=== PATIENT | female | born 1940 | race Caucasian/White ===

== ENCOUNTER 2017-05-21 09:13 | Inpatient (IN) | payer MEDICARE, BC ==
--- NOTE | 2017-05-09 21:57 | HP ---
PREOPERATIVE HISTORY AND PHYSICAL: DATE OF SURGERY: 05/21/17 ATTENDING SURGEON: Marshall Kaur MD * (DICTATED BY FERNANDO CURRAN) PROCEDURE: Left total shoulder reverse. CHIEF COMPLAINT: Left shoulder pain. HISTORY OF PRESENT ILLNESS: Lorena is a 77-year-old female who presents to the clinic for left shoulder pain. She has a history of left shoulder rotator cuff repair that she has failed. She also has severe osteoarthritis. She has failed conservative measures to include steroid injections and and has therefore agreed to undergo a left total shoulder reverse with Dr. Kaur on . PAST MEDICAL HISTORY: Sleep apnea, osteoarthritis, GERD, diabetes type 2, hypertension, neck and back problems, chronic kidney disease stage 4, and presence of a spine stimulator. PAST SURGICAL HISTORY: 1. Cholecystectomy. 2. Hysterectomy. 3. Right knee arthroscopy with medial meniscectomy. 4. Left foot ganglion. 5. Cervical diskectomy and fusion. 6. Low back lumbar instrumentation. 7. Right knee replacement. 8. Left knee replacement. 9. Arthroscopic right knee loose cartilage lesion. 10. Left hand carpal tunnel. 11. Right eye cataract. 12. Left eye cataract. 13. Right hand carpal tunnel. 14. Peroneal tendon repair right ankle. 15. Right knee replacement revision. 16. Herniated disk between C7 and T1. 17. Low back surgery. 18. Posterior fusion C4-T1. 19. Trial neurostimulator in the back. 20. Left shoulder impingement, osteoarthritis, decompression, debridement and rotator cuff repair. 21. Spine neurostimulator. 22. Left and right thumbs and left middle finger. 23. Urethral stretch. 24. Repair C4-C5. 25. Esophagoscope. 26. Barium swallow. 27. Esophagus stretch. 28. Surgery on low back. MEDICATIONS: 1. Lidoderm 5% 1 apply to the affected area, 12 hours on and 12 hours off. 2. Bacitracin 500 units/g apply one 0.25-inch strip to right eyelid 3 times a day for 1 week. 3. Labetalol 100 mg 1 and 0.5 tablets in the a.m. and p.m. 4. Lantus 18 mg a.m. and 18 units in the p.m. 5. Humalog as directed at lunch and suppertime. 6. Multivitamins 1 by mouth every day. 7. Aspirin 81 mg 1 by mouth twice a day. 8. Systane 0.4/0.3% 1 drop in each eye morning and night. 8. Triamcinolone 0.1% apply as directed for rash on legs. 9. Cortisone 10 1% apply to the area of her rash from clonidine patch. 10. Magnesium oxide 400 mg 1 by mouth twice a day. 11. Clonidine HCl 0.1 mg for 24 hours 1 to skin every week. 12. Bumetanide 1 mg 1 tab daily. 13. Fluticasone propionate 2 sprays each nostril daily. 14. Nexium 40 mg 1 by mouth twice a day. 15. Amlodipine besylate 5 mg 0.5 tab by mouth twice a day. 16. Pravastatin sodium 10 mg 1 by mouth daily. 17. Calcitriol 0.25 mcg take 1 capsule every day. ALLERGIES: MORPHINE, DILAUDID, PENICILLIN, PERCOCET, XIFAXAN, LISINOPRIL, LOSARTAN, and GABAPENTIN. FAMILY HISTORY: Positive for heart disease and cancer. SOCIAL HISTORY: The patient lives alone. She denies tobacco, alcohol use or illegal drug use. REVIEW OF SYSTEMS: A 14-point review of systems was reviewed with the patient. Positive for hypertension and GERD and current complaint. She also bruises easily, otherwise negative. She denies history of chest pain, shortness of breath, history of bleeding disorder, history of DVT or PE. PHYSICAL EXAMINATION GENERAL: Well-developed, well-nourished 77-year-old female, in no acute distress. Alert and oriented x3. Appropriate mood and affect. VITAL SIGNS: Height 60, weight 163. Pulse 73, blood pressure 145/69, temperature 97.4. BMI 31.8. HEENT: Normocephalic and atraumatic. PERRLA. Throat clear. NECK: Supple. PULMONARY: Lungs are clear to auscultation bilaterally. No wheezing, rhonchi, or rales. CARDIAC: Regular rate and rhythm. S1 and S2. No murmurs, gallops, or rubs. No edema. ABDOMEN: Positive bowel sounds, soft, nontender. NEUROLOGIC: Alert and oriented x3. Cranial nerves grossly intact. Sensation intact to light touch. MUSCULOSKELETAL: Left upper extremity - skin is intact. No warmth or erythema. Limited range of motion. Passive forward flexion to 110 degrees, abduction 45 degrees with significant pain, external rotation to 20 degrees. Pain and weakness to rotator cuff testing. +2 radial pulse. Sensation is intact to light touch distally. Well-healed surgical incision. STUDIES: Multiple-view x-rays of the left shoulder reveal severe osteoarthritis. IMPRESSION: Left shoulder rotator cuff tear and osteoarthritis. PLAN: The patient is scheduled to undergo a left total shoulder reverse with Dr. Kaur on 05/21/17. She will return to the clinic 10 to 14 days postop for followup and suture removal. Percocet will be used for postop pain management. The surgery is pending PCP clearance. She has been cleared by Cardiology. FERNANDO CURRAN [id number]/[facility] #: [id number] MTDYong
[~2017-05-21 09:13] MED LIST: Atracurium* 10 MG/ML 10 ML VIAL ONE; Buffered Lidocaine 0.9% SYRIN* 5 ML/SYR SYRINGE INTRADERM ONE; Famotidine IV* 10 MG/ML 2 ML (20 mg) IV ONE; KETAMINE HCL* 50 MG/ML 10 ML VIAL ONE; Midazolam* 1 MG/ML 5 ML VIAL (5 MG) ONE; PROCHLORPERAZINE INJ 5 MG/ML 2 ML VIAL IV PRN; Scopolamine 1.5 mg* PATCH TRANSDERM PRN; fentaNYL* 50 MCG/ML 2 ML VIAL (100 MCG VIAL) IV PRN; fentaNYL* 50 MCG/ML 2 ML VIAL (100 MCG VIAL) ONE; oxyCODONE/Acetamin 5/325 MG* TAB PO PRN
[2017-05-21] MEDS ORDERED: Clindamycin 900 MG IVPREMIX(* 900 MG/50 ML SDV IV ONE (09:53)
[2017-05-21] MEDS ORDERED: Buffered Lidocaine 0.9% SYRIN* 5 ML/SYR SYRINGE ONE (09:53)
[2017-05-21] MEDS ORDERED: Famotidine IV* 10 MG/ML 2 ML (20 mg) ONE (09:53)
[2017-05-21] MEDS ORDERED: Bupivacaine 0.25% SDV* 30 ML ONE (12:38)
[2017-05-21] MEDS ORDERED: PROCHLORPERAZINE INJ 5 MG/ML 2 ML VIAL ONE (12:38)
[2017-05-21] MEDS ORDERED: Lidocaine 2% PF * 5 ML VIAL ONE (12:38)
[2017-05-21] MEDS ORDERED: EPHEDrine (Pressors)* 50 MG/ML VIAL ONE (12:38)
[2017-05-21] MEDS ORDERED: Phenylephrine INJ* 10 MG/ML 1 ML VIAL (10 MG) ONE (12:38)
[2017-05-21] MEDS ORDERED: Propofol* 10 MG/ML 20 ML BTL IV PUSH ONE (12:38)
[2017-05-21] MEDS ORDERED: Ondansetron INJ* 2 MG/ML VIAL ONE (12:38)
[2017-05-21] MEDS ORDERED: fentaNYL* 50 MCG/ML 2 ML VIAL (100 MCG VIAL) ONE (13:13)
[2017-05-21] MEDS ORDERED: Polyethylene Glycol 3350* 17 GM PACKET PO PRN (13:37)
[2017-05-21] MEDS ORDERED: diPHENhydraMINE IV* 50 MG/ML 1 ml VIAL (BENADRYL) IV PRN (13:37)
[2017-05-21] MEDS ORDERED: Ondansetron INJ* 2 MG/ML VIAL IV PRN (13:37)
[2017-05-21] MEDS ORDERED: Bisacodyl SUPP* 10 MG SUPP PR PRN (13:37)
[2017-05-21] MEDS ORDERED: Magnesium Hydroxide LIQ* 30 ML UDC PO PRN (13:37)
[2017-05-21] MEDS ORDERED: Temazepam CAP* 15 MG PO PRN (13:37)
[2017-05-21] MEDS ORDERED: Hydrocortisone 1% CREAM* 30 GM TUBE TOPICAL PRN (13:48)
[2017-05-21] MEDS ORDERED: Triamcinolone 0.025% OINT * 15 GM TUBE TOPICAL PRN (13:48)
[2017-05-21] MEDS ORDERED: HYDROcodone/ACETAMIN 5-325 MG* 1 TAB PO PRN (13:51)
--- NOTE | 2017-05-21 14:20 | RAD ---
HISTORY: Postop COMPARISONS: CT dated May 06, 2015 VIEWS: 4, Frontal internal rotation, external rotation, outlet, and axillary views of the left shoulder FINDINGS: BONE DENSITY: Normal. BONES: The patient is status post left shoulder arthroplasty. There is no hardware failure or osteolysis. JOINTS: The patient is status post left shoulder arthroplasty ALIGNMENT: There is no dislocation. SOFT TISSUES: There is postsurgical change to the soft tissue OTHER FINDINGS: None. IMPRESSION: STATUS POST LEFT SHOULDER ARTHROPLASTY
[2017-05-21] MEDS ORDERED: Dextrose 50% Syringe 50 ML* 25 GM/50 ML SYRINGE IV PUSH PRN (16:08)
[2017-05-21] MEDS: Insulin LISPRO* 1 UNITS UNIT SUBCUT SCH (17:19)
[2017-05-21] MEDS ORDERED: Labetalol TAB* 100 MG PO SCH (21:00)
[2017-05-21] MEDS: Calcitriol CAP* 0.25 MCG PO SCH (21:12)
[2017-05-21] MEDS: Clindamycin 600 MG IVPREMIX(* 600 MG/50 ML SDV IV SCH (21:12)
[2017-05-21] MEDS: Omeprazole CAP* 20 MG PO SCH (21:12)
[2017-05-21] MEDS: CMCS Pravastatin (NF) 20 MG TAB PO SCH (21:12)
[2017-05-21] MEDS: Magnesium Oxide TAB* 400 MG PO SCH (21:12)
[2017-05-21] MEDS: Docusate CAP* 100 MG PO SCH (21:12)
[2017-05-21] MEDS: Labetalol TAB* 100 MG PO SCH (21:13)
[2017-05-21] MEDS: amLODIPine TAB* 5 MG PO SCH (21:14)
[2017-05-21] MEDS: Insulin GLARGINE(*) 1 UNITS UNIT SUBCUT SCH (22:05)
--- NOTE | 2017-05-22 00:02 | CONS ---
CC: Dr. Snell; Dr. Kaur * CONSULTATION REPORT: DATE OF ADMISSION: 05/21/17 DATE OF CONSULTATION: 05/21/17 PRIMARY CARE PROVIDER: Dr. Kristofer Snell. ATTENDING PHYSICIAN: Dr. Edu Colon (dictated by Edwina Sandoval NP). PHYSICIAN REQUESTING CONSULTATION: Dr. Marshall Kaur. REASON FOR CONSULTATION: Co-medical management in a patient with a history of sleep apnea, hypertension, diabetes mellitus type 2, and chronic kidney disease. HISTORY OF PRESENT ILLNESS: Ms. Wilkes is a 77-year-old female with past medical history significant for obstructive sleep apnea, osteoarthritis, GERD, diabetes mellitus type 2, hypertension, chronic neck and back problems, chronic kidney disease stage 4, who presents to the hospital today for an elective left reverse total shoulder replacement with Dr. Kaur. Prior to surgery today, the patient states that she has been in her usual state of health. She denies any recent fever, chills, shortness of breath, chest pain, nausea, vomiting, diarrhea, or other cold symptoms. She denies any urinary symptoms. Presently while in the PACU, the patient denies any pain or nausea. The Hospitalists were asked to assist with the co-medical management of this patient during her hospitalization. PAST MEDICAL HISTORY: 1. Obstructive sleep apnea. 2. Osteoarthritis. 3. GERD. 4. Diabetes mellitus, type 2. 5. Hypertension. 6. Chronic neck and back problems. 7. Chronic kidney disease, stage 4. PAST SURGICAL HISTORY: 1. Status post cholecystectomy in 1981. 2. Status post hysterectomy in 1983. 3. Status post right knee arthroscopy with medial meniscectomy. 4. Status post left foot ganglion cyst excision. 5. Status post cervical diskectomy and fusion in 2000. 6. Status post lower back lumbar instrumentation in 2001. 7. Status post right total knee replacement in 2003. 8. Status post left total knee replacement in 2003. 9. Status post right knee arthroscopy in 2005. 10. Status post left carpal tunnel release in 2006. 11. Status post bilateral cataract extractions in 2007. 12. Status post right hand carpal tunnel release in 2007. 13. Status post peroneal tendon repair of the right ankle in 2008. 14. Status post revision of right total knee arthroplasty in 2009. 15. Status post excision of herniated disks between C7 and T1 in 2011. 16. Status post low back surgery in 2011. 17. Status post posterior fusion of C4 to T1 in 2012. 18. Status post neurostimulator insertion in the back in 2014. 19. Status post left shoulder impingement decompression, debridement and rotator cuff repair in 2014. 20. Status post ureteral stretching in 2016. 21. Status post repair between C4 and C5 in 2015. HOME MEDICATIONS: Include: 1. Lidoderm patch 5% apply topical for 12 hours and remove for 12 hours. 2. Labetalol 150 mg oral twice daily. 3. Lantus 18 units twice daily. 4. Humalog insulin sliding scale subcutaneous with meals. For glucose 150-200 , 1 unit; 201-250, 3 units; 251-300, 5 units; 301-350, 7 units; greater than 350 , call MD. 5. Multivitamin 1 tablet oral daily. 6. Aspirin 81 mg oral twice daily. 7. Systane eye drop 0.4/0.3% one drop to each eye 3 times daily. 8. Triamcinolone 0.1% apply topical as needed to rash on legs. 9. Hydrocortisone 1% apply topical daily as needed for rash from clonidine patch. 10. Magnesium oxide 400 mg oral twice daily. 11. Clonidine 0.1 mg patch transdermal weekly. 12. Bumetanide 1 mg oral daily. 13. Fluticasone propionate 2 sprays to both nares daily. 14. Nexium 40 mg oral twice daily. 15. Amlodipine 2.5 mg oral twice daily. 16. Pravastatin 10 mg daily at bedtime. 17. Calcitriol 0.25 mcg oral daily. 18. Benadryl 25 mg oral daily at bedtime. ALLERGIES: MORPHINE, DILAUDID, PENICILLIN, PERCOCET, XIFAXAN, LISINOPRIL, LOSARTAN, GABAPENTIN. FAMILY HISTORY: The patient's sister had history of amyloidosis of the heart and maternal grandmother with history of a myocardial infarction. The patient denies any family history of diabetes mellitus. The patient's father had a history of lung cancer and leukemia. The patient's mother had a history of brain tumor. SOCIAL HISTORY: The patient denies tobacco, alcohol, or recreational drug use. She lives alone. Her daughter, Lorena Ryan, will be her surrogate decision maker in the event she is unable to make decisions for herself. REVIEW OF SYSTEMS: I performed a 14-point review of systems. All the pertinent positives and negatives are mentioned in the history of present illness. Remaining review of systems are negative. PHYSICAL EXAMINATION: Vital Signs: Temperature 97.2, heart rate 65, respiratory rate 16, O2 sat 97% on room air, blood pressure 136/59. General Appearance: The patient is alert and pleasant, appears to be in no acute distress. HEENT: Normocephalic, atraumatic. Respiratory: There is no accessory muscle use and lungs are clear to auscultation bilaterally. Cardiovascular: Regular rate and rhythm. S1 and S2 present. There are no murmurs, rubs, gallops heard. Abdomen: Soft, nontender, nondistended. Bowel sounds present x4. Extremities: There is no lower extremity edema. DP and PT pulses are 2+ and symmetric. Musculoskeletal: There is no clubbing or cyanosis noted. The patient exhibits good strength in all extremities. Neurological: The patient is alert and oriented x4. Cranial nerves II through XII are grossly intact. Psychological: The patient is calm and cooperative. Skin: There are no rashes or abnormality seen. The patient has a dressing to her left shoulder, it is clean, dry, and intact with a Hemovac draining serosanguineous drainage. DIAGNOSTIC STUDIES/LABORATORY DATA: Preoperative labs from 05/09/17, sodium 139 , potassium 4.3, chloride 104, CO2 30, BUN 60, creatinine 3.64, glucose 51. TSH 1.65. White blood cell count 6.4, hemoglobin 9.6, hematocrit 29, platelet count 175. Urine culture with no growth. Preoperative EKG shows a normal sinus rhythm with a rate of 64, no acute signs of ischemia. IMPRESSION: Ms. Wilkes is a 77-year-old female with past medical history significant for obstructive sleep apnea, osteoarthritis, gastroesophageal reflux disease, diabetes type 2, hypertension, chronic neck and back problems, chronic kidney disease stage 4, who presented to the hospital today for an elective left reverse total shoulder replacement with Dr. Kaur. Hospitalists were asked to assist with the medical co-management of this patient during her hospitalization. ASSESSMENT: 1. Osteoarthritis of the left shoulder. Status post left total shoulder reverse arthroplasty. Management will be per Orthopedic Surgery. The patient will have her hemoglobin and hematocrit trended. She will have physical therapy and occupational therapy. She will have pain management also per Orthopedic Surgery and be placed on a bowel regimen. 2. Diabetes mellitus. The patient will have glucose checks a.c. and h.s. She will be continued on her home Lantus. We will place her on a lispro sliding scale coverage. 3. Obstructive sleep apnea. The patient will be continued on her home BiPAP. 4. Gastroesophageal reflux disease. The patient will be continued on her home Nexium or autosub available here. 5. Hypertension. The patient will be continued on her home clonidine, amlodipine, bumetanide and labetalol. We will place hold parameters on the patient's labetalol. Continue her amlodipine. 6. Chronic kidney disease. The patient has stage 4 chronic kidney disease at baseline. We will check BMP in the morning and follow her creatinine. She should avoid nephrotoxic agents. 7. Fluids, electrolytes, and nutrition. The patient will be on a consistent carbohydrate diet. 8. DVT prophylaxis. Per Orthopedic Surgery, the patient will be on Lovenox. 9. Code status. Full code. 10. Disposition. Inpatient with disposition per Orthopedic Surgery. TIME SPENT: Time for this consultation was approximately 45 minutes, greater than half of that was spent with the patient discussing medications, past medical history, events leading up to her arrival today, and performing a physical examination. The case has been reviewed with the attending, Dr. Colon , who agrees with the plan of care. Reviewed by GENTRY YOUNG 05/22/17 1629 [id number]/[facility] #: [id number] NAHID
[2017-05-22] MEDS: Acetaminophen TAB* 325 MG PO PRN ×3 (02:15→12:43)
[2017-05-22] MEDS: Clindamycin 600 MG IVPREMIX(* 600 MG/50 ML SDV IV SCH ×2 (03:28→14:53)
[2017-05-22 04:43] LABS: Hematocrit 22 % (35-47); Hemoglobin 7.4 g/dl (12.0-16.0)
[2017-05-22 04:58] LABS: BUN/Creatinine Ratio 13.3 (8-20); Calcium 8.2 mg/dL (8.6-10.3); EGFR African American 13.2 (>60); EGFR Non-African American 10.3 (>60); Potassium 4.5 mmol/L (3.5-5.0)
--- NOTE | 2017-05-22 05:47 | OP ---
CC: PCP, Dr. Snell * DATE OF OPERATION: 05/21/17 - ROOM #333 DATE OF : 42 SURGEON: Marshall Kaur MD PRODUCTION DRILLING MACHINE OPERATOR: FERNANDO Moran and FERNANDO Lynch ANESTHESIOLOGIST: Dr. Rizo. ANESTHESIA: General interscalene block. PRE-OP DIAGNOSES: Left shoulder osteoarthritis, rotator cuff arthropathy. POST-OP DIAGNOSES: Left shoulder osteoarthritis, rotator cuff arthropathy. OPERATIVE PROCEDURE: Left shoulder reverse shoulder arthroplasty. COMPLICATIONS: None. ESTIMATED BLOOD LOSS: About 200 cc. IMPLANTS USED: Aequalis-Reversed II centered glenosphere 36 mm threaded baseplate 25 x 35 Ascend Aequalis flex humeral stem size 2B with a centered reverse tray and a 6 mm poly. INDICATIONS: Lorena Wilkes is a 77-year-old female who has had a history of a previous rotator cuff repair that failed. She has progressive osteoarthritis of the shoulder. She has failed conservative management including injections and physical therapy and has a significant impact in her activities of daily living. She has elected to proceed with left shoulder reverse arthroplasty. Risks and benefits of surgery were discussed at length that include but are not limited to bleeding, infection, damage to nerves, vessels, surrounding structures, wound nonhealing, persistent pain, need for further surgery, scarring, stiffness, incomplete relief of symptoms, fracture, dislocation, nonunion, loss of motion, failure of the hardware, dislocation, risk of anesthesia, and risk of DVT. She underwent preoperative medical risk assessment and optimization and is present today for surgery. DESCRIPTION OF PROCEDURE: The patient was greeted in the preoperative area by the attending surgeon. Correct extremity was marked and consent was confirmed. The patient then underwent interscalene nerve block by the anesthesiologist after which she was brought back to the operating suite where she was placed in supine position on the operating table. All bony prominences were padded. She underwent general anesthesia with endotracheal intubation after which the patient was placed in the lazy beach chair position with all bony prominences padded, secured to the bed, after which the left shoulder was prepped and draped in the usual sterile fashion, given chlorhexidine soap scrub and alcohol wipe and a final prep with ChloraPrep. After appropriate surgical pause indicating side, site, and procedure, administration of antibiotics, the deltopectoral incision was made sharply with 15 blade. The soft tissues were carefully dissected. Hemostasis was obtained at all times using electrocautery. The cephalic vein was identified as well as the deltopectoral interval. The cephalic vein was dissected and taken laterally with the deltoid. The retractors were placed. The subdeltoid adhesions were carefully removed. The clavipectoral fascia was identified and the bursa was removed. The CA ligament was then released. The lateral aspect of the biceps was carefully dissected and the subscap bursa was carefully removed. She previously had biceps tenotomy and therefore the biceps was not present. The proximal centimeter of the pec tendon was then released with electrocautery device. The groove was followed proximally to expose the subscap. There is evidence of a full thickness rotator cuff tear, which was then used as a landmark. The superior and inferior border subscaps were identified. This was then released in the subscap peel fashion. The three sisters were cauterized. Gentle external rotation was used to help facilitate release of the subscap. The subscap was then marked with a #5 Ethibond and used as a traction stitch. This revealed a moderate size osteophyte as well as severe grade 4 osteoarthritis of the humeral head. The most posterior aspect of the cuff was still intact. The supraspinatus was torn. Once the adhesions were released, the inferior neck was exposed. The shoulder was brought through the wound. Then, a provisional neck cut that was free handed and the starting awl was used to find the canal. The canal sizing guides were then placed. It was found to be about between size 2 and 3. The broaching was then begun with 20 degrees of retroversion. A size 2 broach was found to have a good metaphyseal fit. At this point, humeral head protection plate was then placed and the humerus was brought back into the wound. Attention was directed to the glenoid. Once the appropriate retractors were placed, posterior retractors, superiorly Hohmann and attention on the subscap; the superior, middle glenohumeral ligaments were visualized and released. Inferior one was also released very carefully to protect the neurovascular structures. The glenoid neck retractor was used along the anterior aspect of the glenoid and the labrum was then carefully removed. There were grade 4 changes to the glenoid with no cartilage presence. The labrum was then removed all the way from the 12 o'clock to the 5 o'clock position and the anterior labrum was then carefully removed between 5 o'clock and 7 o'clock position. Essentially this was then removed using the needle-tip Bovie with attention on the sutures to protect and make sure that there was a full release without any damage to the neurovascular structures. Once this was done, the glenoid was fully exposed. There was concentric wear. The guidepin was then placed approximately 10 mm inferior border of the glenoid. The guidepin was placed and then the 25-mm reamer was then placed over that. Gentle reaming was done to make sure that we could preserve as much bone stalk as we could. The footprint reamer was then used for the 36 mm head and this was reamed all around. All soft tissue and debris was then removed. At this point, 8 mm drill bit was then placed. The cannulated drill bit was drilled and then the 6.5 mm drill bit was passed through a very hard sclerotic bone. At this point, it was measured to be about between 30 and 35 mm in length. The 35 mm baseplate was chosen. The screw hole was then tapped and the wound was irrigated to make sure all the loose debris and tissue were removed. The final implant was then placed with excellent purchase. A superior and inferior as well as 1 anterior screw was then placed to allow for excess locking screws to support purchase of the glenoid base plate. The glenosphere was then brought into the field and gently impacted into position and secured using the set screw. Once this glenosphere portion was done, attention was directed to the humeral head. The head was brought through the wound again. The protection plate was removed and the guide arm was positioned. It still had excellent purchase. The centered trial tray was then placed as well as a size 6 mm poly. This was able to be reduced and was allowed to have forward flexion about 150, abduction at 90 , external rotation to about 45. On abduction, she was found to have lateral acromial spur that was prominent. At this point, the rasp was used to try to debride that down somewhat so that there was no impingement laterally. This was found to have good fit with good range of motion and appropriate amount of shuck and restorations of the subscap tension. The final implants were chosen. The humeral component was then removed and prepared on the back table by the attending surgeon. Three drill holes drilled with a 2-0 drill bit and were used to pass #5 Ethibond sutures for the subscap closure. Again, the humeral portion was assembled en marisel by the attending surgeon. This was then impacted in place with an excellent purchase. The shoulder was then reduced, taken through range of motion, and found to be symmetric, appropriate amount of shuck. The wound was copiously irrigated with sterile saline. The #5 Ethibond sutures were passed through the subscap in a horizontal mattress fashion. The wound was irrigated again. A drain was then placed and the wound was irrigated again. The deltopectoral interval was closed with #2 Ti-Cron sutures. The wound was irrigated one last time. The wound was closed in layers with 2-0 Vicryl and then 3-0 Monocryl. Sterile dressings were applied, a Cryo/Cuff as well as an UltraSling. She was awoken from anesthesia and transferred to PACU in stable condition. POSTOPERATIVE PLAN: She will be nonweightbearing with no active range of motion of the shoulder for 6 weeks. She will be allowed passive forward flexion , passive abduction to 90 degrees, external rotation to about 20 degrees as tolerated passively. She will be on 24 hours of postop antibiotics. DVT prophylaxis while she is in house. We will obtain a medicine consult due to her complicated medical history. I will see her back in the office in 10 to 14 days after discharge. [id number]/[facility] #: [id number] NAHID
[2017-05-22] MEDS: Lidocaine PATCH 5%* 1 PATCH TRANSDERM SCH (07:38)
[2017-05-22] MEDS: Labetalol TAB* 100 MG PO SCH ×2 (07:50→21:04)
[2017-05-22] MEDS: amLODIPine TAB* 5 MG PO SCH ×2 (07:51→21:03)
[2017-05-22] MEDS: Omeprazole CAP* 20 MG PO SCH ×3 (07:51→21:17)
[2017-05-22] MEDS: Magnesium Oxide TAB* 400 MG PO SCH ×2 (07:51→21:04)
[2017-05-22] MEDS: Fluticasone NASAL SPRAY 50MCG* 16 gm SPRAY BTL BOTH NARES SCH (07:53)
[2017-05-22] MEDS: Insulin GLARGINE(*) 1 UNITS UNIT SUBCUT SCH ×2 (08:07→21:06)
[2017-05-22] MEDS: Insulin LISPRO* 1 UNITS UNIT SUBCUT SCH ×3 (08:07→17:39)
[2017-05-22] MEDS ORDERED: Bumetanide TAB* 1 MG PO SCH (09:00)
--- NOTE | 2017-05-22 10:26 | PN ---
Progress Note - Progress Note Date of Service: 05/22/17 SOAP: Subjective: []Patient seen at bedside. She was up earlier in her chair and now felt like a nap in bed. Her shoulder pain is minimal, feels like and "ache". She denies SOB, CP or dizziness upon standing. She states her H+H runs low baseline. Objective: [] Vital Signs Temp 98.8 F 05/22/17 07:33 Pulse 71 05/22/17 07:33 Resp 20 05/22/17 07:41 BP 136/54 05/22/17 07:33 Pulse Ox 100 05/22/17 08:54 Intake & Output 05/21/17 05/22/17 05/22/17 18:59 06:59 18:59 Intake Total 1465 1100 360 Output Total 400 1052 Balance 1065 48 360 Weight 161 lb 12.8 oz Intake: IV Fluids 1050 900MG CLINDAMYCIN 50 LR 1000 Oral 415 1100 360 Output: Hemovac Amount #1 152 Urine 400 900 Other: # Bowel Movements 0 Laboratory Results - last 24 hr 05/21/17 05/21/17 05/21/17 10:06 12:35 13:47 Hgb Hct Sodium Potassium Chloride Carbon Dioxide Anion Gap BUN Creatinine Est GFR ( Amer) Est GFR (Non-Af Amer) BUN/Creatinine Ratio Glucose POC Glucose (mg/dL) 120 H 108 H 102 H Calcium 05/21/17 05/21/17 05/22/17 17:15 20:50 04:08 Hgb 7.4 L Hct 22 L Sodium Potassium Chloride Carbon Dioxide Anion Gap BUN Creatinine Est GFR ( Amer) Est GFR (Non-Af Amer) BUN/Creatinine Ratio Glucose POC Glucose (mg/dL) 109 H 199 H Calcium 05/22/17 05/22/17 04:08 07:37 Hgb Hct Sodium 133 Potassium 4.5 Chloride 100 L Carbon Dioxide 26 Anion Gap 7 BUN 56 H Creatinine 4.20 H Est GFR ( Amer) 13.2 Est GFR (Non-Af Amer) 10.3 BUN/Creatinine Ratio 13.3 Glucose 135 H POC Glucose (mg/dL) 142 H Calcium 8.2 L Left shoulder dressings, 4x4s needed to be taken down to remove her hemovac drain, removed without difficulty, tip intact. No active bleeding. Mild edema and diffuse ecchymosis left shoulder moving all digits well, no distal edema, full sensation, 2+ radial pulse Assessment: []s/p left reverse total shoulder arthroplasty POD #1 Plan: []Patient will ambulate with help as tolerated, sling LUE Home tomorrow to a friend's house Lovenox in house Follow up as scheduled 7- [address] Kaur.
[2017-05-22] MEDS ORDERED: cloNIDine 0.1 MG PATCH* 0.1 MG/24 HR 7 DAY PATCH TRANSDERM SCH (11:00)
[2017-05-22] MEDS: Enoxaparin(*) 30 MG/0.3 ML SYR SUBCUT SCH (13:43)
[2017-05-22] MEDS ORDERED: Enoxaparin(*) 30 MG/0.3 ML SYR SUBCUT SCH (14:00)
--- NOTE | 2017-05-22 15:23 | PN ---
Subjective Date of Service: 05/22/17 Interval History: Patient seen and examined at bed. Pt states that she is feeling well, but is having a lot of pain. Denies fever, chills, shortness of breath, chest discomfort, N/V/D. She reports being cold. She is also having sciatic pain and back pain, she would like to turn her spinal stimulator back on. Family History: Unchanged from Admission Social History: Unchanged from Admission Past Medical History: Unchanged from Admission Objective Active Medications: Acetaminophen (Tylenol Tab*) 650 mg PO Q4H PRN Reason: PAIN OR TEMPERATURE Hydrocodone Bitart/Acetaminophen ([place] 5-325 Tab*) 1 tab PO Q3H PRN Reason: PAIN - MODERATE Hydrocodone Bitart/Acetaminophen ([place] 5-325 Tab*) 2 tab PO Q3H PRN Reason: PAIN - MODERATE Amlodipine Besylate (Norvasc Tab*) 2.5 mg PO BID KARL Bisacodyl (Dulcolax Supp*) 10 mg [place] DAILY PRN Reason: constipation Bumetanide (Bumex Tab*) 1 mg PO QAM KARL Calcitriol (Rocaltrol Cap*) 0.25 mcg PO BEDTIME KARL Clonidine HCl (Yawbpmqp-Zfe-5 0.1 Mg Patch*) 0.1 mg TRANSDERM Tu@0900 KARL Dextrose (D50w Syringe 50 Ml*) 12.5 gm IV PUSH .FOR FS < 60 - SS PRN Reason: FS < 60 Diphenhydramine HCl (Benadryl Iv*) 25 mg IV Q6H PRN Reason: itching Docusate Sodium (Colace Cap*) 100 mg PO BEDTIME KARL Enoxaparin Sodium (Lovenox(*)) 30 mg SUBCUT Q24H KARL Fluticasone Propionate (Flonase Nasal [place] 50mcg*) 2 spray BOTH NARES DAILY KARL Hydrocortisone (Hytone Cream 1%*) 1 applic TOPICAL DAILY PRN Reason: RASH Lactated Ringer's (Lactated Ringers 1000 Ml Bag*) 1,000 mls @ 100 mls/hr IV PER RATE KARL Insulin Glargine (Lantus(*)) 18 units SUBCUT BID KARL Insulin Human Lispro (Humalog*) 0 - 10 units SUBCUT AC KARL Labetalol HCl (Trandate Tab*) 150 mg PO BID KARL Lidocaine (Lidoderm 5% Patch*) 1 patch TRANSDERM DAILY KARL Magnesium Hydroxide (Milk Of Magnesia Liq*) 30 ml PO Q6H PRN Reason: constipation Magnesium Oxide (Magox 400 Tab*) 400 mg PO BID KARL Omeprazole (Prilosec Cap*) 20 mg PO BID KARL Reason: Protocol Ondansetron HCl (Zofran Inj*) 4 mg IV Q6H PRN Reason: nausea Pharmacy Profile Note (Scopolomine Patch Remove*) 1 note PATCH OFF Q72H ONE Stop: 05/24/17 05:57 Pharmacy Profile Note (Lidocaine Patch Remove*) 1 note PATCH OFF 2100 KARL Polyethylene Glycol/Electrolytes (Miralax*) 17 gm PO DAILY PRN Reason: Constipation Pravastatin Sodium (Pravachol (Nf)) 10 mg PO BEDTIME KARL Temazepam (Restoril Cap*) 15 mg PO BEDTIME PRN Reason: INSOMNIA Triamcinolone Acetonide (Triamcinolone 0.025% Oint *) 1 applic TOPICAL DAILY PRN Reason: RASH Vital Signs 05/21/17 05/21/17 05/21/17 15:30 16:00 16:02 Temperature 97.2 F 98.0 F Pulse Rate 65 69 Respiratory 16 20 18 Rate Blood Pressure 136/59 133/58 (mmHg) O2 Sat by Pulse 97 100 Oximetry 05/21/17 05/21/17 05/21/17 16:09 16:19 17:12 Temperature 98.0 F 97.8 F Pulse Rate 69 68 Respiratory 20 17 Rate Blood Pressure 133/58 159/64 (mmHg) O2 Sat by Pulse 100 100 100 Oximetry 05/21/17 05/21/17 05/21/17 18:09 20:10 20:14 Temperature 97.9 F 98.5 F Pulse Rate 66 72 Respiratory 16 16 17 Rate Blood Pressure 139/57 187/69 (mmHg) O2 Sat by Pulse 100 100 Oximetry 05/21/17 05/21/17 05/22/17 21:57 23:27 03:52 Temperature 98.9 F 97.9 F 98.5 F Pulse Rate 74 79 70 Respiratory 19 18 18 Rate Blood Pressure 159/57 167/67 154/59 (mmHg) O2 Sat by Pulse 99 100 99 Oximetry 05/22/17 05/22/17 05/22/17 07:33 07:41 08:54 Temperature 98.8 F Pulse Rate 71 Respiratory 20 20 Rate Blood Pressure 136/54 (mmHg) O2 Sat by Pulse 100 100 100 Oximetry 05/22/17 05/22/17 11:21 14:44 Temperature 98.7 F Pulse Rate 68 Respiratory 18 16 Rate Blood Pressure 142/58 (mmHg) O2 Sat by Pulse 100 Oximetry Oxygen Devices in Use Now: None Appearance: NAD, laying in bed Ears/Nose/Mouth/Throat: Mucous Membranes Moist Respiratory: Symmetrical Chest Expansion and Respiratory Effort, Clear to Auscultation Cardiovascular: NL Sounds; No Murmurs; No JVD, RRR Abdominal: NL Sounds; No Tenderness; No Distention Extremities: No Edema Skin: No Rash or Ulcers, - - Dressing to left shoulder clean, dry and intact Neurological: Alert and Oriented x 3, NL Muscle Strength and Tone Lines/Tubes/Other Access: Clean, Dry and Intact Peripheral IV - site benign Nutrition: Taking PO's Result Diagrams: 05/22/17 04:08 05/22/17 04:08 Microbiology and Other Data: Microbiology 05/21/17 12:57 Wound Gram Stain - Final Tissue - Shoulder Left Tissue Culture - Preliminary No Growth Day 1 Assess/Plan/Problems-Billing Assessment: Ms. Wilkes is a 77 yo female with PMH significant for MARI, GERD, DM type 2, HTN, chronic neck and back problems, stage 3 CKD and osteoarthitis who presented to the hospital for an elective left reverse total shoulder replacement with Dr. Kaur on 05/21. - Patient Problems (1) Status post reverse total arthroplasty of left shoulder Code(s): Z96.612 - PRESENCE OF LEFT ARTIFICIAL SHOULDER JOINT SNOMED Code(s): 521348131 Comment: - POD #1, management per orthopedics - Continue to trend HH - Continue bowel regimen and pain control (2) DM type 2 (diabetes mellitus, type 2) Current Visit: No Status: Acute Comment: - Glucose 100-190's - Will check HgA1C - FSBG QACHS with Lispro SS AC - Continue home dose Lantus 18 units BID (3) Sleep apnea Code(s): G47.30 - SLEEP APNEA, UNSPECIFIED SNOMED Code(s): 97399518 Comment: - MARI - Continue BiPAP (4) GERD (gastroesophageal reflux disease) Code(s): K21.9 - GASTRO-ESOPHAGEAL REFLUX DISEASE WITHOUT ESOPHAGITIS SNOMED Code(s): 518768203 Comment: - Continue omeprazole (5) HTN (hypertension) Code(s): I10 - ESSENTIAL (PRIMARY) HYPERTENSION SNOMED Code(s): 33713546 Comment: - SBP 130-160's. - Continue labetalol, clonidine and amlodipine. Hold Bumex in the setting of JOSH (6) CKD (chronic kidney disease) stage 4, GFR 15-29 ml/min Code(s): N18.4 - CHRONIC KIDNEY DISEASE, STAGE 4 (SEVERE) SNOMED Code(s): 437800728 Comment: - A/C kidney injury - Creatinine elevated above baseline today - Will hold bumex - Recheck BMP in AM (7) Chronic pain Code(s): G89.29 - OTHER CHRONIC PAIN SNOMED Code(s): 22403293 Comment: - Pt may use spinal stimulator - Continue home medications (8) DVT prophylaxis Code(s): TBO5699 - SNOMED Code(s): 067949663 Comment: - Lovenox (30mg dose due to renal function) per ortho (9) Full code status Code(s): Z78.9 - OTHER SPECIFIED HEALTH STATUS SNOMED Code(s): 023333227 Status and Disposition: Inpatient. Disposition per ortho.
[2017-05-22] MEDS ORDERED: HYDROcodone/ACETAMIN 5-325 MG* 1 TAB PO ONE (16:19)
[2017-05-22] MEDS ORDERED: Lidocaine Patch REMOVE* 1 NOTE MISC PATCH OFF SCH (21:00)
[2017-05-22] MEDS: HYDROcodone/ACETAMIN 5-325 MG* 1 TAB PO PRN (21:01)
[2017-05-22] MEDS: CMCS Pravastatin (NF) 20 MG TAB PO SCH (21:02)
[2017-05-22] MEDS: Calcitriol CAP* 0.25 MCG PO SCH (21:04)
[2017-05-22] MEDS: Docusate CAP* 100 MG PO SCH (21:05)
[2017-05-23] MEDS: HYDROcodone/ACETAMIN 5-325 MG* 1 TAB PO PRN ×4 (00:01→13:47)
[2017-05-23 07:45] LABS: Hematocrit 21 % (35-47); Hemoglobin 6.9 g/dl (12.0-16.0)
[2017-05-23 07:47] LABS: Comments Flag Yes
[2017-05-23 07:57] LABS: BUN/Creatinine Ratio 13.5 (8-20); Calcium 8.5 mg/dL (8.6-10.3); EGFR African American 12.1 (>60); EGFR Non-African American 9.4 (>60); Potassium 4.6 mmol/L (3.5-5.0)
--- NOTE | 2017-05-23 08:32 | PN ---
Subjective Date of Service: 05/23/17 Interval History: Patient seen and examined at bedside. Pt states that she was "cold" overnight. Denies fever, chest discomfort, shortness of breath, N/V/D. Pt states that her pain is much better today then it was yesterday. Family History: Unchanged from Admission Social History: Unchanged from Admission Past Medical History: Unchanged from Admission Objective Active Medications: Acetaminophen (Tylenol Tab*) 650 mg PO Q4H PRN Reason: PAIN OR TEMPERATURE Hydrocodone Bitart/Acetaminophen ([place] 5-325 Tab*) 1 tab PO Q3H PRN Reason: PAIN - MODERATE Hydrocodone Bitart/Acetaminophen ([place] 5-325 Tab*) 2 tab PO Q3H PRN Reason: PAIN - MODERATE Amlodipine Besylate (Norvasc Tab*) 2.5 mg PO BID KARL Bisacodyl (Dulcolax Supp*) 10 mg [place] DAILY PRN Reason: constipation Calcitriol (Rocaltrol Cap*) 0.25 mcg PO BEDTIME KARL Clonidine HCl ([place]-Tfn-9 0.1 Mg Patch*) 0.1 mg TRANSDERM Tu@0900 KARL Dextrose (D50w Syringe 50 Ml*) 12.5 gm IV PUSH .FOR FS < 60 - SS PRN Reason: FS < 60 Diphenhydramine HCl (Benadryl Iv*) 25 mg IV Q6H PRN Reason: itching Docusate Sodium (Colace Cap*) 100 mg PO BEDTIME KARL Enoxaparin Sodium (Lovenox(*)) 30 mg SUBCUT Q24H KARL Fluticasone Propionate (Flonase Nasal [place] 50mcg*) 2 spray BOTH NARES DAILY KARL Hydrocortisone (Hytone Cream 1%*) 1 applic TOPICAL DAILY PRN Reason: RASH Lactated Ringer's (Lactated Ringers 1000 Ml Bag*) 1,000 mls @ 100 mls/hr IV PER RATE KARL Insulin Glargine (Lantus(*)) 18 units SUBCUT BID KARL Insulin Human Lispro (Humalog*) 0 - 10 units SUBCUT AC KARL Labetalol HCl (Trandate Tab*) 150 mg PO BID KARL Lidocaine (Lidoderm 5% Patch*) 1 patch TRANSDERM DAILY KARL Magnesium Hydroxide (Milk Of Magnesia Liq*) 30 ml PO Q6H PRN Reason: constipation Magnesium Oxide (Magox 400 Tab*) 400 mg PO BID KARL Omeprazole (Prilosec Cap*) 20 mg PO BID KARL Ondansetron HCl (Zofran Inj*) 4 mg IV Q6H PRN Reason: nausea Pharmacy Profile Note (Scopolomine Patch Remove*) 1 note PATCH OFF Q72H ONE Stop: 05/24/17 05:57 Pharmacy Profile Note (Lidocaine Patch Remove*) 1 note PATCH OFF 2100 KARL Polyethylene Glycol/Electrolytes (Miralax*) 17 gm PO DAILY PRN Reason: Constipation Pravastatin Sodium (Pravachol (Nf)) 10 mg PO BEDTIME KARL Temazepam (Restoril Cap*) 15 mg PO BEDTIME PRN Reason: INSOMNIA Triamcinolone Acetonide (Triamcinolone 0.025% Oint *) 1 applic TOPICAL DAILY PRN Reason: RASH Vital Signs 05/22/17 05/22/17 05/22/17 08:54 11:21 14:44 Temperature 98.7 F Pulse Rate 68 Respiratory 18 16 Rate Blood Pressure 142/58 (mmHg) O2 Sat by Pulse 100 100 Oximetry 05/22/17 05/22/17 05/22/17 15:42 16:23 16:44 Temperature 99.3 F Pulse Rate 87 Respiratory 16 16 16 Rate Blood Pressure 156/62 (mmHg) O2 Sat by Pulse 100 Oximetry 05/22/17 05/22/17 05/22/17 18:19 19:48 19:50 Temperature 99.1 F Pulse Rate 77 Respiratory 16 17 17 Rate Blood Pressure 156/59 (mmHg) O2 Sat by Pulse 99 Oximetry 05/23/17 05/23/17 05/23/17 00:03 02:01 03:27 Temperature 98.3 F Pulse Rate 78 Respiratory 18 16 17 Rate Blood Pressure 176/55 (mmHg) O2 Sat by Pulse 100 Oximetry 05/23/17 05/23/17 05/23/17 03:28 04:03 05:27 Temperature 98.2 F Pulse Rate 93 75 Respiratory 17 16 Rate Blood Pressure 172/63 152/56 (mmHg) O2 Sat by Pulse 93 Oximetry 05/23/17 05/23/17 07:29 07:39 Temperature 98.4 F Pulse Rate 87 Respiratory 17 17 Rate Blood Pressure 154/56 (mmHg) O2 Sat by Pulse 97 97 Oximetry Oxygen Devices in Use Now: None Appearance: NAD, sitting up in a chair Ears/Nose/Mouth/Throat: Mucous Membranes Moist Respiratory: Symmetrical Chest Expansion and Respiratory Effort, Clear to Auscultation Cardiovascular: NL Sounds; No Murmurs; No JVD, RRR Abdominal: NL Sounds; No Tenderness; No Distention Extremities: No Edema Skin: No Rash or Ulcers, - - Dressing to left should clean, dry and intact Neurological: Alert and Oriented x 3, NL Muscle Strength and Tone Lines/Tubes/Other Access: Clean, Dry and Intact Peripheral IV - site benign Nutrition: Taking PO's Result Diagrams: 05/23/17 07:03 05/23/17 07:02 Microbiology and Other Data: Microbiology 05/21/17 12:57 Wound Gram Stain - Final Tissue - Shoulder Left Tissue Culture - Preliminary No Growth Day 1 Assess/Plan/Problems-Billing Assessment: Ms. Wilkes is a 77 yo female with PMH significant for MARI, GERD, DM type 2, HTN, chronic neck and back problems, stage 3 CKD and osteoarthitis who presented to the hospital for an elective left reverse total shoulder replacement with Dr. Kaur on 05/21. - Patient Problems (1) Status post reverse total arthroplasty of left shoulder Code(s): Z96.612 - PRESENCE OF LEFT ARTIFICIAL SHOULDER JOINT SNOMED Code(s): 416649252 Comment: - POD #2, management per orthopedics - HH down today, 7.4 yesterday and 6.9 this AM - Continue bowel regimen and pain control (2) DM type 2 (diabetes mellitus, type 2) Current Visit: No Status: Acute Comment: - Glucose 160-220's - HgA1C 6.9 - FSBG QACHS with Lispro SS AC - Continue home dose Lantus 18 units BID (3) Sleep apnea Code(s): G47.30 - SLEEP APNEA, UNSPECIFIED SNOMED Code(s): 38672077 Comment: - MARI - Continue BiPAP (4) GERD (gastroesophageal reflux disease) Code(s): K21.9 - GASTRO-ESOPHAGEAL REFLUX DISEASE WITHOUT ESOPHAGITIS SNOMED Code(s): 584038868 Comment: - Continue omeprazole (5) HTN (hypertension) Code(s): I10 - ESSENTIAL (PRIMARY) HYPERTENSION SNOMED Code(s): 83200932 Comment: - SBP 140-170's. - Continue labetalol, clonidine and amlodipine. Hold Bumex in the setting of JOSH (6) CKD (chronic kidney disease) stage 4, GFR 15-29 ml/min Code(s): N18.4 - CHRONIC KIDNEY DISEASE, STAGE 4 (SEVERE) SNOMED Code(s): 441613632 Comment: - A/C kidney injury - Creatinine continues to be elevated above baseline today - Will hold bumex, unless Pt become symptomatic for fluid overload - Pt will see Dr. Barksdale on FridayMay 28, with repeat labs prior to the appointment (7) Chronic pain Code(s): G89.29 - OTHER CHRONIC PAIN SNOMED Code(s): 94463342 Comment: - Pt may use spinal stimulator - Continue home medications (8) DVT prophylaxis Code(s): JVR8472 - SNOMED Code(s): 307782685 Comment: - Lovenox (30mg dose due to renal function) per ortho (9) Full code status Code(s): Z78.9 - OTHER SPECIFIED HEALTH STATUS SNOMED Code(s): 721332400 Status and Disposition: Inpatient. Disposition per ortho.
[2017-05-23] MEDS: Labetalol TAB* 100 MG PO SCH (08:49)
[2017-05-23] MEDS: Omeprazole CAP* 20 MG PO SCH (08:50)
[2017-05-23] MEDS: amLODIPine TAB* 5 MG PO SCH (08:50)
[2017-05-23] MEDS: Insulin LISPRO* 1 UNITS UNIT SUBCUT SCH ×2 (08:51→12:41)
[2017-05-23] MEDS: Magnesium Oxide TAB* 400 MG PO SCH (08:51)
[2017-05-23] MEDS: Insulin GLARGINE(*) 1 UNITS UNIT SUBCUT SCH (08:52)
[2017-05-23] MEDS: Fluticasone NASAL SPRAY 50MCG* 16 gm SPRAY BTL BOTH NARES SCH (08:53)
[2017-05-23] MEDS: Lidocaine PATCH 5%* 1 PATCH TRANSDERM SCH (08:53)
--- NOTE | 2017-05-23 09:29 | PN ---
Progress Note - Progress Note Date of Service: 05/23/17 SOAP: Subjective: 77 y/o female s/p left reverse total shoulder arthroplasty POD #2. Patient states pain increased yesterday, however was controlled with PO pain meds. Feeling well now, eager for D/C home. H&H mild decrease overnight, pt denies symptoms. VSS, afebrile Objective: General- Well appearing, NAD, AO, sitting comfortably in bed MSK- Surgical dressing intact over L shoulder, no drainage noted on gauze. Drain removed 05/22. L fingers warm, pink, 5/5 imaging engineer L side, full ROM, strength 1st digit. rad/ ulnar pulses L 2+, sensation to light touch grossly intact Laboratory Results - last 24 hr 05/22/17 05/22/17 05/22/17 04:08 11:28 16:25 Hgb Hct Sodium Potassium Chloride Carbon Dioxide Anion Gap BUN Creatinine Est GFR ( Amer) Est GFR (Non-Af Amer) BUN/Creatinine Ratio Glucose POC Glucose (mg/dL) 181 H 228 H Hemoglobin A1c 6.9 H Calcium 05/22/17 05/23/17 05/23/17 21:10 07:02 07:03 Hgb 6.9 L Hct 21 L Sodium 130 L Potassium 4.6 Chloride 99 L Carbon Dioxide 24 Anion Gap 7 BUN 61 H Creatinine 4.53 H Est GFR ( Amer) 12.1 Est GFR (Non-Af Amer) 9.4 BUN/Creatinine Ratio 13.5 Glucose 165 H POC Glucose (mg/dL) 189 H Hemoglobin A1c Calcium 8.5 L Vital Signs Temp 98.4 F 05/23/17 07:29 Pulse 87 05/23/17 07:29 Resp 16 05/23/17 08:58 BP 154/56 05/23/17 07:29 Pulse Ox 97 05/23/17 07:39 Intake & Output 05/22/17 05/23/17 05/23/17 18:59 06:59 18:59 Intake Total 1880 1020 Output Total 300 950 Balance 1580 70 Intake: Oral 1880 1020 Output: Urine 300 950 Assessment: 77 y/o female s/p left reverse total shoulder arthroplasty POD #2. Plan: - D/C to home today likely - Increase in creatinine from baseline, Pt follows w / [facility]- D/C pending recommendations. - PT as shown in house. - F/U with Dr. Kaur within 7-10 days, appt made. - Continue current pain regimen Active Medications Generic Name Dose Route Start Last Admin Trade Name Freq PRN Reason Stop Dose Admin Acetaminophen 650 mg 05/21/17 13:37 05/22/17 12:43 Tylenol Tab* PO 650 mg Q4H PRN Administration PAIN OR TEMPERATURE Hydrocodone Bitart/Acetaminophen 1 tab 05/21/17 13:51 05/22/17 14:44 [place] 5-325 Tab* PO 1 tab Q3H PRN Administration PAIN - MODERATE Hydrocodone Bitart/Acetaminophen 2 tab 05/21/17 13:51 05/23/17 08:58 [place] 5-325 Tab* PO 2 tab Q3H PRN Administration PAIN - MODERATE Amlodipine Besylate 2.5 mg 05/21/17 21:00 05/23/17 08:50 Norvasc Tab* PO 2.5 mg BID KARL Administration Bisacodyl 10 mg 05/21/17 13:37 Dulcolax Supp* [place] DAILY PRN constipation Calcitriol 0.25 mcg 05/21/17 21:00 05/22/17 21:04 Rocaltrol Cap* PO 0.25 mcg BEDTIME KARL Administration Clonidine HCl 0.1 mg 05/22/17 11:00 05/22/17 11:39 Ltkttetp-Mcn-1 0.1 Mg Patch* TRANSDERM 1 patch Tu@0900 KARL Administration Dextrose 12.5 gm 05/21/17 16:08 D50w Syringe 50 Ml* IV PUSH .FOR FS < 60 - SS PRN FS < 60 Diphenhydramine HCl 25 mg 05/21/17 13:37 Benadryl Iv* IV Q6H PRN itching Docusate Sodium 100 mg 05/21/17 21:00 05/22/17 21:05 Colace Cap* PO 100 mg BEDTIME KARL Administration Enoxaparin Sodium 30 mg 05/22/17 14:00 05/22/17 13:43 Lovenox(*) SUBCUT 30 mg Q24H KARL Administration Fluticasone Propionate 2 spray 05/22/17 09:00 05/23/17 08:53 Flonase Nasal [place] 50mcg* BOTH NARES 2 spray DAILY KARL Administration Hydrocortisone 1 applic 05/21/17 13:48 Hytone Cream 1%* TOPICAL DAILY PRN RASH Lactated Ringer's 1,000 mls @ 100 mls/hr 05/21/17 14:00 05/21/17 16:15 Lactated Ringers 1000 Ml Bag* IV 100 mls/hr PER RATE KARL Administration Insulin Glargine 18 units 05/21/17 21:00 05/23/17 08:52 Lantus(*) SUBCUT 18 units BID KARL Administration Insulin Human Lispro 0 - 10 units 05/21/17 16:30 05/23/17 08:51 Humalog* SUBCUT 2 units AC KARL Administration Protocol Labetalol HCl 150 mg 05/21/17 21:00 05/23/17 08:49 Trandate Tab* PO 150 mg BID KARL Administration Lidocaine 1 patch 05/22/17 09:00 05/23/17 08:53 Lidoderm 5% Patch* TRANSDERM 1 patch DAILY KARL Administration Magnesium Hydroxide 30 ml 05/21/17 13:37 Milk Of Magnesia Liq* PO Q6H PRN constipation Magnesium Oxide 400 mg 05/21/17 21:00 05/23/17 08:51 Magox 400 Tab* PO 400 mg BID KARL Administration Omeprazole 20 mg 05/21/17 21:00 05/23/17 08:50 Prilosec Cap* PO 20 mg BID KARL Administration Protocol Ondansetron HCl 4 mg 05/21/17 13:37 Zofran Inj* IV Q6H PRN nausea Pharmacy Profile Note 1 note 05/24/17 05:56 Scopolomine Patch Remove* PATCH OFF 05/24/17 05:57 Q72H ONE Pharmacy Profile Note 1 note 05/22/17 21:00 05/22/17 21:05 Lidocaine Patch Remove* PATCH OFF 1 note 2100 KARL Administration Polyethylene Glycol/Electrolytes 17 gm 05/21/17 13:37 Miralax* PO DAILY PRN Constipation Pravastatin Sodium 10 mg 05/21/17 21:00 05/22/17 21:02 Pravachol (Nf) PO 10 mg BEDTIME KARL Administration Temazepam 15 mg 05/21/17 13:37 Restoril Cap* PO BEDTIME PRN INSOMNIA Triamcinolone Acetonide 1 applic 05/21/17 13:48 Triamcinolone 0.025% Oint * TOPICAL DAILY PRN RASH
--- NOTE | 2017-05-23 11:43 | PN ---
Progress Note - Progress Note Date of Service: 05/23/17 Note: POD#2 from L shoulder reverse doing well. sling in place. drain d/c'd yesterday. denies numbness/tingling. pain yesterday and overnight Temp Pulse Resp BP Pulse Ox 98.4 F 87 16 154/56 97 05/23/17 07:29 05/23/17 07:29 05/23/17 10:57 05/23/17 07:29 05/23/17 07:39 NAD. AAOx3. left shoulder dressing in place. able to flex/ext, wrist, hand, fingers. SILT 1st dws, index and long finger, ulnar aspect small finger. 2+ radial pulse. A/P POD#2 doing well pain controlled passive ROM only no active ROM. sling for 6 weeks dispo when stable.
[2017-05-23 11:48] VITALS: BP 168/71
[2017-05-23] MEDS: Enoxaparin(*) 30 MG/0.3 ML SYR SUBCUT SCH (13:47)
--- NOTE | 2017-05-24 02:59 | DS ---
DISCHARGE SUMMARY: DATE OF ADMISSION: 05/21/17 DATE OF DISCHARGE: 05/23/17 ATTENDING PHYSICIAN: Dr. Kaur * (DICTATED BY FERNANDO MARINELLI) CHIEF COMPLAINT: 1. Left shoulder pain. 2. Sleep apnea. 3. Osteoarthritis. 4. GERD. 5. Diabetes, type 2. 6. Hypertension. 7. Neck/back problems. 8. Chronic kidney disease, stage 4. 9. Spine stimulator. DISCHARGE DIAGNOSES: 1. Status post uncomplicated left total shoulder reverse. 2. Sleep apnea. 3. Osteoarthritis. 4. Gastroesophageal reflux disease. 5. Diabetes, type 2. 6. Hypertension. 7. Neck and back problems. 8. Chronic kidney disease, stage 4. 9. Spine stimulator. PROCEDURE: Left total shoulder reverse. BRIEF HISTORY: Ms. Wilkes is a very pleasant 77-year-old female with a longstanding history of left shoulder pain, who failed conservative treatment and elected to undergo a left total shoulder reverse with Dr. Kaur on . HOSPITAL COURSE: The patient was admitted to [facility] on 05/21/17 , where she underwent a left reverse shoulder arthroplasty by Dr. Kaur, which was uncomplicated with general interscalene block. Postoperatively, she recovered on the surgical short-stay unit and her pain was managed with p.o. [place] adequately. She advanced to a diabetic diet without difficulty and was restarted on her home medications. She was noted to have an elevated creatinine , for which her Bumex was held. This was discussed with Dr. Barksdale and he will follow up with the patient as an outpatient within 5 days. The patient's H and H remained stable. Her DVT prophylaxis was managed with Lovenox in-house. By postoperative day 2, she is orthopedically and medically stable for discharge to go home with home services. PHYSICAL EXAMINATION: The patient is alert and oriented, in no acute distress, resting in bed comfortably. Vital Signs: On date of discharge include temp of 98.4, pulse of 87, respirations 16, blood pressure 154/56, and pulse ox of 97%. Evaluation of left upper extremity demonstrates surgical dressing intact with no drainage noted. Full air traffic controller strength on left upper extremity. Cap refill, left upper extremity, less than 2 seconds. Full range of motion of all fingers. Sensation grossly intact to light touch. Radial and ulnar pulses 2+. DIAGNOSTIC STUDIES/LAB DATA: On date of discharge: H and H of 6.9 and 21 with an elevated creatinine of 4.53 and BUN of . Radiographs: Postoperative film taken 05/21/17 demonstrates a left shoulder arthroplasty. DISCHARGE MEDICATIONS: 1. Tylenol 650 mg q.4 hours p.r.n. not to exceed 4000 mg daily. 2. Rocaltrol 0.25 mcg p.o. bedtime. 3. Colace 100 mg p.o. bedtime. 4. Flonase nasal spray, 2 sprays both nares daily. 5. [place] 5/325 mg 1 to 2 tablets as needed for pain every 4 to 6 hours. 6. Hydrocortisone cream 1 application topically daily. 7. Insulin 18 units subcu b.i.d. 8. Labetalol 150 mg p.o. b.i.d. 9. Lidocaine patch, 1 patch transdermal daily, 12 hours on and 12 hours off. 10. Magnesium oxide 400 mg p.o. b.i.d. 11. Nexium 40 mg p.o. b.i.d. 12. Pravastatin 10 mg p.o. q.h.s. 13. Kenalog 1 application as needed p.r.n. 14. Amlodipine 2.5 mg p.o. b.i.d. 15. Clonidine patch, 1 patch transdermally for 24 hours to skin weekly. 16. Aspirin 81 mg 1 tablet b.i.d. 17. Bumex 1 to 2 tablets p.o. q.a.m. as directed. 18. Daily multivitamin 1 tablet p.o. 19. Systane 1 drop both eyes b.i.d. 20. Humalog one as directed at lunch time and supper time. CONDITION ON DISCHARGE: Stable. DISCHARGE INSTRUCTIONS: Ms. Wilkes is a very pleasant 77-year-old female, postoperative day 2, status post left reverse shoulder arthroplasty, which is uncomplicated. She is orthopedically and medically stable for discharge to go home with home services. Her labs and vital signs are stable. She will restart her home medications as directed. She was educated on being nonweightbearing on the left upper extremity and understood her physical therapy and limited range of motion. She will take Colace up to 3 times a day as needed for constipation and will take [place] as needed for pain. She will follow up with Dr. Kaur in approximately 10 to 12 days for incision check and suture removal and she is instructed to go immediately to the ER should she develop chest pain or shortness of breath and to call the office with any questions or should she develop fever, increasing pain, or redness. She will follow up with Dr. Barksdale on Friday or Friday for renal function check as well as a repeat H and H. FERNANDO MARINELLI [id number]/[facility] #: [id number] NAHID
[2017-05-24] MEDS ORDERED: Scopolomine PATCH Remove* 1 NOTE MISC PATCH OFF ONE (05:56)
[2017-05-27] MEDS ORDERED: cloNIDine 0.1 MG PATCH* 0.1 MG/24 HR 7 DAY PATCH TRANSDERM SCH (09:00)
== END 2017-05-23 16:30 | disposition home health service (06) | DRG 483 ==
LOC: AA 09:13 → SSU 13:37
PROVIDERS: ADMIT Orthopaedic Surgery; ATTEND Internal Medicine
PROC: 0RRK00Z Replacement of Left Shoulder Joint with Reverse Ball and Socket Synthetic Substitute, Open Approach (ICD-10-PCS; principal; 2017-05-21 10:45)
DX: M19.012 Primary osteoarthritis, left shoulder (principal); N18.4 Chronic kidney disease, stage 4 (severe); N17.9 Acute kidney failure, unspecified; E11.22 Type 2 diabetes mellitus with diabetic chronic kidney disease; K21.9 Gastro-esophageal reflux disease without esophagitis; I12.9 Hypertensive chronic kidney disease with stage 1 through stage 4 chronic kidney disease, or unspecified chronic kidney disease; Z96.89 Presence of other specified functional implants; Z96.653 Presence of artificial knee joint, bilateral; M75.102 Unspecified rotator cuff tear or rupture of left shoulder, not specified as traumatic; E66.9 Obesity, unspecified; M54.30 Sciatica, unspecified side; M54.9 Dorsalgia, unspecified; G47.33 Obstructive sleep apnea (adult) (pediatric); G89.29 Other chronic pain; Z98.1 Arthrodesis status; Z98.42 Cataract extraction status, left eye; Z90.710 Acquired absence of both cervix and uterus; Z90.49 Acquired absence of other specified parts of digestive tract; Z98.41 Cataract extraction status, right eye; Z68.31 Body mass index [BMI] 31.0-31.9, adult; Z88.6 Allergy status to analgesic agent; Z88.0 Allergy status to penicillin; Z88.5 Allergy status to narcotic agent; Z88.8 Allergy status to other drugs, medicaments and biological substances; Z82.49 Family history of ischemic heart disease and other diseases of the circulatory system; Z80.9 Family history of malignant neoplasm, unspecified; Z79.4 Long term (current) use of insulin; Z79.82 Long term (current) use of aspirin
CPT/HCPCS: 36415; 80048; 83036; 85014; 85018; 87070; 87205; 94760; A9270-GY; C1713; C1776; J0780; J1650; J2250; J2405; J2704; J3010

== ENCOUNTER 2017-06-05 12:26 | Emergency (ER) | payer MEDICARE, OTHER ==
[2017-06-05] MEDS ORDERED: NS 0.9% 1000 ML* 1,000 ML IV ONE (15:39)
--- NOTE | 2017-06-05 16:06 | RAD ---
INDICATION: Altered mental status. Pneumonia. COMPARISON: April 28, 2016 TECHNIQUE: PA and lateral dual-energy views were obtained. FINDINGS: Bones/Soft Tissues: There are no acute bony findings. There is prior cervical fusion. There are clips in gallbladder fossa. There is lumbar fusion. There is a dorsal column stimulator. These postsurgical findings are unchanged Cardiomediastinal: The cardiomediastinal silhouette is normal. Lungs: There are no infiltrates. Pleura: There are no pleural effusions. Other: None IMPRESSION: NO ACTIVE DISEASE.
--- NOTE | 2017-06-05 16:16 | RAD ---
INDICATION: Slurred speech COMPARISON: April 28, 2016 TECHNIQUE: Noncontrast axial source images were acquired from the skull base to the vertex. FINDINGS: Ventricles/sulci: There is age-related cortical atrophy with compensatory dilatation of the CSF spaces. Brain parenchyma: There is no focal parenchymal finding, evidence of intracranial mass, or intracranial mass effect. Intracranial hemorrhage:None. Extra-axial spaces: There are no abnormal extra axial fluid collections or evidence of extra-axial mass. Calvarium: There is no calvarial fracture or other calvarial abnormality. Scalp: There is no evidence of scalp or extracalvarial soft tissue abnormality. Paranasal sinuses/mastoid: The paranasal sinuses and mastoid air cells are clear. Other: None. IMPRESSION: Age-related cortical atrophy. No acute findings
[2017-06-05 16:50] LABS: Hematocrit 23 % (35-47); Hemoglobin 7.6 g/dl (12.0-16.0); Mean Corpuscular HGB Conc 34 g/dl (31-36); Mean Corpuscular Hemoglobin 31 pg (27-31); Mean Corpuscular Volume 91 fL (80-97); Mean Platelet Volume 8 um3 (7.4-10.4); Red Blood Count 2.49 10^6/ul (4.0-5.4); Red Cell Distribution Width 14 % (10.5-15)
[2017-06-05 17:10] LABS: Troponin I 0.01 ng/mL (<0.04)
[2017-06-05 17:12] LABS: ALT 21 U/L (7-52); Albumin 3.2 g/dL (3.2-5.2); Alkaline Phosphatase 71 U/L (34-104); BUN/Creatinine Ratio 13.4 (8-20); Blood Urea Nitrogen 56 mg/dL (6-24); CO2 Carbon Dioxide 22 mmol/L (22-32); Calcium 8.9 mg/dL (8.6-10.3); Chloride 111 mmol/L (101-111); Creatine Kinase 194 U/L (10-223); EGFR African American 13.3 (>60); EGFR Non-African American 10.4 (>60); Glucose 170 mg/dL (70-100); Phosphorus 4.1 mg/dL (2.5-5.0); Sodium 141 mmol/L (133-145); Total Protein 6.2 g/dL (6.4-8.9); Uric Acid 7.6 mg/dL (2.3-6.6)
[2017-06-05 17:16] LABS: Anion Gap 8 mmol/L (2-11)
[2017-06-05 17:38] LABS: TSH (Thyroid Stimulating Horm) 0.87 mcIU/mL (0.34-5.60)
--- NOTE | 2017-06-05 18:58 | ED ---
Darleen Melgoza SooYoung, scribed for Dell Mancilla MD on 06/05/17 at 1529 . HPI Diabetic - HPI Summary HPI Summary: A 77 y/o F presents to ED with c/o elevated glucose onset this AM. She states her glucose was 226. Associated sx: nausea, generalized weakness, confusion, mildly slurred speech. Denies SOB, CP, fever, chills, pedal edema, urinary sx, head trauma, cough. She takes 18 units of insulin in AM and in PM. She thinks she forgot to take it last night. Pt went to [place] yesterday for spinal surgery follow-up, was tired when she got home. Daily aspirin. Dr. Snell is her PCP since Dr. Lara retired. Saw Dr. Barksdale, barrel plater two days ago. - History Of Current Complaint Chief Complaint: EDWeakness Time Seen by Provider: 06/05/17 15:01 Hx Obtained From: Patient, Family/School Childcare Attendant - neighbor present Onset/Duration: Lasting Hours Timing: Constant Severity Initially: Moderate Severity Currently: Moderate Character: Confused Aggravating: Non-compliant - believes she forgot to take her insulin last night Associated Signs & Symptoms: Nausea - Allergies/Home Medications Allergies/Adverse Reactions: Allergies Allergy/AdvReac Type Severity Reaction Status Date / Time Penicillins Allergy Severe Anaphylatic Verified 06/05/17 12:56 Shock Codeine Allergy Intermediate Hives Verified 06/05/17 12:56 Atorvastatin [From Lipitor] Allergy Muscle Verified 06/05/17 12:56 Ache & Cramping Edetic Acid [From Xifaxan] Allergy Hives Verified 06/05/17 12:56 Hydromorphone [From Dilaudid] Allergy Hives Verified 06/05/17 12:56 Losartan Allergy Swelling Verified 06/05/17 12:56 Of Face,Lips,& Throat Metoclopramide [From Reglan] Allergy Insomnia Verified 06/05/17 12:56 Rifaximin [From Xifaxan] Allergy Hives Verified 06/05/17 12:56 Sulindac [From Clinoril] Allergy Rash Verified 06/05/17 12:56 Morphine AdvReac Intermediate Hives Verified 06/05/17 12:56 Gabapentin AdvReac Sedation Verified 06/05/17 12:56 Lisinopril AdvReac Coughing Verified 06/05/17 12:56 Home Medications: Home Medications Bumetanide TAB* [Bumex 1 MG TAB*] 1 mg PO DAILY 06/05/17 [History Confirmed ] Insulin LISPRO* [HumaLOG*] 1 - 7 units SUBCUT TID AC 06/05/17 [History Confirmed 06/05/17] diPHENhydraMINE PO* [Benadryl PO 25 MG TAB*] 25 mg PO BEDTIME 06/05/17 [History Confirmed 06/05/17] PMH/Surg Hx/FS Hx/Imm Hx Previously Healthy: No Endocrine/Hematology History: Reports: Hx Diabetes, Hx Anemia - HX OF Cardiovascular History: Reports: Hx Hypercholesterolemia, Hx Hypertension Denies: Hx Pacemaker/ICD Respiratory History: Reports: Hx Sleep Apnea - current CPAP user. Denies: Other Respiratory Problems/Disorders GI History: Reports: Hx Gastroesophageal Reflux Disease, Hx Hiatal Hernia - ON MEDICATION FOR History: Reports: Hx Chronic Renal Failure, Other Problems/Disorders - "KIDNEY FUNCTIONS ARE DOWN" Musculoskeletal History: Reports: Hx Arthritis, Hx Back Problems, Hx Bursitis - LEFT SHOULDER, Hx Tendonitis - ARMS AND HANDS, Other Musculoskeletal History - DDD Sensory History: Reports: Hx Cataracts, Hx Contacts or Glasses Denies: Hx Hearing Aid Opthamlomology History: Reports: Hx Cataracts, Hx Contacts or Glasses Psychiatric History: Denies: Hx Panic Disorder - Cancer History Hx Chemotherapy: No Hx Radiation Therapy: No - Surgical History Surgery Procedure, Year, and Place: C-SPINE X2, LUMBAR X2, BILAT TKAs, CHOLECYSTECTOMY, HYSTERECTOMY, BILAT CTR, 2007- right hand carpal tunnel. aug 25 2013- posterior fusion C4-T1 Hx Anesthesia Reactions: No - Immunization History Date of Tetanus Vaccine: Unk Date of Influenza Vaccine: Fall 2014 Infectious Disease History: No Infectious Disease History: Denies: Traveled Outside the [place] in Last 30 Days - Family History Known Family History: Positive: Other - pos: Breast CA Family History: Breast Cancer - Social History Occupation: Retired Lives: Alone Alcohol Use: None Hx Substance Use: No Substance Use Type: Reports: None Hx Tobacco Use: No Smoking Status (MU): Never Smoked Tobacco Review of Systems Negative: Fever, Chills Negative: Chest Pain Negative: Shortness Of Breath, Cough Positive: Nausea Negative: dysuria, frequency, hematuria, incontinence Negative: Edema, Other Neurological: Other - pos: confusion Positive: Weakness, Slurred Speech All Other Systems Reviewed And Are Negative: Yes Physical Exam - Summary Physical Exam Summary: The patient is well-nourished in no acute distress and in no acute pain. The skin is warm and dry and skin color reflects adequate perfusion. HEENT: The head is normocephalic and atraumatic. The pupils are equal and reactive. The conjunctivae are clear and without drainage. Nares are patent and without drainage. Mouth reveals dry oral mucous membranes and the throat is without erythema and exudate. The external ears are intact. The ear canals are patent and without drainage. The tympanic membranes are intact. Neck is supple with full range of motion and non-tender. There are no carotid bruits. There is no neck vein distension. Respiratory: Chest is non-tender. Lungs are clear to auscultation and breath sounds are symmetrical and equal. Cardiovascular: Hear is regular rate and rhythm. There is no murmur or rub auscultated. There is no peripheral edema and pulses are symmetrical and equal. Abdomen: The abdomen is soft and non-tender. There are normal bowel sounds heard in all four quadrants and there is no organomegaly palpated. Musculoskeletal: There is no back pain noted. Hips are non-tender. L hand is in a sling, exam of LUE limited. Extremities are non-tender with full range of motion. There is good capillary refill. There is no peripheral edema or calf tenderness elicited. Negative straight leg raise. Neurological: Patient is alert and oriented to person, place and time. The patient has symmetrical motor strength in all four extremities. No weakness in LE. No facial droop. Cranial nerves are grossly intact. Deep tendon reflexes are symmetrical and equal in all four extremities. Psychiatric: The patient has an appropriate affect and does not exhibit any anxiety or depression. Triage Information Reviewed: Yes Vital Signs On Initial Exam: Initial Vitals Temp Pulse Resp BP Pulse Ox 98.2 F 88 18 146/82 100 06/05/17 12:35 06/05/17 12:35 06/05/17 12:35 06/05/17 12:35 06/05/17 12:35 Vital Signs Reviewed: Yes - Haley Coma Scale Coma Scale Total: 15 Diagnostics - Vital Signs Vital Signs Temp Pulse Resp BP Pulse Ox 06/05/17 14:48 98.5 F 76 18 165/90 100 06/05/17 12:35 98.2 F 88 18 146/82 100 - Laboratory Lab Results: Lab Results 06/05/17 Range/Units 14:57 POC Glucose (mg/dL) 205 H (70-100) mg/dL Result Diagrams: 06/05/17 16:40 06/05/17 16:40 Lab Statement: Any lab studies that have been ordered have been reviewed, and results considered in the medical decision making process. - Radiology CXR Xray Interpretation: No Acute Changes - IMPRESSION: No active dz. ED physician has reviewed this radiology report and agrees Radiology Interpretation Completed By: Radiologist - CT Brain CT CT Interpretation: No Acute Changes - IMPRESSION: Age-related cortical atrophy. No acute findings. ED physician has reviewed this radiology report and agrees CT Interpretation Completed By: Radiologist - EKG 1612 Cardiac Rate: NL - 70 bpm EKG Rhythm: Sinus Rhythm ST Segment: Non-Specific - no STEMI EKG Interpretation: poor R wave progression, nml axis Re-Evaluation - Re-Evaluation 1 Re-Evaluation Time: 18:30 Change: Improved Comment: Discussing results with pt. Pt prefers to be D/C than admitted. Will D/ C home, to f/u with Lucia as scheduled. Diabetic Course/Dx - Course Course Of Treatment: A 77 y/o F presents to ED with c/o elevated glucose onset this AM. She states her glucose was 226. Associated sx: nausea, generalized weakness, confusion, mildly slurred speech. Denies SOB, CP, fever, chills, pedal edema, urinary sx, head trauma, cough. She takes 18 units of insulin in AM and in PM. She thinks she forgot to take it last night. Pt went to [place] yesterday for spinal surgery follow-up, was tired when she got home. Daily aspirin. Dr. Snell is her PCP since Dr. Lara retired. Saw Dr. Barksdale, barrel plater two days ago. Bloodwork is without significant abnormality. EKG shows NSR, no STEMI, poor R wave progression. Brain CT and CXR show no acute findings. Pt given fluids in ED. - Diagnoses Differential Dx: Hyperglycemia, Hypoglycemia, Other - chronic renal failure, altered mental status Provider Diagnoses: Chronic renal failure, Weakness, Anemia, Confusion Discharge - Discharge Plan Condition: Stable Disposition: HOME Patient Education Materials: Weakness (ED), Anemia (ED), End Stage Kidney Disease (ED) Referrals: Kristofer Snell MD [Primary Care Provider] - Alcon Barksdale MD [Medical Doctor] - Additional Instructions: Follow up with Dr. Snell and Dr. Barksdale as previously scheduled. Please return to ED if you experience new or worsening symptoms. The documentation as recorded by the Darleen henderson SooYoung accurately reflects the service I personally performed and the decisions made by , Dell Mancilla MD.
[2017-06-05 19:09] VITALS: BP 117/84
[2017-06-05 19:28] LABS: Magnesium 1.7 mg/dL (1.9-2.7)
== END 2017-06-05 19:32 | disposition home or self-care (01) ==
LOC: ED 12:26
DX: N18.9 Chronic kidney disease, unspecified (principal); R11.0 Nausea; D64.9 Anemia, unspecified; R41.0 Disorientation, unspecified; R53.1 Weakness; R47.81 Slurred speech
CPT/HCPCS: 36415; 70450; 71020; 80053; 82550; 83605; 83735; 84100; 84443; 84484; 84550; 85025; 85610; 93005; 96360; 99283

== ENCOUNTER 2017-06-13 12:51 | Inpatient (IN) | payer MEDICARE, OTHER ==
[2017-06-13 13:43] LABS: Hematocrit 20 % (35-47); Hemoglobin 6.6 g/dl (12.0-16.0); Mean Corpuscular HGB Conc 33 g/dl (31-36); Mean Corpuscular Hemoglobin 30 pg (27-31); Mean Corpuscular Volume 90 fL (80-97); Mean Platelet Volume 9 um3 (7.4-10.4); Red Blood Count 2.19 10^6/ul (4.0-5.4); Red Cell Distribution Width 14 % (10.5-15); White Blood Count 6.3 10^3/ul (3.5-10.8)
[2017-06-13 13:46] LABS: Comments Flag Yes
[2017-06-13 13:47] LABS: Add Diff/Slide Review? Slide Review Added
[2017-06-13 14:04] LABS: Albumin 2.8 g/dL (3.2-5.2); BUN/Creatinine Ratio 11.9 (8-20); Calcium 8.6 mg/dL (8.6-10.3); EGFR African American 7.3 (>60); EGFR Non-African American 5.6 (>60); Globulin 3.3 g/dL (2-4); Magnesium 2.4 mg/dL (1.9-2.7); Total Bilirubin 0.3 mg/dL (0.2-1.0); Total Protein 6.1 g/dL (6.4-8.9)
[2017-06-13 14:06] LABS: Troponin I 0.02 ng/mL (<0.04)
[2017-06-13 14:07] LABS: Potassium 6.5 mmol/L (3.5-5.0)
[2017-06-13] MEDS ORDERED: Dextrose 50% Syringe 50 ML* 25 GM/50 ML SYRINGE IV PUSH PRN (14:11)
[2017-06-13] MEDS ORDERED: Sodium Polystyrene ORAL.SOL* 15 GM/60 ML BTL PO ONE ×2 (14:11→15:27)
[2017-06-13] MEDS ORDERED: Insulin REGULAR(*) 1 UNITS UNIT IV PUSH ONE (14:11)
[2017-06-13] MEDS ORDERED: Albuterol HFA INHALER* 8 gm MDI INH ONE (14:11)
[2017-06-13] MEDS ORDERED: Calcium Gluconate INJ* 1 GM in NS 0.9% 50 ML* 50 ML IVPB ONE (14:14)
[2017-06-13 14:30] LABS: TSH (Thyroid Stimulating Horm) 1.09 mcIU/mL (0.34-5.60)
--- NOTE | 2017-06-13 14:36 | RAD ---
HISTORY: Chest pain COMPARISONS: June 05, 2017 VIEWS: 2: Frontal and lateral views of the chest. FINDINGS: CARDIOMEDIASTINAL SILHOUETTE: The cardiomediastinal silhouette is normal. ELENO: The eleno are normal. PLEURA: The costophrenic angles are sharp. No pleural abnormalities are noted. LUNG PARENCHYMA: The lung volumes are low. The lungs are clear. ABDOMEN: The upper abdomen is clear. There is no subphrenic gas. BONES AND SOFT TISSUES: A left shoulder prosthesis is noted. The patient is status post anterior cervical fusion. A spinal stimulator is noted. OTHER: None. IMPRESSION: LOW LUNG VOLUMES. NO ACTIVE CARDIOPULMONARY DISEASE.
[2017-06-13] MEDS ORDERED: Sodium Polystyrene ORAL.SOL* 15 GM/60 ML BTL PO STA (14:51)
[2017-06-13] MEDS ORDERED: Triamcinolone 0.025% OINT * 15 GM TUBE TOPICAL PRN (14:53)
[2017-06-13] MEDS ORDERED: Hydrocortisone 1% CREAM* 30 GM TUBE TOPICAL PRN (14:53)
[2017-06-13] MEDS: Insulin LISPRO* 1 UNITS UNIT SUBCUT SCH (16:45)
--- NOTE | 2017-06-13 17:06 | HP ---
DATE OF ADMISSION: 06/13/2017. PRIMARY CARE PROVIDER: Marshall Kaur MD. ADMITTING PHYSICIAN: Dr. Joaquin Tavares. CHIEF COMPLAINT: Dry cough, shortness of breath, nausea, stomach upset, swelling in the legs. HISTORY OF PRESENT ILLNESS: Ms. Wilkes is a 77-year-old female with a past medical history as described above presenting with a chief complaint of shortness of breath, dry cough, sick to stomach with nausea, chills for several days, denies fevers, and increase in lower extremity edema for the last few days. She was told to stop her Bumex 1 mg daily ever since her last shoulder surgery on May 21. Additionally, she was recently prescribed a course of Bactrim 800/160 mg tab twice daily which she finished the day prior to admission. Of note, the patient was in the ED one week prior for diabetes management and creatinine at the time was 4.17 with normal potassium. On presentation to the emergency room today, potassium is 6.5 and creatinine is 7.07. The patient attests that she has not had any problems urinating, but has had the increased swelling in her legs. The patient denies chest pressure, palpitations, sick contacts, rashes, diarrhea, dysuria or increased frequency and though has a history of urinary retention, has had several procedures with Dr. Vegas to alleviate that and has not been a recent issue. The patient took her Bumex 1 mg this morning prior to admission given the leg swelling. The patient follows with Dr. Barksdale with Nephrology, recently seen last for preop visit prior to her shoulder surgery. In the emergency room, EKG did not demonstrate any acute changes or to include peak T-waves. BNP repeat is pending. Chest x-ray did not show acute volume overload. The patient is saturating well on room air at 98 percent. Blood pressure is stable. The patient is afebrile. Other laboratory significant for acute on chronic anemia with a hemoglobin of 6.6; creatinine 20, decreased from 7.6 and 23 the week prior; normocytic with MCV of 90; sodium is 130; BUN 84; AST 53; ALT 65; alk phos 178; BNP 290. Dr. Barksdale, her paper and pulp mill worker, was contacted in the emergency room who recommended giving diuretics as needed for respiratory distress, but otherwise not and agreed with hyperkalemic cocktails to include Kayexalate, calcium gluconate, Dextrose insulin. Concern for acute interstitial nephritis secondary to use of Bactrim versus acute on chronic kidney injury in the setting of cessation of her chronic diuretic. PAST MEDICAL HISTORY: Obstructive sleep apnea, chronic kidney disease stage 4, diabetes mellitus type 2, insulin dependent with good control, hypertension, GERD, osteoarthritis, sleep apnea with use of BiPAP at night, several neck and shoulder surgeries. PAST SURGICAL HISTORY: Multiple spine and shoulder surgeries, laparoscopic cholecystectomy, hysterectomy, cardiac catheterization. HOME MEDICATIONS: Include: 1. Insulin Lantus 18 units b.i.d. 2. Insulin Lispro t.i.d. sliding scale as needed. 3. Bactrim 1 mg daily, although recently stopped and only restarted today. 4. Aspirin 81 mg. 5. Calcitriol 0.25 mcg p.o. at bedtime. 6. Nexium 40 mg p.o. b.i.d. 7. Flonase two sprays both nares daily. 8. Hydrocortisone topical cream daily prn. 9. Labetalol 150 mg p.o. b.i.d. 10. Magnesium Oxide 400 mg p.o. b.i.d. 11. Pravastatin 10 mg p.o. at bedtime. 12. Triamcinolone 0.1% topical ointment daily prn. 13. Amlodipine 2.5 mg p.o. b.i.d. 14. Clonidine 0.1 mg transdermal patch daily. 15. Tylenol 3 q.p.m. prn for insomnia. ALLERGIES TO MEDICATIONS: PENICILLIN (SEVERE ANAPHYLACTIC SHOCK), CODEINE ( HIVES), ATORVASTATIN (MUSCLE ACHES AND CRAMPING), EDETIC ACID (HIVES), HYDROMORPHONE (HIVES), LOSARTAN (SWELLING OF FACE, LIPS, AND THROAT), REGLAN ( INSOMNIA), RIFAXIMIN (HIVES), SULINDAC (RASH), MORPHINE (HIVES), GABAPENTIN ( SEDATION), LISINOPRIL (COUGHING). FAMILY HISTORY: Mother with brain tumor, father with lung cancer and leukemia. SOCIAL HISTORY: Nonsmoker, nondrinker. Lives alone. Daughters in [place] and [place]. Surrogate decision maker is her daughter Lorena Ryan who is a nurse. REVIEW OF SYSTEMS: Negative 14 point review of systems other than as stated in the HPI. PHYSICAL EXAMINATION GENERAL: No acute distress. Resting on a hospital gurney. VITAL SIGNS: Blood pressure 127/47, oxygen saturation 100 percent on room air, respiratory rate 22, pulse rate 66, temperature 98.5. HEENT: Normocephalic, atraumatic. No scleral icterus. Mucus membranes are moist. No oropharynx lesions. NECK: Supple, no cervical lymphadenopathy. RESPIRATORY: Lungs clear to auscultation bilaterally. No wheezing, rales, or rhonchi. CARDIOVASCULAR: Regular rate and rhythm. No murmurs, rubs or gallops. ABDOMEN: Soft, nontender, but modestly distended/obese. No rebound or guarding. EXTREMITIES: 2+ edema up to shins bilaterally. NEUROLOGIC: Moving all extremities. Cranial nerves II through XII grossly intact. Strength intact. Sensation intact. SKIN: No rashes. Healed scar on left shoulder without erythema. LABORATORY DATA/IMAGING STUDIES: Labs and imaging as per HPI. ASSESSMENT AND PLAN: The patient is a 77-year-old female with a history of chronic kidney disease stage 4 and multiple comorbidities presenting with acute renal failure and hyperkalemia to 6.5 in the setting of stopping her home Bumex and finishing a double strength course of Bactrim for the last seven to ten days. Included in the differential is acute interstitial nephritis from the Bactrim versus ATN vs prerenal given the volume overload in the setting of stopping her daily Bumex for the last three weeks. Dr. Barksdale, her paper and pulp mill worker , has been contacted and appreciate recommendations. Will get urine lytes to include urine sodium, creatinine and urea to calculate FENa and FE urea. The patient will be admitted to the Medicine Telemetry Unit for close monitoring. Her hyperkalemia will be addressed with Kayexalate 30 gm now with repeat until bowel movement, Dextrose 50 percent 25 gm plus insulin 10 units, Calcium Gluconate 1 gm[address] In discussion with Dr. Barksdale, we will hold off on diuretics per his request unless patient develops acute respiratory distress, that would be an option also to bring down her hyperkalemia. The patient's ins and outs will be strictly monitored and she reports making good urine. If the patient is not making good urine, then threshold for a bladder scan to rule out obstructive process. In terms of her other medical comorbidities, diabetes management will include her home Lantus 18 units b.i.d. with sliding scale Lispro insulin and point of care testing q.a.c., at bedtime. Her hypertension will be managed with her Clonidine 0.1 mg patch and continuation of Labetalol 150 mg p.o. b.i.d. amlodipine will be held today to rule out it contributing to her lower extremity edema as long as her blood pressure is well- controlled. She is currently normotensive. She will be given a BiPAP mask at night for her obstructive sleep apnea. Nausea likely related to uremia, will continue Zofran prn and hopefully improving renal function. The patient may, however, require intermediate hemodialysis if symptoms are poorly controlled. The patient is a full code with medical surrogate, her daughter Lorena Ryan. She will receive Heparin 5000 units t.i.d. for DVT prophylaxis. Transaminitis likely secondary to volume overload and hepatic congestion. Monitor CMP daily along with BNP q.12 hours for renal failure. For her acute on chronic anemia, she has been ordered a blood transfusion in the ED and repeat CBC 30 minutes after finished. [id number]/[facility] #: [id number] NAHID
--- NOTE | 2017-06-13 18:48 | ED ---
Kannan Melgoza Angela, scribed for Hunter Leon MD on 06/13/17 at 1321 . HPI Chest Pain - HPI Summary HPI Summary: This pt is a 77 y/o female presenting to [facility] c/o cough x2-3 days, now with chest pain and SOB. Pt describes her chest pain as pressure and it feels "like somebody is sitting on it." Pt additionally c/o abd discomfort, and dizziness when standing up. Pt denies fever, nausea, vomiting. She has a BiPap. Pt notes she had surgery 3 weeks ago. She was in the ED yesterday, was confused due to diabetes and had a head CT and chest XR done. - History of Current Complaint Chief Complaint: EDChestPainROMI Time Seen by Provider: 06/13/17 13:06 Hx Obtained From: Patient Onset/Duration: Started Days Ago Timing: Lasting Days Pain Intensity: 7 Chest Pain Location: Diffuse Chest Pain Radiates: No Character: Pressure/Squeezing - "like somebody is sitting on it" Associated Signs and Symptoms: Positive: Chest Pain, Dizziness - when standing up, Shortness of Breath, Other: - abdominal discomfort. Negative: Fever, Chills , Nausea, Abdominal Pain, Vomiting - Additional Pertinent History Primary Care Physician: [id number] - Allergy/Home Medications Allergies/Adverse Reactions: Allergies Allergy/AdvReac Type Severity Reaction Status Date / Time Penicillins Allergy Severe Anaphylatic Verified 06/05/17 12:56 Shock Codeine Allergy Intermediate Hives Verified 06/05/17 12:56 Atorvastatin [From Lipitor] Allergy Muscle Verified 06/05/17 12:56 Ache & Cramping Edetic Acid [From Xifaxan] Allergy Hives Verified 06/05/17 12:56 Hydromorphone [From Dilaudid] Allergy Hives Verified 06/05/17 12:56 Losartan Allergy Swelling Verified 06/05/17 12:56 Of Face,Lips,& Throat Metoclopramide [From Reglan] Allergy Insomnia Verified 06/05/17 12:56 Rifaximin [From Xifaxan] Allergy Hives Verified 06/05/17 12:56 Sulindac [From Clinoril] Allergy Rash Verified 06/05/17 12:56 Morphine AdvReac Intermediate Hives Verified 06/05/17 12:56 Gabapentin AdvReac Sedation Verified 06/05/17 12:56 Lisinopril AdvReac Coughing Verified 06/05/17 12:56 PMH/Surg Hx/FS Hx/Imm Hx Endocrine/Hematology History: Reports: Hx Diabetes, Hx Anemia - HX OF Cardiovascular History: Reports: Hx Hypercholesterolemia, Hx Hypertension Denies: Hx Pacemaker/ICD Respiratory History: Reports: Hx Sleep Apnea - current CPAP user. Denies: Other Respiratory Problems/Disorders GI History: Reports: Hx Gastroesophageal Reflux Disease, Hx Hiatal Hernia - ON MEDICATION FOR History: Reports: Hx Chronic Renal Failure, Other Problems/Disorders - "KIDNEY FUNCTIONS ARE DOWN" Musculoskeletal History: Reports: Hx Arthritis, Hx Back Problems, Hx Bursitis - LEFT SHOULDER, Hx Tendonitis - ARMS AND HANDS, Other Musculoskeletal History - DDD Sensory History: Reports: Hx Cataracts, Hx Contacts or Glasses Denies: Hx Hearing Aid Opthamlomology History: Reports: Hx Cataracts, Hx Contacts or Glasses Psychiatric History: Denies: Hx Panic Disorder - Cancer History Hx Chemotherapy: No Hx Radiation Therapy: No - Surgical History Surgery Procedure, Year, and Place: C-SPINE X2, LUMBAR X2, BILAT TKAs, CHOLECYSTECTOMY, HYSTERECTOMY, BILAT CTR, 2008- right hand carpal tunnel. aug 25 2013- posterior fusion C4-T1 Hx Anesthesia Reactions: No - Immunization History Date of Tetanus Vaccine: Unk Date of Influenza Vaccine: Fall 2014 Infectious Disease History: No Infectious Disease History: Denies: Traveled Outside the [place] in Last 30 Days - Family History Known Family History: Positive: Other - pos: Breast CA Family History: Breast Cancer - Social History Alcohol Use: None Hx Substance Use: No Substance Use Type: Reports: None Hx Tobacco Use: No Smoking Status (MU): Never Smoked Tobacco Review of Systems Negative: Fever, Chills Positive: Chest Pain Positive: Shortness Of Breath, Cough Positive: Other - abd discomfort. Negative: Vomiting, Nausea Genitourinary: Negative Musculoskeletal: Negative Neurological: Other - dizziness when standing up All Other Systems Reviewed And Are Negative: Yes Physical Exam - Summary Physical Exam Summary: VITAL SIGNS: Reviewed. GENERAL: Patient is a well-developed and nourished female who is lying comfortable in the stretcher. Patient is not in any acute respiratory distress. HEAD AND FACE: No signs of trauma. No ecchymosis, hematomas or skull depressions. No sinus tenderness. EYES: PERRLA, EOMI x 2, No injected conjunctiva, no nystagmus. EARS: Hearing grossly intact. Ear canals and tympanic membranes are within normal limits. MOUTH: Oropharynx within normal limits. NECK: Supple, trachea is midline, no adenopathy, no JVD, no carotid bruit, no c- spine tenderness, neck with full ROM. CHEST: Symmetric, no tenderness at palpation LUNGS: Clear to auscultation bilaterally. No wheezing or crackles. CVS: Regular rate and rhythm, S1 and S2 present, no murmurs or gallops appreciated. ABDOMEN: Soft, non-tender. No signs of distention. No rebound no guarding, and no masses palpated. Bowel sounds are normal. EXTREMITIES: FROM in all major joints, no edema, no cyanosis or clubbing. NEURO: Alert and oriented x 3. No acute neurological deficits. Speech is normal and follows commands. SKIN: Dry and warm Triage Information Reviewed: Yes Vital Signs On Initial Exam: Initial Vitals Temp Pulse Resp BP Pulse Ox 98.5 F 66 22 127/47 100 06/13/17 13:02 06/13/17 13:02 06/13/17 13:02 06/13/17 13:02 06/13/17 13:02 Vital Signs Reviewed: Yes Diagnostics - Vital Signs Vital Signs Temp Pulse Resp BP Pulse Ox 06/13/17 13:02 98.5 F 66 22 127/47 100 - Laboratory Lab Results: Lab Results 06/13/17 06/13/17 06/13/17 Range/Units 13:35 13:35 13:35 WBC 6.3 (3.5-10.8) 10^3/ul RBC 2.19 L (4.0-5.4) 10^6/ul Hgb 6.6 L (12.0-16.0) g/dl Hct 20 L (35-47) % MCV 90 (80-97) fL MCH 30 (27-31) pg MCHC 33 (31-36) g/dl RDW 14 (10.5-15) % Plt Count 183 (150-450) 10^3/ul MPV 9 (7.4-10.4) um3 Neut % (Auto) 79.6 (38-83) % Lymph % (Auto) 9.0 L (25-47) % [place] % (Auto) 9.7 H (1-9) % Eos % (Auto) 1.1 (0-6) % Baso % (Auto) 0.6 (0-2) % Absolute Neuts (auto) 5.0 (1.5-7.7) 10^3/ul Absolute Lymphs (auto) 0.6 L (1.0-4.8) 10^3/ul Absolute Monos (auto) 0.6 (0-0.8) 10^3/ul Absolute Eos (auto) 0.1 (0-0.6) 10^3/ul Absolute Basos (auto) 0 (0-0.2) 10^3/ul Absolute Nucleated RBC 0 10^3/ul Nucleated RBC % 0 D-Dimer, Quantitative (Less Than 230) ng/mL Sodium 130 L (133-145) mmol/L Potassium 6.5 H* (3.5-5.0) mmol/L Chloride 101 (101-111) mmol/L Carbon Dioxide 21 L (22-32) mmol/L Anion Gap 8 (2-11) mmol/L BUN 84 H (6-24) mg/dL Creatinine 7.07 H (0.51-0.95) mg/dL Est GFR ( Amer) 7.3 (>60) Est GFR (Non-Af Amer) 5.6 (>60) BUN/Creatinine Ratio 11.9 (8-20) Glucose 67 L (70-100) mg/dL Calcium 8.6 (8.6-10.3) mg/dL Magnesium 2.4 (1.9-2.7) mg/dL Total Bilirubin 0.30 (0.2-1.0) mg/dL AST 53 H (13-39) U/L ALT 65 H (7-52) U/L Alkaline Phosphatase 178 H (34-104) U/L CK-MB (CK-2) 10.2 H (0.6-6.3) ng/mL Troponin I 0.02 (<0.04) ng/mL B-Natriuretic Peptide 290 H ( - 100) pg/mL Total Protein 6.1 L (6.4-8.9) g/dL Albumin 2.8 L (3.2-5.2) g/dL Globulin 3.3 (2-4) g/dL Albumin/Globulin Ratio 0.8 L (1-3) TSH 1.09 (0.34-5.60) mcIU/mL Blood Type Antibody Screen Antibody Identification Direct Antiglob Test Crossmatch 06/13/17 06/13/17 Range/Units 13:35 13:35 WBC (3.5-10.8) 10^3/ul RBC (4.0-5.4) 10^6/ul Hgb (12.0-16.0) g/dl Hct (35-47) % MCV (80-97) fL MCH (27-31) pg MCHC (31-36) g/dl RDW (10.5-15) % Plt Count (150-450) 10^3/ul MPV (7.4-10.4) um3 Neut % (Auto) (38-83) % Lymph % (Auto) (25-47) % [place] % (Auto) (1-9) % Eos % (Auto) (0-6) % Baso % (Auto) (0-2) % Absolute Neuts (auto) (1.5-7.7) 10^3/ul Absolute Lymphs (auto) (1.0-4.8) 10^3/ul Absolute Monos (auto) (0-0.8) 10^3/ul Absolute Eos (auto) (0-0.6) 10^3/ul Absolute Basos (auto) (0-0.2) 10^3/ul Absolute Nucleated RBC 10^3/ul Nucleated RBC % D-Dimer, Quantitative > 1050 H (Less Than 230) ng/mL Sodium (133-145) mmol/L Potassium (3.5-5.0) mmol/L Chloride (101-111) mmol/L Carbon Dioxide (22-32) mmol/L Anion Gap (2-11) mmol/L BUN (6-24) mg/dL Creatinine (0.51-0.95) mg/dL Est GFR ( Amer) (>60) Est GFR (Non-Af Amer) (>60) BUN/Creatinine Ratio (8-20) Glucose (70-100) mg/dL Calcium (8.6-10.3) mg/dL Magnesium (1.9-2.7) mg/dL Total Bilirubin (0.2-1.0) mg/dL AST (13-39) U/L ALT (7-52) U/L Alkaline Phosphatase (34-104) U/L CK-MB (CK-2) (0.6-6.3) ng/mL Troponin I (<0.04) ng/mL B-Natriuretic Peptide ( - 100) pg/mL Total Protein (6.4-8.9) g/dL Albumin (3.2-5.2) g/dL Globulin (2-4) g/dL Albumin/Globulin Ratio (1-3) TSH (0.34-5.60) mcIU/mL Blood Type O Negative Antibody Screen Positive Antibody Identification Anti-D Direct Antiglob Test Negative Crossmatch See Detail Result Diagrams: 06/13/17 13:35 06/13/17 13:35 Lab Statement: Any lab studies that have been ordered have been reviewed, and results considered in the medical decision making process. - Radiology Chest XR Xray Interpretation: Positive (See Comments) - IMPRESSION: low lung volumes. No active cardiopulmonary disease. ED physician has reviewed this radiology report and agrees. Radiology Interpretation Completed By: Radiologist - EKG 1320 Cardiac Rate: NL - 66 bpm EKG Rhythm: Sinus Rhythm EKG Interpretation: No ST elevation. Normal axis. Chest Pain Course/Dx - Course Assessment/Plan: This pt is a 77 y/o female presenting to [facility] c/o cough x2-3 days, now with chest pain and SOB. Pt describes her chest pain as pressure and it feels "like somebody is sitting on it." Pt additionally c/o abd discomfort, and dizziness when standing up. Pt denies fever, nausea, vomiting. She has a BiPap. Pt notes she had surgery 3 weeks ago. She was in the ED yesterday, was confused due to diabetes and had a head CT and chest XR done. Test results show H&H of 6.6/20, sodium of 130, potassium of 6.5, 84 creatinine of 7.07, increased LFTs, and increased BNP. Chest XR shows low lung volume, no active cardiopulmonary disease. Since the pt H&H is new, I did a rectal exam to check for GI bleed. Even though the pt reports she doesnt have any rectal bleed or melena, pt will be transfused 2 units of red blood cells. The pt was also given calcium gluconate, insulin, kayexalate, and albuterol to treat hyperkalemia. At this point, I discussed the case with Dr. Salazar, who accepted the pt for admission. I also did a D-dimer, however I do not believe the pt has a PE. The O2 sat is 99-100% on room air and the pt is not hypoxic or tachycardic. However , if needed, the hospitalist will re-asses the pt for appropriate imaging diagnosis for PE. Pt is hemodynamically stable, alert and oriented x3. - Chest Pain Differential Diagnosis/HQI/PQRI: ACS, Angina, CHF, Chest Wall, GI Disease, Lower Respiratory Infection - Diagnoses Provider Diagnoses: Acute hyperkalemia, Symptomatic anemia, Acute on chronic renal failure, Chest pain - Provider Notifications Discussed Care Of Patient With: Angelo Salazar Instructed by Provider To: Other - I discussed patient care. Dr. Salazar has agreed to admit the pt. - Critical Care Time Critical Care Time: 75-104 min Discharge - Discharge Plan Condition: Stable Disposition: ADMITTED TO [facility] documentation as recorded by the Kannan henderson Angela accurately reflects the service I personally performed and the decisions made by , Hunter Leon MD.
[2017-06-13] MEDS: Heparin VIAL(*) 5000 UNITS/ML VIAL (FIVE THOUSAND) SUBCUT SCH (20:51)
[2017-06-13] MEDS: Aspirin EC Low Dose* 81 MG TAB.EC PO SCH (20:51)
[2017-06-13] MEDS: Calcitriol CAP* 0.25 MCG PO SCH (20:51)
[2017-06-13] MEDS: CMCS Pravastatin (NF) 20 MG TAB PO SCH (20:51)
[2017-06-13] MEDS: Labetalol TAB* 100 MG PO SCH (20:51)
[2017-06-13] MEDS: Insulin GLARGINE(*) 1 UNITS UNIT SUBCUT SCH (20:51)
[2017-06-13] MEDS: POLYETHYLENE GLYCOL PROPYLENE BOTH EYES SCH (20:53)
[2017-06-13 22:03] LABS: BUN/Creatinine Ratio 12.1 (8-20); Calcium 8.4 mg/dL (8.6-10.3); EGFR African American 7.5 (>60); EGFR Non-African American 5.8 (>60)
[2017-06-13 22:04] LABS: Troponin I 0.02 ng/mL (<0.04)
[2017-06-13 22:05] LABS: Potassium 5.9 mmol/L (3.5-5.0)
[2017-06-14 02:13] LABS: Hematocrit 20 % (35-47); Hemoglobin 6.9 g/dl (12.0-16.0); Mean Corpuscular HGB Conc 34 g/dl (31-36); Mean Corpuscular Hemoglobin 30 pg (27-31); Mean Corpuscular Volume 89 fL (80-97); Mean Platelet Volume 9 um3 (7.4-10.4); Red Blood Count 2.29 10^6/ul (4.0-5.4); Red Cell Distribution Width 14 % (10.5-15); White Blood Count 6.8 10^3/ul (3.5-10.8)
[2017-06-14 02:19] LABS: Add Diff/Slide Review? Manual Diff Added; Comments Flag Yes
[2017-06-14 02:26] LABS: BUN/Creatinine Ratio 11.7 (8-20); Blood Urea Nitrogen 77 mg/dL (6-24); CO2 Carbon Dioxide 22 mmol/L (22-32); Calcium 7.8 mg/dL (8.6-10.3); Chloride 101 mmol/L (101-111); EGFR African American 7.9 (>60); EGFR Non-African American 6.1 (>60); Glucose 141 mg/dL (70-100); Sodium 130 mmol/L (133-145)
[2017-06-14 02:46] LABS: Anion Gap 7 mmol/L (2-11)
[2017-06-14 03:02] LABS: Eosinophils % 1 % (0-6); Neutrophil % 84 % (38-83)
[2017-06-14 03:03] LABS: Toxic Granulation 1+
[2017-06-14 03:04] LABS: Add Path Review? YES
[2017-06-14] MEDS: Acetaminophen TAB* 325 MG PO PRN ×3 (04:10→22:08)
[2017-06-14] MEDS: Heparin VIAL(*) 5000 UNITS/ML VIAL (FIVE THOUSAND) SUBCUT SCH ×3 (04:58→22:05)
[2017-06-14 06:49] LABS: Hematocrit 21 % (35-47); Hemoglobin 7.1 g/dl (12.0-16.0); Mean Corpuscular HGB Conc 34 g/dl (31-36); Mean Corpuscular Hemoglobin 30 pg (27-31); Mean Corpuscular Volume 89 fL (80-97); Mean Platelet Volume 9 um3 (7.4-10.4); Red Blood Count 2.37 10^6/ul (4.0-5.4); Red Cell Distribution Width 14 % (10.5-15); White Blood Count 6.8 10^3/ul (3.5-10.8)
[2017-06-14 06:56] LABS: Urine Bacteria Absent (Absent); Urine Bilirubin Negative (Negative); Urine Glucose 1+(50 mg/dL) (Negative); Urine Nitrite Negative (Negative)
--- NOTE | 2017-06-14 08:34 | PN ---
Progress Note - Progress Note Date of Service: 06/13/17 Note: Pt seen at 9pm. Pt seen and examined. Feeling better. Wearing bone stimulator. Labs reviewed. Left shoulder incision examined. Clean, dry, and intact. No erythema or warmth. nontender. SILT grossly distally. 2+ radial pulse. A/P s/p L reverse arthroplasty with anemia, hyperkalemia NWB. No active ROM of shoulder. Only passive FF 90, abd 90, ER 30 as tolerated. She is doing well from an orthopedic standpoint. She has a follow up with me in 2 weeks. Please call if any questions.
[2017-06-14] MEDS ORDERED: Influenza VAC *QUAD* 2017-18* 0.5 ML SYRINGE IM ONE (09:00)
[2017-06-14] MEDS: Insulin LISPRO* 1 UNITS UNIT SUBCUT SCH ×3 (09:21→17:17)
[2017-06-14] MEDS: Insulin GLARGINE(*) 1 UNITS UNIT SUBCUT SCH (09:24)
[2017-06-14] MEDS: POLYETHYLENE GLYCOL PROPYLENE BOTH EYES SCH ×2 (09:33→21:57)
[2017-06-14] MEDS: Labetalol TAB* 100 MG PO SCH ×2 (09:46→22:06)
[2017-06-14] MEDS: Aspirin EC Low Dose* 81 MG TAB.EC PO SCH ×2 (09:46→22:07)
[2017-06-14] MEDS: Fluticasone NASAL SPRAY 50MCG* 16 gm SPRAY BTL BOTH NARES SCH (09:48)
[2017-06-14] MEDS ORDERED: Furosemide IV* 10 MG/ML 10 ML VIAL (100 MG) IV ONE (10:24)
[2017-06-14] MEDS ORDERED: Sodium Polystyrene ORAL.SOL* 15 GM/60 ML BTL PO ONE (11:00)
[2017-06-14 14:41] LABS: BUN/Creatinine Ratio 11.3 (8-20); Calcium 8.3 mg/dL (8.6-10.3); EGFR African American 7.3 (>60); EGFR Non-African American 5.7 (>60); Potassium 4.9 mmol/L (3.5-5.0)
--- NOTE | 2017-06-14 16:01 | PN ---
PROGRESS NOTE: DATE OF SERVICE: HISTORY: Ms. Wilkes is a 77-year-old female, well-known to me from outpatient consultation and vikas aguilera. She recently had some left shoulder surgery and there was some possibility of infection a nd she was placed on Bactrim. On followup visit, she seemed to be quite dyspneic and sent to the em ergency room complaining of a dry cough and shortness of breath. She has some nausea, some anorexia , and she developed some worsening pedal edema over the few days prior to admission. Her breathing is about the same at the present time as it was when she presented. Her blood pressure is adequatel y controlled at 140/52, with a pulse of 79, respirations were 24, and she was breathing a little heather d while I was with her. Her chest reveals some scattered rales. The heart revealed a regular rhyth m, without murmurs. She is probably isovolemic since yesterday considering her insensible fluid los ses. Her hemoglobin is 7.1 this morning and she did receive a transfusion yesterday. Sodium 130, p otassium 5.6, total CO2 of 22, chloride 101, BUN 77, creatinine of 6.59, down from 7.04; however, he r creatinine was 4.17 on 06/05/17. IMPRESSION: Fufrp-il-evtcxck renal insufficiency, probably on the basis of acute interstitial nephr itis secondary to Bactrim. This likely produced a fluid accumulation and worsened her shortness of breath; that, together with her worsening anemia, probably contributed as well. Since she is workin g hard to breathe right now, I probably would go ahead and diurese her somewhat. She may require co nsiderable doses of furosemide and they might need to be augmented with metolazone. I probably woul d re-treat her with Kayexalate at this time. [id number]/[facility] #: [id number]
[2017-06-14] MEDS: Ondansetron TAB* 4 MG PO PRN (17:18)
--- NOTE | 2017-06-14 17:38 | PN ---
Subjective Date of Service: 06/14/17 Interval History: K improved after cocktail and kayexalate. not much UOP overnight. Dr. Richards Objective Active Medications: Acetaminophen (Tylenol Tab*) 650 mg PO Q4H PRN PRN Reason: FEVER/PAIN Last Admin: 06/14/17 12:25 Dose: 650 mg Aspirin (Aspirin Ec Low Dose*) 81 mg PO BID [facility] Last Admin: 06/14/17 09:46 Dose: 81 mg Calcitriol (Rocaltrol Cap*) 0.25 mcg PO BEDTIME [facility] Last Admin: 06/13/17 20:51 Dose: 0.25 mcg Clonidine HCl (Aawekimu-Pwy-7 0.1 Mg Patch*) 0.1 mg TRANSDERM Tu@0900 [facility] Dextrose (D50w Syringe 50 Ml*) 25 gm IV PUSH ONCE PRN PRN Reason: FS < 60 Last Admin: 06/13/17 14:56 Dose: 25 gm Fluticasone Propionate (Flonase Nasal [place] 50mcg*) 2 spray BOTH NARES DAILY [facility] Last Admin: 06/14/17 09:48 Dose: 2 spray Heparin Sodium (Porcine) (Heparin Vial(*)) 5,000 units SUBCUT Q8HR [facility] Last Admin: 06/14/17 14:29 Dose: 5,000 units Hydrocortisone (Hytone Cream 1%*) 1 applic TOPICAL DAILY PRN PRN Reason: RASH Insulin Human Lispro (Humalog*) 0 units SUBCUT TID AC [facility] PRN Reason: Protocol Last Admin: 06/14/17 17:17 Dose: 3 unit Labetalol HCl (Trandate Tab*) 150 mg PO BID [facility] Last Admin: 06/14/17 09:46 Dose: 150 mg Non-Formulary Medication (Polyethylene Glycol-Propylene [Systane Ultra 0.4-0.3 % ]) 1 drop BOTH EYES BID [facility] Last Admin: 06/14/17 09:33 Dose: Not Given Ondansetron HCl (Zofran Tab*) 4 mg PO Q6H PRN PRN Reason: NAUSEA Last Admin: 06/14/17 17:18 Dose: 4 mg Pravastatin Sodium (Pravachol (Nf)) 10 mg PO BEDTIME [facility] Last Admin: 06/13/17 20:51 Dose: 10 mg Triamcinolone Acetonide (Triamcinolone 0.025% Oint *) 1 applic TOPICAL DAILY PRN PRN Reason: RASH Vital Signs 06/13/17 06/13/17 06/13/17 20:00 20:51 22:14 Temperature 97.4 F 98.3 F Pulse Rate 81 77 Respiratory 20 20 20 Rate Blood Pressure 142/64 143/60 (mmHg) O2 Sat by Pulse 96 100 Oximetry 06/13/17 06/13/17 06/14/17 22:29 23:57 00:10 Temperature 98.3 F 97.9 F Pulse Rate 79 76 Respiratory 20 20 Rate Blood Pressure 154/57 176/64 164/68 (mmHg) O2 Sat by Pulse 100 99 Oximetry 06/14/17 06/14/17 06/14/17 00:51 03:41 04:59 Temperature 99.1 F 101.0 F 100.3 F Pulse Rate 80 83 Respiratory 22 16 Rate Blood Pressure 148/64 175/66 (mmHg) O2 Sat by Pulse 100 97 Oximetry 06/14/17 06/14/17 06/14/17 07:43 07:57 11:21 Temperature 98.7 F 99.0 F Pulse Rate 71 78 Respiratory 18 20 20 Rate Blood Pressure 140/51 156/60 (mmHg) O2 Sat by Pulse 96 96 Oximetry Result Diagrams: 06/14/17 06:28 06/14/17 13:59 Additional Lab and Data: Lab Results 06/13/17 06/13/17 06/13/17 Range/Units 13:35 13:35 13:35 WBC 6.3 (3.5-10.8) 10^3/ul RBC 2.19 L (4.0-5.4) 10^6/ul Hgb 6.6 L (12.0-16.0) g/dl Hct 20 L (35-47) % MCV 90 (80-97) fL MCH 30 (27-31) pg MCHC 33 (31-36) g/dl RDW 14 (10.5-15) % Plt Count 183 (150-450) 10^3/ul MPV 9 (7.4-10.4) um3 Neut % (Auto) 79.6 (38-83) % Lymph % (Auto) 9.0 L (25-47) % [place] % (Auto) 9.7 H (1-9) % Eos % (Auto) 1.1 (0-6) % Baso % (Auto) 0.6 (0-2) % Absolute Neuts (auto) 5.0 (1.5-7.7) 10^3/ul Absolute Lymphs (auto) 0.6 L (1.0-4.8) 10^3/ul Absolute Monos (auto) 0.6 (0-0.8) 10^3/ul Absolute Eos (auto) 0.1 (0-0.6) 10^3/ul Absolute Basos (auto) 0 (0-0.2) 10^3/ul Absolute Nucleated RBC 0 10^3/ul Nucleated RBC % 0 D-Dimer, Quantitative (Less Than 230) ng/mL Sodium 130 L (133-145) mmol/L Potassium 6.5 H* (3.5-5.0) mmol/L Chloride 101 (101-111) mmol/L Carbon Dioxide 21 L (22-32) mmol/L Anion Gap 8 (2-11) mmol/L BUN 84 H (6-24) mg/dL Creatinine 7.07 H (0.51-0.95) mg/dL Est GFR ( Amer) 7.3 (>60) Est GFR (Non-Af Amer) 5.6 (>60) BUN/Creatinine Ratio 11.9 (8-20) Glucose 67 L (70-100) mg/dL Calcium 8.6 (8.6-10.3) mg/dL Magnesium 2.4 (1.9-2.7) mg/dL Total Bilirubin 0.30 (0.2-1.0) mg/dL AST 53 H (13-39) U/L ALT 65 H (7-52) U/L Alkaline Phosphatase 178 H (34-104) U/L CK-MB (CK-2) 10.2 H (0.6-6.3) ng/mL Troponin I 0.02 (<0.04) ng/mL B-Natriuretic Peptide 290 H ( - 100) pg/mL Total Protein 6.1 L (6.4-8.9) g/dL Albumin 2.8 L (3.2-5.2) g/dL Globulin 3.3 (2-4) g/dL Albumin/Globulin Ratio 0.8 L (1-3) TSH 1.09 (0.34-5.60) mcIU/mL Blood Type Antibody Screen Antibody Identification Direct Antiglob Test Crossmatch 06/13/17 06/13/17 Range/Units 13:35 13:35 WBC (3.5-10.8) 10^3/ul RBC (4.0-5.4) 10^6/ul Hgb (12.0-16.0) g/dl Hct (35-47) % MCV (80-97) fL MCH (27-31) pg MCHC (31-36) g/dl RDW (10.5-15) % Plt Count (150-450) 10^3/ul MPV (7.4-10.4) um3 Neut % (Auto) (38-83) % Lymph % (Auto) (25-47) % [place] % (Auto) (1-9) % Eos % (Auto) (0-6) % Baso % (Auto) (0-2) % Absolute Neuts (auto) (1.5-7.7) 10^3/ul Absolute Lymphs (auto) (1.0-4.8) 10^3/ul Absolute Monos (auto) (0-0.8) 10^3/ul Absolute Eos (auto) (0-0.6) 10^3/ul Absolute Basos (auto) (0-0.2) 10^3/ul Absolute Nucleated RBC 10^3/ul Nucleated RBC % D-Dimer, Quantitative > 1050 H (Less Than 230) ng/mL Sodium (133-145) mmol/L Potassium (3.5-5.0) mmol/L Chloride (101-111) mmol/L Carbon Dioxide (22-32) mmol/L Anion Gap (2-11) mmol/L BUN (6-24) mg/dL Creatinine (0.51-0.95) mg/dL Est GFR ( Amer) (>60) Est GFR (Non-Af Amer) (>60) BUN/Creatinine Ratio (8-20) Glucose (70-100) mg/dL Calcium (8.6-10.3) mg/dL Magnesium (1.9-2.7) mg/dL Total Bilirubin (0.2-1.0) mg/dL AST (13-39) U/L ALT (7-52) U/L Alkaline Phosphatase (34-104) U/L CK-MB (CK-2) (0.6-6.3) ng/mL Troponin I (<0.04) ng/mL B-Natriuretic Peptide ( - 100) pg/mL Total Protein (6.4-8.9) g/dL Albumin (3.2-5.2) g/dL Globulin (2-4) g/dL Albumin/Globulin Ratio (1-3) TSH (0.34-5.60) mcIU/mL Blood Type O Negative Antibody Screen Positive Antibody Identification Anti-D Direct Antiglob Test Negative Crossmatch See Detail Microbiology and Other Data: Microbiology 06/13/17 14:59 Stool Occult Blood (BRIDGER) - Final Stool Assess/Plan/Problems-Billing Assessment:
--- NOTE | 2017-06-14 18:41 | PN ---
Subjective Date of Service: 06/14/17 Interval History: K improved after cocktail and kayexalate. not much UOP overnight. Dr. Richards evaluated and recommended trial of 80mg IV lasix with consideration for metolazone 5mg if needed. Pt with complaint of SOB without hypoxia, continued nausea. Given more kayexalate and complaint of stomach discomfort. UOP improved with lasix. Objective Active Medications: Acetaminophen (Tylenol Tab*) 650 mg PO Q4H PRN PRN Reason: FEVER/PAIN Last Admin: 06/14/17 12:25 Dose: 650 mg Aspirin (Aspirin Ec Low Dose*) 81 mg PO BID [facility] Last Admin: 06/14/17 09:46 Dose: 81 mg Calcitriol (Rocaltrol Cap*) 0.25 mcg PO BEDTIME [facility] Last Admin: 06/13/17 20:51 Dose: 0.25 mcg Clonidine HCl (Cgqbarsf-Eva-2 0.1 Mg Patch*) 0.1 mg TRANSDERM Tu@0900 [facility] Dextrose (D50w Syringe 50 Ml*) 25 gm IV PUSH ONCE PRN PRN Reason: FS < 60 Last Admin: 06/13/17 14:56 Dose: 25 gm Fluticasone Propionate (Flonase Nasal [place] 50mcg*) 2 spray BOTH NARES DAILY [facility] Last Admin: 06/14/17 09:48 Dose: 2 spray Heparin Sodium (Porcine) (Heparin Vial(*)) 5,000 units SUBCUT Q8HR [facility] Last Admin: 06/14/17 14:29 Dose: 5,000 units Hydrocortisone (Hytone Cream 1%*) 1 applic TOPICAL DAILY PRN PRN Reason: RASH Insulin Human Lispro (Humalog*) 0 units SUBCUT TID AC [facility] PRN Reason: Protocol Last Admin: 06/14/17 17:17 Dose: 3 unit Labetalol HCl (Trandate Tab*) 150 mg PO BID [facility] Last Admin: 06/14/17 09:46 Dose: 150 mg Non-Formulary Medication (Polyethylene Glycol-Propylene [Systane Ultra 0.4-0.3 % ]) 1 drop BOTH EYES BID [facility] Last Admin: 06/14/17 09:33 Dose: Not Given Ondansetron HCl (Zofran Tab*) 4 mg PO Q6H PRN PRN Reason: NAUSEA Last Admin: 06/14/17 17:18 Dose: 4 mg Pravastatin Sodium (Pravachol (Nf)) 10 mg PO BEDTIME KARL Last Admin: 06/13/17 20:51 Dose: 10 mg Triamcinolone Acetonide (Triamcinolone 0.025% Oint *) 1 applic TOPICAL DAILY PRN PRN Reason: RASH Vital Signs 06/13/17 06/13/17 06/13/17 20:00 20:51 22:14 Temperature 97.4 F 98.3 F Pulse Rate 81 77 Respiratory 20 20 20 Rate Blood Pressure 142/64 143/60 (mmHg) O2 Sat by Pulse 96 100 Oximetry 06/13/17 06/13/17 06/14/17 22:29 23:57 00:10 Temperature 98.3 F 97.9 F Pulse Rate 79 76 Respiratory 20 20 Rate Blood Pressure 154/57 176/64 164/68 (mmHg) O2 Sat by Pulse 100 99 Oximetry 06/14/17 06/14/17 06/14/17 00:51 03:41 04:59 Temperature 99.1 F 101.0 F 100.3 F Pulse Rate 80 83 Respiratory 22 16 Rate Blood Pressure 148/64 175/66 (mmHg) O2 Sat by Pulse 100 97 Oximetry 06/14/17 06/14/17 06/14/17 07:43 07:57 11:21 Temperature 98.7 F 99.0 F Pulse Rate 71 78 Respiratory 18 20 20 Rate Blood Pressure 140/51 156/60 (mmHg) O2 Sat by Pulse 96 96 Oximetry Oxygen Devices in Use Now: None Appearance: No acute distress but reports feeling uncomfortable. Eyes: No Scleral Icterus, PERRLA Ears/Nose/Mouth/Throat: NL Teeth, Lips, Gums, Clear Oropharnyx Neck: Trachea Midline Respiratory: Symmetrical Chest Expansion and Respiratory Effort, Clear to Auscultation Cardiovascular: NL Sounds; No Murmurs; No JVD, RRR Abdominal: No Hepatosplenomegaly, - - abdomen soft but distended. No rebound or guarding no rebound. Extremities: - - 2+ edema up b/l legs Skin: No Rash or Ulcers Neurological: Alert and Oriented x 3, NL Muscle Strength and Tone Result Diagrams: 06/14/17 06:28 06/14/17 13:59 Additional Lab and Data: Laboratory Results - last 24 hr 06/13/17 06/13/17 06/13/17 13:35 19:54 21:43 WBC RBC Hgb Hct MCV MCH MCHC RDW Plt Count MPV Neut % (Auto) Lymph % (Auto) Gulf % (Auto) Eos % (Auto) Baso % (Auto) Absolute Neuts (auto) Absolute Lymphs (auto) Absolute Monos (auto) Absolute Eos (auto) Absolute Basos (auto) Absolute Nucleated RBC Neutrophils % Lymphocytes % Monocytes % Eosinophils % Nucleated RBC % Toxic Granulation Normal RBC Morphology Sodium 129 L Potassium 5.9 H Chloride 99 L Carbon Dioxide 22 Anion Gap 8 BUN 83 H Creatinine 6.87 H Est GFR ( Amer) 7.5 Est GFR (Non-Af Amer) 5.8 BUN/Creatinine Ratio 12.1 Glucose 163 H POC Glucose (mg/dL) 113 H Calcium 8.4 L Troponin I 0.02 Urine Color Urine Appearance Urine pH Ur Specific Randle Urine Protein Urine Ketones Urine Blood Urine Nitrate Urine Bilirubin Urine Urobilinogen Ur Leukocyte Esterase Urine WBC (Auto) Urine RBC (Auto) Ur Squamous Epith Cells Urine Bacteria Ur Random Creatinine Ur Random Sodium Ur Random Urea Nitrogn Urine Glucose Blood Type O Negative Antibody Screen Positive Antibody Identification Anti-D Direct Antiglob Test Negative Crossmatch See Detail 06/14/17 06/14/17 06/14/17 02:00 02:00 06:28 WBC 6.8 6.8 RBC 2.29 L 2.37 L Hgb 6.9 L 7.1 L Hct 20 L 21 L MCV 89 89 MCH 30 30 MCHC 34 34 RDW 14 14 Plt Count 190 195 MPV 9 9 Neut % (Auto) 78.2 Lymph % (Auto) 9.6 L Gulf % (Auto) 10.7 H Eos % (Auto) 0.8 Baso % (Auto) 0.7 Absolute Neuts (auto) 5.6 5.3 Absolute Lymphs (auto) 0.4 L 0.6 L Absolute Monos (auto) 0.7 0.7 Absolute Eos (auto) 0 0.1 Absolute Basos (auto) 0 0 Absolute Nucleated RBC 0 0 Neutrophils % 84 H Lymphocytes % 9 L Monocytes % 6 Eosinophils % 1 Nucleated RBC % 0 Toxic Granulation 1+ Normal RBC Morphology Not Reportable Sodium 130 L Potassium TNP Chloride 101 Carbon Dioxide 22 Anion Gap 7 BUN 77 H Creatinine 6.59 H Est GFR ( Amer) 7.9 Est GFR (Non-Af Amer) 6.1 BUN/Creatinine Ratio 11.7 Glucose 141 H POC Glucose (mg/dL) Calcium 7.8 L Troponin I Urine Color Urine Appearance Urine pH Ur Specific Randle Urine Protein Urine Ketones Urine Blood Urine Nitrate Urine Bilirubin Urine Urobilinogen Ur Leukocyte Esterase Urine WBC (Auto) Urine RBC (Auto) Ur Squamous Epith Cells Urine Bacteria Ur Random Creatinine Ur Random Sodium Ur Random Urea Nitrogn Urine Glucose Blood Type Antibody Screen Antibody Identification Direct Antiglob Test Crossmatch 06/14/17 06/14/17 06/14/17 06:28 06:28 06:28 WBC RBC Hgb Hct MCV MCH MCHC RDW Plt Count MPV Neut % (Auto) Lymph % (Auto) Gulf % (Auto) Eos % (Auto) Baso % (Auto) Absolute Neuts (auto) Absolute Lymphs (auto) Absolute Monos (auto) Absolute Eos (auto) Absolute Basos (auto) Absolute Nucleated RBC Neutrophils % Lymphocytes % Monocytes % Eosinophils % Nucleated RBC % Toxic Granulation Normal RBC Morphology Sodium Potassium 5.6 H Chloride Carbon Dioxide Anion Gap BUN Creatinine Est GFR ( Amer) Est GFR (Non-Af Amer) BUN/Creatinine Ratio Glucose POC Glucose (mg/dL) Calcium Troponin I Urine Color Yellow Urine Appearance Cloudy Urine pH 5.0 Ur Specific Randle 1.012 Urine Protein 3+(>=500 mg/dl) H Urine Ketones Negative Urine Blood Negative Urine Nitrate Negative Urine Bilirubin Negative Urine Urobilinogen Negative Ur Leukocyte Esterase Negative Urine WBC (Auto) 1+(6-10/hpf) H Urine RBC (Auto) Trace(0-2/hpf) Ur Squamous Epith Cells Present H Urine Bacteria Absent Ur Random Creatinine 87.50 Ur Random Sodium 34 Ur Random Urea Nitrogn 468 Urine Glucose 1+(50 mg/dl) H Blood Type Antibody Screen Antibody Identification Direct Antiglob Test Crossmatch 06/14/17 06/14/17 06/14/17 07:51 11:41 13:59 WBC RBC Hgb Hct MCV MCH MCHC RDW Plt Count MPV Neut % (Auto) Lymph % (Auto) Gulf % (Auto) Eos % (Auto) Baso % (Auto) Absolute Neuts (auto) Absolute Lymphs (auto) Absolute Monos (auto) Absolute Eos (auto) Absolute Basos (auto) Absolute Nucleated RBC Neutrophils % Lymphocytes % Monocytes % Eosinophils % Nucleated RBC % Toxic Granulation Normal RBC Morphology Sodium 131 L Potassium 4.9 Chloride 99 L Carbon Dioxide 19 L Anion Gap 13 H BUN 79 H Creatinine 7.01 H Est GFR ( Amer) 7.3 Est GFR (Non-Af Amer) 5.7 BUN/Creatinine Ratio 11.3 Glucose 115 H POC Glucose (mg/dL) 95 169 H Calcium 8.3 L Troponin I Urine Color Urine Appearance Urine pH Ur Specific Randle Urine Protein Urine Ketones Urine Blood Urine Nitrate Urine Bilirubin Urine Urobilinogen Ur Leukocyte Esterase Urine WBC (Auto) Urine RBC (Auto) Ur Squamous Epith Cells Urine Bacteria Ur Random Creatinine Ur Random Sodium Ur Random Urea Nitrogn Urine Glucose Blood Type Antibody Screen Antibody Identification Direct Antiglob Test Crossmatch 06/14/17 16:46 WBC RBC Hgb Hct MCV MCH MCHC RDW Plt Count MPV Neut % (Auto) Lymph % (Auto) Gulf % (Auto) Eos % (Auto) Baso % (Auto) Absolute Neuts (auto) Absolute Lymphs (auto) Absolute Monos (auto) Absolute Eos (auto) Absolute Basos (auto) Absolute Nucleated RBC Neutrophils % Lymphocytes % Monocytes % Eosinophils % Nucleated RBC % Toxic Granulation Normal RBC Morphology Sodium Potassium Chloride Carbon Dioxide Anion Gap BUN Creatinine Est GFR ( Amer) Est GFR (Non-Af Amer) BUN/Creatinine Ratio Glucose POC Glucose (mg/dL) 158 H Calcium Troponin I Urine Color Urine Appearance Urine pH Ur Specific Randle Urine Protein Urine Ketones Urine Blood Urine Nitrate Urine Bilirubin Urine Urobilinogen Ur Leukocyte Esterase Urine WBC (Auto) Urine RBC (Auto) Ur Squamous Epith Cells Urine Bacteria Ur Random Creatinine Ur Random Sodium Ur Random Urea Nitrogn Urine Glucose Blood Type Antibody Screen Antibody Identification Direct Antiglob Test Crossmatch Microbiology and Other Data: Microbiology 06/13/17 14:59 Stool Occult Blood (BRIDGER) - Final Stool Assess/Plan/Problems-Billing Assessment: 77 year old female [facility] CKD Stage 4-5, chronic normocytic anemia, HTN, DMT2, GERD , MARI on Bipap, p/w with lower extremity edema, stomach discomfort and shortness of breath. 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 Had just finished 7-10 day course of DS bactrim for left shoulder rash and been off home bumex for 3 weeks. Ulytes consistent with intrinsic process. May need dialysis in coming days. nausea likely 2/2 uremic symptoms vs volume overload - Patient Problems (1) Acute on chronic kidney failure Current Visit: No Status: Acute Code(s): N17.9 - ACUTE KIDNEY FAILURE, UNSPECIFIED; N18.9 - CHRONIC KIDNEY DISEASE, UNSPECIFIED SNOMED Code(s): 497607248 Comment: Ulytes consistent with intrinsic process. Likely AIN 2/2 bactrim vs ATN Apprec[address] Dr. Richards recommendations Trial lasix 80mg IV. may need metolazone prior(to subsequent doses) Possible uremic symptoms and lower extremity edema but not urgently needing dialysis. May need in coming days. Hyperkalemia (Initially 6.5) resolved with kayekalate. Also got kayexalate, insulin, dextrose, calcium gluconate. No peaked T waves on presentation. (2) Anemia Current Visit: No Status: Acute Code(s): D64.9 - ANEMIA, UNSPECIFIED SNOMED Code(s): 280990167 Comment: chronic normocytic anemia. Likely 2/2 CKD Stage 4-5 now in Acute Renal Failure. Repeat Iron studies, last in 2013(Iron 54, Ferritin 216, Sat 19). Conside transferrin Receptor if available. s/p 1u pRBC ordered in ED for Hgb 6.6 Denies melena, hematochezia Likely needs epogen. (3) DM type 2 (diabetes mellitus, type 2) Current Visit: No Status: Acute Comment: - Lantus 18 units BID was held after patient went hypoglycemic to 50s after dextrose/10 regular cocktail in ED for hyperkalemia. ARF will cause lantus to hang around longer. - HgA1C 6.9 - POC qachs - Lispro SSI ACHS (4) GERD (gastroesophageal reflux disease) Current Visit: No Status: Chronic Code(s): K21.9 - GASTRO-ESOPHAGEAL REFLUX DISEASE WITHOUT ESOPHAGITIS SNOMED Code(s): 656447662 Comment: - Continue omeprazole (5) HTN (hypertension) Current Visit: No Status: Chronic Code(s): I10 - ESSENTIAL (PRIMARY) HYPERTENSION SNOMED Code(s): 41399064 Comment: - SBP 120-170's. - Continue labetalol 150mg BID, clonidine 0.1mg patch daily. home amlodipine 5mg initially held but will restart. - getting lasix 80mg IV for overload (6) Shortness of breath Current Visit: Yes Status: Acute Code(s): R06.02 - SHORTNESS OF BREATH SNOMED Code(s): 189949034 Comment: Likely 2/2 volume overload from Acute Renal Failure along with acute on chronic anemia. Appreciate Ortho suggestion of rule out PE. Pt denies immobility following surgery and certainly can't get CT Angio given Acute Renal Failure. Consider V/ q scan if no improvement with volume removal. (7) Sleep apnea Current Visit: No Status: Acute Code(s): G47.30 - SLEEP APNEA, UNSPECIFIED SNOMED Code(s): 28746595 Comment: - BiPAP at night Status and Disposition: medicine inpatient. Need to determin if will need dialysis or if will slowly recover kidney function. Attending: Joaquin Tavares
[2017-06-14] MEDS: amLODIPine TAB* 5 MG PO SCH (19:47)
[2017-06-14] MEDS: CMCS Pravastatin (NF) 20 MG TAB PO SCH (22:07)
[2017-06-14] MEDS: Calcitriol CAP* 0.25 MCG PO SCH (22:07)
[2017-06-14] MEDS: Omeprazole CAP* 20 MG PO SCH (22:07)
[2017-06-15] MEDS: Heparin VIAL(*) 5000 UNITS/ML VIAL (FIVE THOUSAND) SUBCUT SCH ×3 (05:47→21:26)
[2017-06-15 06:50] LABS: Hematocrit 19 % (35-47); Mean Corpuscular HGB Conc 34 g/dl (31-36); Mean Corpuscular Hemoglobin 30 pg (27-31); Mean Corpuscular Volume 88 fL (80-97); Mean Platelet Volume 8 um3 (7.4-10.4); Red Cell Distribution Width 14 % (10.5-15); White Blood Count 5.8 10^3/ul (3.5-10.8)
[2017-06-15 06:55] LABS: Comments Flag Yes; Hemoglobin 6.6 g/dl (12.0-16.0)
[2017-06-15 07:04] LABS: BUN/Creatinine Ratio 11.6 (8-20); Calcium 7.7 mg/dL (8.6-10.3); EGFR African American 7.9 (>60); EGFR Non-African American 6.2 (>60); Potassium 4.6 mmol/L (3.5-5.0)
[2017-06-15 07:24] LABS: Ferritin 345.9 ng/mL (11-307)
[2017-06-15] MEDS: Insulin LISPRO* 1 UNITS UNIT SUBCUT SCH ×3 (09:18→16:57)
[2017-06-15] MEDS: POLYETHYLENE GLYCOL PROPYLENE BOTH EYES SCH ×2 (09:21→22:59)
[2017-06-15] MEDS: Fluticasone NASAL SPRAY 50MCG* 16 gm SPRAY BTL BOTH NARES SCH (09:24)
[2017-06-15] MEDS: Labetalol TAB* 100 MG PO SCH ×2 (09:25→21:28)
[2017-06-15] MEDS: Aspirin EC Low Dose* 81 MG TAB.EC PO SCH ×2 (09:26→21:28)
[2017-06-15] MEDS: Omeprazole CAP* 20 MG PO SCH ×2 (09:26→21:28)
[2017-06-15] MEDS: amLODIPine TAB* 5 MG PO SCH (09:26)
--- NOTE | 2017-06-15 11:08 | PN ---
Subjective Date of Service: 06/15/17 Interval History: Patient seen and examined at bedside. Patient still c/o feeling short of breath and occasionally has to stop talking to catch her breath. Denies CP, abd pain, n/v. Reports "lots of urine output" but doesn't feel like it has made a significant change in breathing yet. Family History: Unchanged from Admission Social History: Unchanged from Admission Past Medical History: Unchanged from Admission Objective Active Medications: Acetaminophen (Tylenol Tab*) 650 mg PO Q4H PRN PRN Reason: FEVER/PAIN Last Admin: 06/14/17 22:08 Dose: 650 mg Amlodipine Besylate (Norvasc Tab*) 5 mg PO DAILY [facility] Last Admin: 06/15/17 09:26 Dose: 5 mg Aspirin (Aspirin Ec Low Dose*) 81 mg PO BID [facility] Last Admin: 06/15/17 09:26 Dose: 81 mg Calcitriol (Rocaltrol Cap*) 0.25 mcg PO BEDTIME [facility] Last Admin: 06/14/17 22:07 Dose: 0.25 mcg Clonidine HCl (Prsxseaz-Kyk-1 0.1 Mg Patch*) 0.1 mg TRANSDERM Tu@0900 [facility] Dextrose (D50w Syringe 50 Ml*) 25 gm IV PUSH ONCE PRN PRN Reason: FS < 60 Last Admin: 06/13/17 14:56 Dose: 25 gm Fluticasone Propionate (Flonase Nasal [place] 50mcg*) 2 spray BOTH NARES DAILY [facility] Last Admin: 06/15/17 09:24 Dose: 2 spray Furosemide (Lasix Iv*) 80 mg IV SLOW PU ONCE ONE Stop: 06/15/17 12:01 Heparin Sodium (Porcine) (Heparin Vial(*)) 5,000 units SUBCUT Q8HR [facility] Last Admin: 06/15/17 05:47 Dose: 5,000 units Hydrocortisone (Hytone Cream 1%*) 1 applic TOPICAL DAILY PRN PRN Reason: RASH Insulin Human Lispro (Humalog*) 0 units SUBCUT TID AC [facility] PRN Reason: Protocol Last Admin: 06/15/17 09:18 Dose: Not Given Labetalol HCl (Trandate Tab*) 150 mg PO BID [facility] Last Admin: 06/15/17 09:25 Dose: 150 mg Metolazone (Zaroxolyn Tab*) 5 mg PO ONCE ONE Stop: 06/15/17 11:07 Non-Formulary Medication (Polyethylene Glycol-Propylene [Systane Ultra 0.4-0.3 % ]) 1 drop BOTH EYES BID [facility] Last Admin: 06/15/17 09:21 Dose: Not Given Omeprazole (Prilosec Cap*) 20 mg PO BID [facility] Last Admin: 06/15/17 09:26 Dose: 20 mg Ondansetron HCl (Zofran Tab*) 4 mg PO Q6H PRN PRN Reason: NAUSEA Last Admin: 06/14/17 17:18 Dose: 4 mg Pravastatin Sodium (Pravachol (Nf)) 10 mg PO BEDTIME [facility] Last Admin: 06/14/17 22:07 Dose: 10 mg Triamcinolone Acetonide (Triamcinolone 0.025% Oint *) 1 applic TOPICAL DAILY PRN PRN Reason: RASH Vital Signs 06/14/17 06/14/17 06/14/17 11:21 15:31 19:35 Temperature 99.0 F 98.7 F Pulse Rate 78 89 Respiratory 20 18 18 Rate Blood Pressure 156/60 158/67 (mmHg) O2 Sat by Pulse 96 99 Oximetry 06/14/17 06/14/17 06/15/17 20:10 23:40 03:59 Temperature 99.2 F 99.0 F 98.4 F Pulse Rate 129 76 73 Respiratory 20 20 20 Rate Blood Pressure 177/86 141/56 138/50 (mmHg) O2 Sat by Pulse 100 96 97 Oximetry 06/15/17 07:02 Temperature Pulse Rate Respiratory 18 Rate Blood Pressure (mmHg) O2 Sat by Pulse Oximetry Oxygen Devices in Use Now: None Appearance: Female patient, lying in bed, mildly tachypneic Eyes: No Scleral Icterus Ears/Nose/Mouth/Throat: Mucous Membranes Moist Neck: NL Appearance and Movements; NL JVP Respiratory: Symmetrical Chest Expansion and Respiratory Effort, - - shallow inspirations, fine crackles Cardiovascular: NL Sounds; No Murmurs; No JVD, RRR Abdominal: - - abd soft, mildly distended, non tender, BS normoactive Extremities: No Clubbing, Cyanosis, - - 2+ pitting edema to BLE Neurological: Alert and Oriented x 3, NL Muscle Strength and Tone Result Diagrams: 06/15/17 14:05 06/15/17 06:32 Additional Lab and Data: Laboratory Results - last 24 hr 06/13/17 06/13/17 06/13/17 13:35 19:54 21:43 WBC RBC Hgb Hct MCV MCH MCHC RDW Plt Count MPV Neut % (Auto) Lymph % (Auto) [place] % (Auto) Eos % (Auto) Baso % (Auto) Absolute Neuts (auto) Absolute Lymphs (auto) Absolute Monos (auto) Absolute Eos (auto) Absolute Basos (auto) Absolute Nucleated RBC Neutrophils % Lymphocytes % Monocytes % Eosinophils % Nucleated RBC % Toxic Granulation Normal RBC Morphology Sodium 129 L Potassium 5.9 H Chloride 99 L Carbon Dioxide 22 Anion Gap 8 BUN 83 H Creatinine 6.87 H Est GFR ( Amer) 7.5 Est GFR (Non-Af Amer) 5.8 BUN/Creatinine Ratio 12.1 Glucose 163 H POC Glucose (mg/dL) 113 H Calcium 8.4 L Troponin I 0.02 Urine Color Urine Appearance Urine pH Ur Specific [place] Urine Protein Urine Ketones Urine Blood Urine Nitrate Urine Bilirubin Urine Urobilinogen Ur Leukocyte Esterase Urine WBC (Auto) Urine RBC (Auto) Ur Squamous Epith Cells Urine Bacteria Ur Random Creatinine Ur Random Sodium Ur Random Urea Nitrogn Urine Glucose Blood Type O Negative Antibody Screen Positive Antibody Identification Anti-D Direct Antiglob Test Negative Crossmatch See Detail 06/14/17 06/14/17 06/14/17 02:00 02:00 06:28 WBC 6.8 6.8 RBC 2.29 L 2.37 L Hgb 6.9 L 7.1 L Hct 20 L 21 L MCV 89 89 MCH 30 30 MCHC 34 34 RDW 14 14 Plt Count 190 195 MPV 9 9 Neut % (Auto) 78.2 Lymph % (Auto) 9.6 L Carl[place] % (Auto) 10.7 H Eos % (Auto) 0.8 Baso % (Auto) 0.7 Absolute Neuts (auto) 5.6 5.3 Absolute Lymphs (auto) 0.4 L 0.6 L Absolute Monos (auto) 0.7 0.7 Absolute Eos (auto) 0 0.1 Absolute Basos (auto) 0 0 Absolute Nucleated RBC 0 0 Neutrophils % 84 H Lymphocytes % 9 L Monocytes % 6 Eosinophils % 1 Nucleated RBC % 0 Toxic Granulation 1+ Normal RBC Morphology Not Reportable Sodium 130 L Potassium TNP Chloride 101 Carbon Dioxide 22 Anion Gap 7 BUN 77 H Creatinine 6.59 H Est GFR ( Amer) 7.9 Est GFR (Non-Af Amer) 6.1 BUN/Creatinine Ratio 11.7 Glucose 141 H POC Glucose (mg/dL) Calcium 7.8 L Troponin I Urine Color Urine Appearance Urine pH Ur Specific [place] Urine Protein Urine Ketones Urine Blood Urine Nitrate Urine Bilirubin Urine Urobilinogen Ur Leukocyte Esterase Urine WBC (Auto) Urine RBC (Auto) Ur Squamous Epith Cells Urine Bacteria Ur Random Creatinine Ur Random Sodium Ur Random Urea Nitrogn Urine Glucose Blood Type Antibody Screen Antibody Identification Direct Antiglob Test Crossmatch 06/14/17 06/14/17 06/14/17 06:28 06:28 06:28 WBC RBC Hgb Hct MCV MCH MCHC RDW Plt Count MPV Neut % (Auto) Lymph % (Auto) Carl[place] % (Auto) Eos % (Auto) Baso % (Auto) Absolute Neuts (auto) Absolute Lymphs (auto) Absolute Monos (auto) Absolute Eos (auto) Absolute Basos (auto) Absolute Nucleated RBC Neutrophils % Lymphocytes % Monocytes % Eosinophils % Nucleated RBC % Toxic Granulation Normal RBC Morphology Sodium Potassium 5.6 H Chloride Carbon Dioxide Anion Gap BUN Creatinine Est GFR ( Amer) Est GFR (Non-Af Amer) BUN/Creatinine Ratio Glucose POC Glucose (mg/dL) Calcium Troponin I Urine Color Yellow Urine Appearance Cloudy Urine pH 5.0 Ur Specific [place] 1.012 Urine Protein 3+(>=500 mg/dl) H Urine Ketones Negative Urine Blood Negative Urine Nitrate Negative Urine Bilirubin Negative Urine Urobilinogen Negative Ur Leukocyte Esterase Negative Urine WBC (Auto) 1+(6-10/hpf) H Urine RBC (Auto) Trace(0-2/hpf) Ur Squamous Epith Cells Present H Urine Bacteria Absent Ur Random Creatinine 87.50 Ur Random Sodium 34 Ur Random Urea Nitrogn 468 Urine Glucose 1+(50 mg/dl) H Blood Type Antibody Screen Antibody Identification Direct Antiglob Test Crossmatch 06/14/17 06/14/17 06/14/17 07:51 11:41 13:59 WBC RBC Hgb Hct MCV MCH MCHC RDW Plt Count MPV Neut % (Auto) Lymph % (Auto) Carl[place] % (Auto) Eos % (Auto) Baso % (Auto) Absolute Neuts (auto) Absolute Lymphs (auto) Absolute Monos (auto) Absolute Eos (auto) Absolute Basos (auto) Absolute Nucleated RBC Neutrophils % Lymphocytes % Monocytes % Eosinophils % Nucleated RBC % Toxic Granulation Normal RBC Morphology Sodium 131 L Potassium 4.9 Chloride 99 L Carbon Dioxide 19 L Anion Gap 13 H BUN 79 H Creatinine 7.01 H Est GFR ( Amer) 7.3 Est GFR (Non-Af Amer) 5.7 BUN/Creatinine Ratio 11.3 Glucose 115 H POC Glucose (mg/dL) 95 169 H Calcium 8.3 L Troponin I Urine Color Urine Appearance Urine pH Ur Specific [place] Urine Protein Urine Ketones Urine Blood Urine Nitrate Urine Bilirubin Urine Urobilinogen Ur Leukocyte Esterase Urine WBC (Auto) Urine RBC (Auto) Ur Squamous Epith Cells Urine Bacteria Ur Random Creatinine Ur Random Sodium Ur Random Urea Nitrogn Urine Glucose Blood Type Antibody Screen Antibody Identification Direct Antiglob Test Crossmatch 06/14/17 16:46 WBC RBC Hgb Hct MCV MCH MCHC RDW Plt Count MPV Neut % (Auto) Lymph % (Auto) [place] % (Auto) Eos % (Auto) Baso % (Auto) Absolute Neuts (auto) Absolute Lymphs (auto) Absolute Monos (auto) Absolute Eos (auto) Absolute Basos (auto) Absolute Nucleated RBC Neutrophils % Lymphocytes % Monocytes % Eosinophils % Nucleated RBC % Toxic Granulation Normal RBC Morphology Sodium Potassium Chloride Carbon Dioxide Anion Gap BUN Creatinine Est GFR ( Amer) Est GFR (Non-Af Amer) BUN/Creatinine Ratio Glucose POC Glucose (mg/dL) 158 H Calcium Troponin I Urine Color Urine Appearance Urine pH Ur Specific [place] Urine Protein Urine Ketones Urine Blood Urine Nitrate Urine Bilirubin Urine Urobilinogen Ur Leukocyte Esterase Urine WBC (Auto) Urine RBC (Auto) Ur Squamous Epith Cells Urine Bacteria Ur Random Creatinine Ur Random Sodium Ur Random Urea Nitrogn Urine Glucose Blood Type Antibody Screen Antibody Identification Direct Antiglob Test Crossmatch Microbiology and Other Data: Microbiology 06/13/17 14:59 Stool Occult Blood (BRIDGER) - Final Stool Assess/Plan/Problems-Billing Assessment: 77 year old female H CKD Stage 4-5, chronic normocytic anemia, HTN, DMT2, GERD , MARI on Bipap, p/w with lower extremity edema, stomach discomfort and shortness of breath. 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 Had just finished 7-10 day course of DS bactrim for left shoulder rash and been off home bumex for 3 weeks. Ulytes consistent with intrinsic process. May need dialysis in coming days. nausea likely 2/2 uremic symptoms vs volume overload - Patient Problems (1) Shortness of breath Code(s): R06.02 - SHORTNESS OF BREATH Comment: Likely 2/2 volume overload from acute renal failure along with acute on chronic anemia. Appreciate Ortho suggestion of rule out PE. Pt denies immobility following surgery and certainly can't get CT angio, given ARF. V/Q scan ordered, not available until Friday Will recheck CXR later if SOB does not approve with furosemide/metolazone today (2) Acute on chronic kidney failure Code(s): N17.9 - ACUTE KIDNEY FAILURE, UNSPECIFIED; N18.9 - CHRONIC KIDNEY DISEASE, UNSPECIFIED Comment: Ulytes consistent with intrinsic process. Likely AIN 2/2 bactrim vs ATN Apprec[address] Barksdale recommendations Will give additional dose of IV furosemide with metolazone prior Possible uremic symptoms and lower extremity edema but not urgently needing dialysis. May need in coming days. Hyperkalemia (initially 6.5) resolved with kayexalate. Also received insulin, dextrose, calcium gluconate. No peaked T waves on presentation. (3) Anemia Code(s): D64.9 - ANEMIA, UNSPECIFIED Comment: HH dropped this morning, no s/s bleeding - will recheck later this afternoon and tx if HH drops Chronic normocytic anemia. Likely 2/2 CKD stage 4-5 now in acute renal failure. Repeat iron studies, last in 2013 (Iron 54, Ferritin 216, Sat 19). Conside transferrin Receptor if available. s/p 1u PRBC ordered on admission Denies melena, hematochezia Likely needs epogen. (4) DM type 2 (diabetes mellitus, type 2) Comment: Lantus 18 units BID was held after patient went hypoglycemic to 50s after D10/ regular insulin cocktail in ED for hyperkalemia. ARF will cause Lantus to hang around longer. HgA1C 6.9 Continue FSBG ACHS with Lispro SSI (5) GERD (gastroesophageal reflux disease) Code(s): K21.9 - GASTRO-ESOPHAGEAL REFLUX DISEASE WITHOUT ESOPHAGITIS Comment : Continue omeprazole (6) HTN (hypertension) Code(s): I10 - ESSENTIAL (PRIMARY) HYPERTENSION Comment: SBP 120-170's. Continue labetalol, clonidine patch, amlodipine Receiving IV furosemide and metalazone today for overload (7) Sleep apnea Code(s): G47.30 - SLEEP APNEA, UNSPECIFIED Comment: BiPAP at night (8) DVT prophylaxis Comment: SQ heparin Status and Disposition: Medicine inpatient. Need to determine if will need dialysis or if will slowly recover kidney function.
[2017-06-15] MEDS ORDERED: Metolazone TAB* 5 MG PO ONE (11:30)
[2017-06-15] MEDS ORDERED: Furosemide IV* 10 MG/ML 10 ML VIAL (100 MG) IV ONE (12:00)
[2017-06-15 14:11] LABS: Hematocrit 22 % (35-47); Hemoglobin 7.1 g/dl (12.0-16.0)
--- NOTE | 2017-06-15 18:35 | RAD ---
Indication: Dyspnea. Single frontal view of the chest performed at 1740 hours was reviewed. Comparison is made with previous exam dated June 13, 2017. No mediastinal shift is noted. Heart is of normal size and configuration. Lung rollins appear clear. No significant change is noted since prior exam. Poor inspiration persists. IMPRESSION: NO ACTIVE CARDIOPULMONARY DISEASE IS NOTED. PERSISTENT POOR INSPIRATORY EFFORT.
[2017-06-15] MEDS: Acetaminophen TAB* 325 MG PO PRN (21:27)
[2017-06-15] MEDS: CMCS Pravastatin (NF) 20 MG TAB PO SCH (21:27)
[2017-06-15] MEDS: Calcitriol CAP* 0.25 MCG PO SCH (21:27)
[2017-06-16] MEDS: Heparin VIAL(*) 5000 UNITS/ML VIAL (FIVE THOUSAND) SUBCUT SCH ×3 (05:19→21:38)
[2017-06-16] MEDS: Acetaminophen TAB* 325 MG PO PRN ×3 (05:19→21:36)
[2017-06-16 05:24] LABS: Hematocrit 20 % (35-47); Mean Corpuscular HGB Conc 34 g/dl (31-36); Mean Corpuscular Hemoglobin 30 pg (27-31); Mean Corpuscular Volume 89 fL (80-97); Mean Platelet Volume 8 um3 (7.4-10.4); Red Blood Count 2.26 10^6/ul (4.0-5.4); Red Cell Distribution Width 14 % (10.5-15); White Blood Count 7.4 10^3/ul (3.5-10.8)
[2017-06-16 05:25] LABS: Comments Flag Yes; Hemoglobin 6.7 g/dl (12.0-16.0)
[2017-06-16 05:38] LABS: BUN/Creatinine Ratio 12.2 (8-20); Calcium 8.2 mg/dL (8.6-10.3); EGFR African American 7.9 (>60); EGFR Non-African American 6.2 (>60); Potassium 4.4 mmol/L (3.5-5.0)
[2017-06-16] MEDS: Insulin LISPRO* 1 UNITS UNIT SUBCUT SCH ×3 (09:02→17:50)
[2017-06-16] MEDS: Aspirin EC Low Dose* 81 MG TAB.EC PO SCH ×2 (09:04→21:36)
[2017-06-16] MEDS: Omeprazole CAP* 20 MG PO SCH ×2 (09:04→21:36)
[2017-06-16] MEDS: amLODIPine TAB* 5 MG PO SCH (09:05)
[2017-06-16] MEDS: Labetalol TAB* 100 MG PO SCH ×2 (09:06→21:36)
[2017-06-16] MEDS: Fluticasone NASAL SPRAY 50MCG* 16 gm SPRAY BTL BOTH NARES SCH (09:15)
[2017-06-16] MEDS: POLYETHYLENE GLYCOL PROPYLENE BOTH EYES SCH ×2 (09:17→20:45)
--- NOTE | 2017-06-16 12:31 | RAD ---
INDICATION: Short of breath COMPARISON: Chest x-ray June 15, 2017 TECHNIQUE: Following the administration of 11.0 millicuries of xenon gas, anterior and posterior deep breath, equilibrium, and washout phase imaging was performed. Following the intravenous administration of 6.1 millicuries of technetium 99m, MAA, anterior, posterior, lateral, and oblique imaging of the chest was performed. FINDINGS: Ventilation images show normal ventilation. The perfusion images show no segmentally absent areas of ventilation/perfusion mismatch. The probability of acute pulmonary embolus is low. IMPRESSION: LOW PROBABILITY FOR ACUTE PULMONARY EMBOLUS.
--- NOTE | 2017-06-16 15:17 | PN ---
Subjective Date of Service: 06/16/17 Interval History: Patient seen and examined at bedside. Pt states that she continues to have shortness of breath, worse with exertion and talking. Denies fever, chills, chest discomfort, N/V/D. Pt also has a persistent dry non-productive cough. Tele: Sinus rhythm with PVCs, rate 90's. Family History: Unchanged from Admission Social History: Unchanged from Admission Past Medical History: Unchanged from Admission Objective Active Medications: Acetaminophen (Tylenol Tab*) 650 mg PO Q4H PRN Reason: FEVER/PAIN Amlodipine Besylate (Norvasc Tab*) 5 mg PO DAILY [facility] Aspirin (Aspirin Ec Low Dose*) 81 mg PO BID [facility] Calcitriol (Rocaltrol Cap*) 0.25 mcg PO BEDTIME [facility] Clonidine HCl (Xvxcscne-Jzg-9 0.1 Mg Patch*) 0.1 mg TRANSDERM Tu@0900 [facility] Dextrose (D50w Syringe 50 Ml*) 25 gm IV PUSH ONCE PRN Reason: FS < 60 Fluticasone Propionate (Flonase Nasal [place] 50mcg*) 2 spray BOTH NARES DAILY [facility] Heparin Sodium (Porcine) (Heparin Vial(*)) 5,000 units SUBCUT Q8HR [facility] Hydrocortisone (Hytone Cream 1%*) 1 applic TOPICAL DAILY PRN Reason: RASH Insulin Human Lispro (Humalog*) 0 units SUBCUT TID AC [facility] Labetalol HCl (Trandate Tab*) 150 mg PO BID [facility] Non-Formulary Medication (Polyethylene Glycol-Propylene [Systane Ultra 0.4-0.3 % ]) 1 drop BOTH EYES BID [facility] Omeprazole (Prilosec Cap*) 20 mg PO BID [facility] Ondansetron HCl (Zofran Tab*) 4 mg PO Q6H PRN Reason: NAUSEA Pravastatin Sodium (Pravachol (Nf)) 10 mg PO BEDTIME [facility] Triamcinolone Acetonide (Triamcinolone 0.025% Oint *) 1 applic TOPICAL DAILY PRN Reason: RASH Vital Signs 06/15/17 06/15/17 06/15/17 15:47 18:35 19:29 Temperature 98.9 F 99.5 F Pulse Rate 81 81 Respiratory 20 18 20 Rate Blood Pressure 163/71 160/68 (mmHg) O2 Sat by Pulse 98 98 Oximetry 06/16/17 06/16/17 06/16/17 00:39 03:11 07:25 Temperature 98.1 F 98.3 F 98.6 F Pulse Rate 74 89 127 Respiratory 20 20 16 Rate Blood Pressure 142/58 162/77 135/87 (mmHg) O2 Sat by Pulse 98 96 99 Oximetry 06/16/17 06/16/17 08:00 11:43 Temperature 98.7 F Pulse Rate 77 Respiratory 18 16 Rate Blood Pressure 120/57 (mmHg) O2 Sat by Pulse 97 Oximetry Oxygen Devices in Use Now: None Appearance: NAD, sitting up in a chair Respiratory: Symmetrical Chest Expansion and Respiratory Effort, Clear to Auscultation Cardiovascular: NL Sounds; No Murmurs; No JVD, RRR Abdominal: NL Sounds; No Tenderness; No Distention Extremities: - - 1-2+ bilateral LE edema, greater in the lateral right foot Skin: No Rash or Ulcers Neurological: Alert and Oriented x 3, NL Muscle Strength and Tone Lines/Tubes/Other Access: Clean, Dry and Intact Peripheral IV - site benign Nutrition: Taking PO's Result Diagrams: 06/16/17 05:08 06/16/17 05:08 Additional Lab and Data: Microbiology and Other Data: Microbiology 06/13/17 14:59 Stool Occult Blood (BRIDGER) - Final Stool Assess/Plan/Problems-Billing Assessment: Ms. Wilkes is a 77 year old female with PMH significant for CKD Stage 4-5, chronic normocytic anemia, HTN, DMT2, GERD, MARI on Bipap, p/w with lower extremity edema, stomach discomfort and shortness of breath. Acute Renal Failure with BUSINESS SUPPORT MANAGER to 7 and K 6.5. Had just finished 7-10 day course of DS bactrim for left shoulder rash and been off home bumex for 3 weeks. Ulytes consistent with intrinsic process. May need dialysis in coming days. - Patient Problems (1) Shortness of breath Code(s): R06.02 - SHORTNESS OF BREATH SNOMED Code(s): 695812366 Comment: - Suspect secondary to volume overload from acute renal failure along with acute on chronic anemia. - VQ scan - low probability for PE. - Repeat CXR yesterday - No active cardiopulmonary disease noted, persistent poor inspiratory effort. (2) Acute on chronic kidney failure Code(s): N17.9 - ACUTE KIDNEY FAILURE, UNSPECIFIED; N18.9 - CHRONIC KIDNEY DISEASE, UNSPECIFIED SNOMED Code(s): 096207386 Comment: - Ulytes consistent with intrinsic process. Likely AIN secondary to bactrim vs ATN - Appreciate Dr. Barksdale recommendations - Possible uremic symptoms and lower extremity edema but not urgently needing dialysis. May need in coming days. - Hyperkalemia (initially 6.5) resolved with kayexalate. Also received insulin, dextrose, calcium gluconate. No peaked T waves on presentation. (3) Anemia Code(s): D64.9 - ANEMIA, UNSPECIFIED SNOMED Code(s): 964532320 Comment: - HH dropped yesterday morning, no s/s bleeding - improved yesterday afternoon but dropped again this morning. - Chronic normocytic anemia. Likely secondary to CKD stage 4-5 now in acute renal failure. - Iron studies - Iron 20, Ferritin 345.9, (last in 2013 Iron 54, Ferritin 216, Sat 19). - Conside transferrin Receptor if available. - s/p 1u PRBC ordered on admission - Denies melena, hematochezia - Likely needs epogen - Will give another unit of RBCs today (4) DM type 2 (diabetes mellitus, type 2) Comment: - Glucose 170-220's - HgA1C 6.9 - Continue to hold Lantus for now - Continue FSBG ACHS with Lispro SSI (5) GERD (gastroesophageal reflux disease) Code(s): K21.9 - GASTRO-ESOPHAGEAL REFLUX DISEASE WITHOUT ESOPHAGITIS SNOMED Code(s): 525817106 Comment: - Continue omeprazole (6) HTN (hypertension) Code(s): I10 - ESSENTIAL (PRIMARY) HYPERTENSION SNOMED Code(s): 51801005 Comment: - SBP 120-170's. - Continue labetalol, clonidine patch, amlodipine (7) Sleep apnea Code(s): G47.30 - SLEEP APNEA, UNSPECIFIED SNOMED Code(s): 97191296 Comment: - BiPAP at night (8) DVT prophylaxis Current Visit: No Status: Acute Code(s): [id number] - SNOMED Code(s): 389975431 Comment: SQ heparin (9) Full code status Current Visit: No Status: Acute Code(s): Z78.9 - OTHER SPECIFIED HEALTH STATUS SNOMED Code(s): 780833888 Status and Disposition: Inpatient. Need to determine if will need dialysis or if will slowly recover kidney function.
[2017-06-16] MEDS ORDERED: Furosemide IV* 10 MG/ML VIAL (40 MG) IV ONE (20:00)
[2017-06-16] MEDS: Calcitriol CAP* 0.25 MCG PO SCH (21:38)
[2017-06-16] MEDS: CMCS Pravastatin (NF) 20 MG TAB PO SCH (21:38)
[2017-06-17] MEDS: Heparin VIAL(*) 5000 UNITS/ML VIAL (FIVE THOUSAND) SUBCUT SCH (05:27)
[2017-06-17 05:28] LABS: Hematocrit 23 % (35-47); Hemoglobin 7.8 g/dl (12.0-16.0); Mean Corpuscular HGB Conc 34 g/dl (31-36); Mean Corpuscular Hemoglobin 30 pg (27-31); Mean Corpuscular Volume 87 fL (80-97); Mean Platelet Volume 8 um3 (7.4-10.4); Red Blood Count 2.62 10^6/ul (4.0-5.4); Red Cell Distribution Width 14 % (10.5-15); White Blood Count 7.9 10^3/ul (3.5-10.8)
[2017-06-17 05:42] LABS: Calcium 8.5 mg/dL (8.6-10.3); EGFR African American 8.9 (>60); EGFR Non-African American 6.9 (>60); Potassium 4.3 mmol/L (3.5-5.0)
[2017-06-17] MEDS: guaiFENesin LIQ* 100 MG/5 ML UDC PO PRN ×2 (06:40→12:55)
[2017-06-17] MEDS: Ondansetron TAB* 4 MG PO PRN (06:40)
[2017-06-17] MEDS: Acetaminophen TAB* 325 MG PO PRN ×3 (06:46→19:49)
[2017-06-17] MEDS ORDERED: cloNIDine 0.1 MG PATCH* 0.1 MG/24 HR 7 DAY PATCH TRANSDERM SCH (09:00)
[2017-06-17] MEDS: Insulin LISPRO* 1 UNITS UNIT SUBCUT SCH ×3 (10:01→17:58)
[2017-06-17] MEDS: Labetalol TAB* 100 MG PO SCH ×2 (10:02→22:44)
[2017-06-17] MEDS: Omeprazole CAP* 20 MG PO SCH ×2 (10:02→22:44)
[2017-06-17] MEDS: Aspirin EC Low Dose* 81 MG TAB.EC PO SCH ×2 (10:02→22:44)
[2017-06-17] MEDS: amLODIPine TAB* 5 MG PO SCH (10:03)
[2017-06-17] MEDS: POLYETHYLENE GLYCOL PROPYLENE BOTH EYES SCH (10:04)
[2017-06-17] MEDS: Fluticasone NASAL SPRAY 50MCG* 16 gm SPRAY BTL BOTH NARES SCH (10:04)
--- NOTE | 2017-06-17 10:35 | PN ---
Subjective Date of Service: 06/17/17 Interval History: Patient seen and examined at bedside. Denies fever, chills, chest discomfort, N/ V/D. Pt continues to have shortness of breath (worse with talking and exertion) , upper abdominal pain and bloating. She reports constipation and right foot discomfort, mostly at the 1st toe. She reports that the right foot pain is different then her normal neuropathy. Tele: Sinus rhythm with PVCs, rate 90-100's. Pt noted to intermittently have bigeminy and afib/flutter with rate up to 140's. Family History: Unchanged from Admission Social History: Unchanged from Admission Past Medical History: Unchanged from Admission Objective Active Medications: Acetaminophen (Tylenol Tab*) 650 mg PO Q4H PRN Reason: FEVER/PAIN Amlodipine Besylate (Norvasc Tab*) 5 mg PO DAILY KARL Aspirin (Aspirin Ec Low Dose*) 81 mg PO BID KARL Calcitriol (Rocaltrol Cap*) 0.25 mcg PO BEDTIME KARL Clonidine HCl (Farruoog-Lvq-9 0.1 Mg Patch*) 0.1 mg TRANSDERM Tu@0900 KARL Dextrose (D50w Syringe 50 Ml*) 25 gm IV PUSH ONCE PRN Reason: FS < 60 Fluticasone Propionate (Flonase Nasal [place] 50mcg*) 2 spray BOTH NARES DAILY KARL Guaifenesin (Robitussin*) 5 ml PO Q6H PRN Reason: COUGH Heparin Sodium (Porcine) (Heparin Vial(*)) 5,000 units SUBCUT Q8HR KARL Hydrocortisone (Hytone Cream 1%*) 1 applic TOPICAL DAILY PRN Reason: RASH Insulin Human Lispro (Humalog*) 0 units SUBCUT TID AC KARL Labetalol HCl (Trandate Tab*) 150 mg PO BID KARL Non-Formulary Medication (Polyethylene Glycol-Propylene [Systane Ultra 0.4-0.3 % ]) 1 drop BOTH EYES BID KARL Omeprazole (Prilosec Cap*) 20 mg PO BID KARL Ondansetron HCl (Zofran Tab*) 4 mg PO Q6H PRN Reason: NAUSEA Pravastatin Sodium (Pravachol (Nf)) 10 mg PO BEDTIME KARL Triamcinolone Acetonide (Triamcinolone 0.025% Oint *) 1 applic TOPICAL DAILY PRN Reason: RASH Vital Signs 06/16/17 06/16/17 06/16/17 11:43 15:33 19:47 Temperature 98.7 F 98.3 F Pulse Rate 77 79 Respiratory 16 16 20 Rate Blood Pressure 120/57 145/69 (mmHg) O2 Sat by Pulse 97 96 Oximetry 06/16/17 06/17/17 06/17/17 19:52 00:13 03:34 Temperature 99.5 F 98.5 F 98.3 F Pulse Rate 95 79 82 Respiratory 14 20 20 Rate Blood Pressure 175/74 152/69 155/70 (mmHg) O2 Sat by Pulse 99 96 96 Oximetry Oxygen Devices in Use Now: None Appearance: NAD, sitting up in a chair Ears/Nose/Mouth/Throat: Mucous Membranes Moist Respiratory: Symmetrical Chest Expansion and Respiratory Effort, Clear to Auscultation - , few scattered crackles in the bases Cardiovascular: NL Sounds; No Murmurs; No JVD, RRR Abdominal: - - Abdomin soft, large, tender in the upper quads Extremities: - - mild edema to right foot Skin: - - Redness to right 1st toe at medial aspect of 1st joint and at second joint Neurological: Alert and Oriented x 3, NL Muscle Strength and Tone Nutrition: Taking PO's Result Diagrams: 06/17/17 04:50 06/17/17 04:51 Additional Lab and Data: Microbiology and Other Data: Microbiology 06/13/17 14:59 Stool Occult Blood (BRIDGER) - Final Stool Assess/Plan/Problems-Billing Assessment: Ms. Wilkes is a 77 year old female with PMH significant for CKD Stage 4-5, chronic normocytic anemia, HTN, DMT2, GERD, MARI on Bipap, p/w with lower extremity edema, stomach discomfort and shortness of breath. Acute Renal Failure with MANAGER QA to 7 and K 6.5. Had just finished 7-10 day course of DS bactrim for left shoulder rash and been off home bumex for 3 weeks. Ulytes consistent with intrinsic process. May need dialysis in coming days. - Patient Problems (1) Shortness of breath Code(s): R06.02 - SHORTNESS OF BREATH SNOMED Code(s): 030543095 Comment: - Suspect secondary to volume overload from acute renal failure along with acute on chronic anemia. - VQ scan - low probability for PE. - Repeat CXR 06/15 - No active cardiopulmonary disease noted, persistent poor inspiratory effort. - Received 1 unit RBCs yesterday - Will start daily lasix - Will check an echo - Incentive Spirometer (2) Acute on chronic kidney failure Code(s): N17.9 - ACUTE KIDNEY FAILURE, UNSPECIFIED; N18.9 - CHRONIC KIDNEY DISEASE, UNSPECIFIED SNOMED Code(s): 892014642 Comment: - Ulytes consistent with intrinsic process. Likely AIN secondary to bactrim vs ATN - Appreciate Dr. Barksdale recommendations - Possible uremic symptoms and lower extremity edema but not urgently needing dialysis. - Hyperkalemia (initially 6.5) resolved with kayexalate. Also received insulin, dextrose, calcium gluconate. No peaked T waves on presentation. - Creatinine improving (3) Anemia Code(s): D64.9 - ANEMIA, UNSPECIFIED SNOMED Code(s): 141294573 Comment: - HH dropped yesterday morning, no s/s bleeding - improved yesterday afternoon but dropped again yesterday. - Chronic normocytic anemia. Likely secondary to CKD stage 4-5 now in acute renal failure. - Iron studies - Iron 20, Ferritin 345.9, (last in 2013 Iron 54, Ferritin 216, Sat 19). - s/p 2u PRBC this admission - Denies melena, hematochezia - Will start Ferrous Sulfate (4) Afib Code(s): I48.91 - UNSPECIFIED ATRIAL FIBRILLATION SNOMED Code(s): 75306592 Comment: - ? new onset Paroxysmal afib/flutter - [id number] - 5 points, Stroke risk 7.2% per year in > 90,000 Pts and 10% risk of stroke/TIA/systemic embolism - Will start on Warfarin, bridge with Lovenox (5) Gout attack Code(s): M10.9 - GOUT, UNSPECIFIED SNOMED Code(s): 50205592 Comment: - Right 1st toe - Will check a uric acid level - Start colchicine (6) DM type 2 (diabetes mellitus, type 2) Comment: - Glucose 200-220's - HgA1C 6.9 - Resume Lantus 10 units daily - Continue FSBG ACHS with Lispro SSI (7) GERD (gastroesophageal reflux disease) Code(s): K21.9 - GASTRO-ESOPHAGEAL REFLUX DISEASE WITHOUT ESOPHAGITIS SNOMED Code(s): 956327642 Comment: - Continue omeprazole (8) HTN (hypertension) Code(s): I10 - ESSENTIAL (PRIMARY) HYPERTENSION SNOMED Code(s): 34094594 Comment: - SBP 120-170's. - Continue labetalol, clonidine patch, amlodipine (9) Sleep apnea Code(s): G47.30 - SLEEP APNEA, UNSPECIFIED SNOMED Code(s): 84475842 Comment: - BiPAP at night (10) DVT prophylaxis Current Visit: No Status: Acute Code(s): IUW9761 - SNOMED Code(s): 367310806 Comment: - Lovenox bridge to Warfarin (11) Full code status Current Visit: No Status: Acute Code(s): Z78.9 - OTHER SPECIFIED HEALTH STATUS SNOMED Code(s): 429686484 Status and Disposition: Inpatient. Need to determine if will need dialysis or if will slowly recover kidney function.
[2017-06-17] MEDS ORDERED: Magnesium Hydroxide LIQ* 30 ML UDC PO PRN (11:07)
[2017-06-17 12:28] LABS: Uric Acid 8.1 mg/dL (2.3-6.6)
[2017-06-17] MEDS: Benzonatate CAP* 100 MG PO PRN (12:52)
[2017-06-17] MEDS: Polyethylene Glycol 3350* 17 GM PACKET PO PRN (12:53)
[2017-06-17] MEDS: Furosemide IV* 10 MG/ML 2 ML VIAL (20 MG) IV SCH (12:55)
[2017-06-17] MEDS: Enoxaparin(*) 80 MG/0.8 ML SYR SUBCUT SCH (12:56)
[2017-06-17] MEDS: Colchicine* 0.6 MG TAB PO SCH (14:11)
--- NOTE | 2017-06-17 15:14 | ECHO ---
Patient: LANA FERMIN [facility] Rec#: [id number] : 1940 Date: 06/17/2017 Age: 77y Height: 152.4 cm / 60.0 in Weight: 76.7 kg / 169.0 lbs Sex: F BSA: 1.7 Room#: [facility] Admit Date#: 06/13/2017 Type: Inpatient Referring: Edwina Soler NP Reading: Ajit Ling MD B Operator: Faye Cummins RN RDCS CC: Kristofer Snell MD Transthoracic Echocardiogram Indication: Shortness of breath BP: 155/70 HR: 75 Rhythm: NSR with PACs Findings History: HTN, HLD, DM, GERD, MARI, CKD, recent left shoulder surgery Technical Comments: The study quality is fair. The study is technically limited due to patient body habitus. The study was technically limited due to the patient's inability to lay in the left lateral decubitus position. Completed at 1450. Left Ventricle: The left ventricular chamber size is normal. Mild to moderate concentric left ventricular hypertrophy is observed. Global left ventricular wall motion and contractility are within normal limits. There is normal left ventricular systolic function. The estimated ejection fraction is 55-60%. There is no consistent Doppler evidence of clinically significant diastolic dysfunction. Left Atrium: The left atrial chamber size is normal. Right Ventricle: The right ventricle wall thickness is mildly increased. The right ventricular cavity size is normal. The right ventricular global systolic function is normal. Right Atrium: The right atrial cavity size is normal. Aortic Valve: The aortic valve is trileaflet. The aortic valve leaflets are mildly thickened. There is no evidence of aortic regurgitation. There is no evidence of aortic stenosis. Mitral Valve: The mitral valve leaflets are mildly thickened. There is mild mitral regurgitation. There is no evidence of mitral stenosis. Tricuspid Valve: The tricuspid valve leaflets are normal. There is trace to mild tricuspid regurgitation. Unable to estimate the right ventricular systolic pressure. There is no tricuspid stenosis. Pulmonic Valve: The pulmonic valve appears normal. There is mild pulmonic regurgitation. There is no pulmonic stenosis. Pericardium: There is no significant pericardial effusion. A pericardial fat pad is visualized. Aorta: There is no dilatation of the ascending aorta. There is no dilatation of the aortic arch. There is no dilation of the aortic root. Pulmonary Artery: The main pulmonary artery appears normal. Venous: The inferior vena cava appears normal in size. There is a greater than 50% respiratory change in the inferior vena cava dimension. Conclusions Mild to moderate concentric left ventricular hypertrophy is observed. There is normal left ventricular systolic function. The estimated ejection fraction is 55-60%. The right ventricle wall thickness is mildly increased. There is mild mitral regurgitation. There is trace to mild tricuspid regurgitation. There is mild pulmonic regurgitation. Compared to report of study from 03/11/2016 the mitral regugitation is mildly increased (was trace), the tricuspid regurgitation is mildly increased (was trace), and the pulmonic regurgitation is mildly increased ( was trace), none of which represents a significant change. Measurements Name Value Normal Range RVIDd (AP) 2D 2.6 cm (0.9 - 2.6) RVDdMajor (2D) 3.1 cm (2.2 - 4.4) RVAW (2D) 0.8 cm (0.2 - 0.5) RAd ISD 4CH 4.7 cm (3.4 - 4.9) RA (A4C)W 4 cm (2.9 - 4.6) IVSd (2D) 1.4 cm (0.6 - 1) LVPWd (2D) 1.4 cm (0.6 - 1) LVIDd (2D) 4.3 cm (3.6 - 5.4) LVIDs (2D) 3.2 cm - LV FS (2D) 26 % (25 - 45) Aortic Annulus 2.1 cm (1.4 - 2.6) Ao root diameter (2D) 2.9 cm (2.1 - 3.5) Ascending Ao 3.3 cm (2.1 - 3.4) Aortic arch 2.4 cm (1.8 - 3.4) LA dimension (AP) 2D 4 cm (2.3 - 3.8) LAd ISD 4CH 5.3 cm (2.9 - 5.3) LA ISD 4CH W 4.4 cm (2.5 - 4.5) Name Value Normal Range LA ESV SP 4CH (A/L) 68 ml - LA ESV SP 2CH (A/L) 45 ml - LA ESV BP (A/L) 57 ml - LA ESV BP (A/L) index 32.5 ml/m2 - LA ESV SP 4CH (MOD) 62 ml - LA ESV SP 2CH (MOD) 43 ml - Name Value Normal Range MV E-wave Vmax 0.96 m/sec - MV deceleration time 206 msec - MV A-wave Vmax 0.93 m/sec - MV E:A ratio 1 ratio - LV septal e' Vmax 0.07 m/sec - LV lateral e' Vmax 0.08 m/sec - LV E:e' septal ratio 13.7 ratio - LV E:e' lateral ratio 12 ratio - Name Value Normal Range AV Vmax 1.8 m/sec - AV VTI 42.7 cm - AV peak gradient 13 mmHg - AV mean gradient 8 mmHg - LVOT Vmax 1.1 m/sec - LVOT VTI 23.6 cm - LVOT peak gradient 5 mmHg - LVOT mean gradient 2.4 mmHg - ANUPAM Vmax 0.71 m/sec - Name Value Normal Range IVC diameter 1.8 cm - Name Value Normal Range PV Vmax 0.87 m/sec -
[2017-06-17] MEDS ORDERED: Warfarin TAB(*) 5 MG PO ONE (17:00)
[2017-06-17] MEDS: LORazepam TAB(*) 0.5 MG PO PRN (19:48)
[2017-06-17] MEDS ORDERED: Insulin GLARGINE(*) 1 UNITS UNIT SUBCUT SCH (21:00)
[2017-06-17] MEDS: Artificial Tears* 15 ML BTL BOTH EYES SCH (22:43)
[2017-06-17] MEDS: Calcitriol CAP* 0.25 MCG PO SCH (22:44)
[2017-06-17] MEDS: CMCS Pravastatin (NF) 20 MG TAB PO SCH (22:44)
[2017-06-18] MEDS: Acetaminophen TAB* 325 MG PO PRN ×4 (03:52→21:55)
[2017-06-18 05:13] LABS: Hematocrit 22 % (35-47); Hemoglobin 7.2 g/dl (12.0-16.0); Mean Corpuscular HGB Conc 34 g/dl (31-36); Mean Corpuscular Hemoglobin 30 pg (27-31); Mean Corpuscular Volume 88 fL (80-97); Mean Platelet Volume 8 um3 (7.4-10.4); Red Blood Count 2.45 10^6/ul (4.0-5.4); Red Cell Distribution Width 14 % (10.5-15); White Blood Count 7.9 10^3/ul (3.5-10.8)
[2017-06-18 05:25] LABS: BUN/Creatinine Ratio 15.2 (8-20); Calcium 8.4 mg/dL (8.6-10.3); EGFR African American 9.5 (>60); EGFR Non-African American 7.4 (>60)
[2017-06-18 05:37] LABS: Potassium 5.2 mmol/L (3.5-5.0)
[2017-06-18] MEDS: Insulin LISPRO* 1 UNITS UNIT SUBCUT SCH ×3 (09:07→17:21)
[2017-06-18] MEDS: Furosemide IV* 10 MG/ML 2 ML VIAL (20 MG) IV SCH (09:08)
[2017-06-18] MEDS: guaiFENesin LIQ* 100 MG/5 ML UDC PO PRN ×2 (09:10→15:01)
[2017-06-18] MEDS: Aspirin EC Low Dose* 81 MG TAB.EC PO SCH ×2 (09:11→21:55)
[2017-06-18] MEDS: Omeprazole CAP* 20 MG PO SCH ×2 (09:11→21:55)
[2017-06-18] MEDS: Benzonatate CAP* 100 MG PO PRN (09:11)
[2017-06-18] MEDS: LORazepam TAB(*) 0.5 MG PO PRN ×3 (09:13→21:55)
[2017-06-18] MEDS: amLODIPine TAB* 5 MG PO SCH (09:13)
[2017-06-18] MEDS: Ondansetron TAB* 4 MG PO PRN ×2 (09:14→15:03)
[2017-06-18] MEDS: Polyethylene Glycol 3350* 17 GM PACKET PO PRN (09:25)
[2017-06-18] MEDS: Labetalol TAB* 100 MG PO SCH (09:26)
[2017-06-18] MEDS: Colchicine* 0.6 MG TAB PO SCH ×2 (09:27→21:55)
[2017-06-18] MEDS: Fluticasone NASAL SPRAY 50MCG* 16 gm SPRAY BTL BOTH NARES SCH (09:28)
[2017-06-18] MEDS: Artificial Tears* 15 ML BTL BOTH EYES SCH ×2 (09:28→22:04)
--- NOTE | 2017-06-18 11:18 | RAD ---
INDICATION: Right foot pain COMPARISON: None TECHNIQUE: AP and lateral views were obtained. FINDINGS: There is osteopenia. 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 There are irregularities about the base of the proximal phalanx of the fifth toe likely related to a fracture although this may not be acute. Suggest correlation with the site of tenderness. There is soft tissue swelling over the dorsum of the mid foot and forefoot with underlying osteoarthritic change of the dorsum of the midfoot. There are heel spurs. IMPRESSION: DEGENERATIVE AND PRESUMED POSTTRAUMATIC CHANGES DESCRIBED. NO DEFINITIVE ACUTE FINDINGS BUT IF THERE IS PAIN AT THE LEVEL OF THE BASE OF THE FIFTH TOE, CONED-DOWN 3 VIEW IMAGING OF THE FIFTH TOE IS RECOMMENDED. SOFT TISSUE SWELLING DORSUM OF MIDFOOT
[2017-06-18] MEDS: Enoxaparin(*) 80 MG/0.8 ML SYR SUBCUT SCH (15:04)
--- NOTE | 2017-06-18 15:45 | RAD ---
INDICATION: Right fifth toe pain COMPARISON: Right foot same date TECHNIQUE: AP, lateral, and oblique views were obtained. FINDINGS: There are mild irregularities about the base of fifth toe which are most consistent with a prior injury. There is mild soft tissue swelling which is lateral in location and removed from the mild cortical irregularities. IMPRESSION: SUSPECT REMOTE POST TRAUMATIC INJURY TO THE PROXIMAL FIFTH DIGIT
[2017-06-18] MEDS ORDERED: Warfarin TAB(*) 5 MG PO ONE (17:00)
--- NOTE | 2017-06-18 17:29 | PN ---
Subjective Date of Service: 06/18/17 Interval History: Patient seen and examined at bedside. Pt states that she continues to be short of breath and reported chest tightness earlier today. Pt also states that her right foot pain is worse and it is difficult to bear weight on the leg. Denies fever, chills, N/V/D. Tele: Sinus rhythm, rate 60-80's with intermittent Afib/flutter with rate up to 140's. Family History: Unchanged from Admission Social History: Unchanged from Admission Past Medical History: Unchanged from Admission Objective Active Medications: Acetaminophen (Tylenol Tab*) 650 mg PO Q4H PRN Reason: FEVER/PAIN Albuterol (Ventolin 2.5 Mg/3 Ml Neb.Ana*) 2.5 mg INH [id number] AWAKE KARL Amlodipine Besylate (Norvasc Tab*) 5 mg PO DAILY KARL Aspirin (Aspirin Ec Low Dose*) 81 mg PO BID KARL Benzonatate (Tessalon Cap*) 100 mg PO BID PRN Reason: COUGH Budesonide (Pulmicort Neb*) 0.25 mg INH RT.BID KARL Calcitriol (Rocaltrol Cap*) 0.25 mcg PO BEDTIME KARL Clonidine HCl (Kfwosbcc-Vtu-3 0.1 Mg Patch*) 0.1 mg TRANSDERM Tu@0900 KARL Colchicine (Colcrys*) 0.6 mg PO BID KARL Dextrose (D50w Syringe 50 Ml*) 25 gm IV PUSH ONCE PRN Reason: FS < 60 Enoxaparin Sodium (Lovenox(*)) 75 mg SUBCUT Q24H KARL Fluticasone Propionate (Flonase Nasal [place] 50mcg*) 2 spray BOTH NARES DAILY KARL Furosemide (Lasix Iv*) 20 mg IV DAILY KARL Guaifenesin (Robitussin*) 5 ml PO Q6H PRN Reason: COUGH Hydrocortisone (Hytone Cream 1%*) 1 applic TOPICAL DAILY PRN Reason: RASH Insulin Glargine (Lantus(*)) 10 units SUBCUT Q24H KARL Insulin Human Lispro (Humalog*) 0 units SUBCUT TID AC KARL Reason: Protocol Labetalol HCl (Trandate Tab*) 150 mg PO BID KARL Lorazepam (Ativan Tab(*)) 0.25 mg PO Q6H PRN Reason: ANXIETY Magnesium Hydroxide (Milk Of Magnesia Liq*) 30 ml PO Q6H PRN Reason: CONSTIPATION Omeprazole (Prilosec Cap*) 20 mg PO BID KARL Ondansetron HCl (Zofran Tab*) 4 mg PO Q6H PRN Reason: NAUSEA Pharmacy Profile Note (Coumadin Per Pharmacy*) 1 note FOLLOW UP .PER PHARMACY PROTOC KARL Reason: Protocol Polyethylene Glycol/Electrolytes (Miralax*) 17 gm PO DAILY PRN Reason: CONSTIPATION Polyvinyl Alcohol (Polyvinyl Alcohol 1.4% Opth*) 1 drop BOTH EYES BID [facility] Pravastatin Sodium (Pravachol (Nf)) 10 mg PO BEDTIME KARL Triamcinolone Acetonide (Triamcinolone 0.025% Oint *) 1 applic TOPICAL DAILY PRN Reason: RASH Vital Signs 06/17/17 06/17/17 06/17/17 19:48 19:49 20:00 Temperature 98.3 F Pulse Rate 76 Respiratory 21 20 20 Rate Blood Pressure 146/65 (mmHg) O2 Sat by Pulse 100 Oximetry 06/17/17 06/17/17 06/18/17 21:48 23:59 03:46 Temperature 98.0 F 98.6 F Pulse Rate 83 81 Respiratory 20 20 20 Rate Blood Pressure 184/64 152/61 (mmHg) O2 Sat by Pulse 100 96 Oximetry 06/18/17 06/18/17 06/18/17 07:51 08:00 09:13 Temperature 98.2 F Pulse Rate 83 Respiratory 20 20 20 Rate Blood Pressure 153/64 (mmHg) O2 Sat by Pulse 94 Oximetry 06/18/17 06/18/17 06/18/17 11:13 12:02 15:02 Temperature 98.6 F Pulse Rate 76 Respiratory 20 20 20 Rate Blood Pressure 142/65 (mmHg) O2 Sat by Pulse 100 Oximetry 06/18/17 15:35 Temperature 98.2 F Pulse Rate 72 Respiratory 20 Rate Blood Pressure 147/65 (mmHg) O2 Sat by Pulse 100 Oximetry Oxygen Devices in Use Now: None Appearance: NAD, sitting up in a chair Ears/Nose/Mouth/Throat: Mucous Membranes Moist Respiratory: Symmetrical Chest Expansion and Respiratory Effort, Clear to Auscultation - , diminished Cardiovascular: NL Sounds; No Murmurs; No JVD, RRR Abdominal: NL Sounds; No Tenderness; No Distention Extremities: - - 2+ edema to right foot Neurological: Alert and Oriented x 3, NL Muscle Strength and Tone Lines/Tubes/Other Access: Clean, Dry and Intact Peripheral IV - site benign Nutrition: Taking PO's Result Diagrams: 06/18/17 04:51 06/18/17 04:51 Additional Lab and Data: Microbiology and Other Data: Microbiology 06/13/17 14:59 Stool Occult Blood (BRIDGER) - Final Stool Assess/Plan/Problems-Billing Assessment: Ms. Wilkes is a 77 year old female with PMH significant for CKD Stage 4-5, chronic normocytic anemia, HTN, DMT2, GERD, MARI on Bipap, p/w with lower extremity edema, stomach discomfort and shortness of breath. Acute Renal Failure with [employer] CROPS to 7 and K 6.5. Had just finished 7-10 day course of DS bactrim for left shoulder rash and been off home bumex for 3 weeks. Ulytes consistent with intrinsic process. May need dialysis in coming days. - Patient Problems (1) Shortness of breath Code(s): R06.02 - SHORTNESS OF BREATH SNOMED Code(s): 306208635 Comment: - Suspect secondary to volume overload from acute renal failure along with acute on chronic anemia. - VQ scan - low probability for PE. - Repeat CXR 06/15 - No active cardiopulmonary disease noted, persistent poor inspiratory effort. - Received 2 unit RBCs this admission - Echo - Mild to moderate concentric LVH, normal LV systolic function, EF 55-60% - Continue IV lasix - Incentive Spirometer - Pulmonology consult, appreciate input (2) Acute on chronic kidney failure Code(s): N17.9 - ACUTE KIDNEY FAILURE, UNSPECIFIED; N18.9 - CHRONIC KIDNEY DISEASE, UNSPECIFIED SNOMED Code(s): 499013220 Comment: - Ulytes consistent with intrinsic process. Likely AIN secondary to bactrim vs ATN - Appreciate Dr. Barksdale recommendations - Possible uremic symptoms and lower extremity edema but not urgently needing dialysis. - Hyperkalemia (initially 6.5) resolved with kayexalate. Also received insulin, dextrose, calcium gluconate. No peaked T waves on presentation. - Creatinine improving (3) Anemia Code(s): D64.9 - ANEMIA, UNSPECIFIED SNOMED Code(s): 529115370 Comment: - Chronic normocytic anemia. Likely secondary to CKD stage 4-5 now in acute renal failure. - Iron studies - Iron 20, Ferritin 345.9, (last in 2013 Iron 54, Ferritin 216, Sat 19). - s/p 2u PRBC this admission - Denies melena, hematochezia - Continue Ferrous Sulfate (4) Afib Code(s): I48.91 - UNSPECIFIED ATRIAL FIBRILLATION SNOMED Code(s): 56624042 Comment: - ? new onset Paroxysmal afib/flutter - [id number] - 5 points, Stroke risk 7.2% per year in > 90,000 Pts and 10% risk of stroke/TIA/systemic embolism - HR not well controlled at times - Discontinue Labetalol and start Metoprolol - Continue Warfarin, bridge with Lovenox (5) Gout attack Code(s): M10.9 - GOUT, UNSPECIFIED SNOMED Code(s): 08177754 Comment: - Right 1st toe - Uric acid 6.1 - Continue colchicine (will increase to BID today) (6) DM type 2 (diabetes mellitus, type 2) Comment: - Glucose 190-300's - HgA1C 6.9 - Increase Lantus to 16 units daily - Continue FSBG ACHS with Lispro SSI (7) GERD (gastroesophageal reflux disease) Code(s): K21.9 - GASTRO-ESOPHAGEAL REFLUX DISEASE WITHOUT ESOPHAGITIS SNOMED Code(s): 059028434 Comment: - Continue omeprazole (8) HTN (hypertension) Code(s): I10 - ESSENTIAL (PRIMARY) HYPERTENSION SNOMED Code(s): 55064069 Comment: - SBP 140-180's. - Continue clonidine patch, amlodipine (increase) - Change labetalol to metoprolol (9) Sleep apnea Code(s): G47.30 - SLEEP APNEA, UNSPECIFIED SNOMED Code(s): 79318456 Comment: - BiPAP at night (10) DVT prophylaxis Current Visit: No Status: Acute Code(s): DIP0138 - SNOMED Code(s): 944779286 Comment: - Lovenox bridge to Warfarin (11) Full code status Current Visit: No Status: Acute Code(s): Z78.9 - OTHER SPECIFIED HEALTH STATUS SNOMED Code(s): 427364950 Status and Disposition: Inpatient. Need to determine if will need dialysis or if will slowly recover kidney function.
--- NOTE | 2017-06-18 18:11 | CONS ---
PULMONARY CONSULTATION REPORT: DATE OF CONSULTATION: 06/18/17 CONSULTATION REQUESTED BY: Edwina Lovett NP REASON FOR CONSULTATION: Evaluation of shortness of breath. HISTORY OF PRESENT ILLNESS: The patient is a 77-year-old obese white female with history of obstructive sleep apnea, chronic kidney disease, diabetes, hypertension, osteoarthritis, recently had shoulder surgery. The patient was admitted for evaluation of dry cough, shortness of breath, nausea, and stomach upset. The patient reported having worsening shortness of breath and inability to take deep breath and feeling constricted for the past several days. The patient also reported having dry cough. The patient reported nausea and chills ; however, denied fevers. The patient also noticed lower extremity swelling. She has not been taking her Bumex since last shoulder surgery. The patient was seen by her orthopedic surgeon, was started on Augmentin for possible infection of the skin postsurgery. The patient was noted to have hyperkalemia with worsening renal failure with acute on chronic renal failure with bump in creatinine from 4 to 7. The patient also reported decreased urinary output and worsening lower extremity swelling. The patient received Kayexalate in the emergency room. Her potassium normalized currently. The patient was also found to have low hemoglobin at 6.6. The patient received blood transfusion. The patient has received 2 units of PRBC transfusion. The patient; however, continues to have significant shortness of breath even at rest. The patient continues to have the dry cough. The patient reports feeling congested, taking deep breath. Lower extremity swelling is improved. Her constipation has resolved. The patient is a lifelong nonsmoker. No history of asthma. The patient also reports her GERD symptoms have been active recently. The patient also has history of atrial fibrillation and is not in RVR. The patient was started on Lovenox and will be bridged to Coumadin. No history of acute GI bleed reported. She is on omeprazole for chronic GERD therapy. The patient has sleep apnea and has been compliant with her CPAP therapy as prescribed. She uses BiPAP and denies any issues with her machine. PAST MEDICAL HISTORY: 1. Obstructive sleep apnea, on BiPAP at night. 2. Chronic kidney disease, stage 4. 3. Diabetes type 2. 4. Insulin dependent diabetes. 5. Hypertension. 6. GERD. 7. Osteoarthritis. 8. Neck and shoulder surgeries. PAST SURGICAL HISTORY: Multiple spine and shoulder surgeries, laparoscopic cholecystectomy, hysterectomy, cardiac catheterization. HOME MEDICATIONS: 1. Lantus 18 units. 2. Lispro sliding scale. 3. Bactrim. 4. Aspirin. 5. Calcitriol. 6. Nexium. 7. Flonase. 8. Hydrocortisone. 9. Labetalol. 10. Magnesium. 11. Pravastatin. 12. Triamcinolone. 13. Amlodipine. 14. Clonidine. 15. Tylenol. ALLERGIES: PENICILLIN, ATORVASTATIN, HYDROMORPHONE, LOSARTAN, REGLAN, RIFAXIMIN , SULINDAC, MORPHINE, GABAPENTIN, LISINOPRIL. FAMILY HISTORY: Brain tumor in mother, lung cancer in father and leukemia. SOCIAL HISTORY: Lifelong nonsmoker. No alcohol or drug abuse. REVIEW OF SYSTEMS: All 14 systems reviewed and as per HPI. PHYSICAL EXAM: The patient is lying in recliner, in no apparent distress, coughing intermittently. Vital Signs: Temperature 98.2, pulse 83 beats per minute, respiratory rate 20 per minute, O2 sat 94% on 2 L, and blood pressure 153/64. HEENT: Pupils equal, reactive to light, mucous membranes moist. Neck: Supple. No JVD. Respiratory: No wheezing, coarse breath sounds bilaterally, no crackles. Cardiovascular: Regular rate and rhythm. No murmurs, gallops, or rubs. Abdomen: Obese. Bowel sounds present. Nondistended, nontender. Extremities: Trace edema bilaterally. Neurologic: No focal deficits. Skin: Bruises present in upper extremity, heels, on the left shoulder without erythema or cellulitis. LABORATORY DATA: WBC count 7.4, hemoglobin 7.2, hematocrit 22, platelet count 258,000. Sodium 130, potassium 5.2, chloride 98, bicarb 24, BUN 85, creatinine 5.61, glucose 195. Calcium 8.4. Troponins 0.01. Blood cultures negative to date. IMAGIN. A chest x-ray did not reveal any acute airspace opacities, no pleural effusion. 2. A v/Q scan was suggestive of low probability for pulmonary embolism. 3. Echocardiogram revealed good systolic function with EF of 55% to 60%, mild to moderate concentric LV hypertrophy noted, right ventricle mildly dilated, mild mitral regurgitation, mild tricuspid and pulmonary regurgitation. IMPRESSION AND RECOMMENDATIONS: 77-year-old female with chronic kidney disease with acute on chronic renal failure secondary to Bactrim versus dehydration, recent shoulder surgery with shortness of breath, hypoxemia, anemia. 1. Shortness of breath - given the cough and tightness and coarse breath sounds concerning for possible reactive airway disease likely from laryngeal reflux. Symptoms likely worsened due to underlying anemia, also resulting in hypoxemia. No EKG changes, echo did not reveal evidence of heart failure. She has received blood transfusion, and hemoglobin is still on the low end. 2. Anemia from underlying chronic kidney disease versus secondary to blood loss. The patient denies evidence of GI bleed. She does have chronic anemia with acute drop in her hematocrit. 3. No evidence of pulmonary embolism. The patient was started on anticoagulation given history of atrial fibrillation. Would recommend bronchodilators to relieve bronchospasm. Will also give the patient steroid inhaler for reactive airway disease. I would try to avoid systemic steroids at this time given underlying history of acid reflux disease and recent fluid overload. 4. The patient also with uremia, which might also be causing dry cough and shortness of breath. 5. Continue with BiPAP at night. Rest of management as per primary team. Thank you for allowing me to participate in the care of your patient. Will follow up with you. [id number]/CPS #: [id number] NAHID
[2017-06-18] MEDS: Budesonide NEB* 0.25 MG/2 ML NEB.SOLN INH SCH (19:44)
[2017-06-18] MEDS: Albuterol 2.5 MG/3 ML NEB.SOL* (0.083%) INH SCH (19:44)
[2017-06-18] MEDS ORDERED: Metoprolol Tartrate TAB* 50 mg PO SCH (21:00)
[2017-06-18] MEDS: Insulin GLARGINE(*) 1 UNITS UNIT SUBCUT SCH (21:54)
[2017-06-18] MEDS: CMCS Pravastatin (NF) 20 MG TAB PO SCH (21:55)
[2017-06-18] MEDS: Metoprolol Tartrate TAB* 50 mg PO SCH (21:55)
[2017-06-18] MEDS: Calcitriol CAP* 0.25 MCG PO SCH (21:55)
[2017-06-19] MEDS: Albuterol 2.5 MG/3 ML NEB.SOL* (0.083%) INH SCH ×4 (01:23→19:52)
[2017-06-19 06:55] LABS: Hematocrit 22 % (35-47); Hemoglobin 7.5 g/dl (12.0-16.0)
[2017-06-19 07:09] LABS: Albumin 2.6 g/dL (3.2-5.2); BUN/Creatinine Ratio 15.2 (8-20); Calcium 8.3 mg/dL (8.6-10.3); EGFR African American 10.2 (>60); EGFR Non-African American 7.9 (>60); Globulin 2.8 g/dL (2-4); Total Bilirubin 0.3 mg/dL (0.2-1.0); Total Protein 5.4 g/dL (6.4-8.9)
[2017-06-19 07:19] LABS: Potassium 5.1 mmol/L (3.5-5.0)
[2017-06-19] MEDS: Budesonide NEB* 0.25 MG/2 ML NEB.SOLN INH SCH ×2 (08:30→19:52)
[2017-06-19] MEDS: Artificial Tears* 15 ML BTL BOTH EYES SCH ×2 (10:01→21:31)
[2017-06-19] MEDS: amLODIPine TAB* 5 MG PO SCH (10:02)
[2017-06-19] MEDS: Omeprazole CAP* 20 MG PO SCH ×2 (10:02→21:31)
[2017-06-19] MEDS: Aspirin EC Low Dose* 81 MG TAB.EC PO SCH ×2 (10:02→21:31)
[2017-06-19] MEDS: Furosemide IV* 10 MG/ML 2 ML VIAL (20 MG) IV SCH (10:02)
[2017-06-19] MEDS: Insulin LISPRO* 1 UNITS UNIT SUBCUT SCH ×3 (10:02→17:13)
[2017-06-19] MEDS: Colchicine* 0.6 MG TAB PO SCH ×2 (10:03→21:31)
[2017-06-19] MEDS: Fluticasone NASAL SPRAY 50MCG* 16 gm SPRAY BTL BOTH NARES SCH (10:03)
[2017-06-19] MEDS: Metoprolol Tartrate TAB* 50 mg PO SCH ×2 (10:03→21:30)
[2017-06-19] MEDS: Acetaminophen TAB* 325 MG PO PRN ×2 (10:25→21:59)
[2017-06-19] MEDS: Enoxaparin(*) 80 MG/0.8 ML SYR SUBCUT SCH (12:53)
--- NOTE | 2017-06-19 14:39 | PN ---
Subjective Date of Service: 06/19/17 Interval History: Patient seen and examined at bedside. Pt states that her cough, chest tightness , and shortness of breath are improving. She also reports that the discomfort in her right foot has started to improve. Denies fever, chills, N/V/D. Tele: Sinus rhythm, rate 70-80's. Paroxysmal afib and PVCs. Rate has improved. Family History: Unchanged from Admission Social History: Unchanged from Admission Past Medical History: Unchanged from Admission Objective Active Medications: Acetaminophen (Tylenol Tab*) 650 mg PO Q4H PRN Reason: FEVER/PAIN Albuterol (Ventolin 2.5 Mg/3 Ml Neb.Ana*) 2.5 mg INH [id number] AWAKE KARL Amlodipine Besylate (Norvasc Tab*) 10 mg PO DAILY KARL Aspirin (Aspirin Ec Low Dose*) 81 mg PO BID KARL Benzonatate (Tessalon Cap*) 100 mg PO BID PRN Reason: COUGH Budesonide (Pulmicort Neb*) 0.25 mg INH RT.BID KARL Calcitriol (Rocaltrol Cap*) 0.25 mcg PO BEDTIME KARL Clonidine HCl ([id number]-Zvm-0 0.1 Mg Patch*) 0.1 mg TRANSDERM Tu@0900 KARL Colchicine (Colcrys*) 0.6 mg PO BID KARL Dextrose (D50w Syringe 50 Ml*) 25 gm IV PUSH ONCE PRN Reason: FS < 60 Enoxaparin Sodium (Lovenox(*)) 75 mg SUBCUT Q24H KARL Fluticasone Propionate (Flonase Nasal [place] 50mcg*) 2 spray BOTH NARES DAILY KARL Furosemide (Lasix Iv*) 20 mg IV DAILY KARL Guaifenesin (Robitussin*) 5 ml PO Q6H PRN Reason: COUGH Hydrocortisone (Hytone Cream 1%*) 1 applic TOPICAL DAILY PRN Reason: RASH Insulin Glargine (Lantus(*)) 16 units SUBCUT Q24H KARL Insulin Human Lispro (Humalog*) 0 units SUBCUT TID AC KARL Lorazepam (Ativan Tab(*)) 0.25 mg PO Q6H PRN Reason: ANXIETY Magnesium Hydroxide (Milk Of Magnesia Liq*) 30 ml PO Q6H PRN Reason: CONSTIPATION Metoprolol Tartrate (Lopressor Tab*) 50 mg PO Q12HR [facility] Omeprazole (Prilosec Cap*) 20 mg PO BID [facility] Ondansetron HCl (Zofran Tab*) 4 mg PO Q6H PRN Reason: NAUSEA Pharmacy Profile Note (Coumadin Per Pharmacy*) 1 note FOLLOW UP .PER PHARMACY PROTOC [facility] Polyethylene Glycol/Electrolytes (Miralax*) 17 gm PO DAILY PRN Reason: CONSTIPATION Polyvinyl Alcohol (Polyvinyl Alcohol 1.4% Opth*) 1 drop BOTH EYES BID [facility] Pravastatin Sodium (Pravachol (Nf)) 10 mg PO BEDTIME KARL Triamcinolone Acetonide (Triamcinolone 0.025% Oint *) 1 applic TOPICAL DAILY PRN Reason: RASH Warfarin Sodium (Coumadin Tab(*)) 5 mg PO 1700 ONE Stop: 06/19/17 17:01 Vital Signs 06/18/17 06/18/17 06/18/17 15:02 15:35 17:02 Temperature 98.2 F Pulse Rate 72 Respiratory 20 20 20 Rate Blood Pressure 147/65 (mmHg) O2 Sat by Pulse 100 Oximetry 06/18/17 06/18/17 06/18/17 19:23 19:49 20:00 Temperature 98.3 F Pulse Rate 73 72 Respiratory 17 20 18 Rate Blood Pressure 147/66 (mmHg) O2 Sat by Pulse 100 99 Oximetry 06/18/17 06/18/17 06/18/17 21:55 23:27 23:55 Temperature 98.7 F Pulse Rate 69 Respiratory 20 20 20 Rate Blood Pressure 170/69 (mmHg) O2 Sat by Pulse 99 Oximetry 06/19/17 06/19/17 06/19/17 03:50 07:53 08:00 Temperature 97.8 F 98.5 F Pulse Rate 65 100 Respiratory 20 20 18 Rate Blood Pressure 164/67 157/76 (mmHg) O2 Sat by Pulse 99 94 Oximetry 06/19/17 06/19/17 08:32 13:26 Temperature Pulse Rate 78 72 Respiratory 20 14 Rate Blood Pressure (mmHg) O2 Sat by Pulse 96 96 Oximetry Oxygen Devices in Use Now: Nasal Cannula - 2L Appearance: NAD, sitting up in a chair Ears/Nose/Mouth/Throat: Mucous Membranes Moist Respiratory: Symmetrical Chest Expansion and Respiratory Effort, Clear to Auscultation Cardiovascular: NL Sounds; No Murmurs; No JVD Abdominal: NL Sounds; No Tenderness; No Distention Extremities: - - Trace to 1+ bilateral LE edema Skin: - - Erythema to right 1st toe Neurological: Alert and Oriented x 3, NL Muscle Strength and Tone Lines/Tubes/Other Access: Clean, Dry and Intact Peripheral IV - site benign Nutrition: Taking PO's Result Diagrams: 06/19/17 06:29 06/19/17 06:35 Additional Lab and Data: Microbiology and Other Data: Microbiology 06/13/17 14:59 Stool Occult Blood (BRIDGER) - Final Stool Assess/Plan/Problems-Billing Assessment: Ms. Wilkes is a 77 year old female with PMH significant for CKD Stage 4-5, chronic normocytic anemia, HTN, DMT2, GERD, MARI on Bipap, p/w with lower extremity edema, stomach discomfort and shortness of breath. Acute Renal Failure with [employer] to 7 and K 6.5. Had just finished 7-10 day course of DS bactrim for left shoulder rash and been off home bumex for 3 weeks. Ulytes consistent with intrinsic process. May need dialysis in coming days. - Patient Problems (1) Shortness of breath Code(s): R06.02 - SHORTNESS OF BREATH SNOMED Code(s): 026894924 Comment: - Improving on bronchodilators - Suspect secondary to volume overload from acute renal failure along with acute on chronic anemia. - VQ scan - low probability for PE. - Repeat CXR 06/15 - No active cardiopulmonary disease noted, persistent poor inspiratory effort. - Received 2 unit RBCs this admission - Echo - Mild to moderate concentric LVH, normal LV systolic function, EF 55-60% - Pulmonology consult, appreciate input - Continue IV lasix - Incentive Spirometer (2) Acute on chronic kidney failure Code(s): N17.9 - ACUTE KIDNEY FAILURE, UNSPECIFIED; N18.9 - CHRONIC KIDNEY DISEASE, UNSPECIFIED SNOMED Code(s): 121546555 Comment: - Ulytes consistent with intrinsic process. Likely AIN secondary to bactrim vs ATN - Appreciate Dr. Barksdale recommendations - Possible uremic symptoms and lower extremity edema but not urgently needing dialysis. - Hyperkalemia (initially 6.5) resolved with kayexalate. Also received insulin, dextrose, calcium gluconate. No peaked T waves on presentation. - Creatinine improving (3) Anemia Code(s): D64.9 - ANEMIA, UNSPECIFIED SNOMED Code(s): 360299076 Comment: - Chronic normocytic anemia. Likely secondary to CKD stage 4-5 now in acute renal failure. - Iron studies - Iron 20, Ferritin 345.9, (last in 2013 Iron 54, Ferritin 216, Sat 19). - s/p 2u PRBC this admission - Denies melena, hematochezia - Continue Ferrous Sulfate - Will give a dose of epogen today (4) Afib Code(s): I48.91 - UNSPECIFIED ATRIAL FIBRILLATION SNOMED Code(s): 63216001 Comment: - ? new onset Paroxysmal afib/flutter - [id number] - 5 points, Stroke risk 7.2% per year in > 90,000 Pts and 10% risk of stroke/TIA/systemic embolism - HR better controlled on Metoprolol - Continue Warfarin, bridge with Lovenox and Metoprolol (5) Gout attack Code(s): M10.9 - GOUT, UNSPECIFIED SNOMED Code(s): 72584337 Comment: - Right 1st toe - Uric acid 6.1 - Continue colchicine (6) DM type 2 (diabetes mellitus, type 2) Comment: - Glucose 190-240's - HgA1C 6.9 - Increase Lantus to 24 units daily - Continue FSBG ACHS with Lispro SSI (7) GERD (gastroesophageal reflux disease) Code(s): K21.9 - GASTRO-ESOPHAGEAL REFLUX DISEASE WITHOUT ESOPHAGITIS SNOMED Code(s): 866700219 Comment: - Continue omeprazole (8) HTN (hypertension) Code(s): I10 - ESSENTIAL (PRIMARY) HYPERTENSION SNOMED Code(s): 34469162 Comment: - SBP 130-170's. - Continue clonidine patch, amlodipine, metoprolol (9) Sleep apnea Code(s): G47.30 - SLEEP APNEA, UNSPECIFIED SNOMED Code(s): 59515660 Comment: - BiPAP at night (10) DVT prophylaxis Current Visit: No Status: Acute Code(s): LXJ0438 - SNOMED Code(s): 330661006 Comment: - Lovenox bridge to Warfarin (11) Full code status Current Visit: No Status: Acute Code(s): Z78.9 - OTHER SPECIFIED HEALTH STATUS SNOMED Code(s): 208008653 Status and Disposition: Inpatient. Kidney function slowly recovering. Possible discharge in 1-2 days.
[2017-06-19] MEDS ORDERED: Epoetin Alfa* 10,000 UNITS/ML VIAL SUBCUT ONE (16:00)
[2017-06-19] MEDS ORDERED: Warfarin TAB(*) 5 MG PO ONE (17:00)
--- NOTE | 2017-06-19 19:59 | PN ---
Progress Note - Progress Note Date of Service: 06/19/17 - Pulm f/u note Note: Pt seen and examined at bedside. Pt reports improvement in breathing with bronchodilators, cough is less frequent. Active Medications Generic Name Dose Route Start Last Admin Trade Name Freq PRN Reason Stop Dose Admin Acetaminophen 650 mg 06/14/17 03:56 06/19/17 10:25 Tylenol Tab* PO 650 mg Q4H PRN Administration FEVER/PAIN Albuterol 2.5 mg 06/18/17 19:00 06/19/17 13:24 Ventolin 2.5 Mg/3 Ml Neb.Ana* INH 2.5 mg [id number] AWAKE KARL Administration Amlodipine Besylate 10 mg 06/19/17 09:00 06/19/17 10:02 Norvasc Tab* PO 10 mg DAILY KARL Administration Aspirin 81 mg 06/13/17 21:00 06/19/17 10:02 Aspirin Ec Low Dose* PO 81 mg BID KARL Administration Benzonatate 100 mg 06/17/17 11:57 06/18/17 09:11 Tessalon Cap* PO 100 mg BID PRN Administration COUGH Budesonide 0.25 mg 06/18/17 19:00 06/19/17 08:30 Pulmicort Neb* INH 0.25 mg RT.BID KARL Administration Calcitriol 0.25 mcg 06/13/17 21:00 06/18/17 21:55 Rocaltrol Cap* PO 0.25 mcg BEDTIME KARL Administration Clonidine HCl 0.1 mg 06/17/17 09:00 06/17/17 10:04 [id number]-Dyk-4 0.1 Mg Patch* TRANSDERM 1 patch Tu@0900 KARL Administration Colchicine 0.6 mg 06/18/17 21:00 06/19/17 10:03 Colcrys* PO 0.6 mg BID KARL Administration Dextrose 25 gm 06/13/17 14:11 06/13/17 14:56 D50w Syringe 50 Ml* IV PUSH 25 gm ONCE PRN Administration FS < 60 Enoxaparin Sodium 75 mg 06/17/17 13:00 06/19/17 12:53 Lovenox(*) SUBCUT 75 mg Q24H KARL Administration Fluticasone Propionate 2 spray 06/14/17 09:00 06/19/17 10:03 Flonase Nasal [place] 50mcg* BOTH NARES 2 spray DAILY [facility] Administration Furosemide 20 mg 06/17/17 11:59 06/19/17 10:02 Lasix Iv* IV 20 mg DAILY [facility] Administration Guaifenesin 5 ml 06/16/17 15:40 06/18/17 15:01 Robitussin* PO 5 ml Q6H PRN Administration COUGH Hydrocortisone 1 applic 06/13/17 14:53 Hytone Cream 1%* TOPICAL DAILY PRN RASH Insulin Glargine 16 units 06/18/17 21:00 06/18/17 21:54 Lantus(*) SUBCUT 16 units Q24H KARL Administration Insulin Human Lispro 0 units 06/13/17 16:30 06/19/17 17:13 Humalog* SUBCUT 6 unit TID AC [facility] Administration Protocol Lorazepam 0.25 mg 06/17/17 18:32 06/18/17 21:55 Ativan Tab(*) PO 0.25 mg Q6H PRN Administration ANXIETY Magnesium Hydroxide 30 ml 06/17/17 11:07 06/17/17 12:53 Milk Of Magnesia Liq* PO 30 ml Q6H PRN Administration CONSTIPATION Metoprolol Tartrate 75 mg 06/19/17 21:00 Lopressor Tab* PO Q12HR [facility] Omeprazole 20 mg 06/14/17 21:00 06/19/17 10:02 Prilosec Cap* PO 20 mg BID KARL Administration Ondansetron HCl 4 mg 06/14/17 16:55 06/18/17 15:03 Zofran Tab* PO 4 mg Q6H PRN Administration NAUSEA Pharmacy Profile Note 1 note 06/17/17 13:00 Coumadin Per Pharmacy* FOLLOW UP .PER PHARMACY PROTOC [facility] Protocol Polyethylene Glycol/Electrolytes 17 gm 06/17/17 11:07 06/18/17 09:25 Miralax* PO 17 gm DAILY PRN Administration CONSTIPATION Polyvinyl Alcohol 1 drop 06/17/17 21:00 06/19/17 10:01 Polyvinyl Alcohol 1.4% Opth* BOTH EYES 1 drop BID [facility] Administration Pravastatin Sodium 10 mg 06/13/17 21:00 06/18/17 21:55 Pravachol (Nf) PO 10 mg BEDTIME [facility] Administration Triamcinolone Acetonide 1 applic 06/13/17 14:53 Triamcinolone 0.025% Oint * TOPICAL DAILY PRN RASH Vital Signs Temp Pulse Resp BP Pulse Ox 98.5 F 80 16 149/62 100 06/19/17 16:36 06/19/17 16:36 06/19/17 16:36 06/19/17 16:36 06/19/17 16:36 O/E: Pt in NAD HEENT: PERRLA, No JVD Lungs: Decreased air entry at bases, No wheeze CVS: S1, S2+ Abd: Soft, BS+ Ext: No edema Neuro: No focal defecits Skin: Bruises from blood draws, no rash Laboratory Results - last 24 hr 06/18/17 06/19/17 06/19/17 21:04 06:29 06:35 Hgb 7.5 L Hct 22 L INR (Anticoag Therapy) Sodium 132 L Potassium 5.1 H Chloride 99 L Carbon Dioxide 25 Anion Gap 8 BUN 80 H Creatinine 5.26 H Est GFR ( Amer) 10.2 Est GFR (Non-Af Amer) 7.9 BUN/Creatinine Ratio 15.2 Glucose 200 H POC Glucose (mg/dL) 206 H Calcium 8.3 L Total Bilirubin 0.30 AST 15 ALT 35 Alkaline Phosphatase 153 H Total Protein 5.4 L Albumin 2.6 L Globulin 2.8 Albumin/Globulin Ratio 0.9 L 06/19/17 06/19/17 06/19/17 06:35 07:48 11:50 Hgb Hct INR (Anticoag Therapy) 1.12 H Sodium Potassium Chloride Carbon Dioxide Anion Gap BUN Creatinine Est GFR ( Amer) Est GFR (Non-Af Amer) BUN/Creatinine Ratio Glucose POC Glucose (mg/dL) 198 H 248 H Calcium Total Bilirubin AST ALT Alkaline Phosphatase Total Protein Albumin Globulin Albumin/Globulin Ratio 06/19/17 15:58 Hgb Hct INR (Anticoag Therapy) Sodium Potassium Chloride Carbon Dioxide Anion Gap BUN Creatinine Est GFR ( Amer) Est GFR (Non-Af Amer) BUN/Creatinine Ratio Glucose POC Glucose (mg/dL) 209 H Calcium Total Bilirubin AST ALT Alkaline Phosphatase Total Protein Albumin Globulin Albumin/Globulin Ratio I/R: 77 y o f with h/o DM, CKD, MARI on BiPAP, anemia a/w worsening SOB found to have acute on chronic renal failure, hyperkalemia, low hb Pt reported improvement in SOB with bronchodilators and steroid nebs Received 2 units pRBC for anemia Requiring 2L O2 supplementation for hypoxia c/w GERD therapy On Lasix for fluid overload Incentive spirometer OOB to chair and ambulate as tolerated
[2017-06-19] MEDS: Calcitriol CAP* 0.25 MCG PO SCH (21:31)
[2017-06-19] MEDS: CMCS Pravastatin (NF) 20 MG TAB PO SCH (21:31)
[2017-06-19] MEDS: Insulin GLARGINE(*) 1 UNITS UNIT SUBCUT SCH ×2 (21:56→22:17)
[2017-06-20] MEDS: Albuterol 2.5 MG/3 ML NEB.SOL* (0.083%) INH SCH ×4 (01:26→19:35)
[2017-06-20 05:44] LABS: Hematocrit 23 % (35-47); Hemoglobin 7.5 g/dl (12.0-16.0); Mean Corpuscular HGB Conc 33 g/dl (31-36); Mean Corpuscular Hemoglobin 30 pg (27-31); Mean Corpuscular Volume 89 fL (80-97); Mean Platelet Volume 8 um3 (7.4-10.4); Red Blood Count 2.54 10^6/ul (4.0-5.4); Red Cell Distribution Width 15 % (10.5-15); White Blood Count 6.3 10^3/ul (3.5-10.8)
[2017-06-20 05:45] LABS: BUN/Creatinine Ratio 17.6 (8-20); Calcium 8.4 mg/dL (8.6-10.3); EGFR African American 11.2 (>60); EGFR Non-African American 8.7 (>60); Potassium 4.9 mmol/L (3.5-5.0)
[2017-06-20] MEDS: Budesonide NEB* 0.25 MG/2 ML NEB.SOLN INH SCH ×2 (08:26→19:35)
[2017-06-20] MEDS ORDERED: Insulin GLARGINE(*) 1 UNITS UNIT SUBCUT SCH ×2 (09:00→21:00)
[2017-06-20] MEDS: Insulin LISPRO* 1 UNITS UNIT SUBCUT SCH ×3 (09:55→17:53)
[2017-06-20] MEDS: Colchicine* 0.6 MG TAB PO SCH ×2 (09:56→23:09)
[2017-06-20] MEDS: Furosemide IV* 10 MG/ML 2 ML VIAL (20 MG) IV SCH (09:56)
[2017-06-20] MEDS: Omeprazole CAP* 20 MG PO SCH ×2 (09:56→23:08)
[2017-06-20] MEDS: Metoprolol Tartrate TAB* 50 mg PO SCH ×2 (09:56→23:08)
[2017-06-20] MEDS: amLODIPine TAB* 5 MG PO SCH (09:56)
[2017-06-20] MEDS: Aspirin EC Low Dose* 81 MG TAB.EC PO SCH ×2 (09:56→23:08)
[2017-06-20] MEDS: Fluticasone NASAL SPRAY 50MCG* 16 gm SPRAY BTL BOTH NARES SCH (09:57)
[2017-06-20] MEDS: Insulin GLARGINE(*) 1 UNITS UNIT SUBCUT SCH ×3 (09:57→23:27)
[2017-06-20] MEDS: Artificial Tears* 15 ML BTL BOTH EYES SCH ×2 (09:57→23:07)
--- NOTE | 2017-06-20 11:30 | PN ---
Subjective Date of Service: 06/20/17 Interval History: Patient seen and examined at bedside. Denies fever, chills, N/V/D. Pt states that she feels her breathing is the same and no longing improving. Pt feels that her cough is less frequent since starting nebs. Pt reports chest tightness with cough. Right foot is improving. Tele: Sinus rhythm, rate 70's. Family History: Unchanged from Admission Social History: Unchanged from Admission Past Medical History: Unchanged from Admission Objective Active Medications: Acetaminophen (Tylenol Tab*) 650 mg PO Q4H PRN Reason: FEVER/PAIN Albuterol (Ventolin 2.5 Mg/3 Ml Neb.Ana*) 2.5 mg INH [id number] AWAKE [facility] Amlodipine Besylate (Norvasc Tab*) 10 mg PO DAILY [facility] Aspirin (Aspirin Ec Low Dose*) 81 mg PO BID [facility] Benzonatate (Tessalon Cap*) 100 mg PO BID PRN Reason: COUGH Budesonide (Pulmicort Neb*) 0.25 mg INH RT.BID [facility] Calcitriol (Rocaltrol Cap*) 0.25 mcg PO BEDTIME [facility] Clonidine HCl (Tpqywiyj-Eof-0 0.1 Mg Patch*) 0.1 mg TRANSDERM Tu@0900 [facility] Colchicine (Colcrys*) 0.6 mg PO BID [facility] Dextrose (D50w Syringe 50 Ml*) 25 gm IV PUSH ONCE PRN Reason: FS < 60 Enoxaparin Sodium (Lovenox(*)) 75 mg SUBCUT Q24H [facility] Fluticasone Propionate (Flonase Nasal [place] 50mcg*) 2 spray BOTH NARES DAILY [facility] Furosemide (Lasix Iv*) 20 mg IV DAILY [facility] Guaifenesin (Robitussin*) 5 ml PO Q6H PRN Reason: COUGH Hydrocortisone (Hytone Cream 1%*) 1 applic TOPICAL DAILY PRN Reason: RASH Insulin Glargine (Lantus(*)) 12 units SUBCUT BID [facility] Insulin Human Lispro (Humalog*) 0 units SUBCUT TID AC [facility] Lorazepam (Ativan Tab(*)) 0.25 mg PO Q6H PRN Reason: ANXIETY Magnesium Hydroxide (Milk Of Magnesia Liq*) 30 ml PO Q6H PRN Reason: CONSTIPATION Metoprolol Tartrate (Lopressor Tab*) 75 mg PO Q12HR [facility] Omeprazole (Prilosec Cap*) 20 mg PO BID [facility] Ondansetron HCl (Zofran Tab*) 4 mg PO Q6H PRN Reason: NAUSEA Pharmacy Profile Note (Coumadin Per Pharmacy*) 1 note FOLLOW UP .PER PHARMACY PROTOC [facility] Reason: Protocol Polyethylene Glycol/Electrolytes (Miralax*) 17 gm PO DAILY PRN Reason: CONSTIPATION Polyvinyl Alcohol (Polyvinyl Alcohol 1.4% Opth*) 1 drop BOTH EYES BID [facility] Pravastatin Sodium (Pravachol (Nf)) 10 mg PO BEDTIME [facility] Triamcinolone Acetonide (Triamcinolone 0.025% Oint *) 1 applic TOPICAL DAILY PRN Reason: RASH Vital Signs 06/19/17 06/19/17 06/19/17 13:26 16:36 19:41 Temperature 98.5 F 98.2 F Pulse Rate 72 80 81 Respiratory 14 16 20 Rate Blood Pressure 149/62 135/68 (mmHg) O2 Sat by Pulse 96 100 98 Oximetry 06/19/17 06/19/17 06/20/17 19:54 21:30 00:00 Temperature 98.3 F Pulse Rate 82 67 Respiratory 16 18 16 Rate Blood Pressure 185/62 (mmHg) O2 Sat by Pulse 98 98 Oximetry 06/20/17 06/20/17 05:39 08:26 Temperature 97.4 F Pulse Rate 66 70 Respiratory 16 16 Rate Blood Pressure 170/64 (mmHg) O2 Sat by Pulse 99 100 Oximetry Oxygen Devices in Use Now: None Appearance: NAD, sitting up in a chair Ears/Nose/Mouth/Throat: Mucous Membranes Moist Respiratory: Symmetrical Chest Expansion and Respiratory Effort, Clear to Auscultation Cardiovascular: NL Sounds; No Murmurs; No JVD, RRR Abdominal: NL Sounds; No Tenderness; No Distention Extremities: - - Trace bilateral LE edema Skin: - - Ecchymosis from lab draws to bilateral arms. Erythema to right 1st toe Neurological: Alert and Oriented x 3, NL Muscle Strength and Tone Lines/Tubes/Other Access: Clean, Dry and Intact Peripheral IV - site benign Nutrition: Taking PO's Result Diagrams: 06/20/17 05:01 06/20/17 05:00 Additional Lab and Data: Microbiology and Other Data: Microbiology 06/13/17 14:59 Stool Occult Blood (BRIDGER) - Final Stool Assess/Plan/Problems-Billing Assessment: Ms. Wilkes is a 77 year old female with PMH significant for CKD Stage 4-5, chronic normocytic anemia, HTN, DMT2, GERD, MARI on Bipap, p/w with lower extremity edema, stomach discomfort and shortness of breath. Acute Renal Failure with [employer] to 7 and K 6.5. Had just finished 7-10 day course of DS bactrim for left shoulder rash and been off home bumex for 3 weeks. Ulytes consistent with intrinsic process. May need dialysis in coming days. - Patient Problems (1) Shortness of breath Code(s): R06.02 - SHORTNESS OF BREATH SNOMED Code(s): 286047336 Comment: - Improving on bronchodilators - Suspect secondary to volume overload from acute renal failure along with acute on chronic anemia. - VQ scan - low probability for PE. - Repeat CXR 06/15 - No active cardiopulmonary disease noted, persistent poor inspiratory effort. - Received 2 unit RBCs this admission - Echo - Mild to moderate concentric LVH, normal LV systolic function, EF 55-60% - Pulmonology consult, appreciate input - Continue lasix, change to PO - Incentive Spirometer (2) Acute on chronic kidney failure Code(s): N17.9 - ACUTE KIDNEY FAILURE, UNSPECIFIED; N18.9 - CHRONIC KIDNEY DISEASE, UNSPECIFIED SNOMED Code(s): 069939689 Comment: - Ulytes consistent with intrinsic process. Likely AIN secondary to bactrim vs ATN - Appreciate Dr. Barksdale recommendations - Possible uremic symptoms and lower extremity edema but not urgently needing dialysis. - Hyperkalemia (initially 6.5) resolved with kayexalate. Also received insulin, dextrose, calcium gluconate. No peaked T waves on presentation. - Creatinine improving (3) Anemia Code(s): D64.9 - ANEMIA, UNSPECIFIED SNOMED Code(s): 513145779 Comment: - Chronic normocytic anemia. Likely secondary to CKD stage 4-5 now in acute renal failure. - Iron studies - Iron 20, Ferritin 345.9, (last in 2013 Iron 54, Ferritin 216, Sat 19). - s/p 2u PRBC this admission - Denies melena, hematochezia - Received a dose of epogen 06/19 - Continue Ferrous Sulfate (4) Afib Code(s): I48.91 - UNSPECIFIED ATRIAL FIBRILLATION SNOMED Code(s): 55164900 Comment: - ? new onset Paroxysmal afib/flutter - [id number] - 5 points, Stroke risk 7.2% per year in > 90,000 Pts and 10% risk of stroke/TIA/systemic embolism - HR better controlled on Metoprolol - Continue Warfarin, bridge with Lovenox and Metoprolol (5) Gout attack Code(s): M10.9 - GOUT, UNSPECIFIED SNOMED Code(s): 51815694 Comment: - Right 1st toe - Uric acid 6.1 - Continue colchicine (6) DM type 2 (diabetes mellitus, type 2) Comment: - Glucose 160-290's - HgA1C 6.9 - Increase Lantus to 18 units BID - Continue FSBG ACHS with Lispro SSI (7) GERD (gastroesophageal reflux disease) Code(s): K21.9 - GASTRO-ESOPHAGEAL REFLUX DISEASE WITHOUT ESOPHAGITIS SNOMED Code(s): 355509264 Comment: - Continue omeprazole (8) HTN (hypertension) Code(s): I10 - ESSENTIAL (PRIMARY) HYPERTENSION SNOMED Code(s): 43838337 Comment: - SBP 100-190's. - Continue clonidine patch, amlodipine, metoprolol (9) Sleep apnea Code(s): G47.30 - SLEEP APNEA, UNSPECIFIED SNOMED Code(s): 43481990 Comment: - BiPAP at night (10) DVT prophylaxis Current Visit: No Status: Acute Code(s): TDL7536 - SNOMED Code(s): 227058704 Comment: - Lovenox bridge to Warfarin (11) Full code status Current Visit: No Status: Acute Code(s): Z78.9 - OTHER SPECIFIED HEALTH STATUS SNOMED Code(s): 337092821 Status and Disposition: Inpatient. Kidney function slowly recovering. Possible discharge in 1-2 days.
[2017-06-20] MEDS: Enoxaparin(*) 80 MG/0.8 ML SYR SUBCUT SCH (12:00)
[2017-06-20] MEDS ORDERED: Warfarin TAB(*) 5 MG PO ONE ×2 (12:00→17:00)
[2017-06-20] MEDS: Benzonatate CAP* 100 MG PO PRN (16:35)
[2017-06-20] MEDS: guaiFENesin LIQ* 100 MG/5 ML UDC PO PRN (16:35)
[2017-06-20] MEDS: Acetaminophen TAB* 325 MG PO PRN ×2 (16:35→23:32)
[2017-06-20] MEDS: Benzocaine/Menthol LOZ* 1 LOZENGE PO PRN (17:53)
[2017-06-20] MEDS: CMCS Pravastatin (NF) 20 MG TAB PO SCH ×2 (23:07→23:14)
[2017-06-20] MEDS: Calcitriol CAP* 0.25 MCG PO SCH (23:08)
[2017-06-21] MEDS: Albuterol 2.5 MG/3 ML NEB.SOL* (0.083%) INH SCH ×4 (01:16→20:04)
[2017-06-21] MEDS: Benzocaine/Menthol LOZ* 1 LOZENGE PO PRN (04:10)
[2017-06-21 05:38] LABS: Hematocrit 23 % (35-47); Hemoglobin 7.7 g/dl (12.0-16.0)
[2017-06-21 05:56] LABS: BUN/Creatinine Ratio 18.5 (8-20); Calcium 8.4 mg/dL (8.6-10.3); EGFR African American 12.8 (>60); EGFR Non-African American 9.9 (>60); Potassium 4.6 mmol/L (3.5-5.0)
[2017-06-21] MEDS: Budesonide NEB* 0.25 MG/2 ML NEB.SOLN INH SCH ×2 (07:44→20:04)
[2017-06-21] MEDS: Furosemide TAB* 20 MG PO SCH (08:09)
[2017-06-21] MEDS: Aspirin EC Low Dose* 81 MG TAB.EC PO SCH ×2 (08:09→20:44)
[2017-06-21] MEDS: Omeprazole CAP* 20 MG PO SCH ×2 (08:09→20:44)
[2017-06-21] MEDS: Insulin GLARGINE(*) 1 UNITS UNIT SUBCUT SCH ×2 (08:10→21:40)
[2017-06-21] MEDS: Metoprolol Tartrate TAB* 50 mg PO SCH ×2 (08:10→20:43)
[2017-06-21] MEDS: Insulin LISPRO* 1 UNITS UNIT SUBCUT SCH ×3 (08:10→17:00)
[2017-06-21] MEDS: amLODIPine TAB* 5 MG PO SCH (08:11)
[2017-06-21] MEDS: Fluticasone NASAL SPRAY 50MCG* 16 gm SPRAY BTL BOTH NARES SCH (08:16)
[2017-06-21] MEDS: Artificial Tears* 15 ML BTL BOTH EYES SCH ×2 (08:17→20:43)
[2017-06-21] MEDS: Colchicine* 0.6 MG TAB PO SCH ×2 (08:17→20:44)
[2017-06-21] MEDS: Enoxaparin(*) 80 MG/0.8 ML SYR SUBCUT SCH (14:05)
[2017-06-21] MEDS: Acetaminophen TAB* 325 MG PO PRN ×2 (14:11→20:45)
--- NOTE | 2017-06-21 16:37 | PN ---
Subjective Date of Service: 06/21/17 Interval History: Pt is feeling ok. She does not feel like her breathing has improved any further. She continues to feel a tightness in her chest. She has a relatively frequent cough but it is non-productive. She has not walked more than down the hallway a little bit yesterday. She states ordinarily she is up an about all day. Family History: Unchanged from Admission Social History: Unchanged from Admission Past Medical History: Unchanged from Admission Objective Active Medications: Acetaminophen (Tylenol Tab*) 650 mg PO Q4H PRN PRN Reason: FEVER/PAIN Last Admin: 06/21/17 14:11 Dose: 650 mg Albuterol (Ventolin 2.5 Mg/3 Ml Neb.Ana*) 2.5 mg INH [id number] AWAKE [facility] Last Admin: 06/21/17 13:08 Dose: 2.5 mg Amlodipine Besylate (Norvasc Tab*) 10 mg PO DAILY [facility] Last Admin: 06/21/17 08:11 Dose: 10 mg Aspirin (Aspirin Ec Low Dose*) 81 mg PO BID [facility] Last Admin: 06/21/17 08:09 Dose: 81 mg Benzonatate (Tessalon Cap*) 100 mg PO BID PRN PRN Reason: COUGH Last Admin: 06/20/17 16:35 Dose: 100 mg Budesonide (Pulmicort Neb*) 0.25 mg INH RT.BID [facility] Last Admin: 06/21/17 07:44 Dose: 0.25 mg Calcitriol (Rocaltrol Cap*) 0.25 mcg PO BEDTIME [facility] Last Admin: 06/20/17 23:08 Dose: 0.25 mcg Clonidine HCl (Muzogpll-Bkx-1 0.1 Mg Patch*) 0.1 mg TRANSDERM Tu@0900 [facility] Last Admin: 06/17/17 10:04 Dose: 1 patch Colchicine (Colcrys*) 0.6 mg PO BID [facility] Last Admin: 06/21/17 08:17 Dose: 0.6 mg Dextrose (D50w Syringe 50 Ml*) 25 gm IV PUSH ONCE PRN PRN Reason: FS < 60 Last Admin: 06/13/17 14:56 Dose: 25 gm Enoxaparin Sodium (Lovenox(*)) 75 mg SUBCUT Q24H [facility] Last Admin: 09/30/17 14:05 Dose: 75 mg Fluticasone Propionate (Flonase Nasal [place] 50mcg*) 2 spray BOTH NARES DAILY [facility] Last Admin: 06/21/17 08:16 Dose: 2 spray Furosemide (Lasix Tab*) 20 mg PO DAILY [facility] Last Admin: 06/21/17 08:09 Dose: 20 mg Guaifenesin (Robitussin*) 5 ml PO Q6H PRN PRN Reason: COUGH Last Admin: 06/20/17 16:35 Dose: 5 ml Hydrocortisone (Hytone Cream 1%*) 1 applic TOPICAL DAILY PRN PRN Reason: RASH Insulin Glargine (Lantus(*)) 18 units SUBCUT BID [facility] Last Admin: 06/21/17 08:10 Dose: 18 unit Insulin Human Lispro (Humalog*) 0 units SUBCUT TID AC [facility] PRN Reason: Protocol Last Admin: 06/21/17 12:17 Dose: 9 unit Lorazepam (Ativan Tab(*)) 0.25 mg PO Q6H PRN PRN Reason: ANXIETY Last Admin: 06/18/17 21:55 Dose: 0.25 mg Magnesium Hydroxide (Milk Of Magnesia Liq*) 30 ml PO Q6H PRN PRN Reason: CONSTIPATION Last Admin: 06/17/17 12:53 Dose: 30 ml Metoprolol Tartrate (Lopressor Tab*) 75 mg PO Q12HR [facility] Last Admin: 06/21/17 08:10 Dose: 75 mg Omeprazole (Prilosec Cap*) 20 mg PO BID [facility] Last Admin: 06/21/17 08:09 Dose: 20 mg Ondansetron HCl (Zofran Tab*) 4 mg PO Q6H PRN PRN Reason: NAUSEA Last Admin: 06/18/17 15:03 Dose: 4 mg Pharmacy Profile Note (Coumadin Per Pharmacy*) 1 note FOLLOW UP .PER PHARMACY PROTOC [facility] PRN Reason: Protocol Polyethylene Glycol/Electrolytes (Miralax*) 17 gm PO DAILY PRN PRN Reason: CONSTIPATION Last Admin: 06/18/17 09:25 Dose: 17 gm Polyvinyl Alcohol (Polyvinyl Alcohol 1.4% Opth*) 1 drop BOTH EYES BID [facility] Last Admin: 06/21/17 08:17 Dose: 1 drop Pravastatin Sodium (Pravachol (Nf)) 10 mg PO BEDTIME [facility] Last Admin: 06/20/17 23:14 Dose: 10 mg Throat Lozenges (Chloraseptic Fabian*) 1 fabian PO Q6H PRN PRN Reason: SORE THROAT Last Admin: 06/21/17 04:10 Dose: 1 fabian Triamcinolone Acetonide (Triamcinolone 0.025% Oint *) 1 applic TOPICAL DAILY PRN PRN Reason: RASH Vital Signs 06/20/17 06/20/17 06/20/17 19:35 19:48 20:00 Temperature 97.2 F Pulse Rate 83 79 Respiratory 15 22 18 Rate Blood Pressure 150/69 (mmHg) O2 Sat by Pulse 99 100 Oximetry 06/21/17 06/21/17 06/21/17 00:03 03:48 04:07 Temperature 98.4 F 97.5 F 98.2 F Pulse Rate 64 73 59 Respiratory 16 16 16 Rate Blood Pressure 159/69 186/77 176/72 (mmHg) O2 Sat by Pulse 98 99 100 Oximetry 06/21/17 06/21/17 06/21/17 07:12 07:27 07:48 Temperature 97.5 F Pulse Rate 70 66 Respiratory 20 20 Rate Blood Pressure 171/73 (mmHg) O2 Sat by Pulse 99 98 Oximetry 06/21/17 06/21/17 11:27 13:10 Temperature 98.6 F Pulse Rate 66 68 Respiratory 20 16 Rate Blood Pressure 156/65 (mmHg) O2 Sat by Pulse 97 98 Oximetry Oxygen Devices in Use Now: None Appearance: Elderly female sitting in a recliner chair, NAD Eyes: No Scleral Icterus Ears/Nose/Mouth/Throat: Mucous Membranes Moist Respiratory: Symmetrical Chest Expansion and Respiratory Effort, - - few bibasilar crackles, tight cough Cardiovascular: NL Sounds; No Murmurs; No JVD, RRR, - - minimal LE edema Abdominal: NL Sounds; No Tenderness; No Distention Extremities: No Clubbing, Cyanosis Skin: No Rash or Ulcers, No Nodules or Sclerosis, - - Mild erythema overlying the R 1st MTP, this is also hot to touch Neurological: Alert and Oriented x 3 Result Diagrams: 06/21/17 05:16 06/21/17 05:16 Additional Lab and Data: Microbiology and Other Data: Microbiology 06/13/17 14:59 Stool Occult Blood (BRIDGER) - Final Stool Assess/Plan/Problems-Billing Ms. Wilkes is a 77 year old female with PMHx significant for CKD Stage 4-5, chronic normocytic anemia, HTN, DMT2, GERD, MARI on Bipap, p/w with lower extremity edema, stomach discomfort and shortness of breath. Acute Renal Failure with creatinine of 7 and K 6.5. Had just finished 7-10 day course of DS bactrim for left shoulder rash and been off home bumex for 3 weeks. Ulytes consistent with intrinsic process. - Patient Problems (1) Shortness of breath Current Visit: Yes Status: Acute Code(s): R06.02 - SHORTNESS OF BREATH SNOMED Code(s): 715101867 Comment: Likely multifactorial from fluid overload, ? viral illness with RAD and worsened SOB from acute on chronic anemia. Continue lasix and bronchodilators. May consider short course of prednisone if CXR negative for significant pulmonary edema. (2) Acute on chronic kidney failure Current Visit: Yes Status: Acute Code(s): N17.9 - ACUTE KIDNEY FAILURE, UNSPECIFIED; N18.9 - CHRONIC KIDNEY DISEASE, UNSPECIFIED SNOMED Code(s): 392820565 Comment: Creatinine is trending down. Most likely AIN vs ATN with slow recovery. Hyperkalemia on admission has remained resolved. Likely no need for dialysis anymore. (3) Afib Current Visit: Yes Status: Acute Code(s): I48.91 - UNSPECIFIED ATRIAL FIBRILLATION SNOMED Code(s): 50707969 Comment: The patient had what appears to be a brief episode of afib/flutter on 06/17/17. Continue coumadin (with lovenox bridge). Continue metoprolol-HR is controlled. (4) Gout attack Current Visit: Yes Status: Acute Code(s): M10.9 - GOUT, UNSPECIFIED SNOMED Code(s): 72985387 Comment: Continue colchicine. Appears to be improving and pain is much better. (5) Transaminitis Current Visit: Yes Status: Acute Code(s): R74.0 - NONSPEC ELEV OF LEVELS OF TRANSAMNS & LACTIC ACID DEHYDRGNSE SNOMED Code(s): 999671731 Comment: Was present on admission and now resolved. Likely secondary to passive congestion of the liver. (6) DM type 2 (diabetes mellitus, type 2) Current Visit: Yes Status: Chronic Comment: Sugars have been better controlled but still with a wide range. Will increase lantus to 20 units SQ qAM and 18 units SQ qPM. (7) HTN (hypertension) Current Visit: Yes Status: Chronic Code(s): I10 - ESSENTIAL (PRIMARY) HYPERTENSION SNOMED Code(s): 16308494 Comment: BP remains moderately elevated. Will increase the clonidine patch to 0.2mg topically. (8) Sleep apnea Current Visit: Yes Status: Chronic Code(s): G47.30 - SLEEP APNEA, UNSPECIFIED SNOMED Code(s): 94410425 Comment: BiPAP at night (9) GERD (gastroesophageal reflux disease) Current Visit: Yes Status: Chronic Code(s): K21.9 - GASTRO-ESOPHAGEAL REFLUX DISEASE WITHOUT ESOPHAGITIS SNOMED Code(s): 233206132 Comment: Continue omeprazole (10) DVT prophylaxis Current Visit: Yes Status: Acute Code(s): BHC3812 - SNOMED Code(s): 079471300 Comment: Lovenox bridge to Warfarin (11) Full code status Current Visit: Yes Status: Acute Code(s): Z78.9 - OTHER SPECIFIED HEALTH STATUS SNOMED Code(s): 226949654 Status and Disposition: Inpatient. Kidney function slowly recovering. Possible discharge in 1-2 days.
--- NOTE | 2017-06-21 16:55 | RAD ---
INDICATION: Short of breath. Pulmonary edema. COMPARISON: June 15, 2017 TECHNIQUE: An AP portable view obtained at 1630 hours is submitted. FINDINGS: Bones/Soft Tissues: There are no acute bony findings. There is left shoulder is +3. There is prior cervical fusion. There is a dorsal column stimulator. There is prior thoracolumbar fusion Cardiomediastinal: The cardiomediastinal silhouette is normal. Lungs: There are no infiltrates. Pleura: There are no pleural effusions. Other: None IMPRESSION: POST SURGICAL CHANGES. NO ACTIVE DISEASE.
[2017-06-21] MEDS ORDERED: cloNIDine 0.2 MG PATCH* 0.2 MG/24 HR 7 DAY PATCH TRANSDERM SCH (17:00)
[2017-06-21] MEDS ORDERED: Warfarin TAB(*) 5 MG PO ONE (17:00)
[2017-06-21] MEDS: Calcitriol CAP* 0.25 MCG PO SCH (20:44)
[2017-06-21] MEDS: CMCS Pravastatin (NF) 20 MG TAB PO SCH (20:45)
[2017-06-21] MEDS: Hemorrhoidal OINT TOPICAL SCH (21:51)
[2017-06-22] MEDS: Albuterol 2.5 MG/3 ML NEB.SOL* (0.083%) INH SCH ×4 (00:50→19:43)
[2017-06-22 06:27] LABS: Hematocrit 24 % (35-47); Mean Corpuscular HGB Conc 34 g/dl (31-36); Mean Corpuscular Hemoglobin 29 pg (27-31); Mean Corpuscular Volume 88 fL (80-97); Mean Platelet Volume 8 um3 (7.4-10.4); Red Blood Count 2.72 10^6/ul (4.0-5.4); Red Cell Distribution Width 14 % (10.5-15); White Blood Count 4.7 10^3/ul (3.5-10.8)
[2017-06-22 06:39] LABS: BUN/Creatinine Ratio 19.2 (8-20); Calcium 8.2 mg/dL (8.6-10.3); EGFR African American 14.2 (>60); Potassium 4.5 mmol/L (3.5-5.0)
[2017-06-22] MEDS: Budesonide NEB* 0.25 MG/2 ML NEB.SOLN INH SCH ×2 (07:27→19:43)
[2017-06-22] MEDS: Insulin LISPRO* 1 UNITS UNIT SUBCUT SCH ×3 (09:28→17:24)
[2017-06-22] MEDS: amLODIPine TAB* 5 MG PO SCH (09:29)
[2017-06-22] MEDS: Aspirin EC Low Dose* 81 MG TAB.EC PO SCH ×2 (09:30→21:28)
[2017-06-22] MEDS: Furosemide TAB* 20 MG PO SCH (09:30)
[2017-06-22] MEDS: Insulin GLARGINE(*) 1 UNITS UNIT SUBCUT SCH ×2 (09:31→21:30)
[2017-06-22] MEDS: Metoprolol Tartrate TAB* 50 mg PO SCH ×2 (09:32→21:27)
[2017-06-22] MEDS: Omeprazole CAP* 20 MG PO SCH ×2 (09:32→21:27)
[2017-06-22] MEDS: Artificial Tears* 15 ML BTL BOTH EYES SCH ×2 (09:37→21:30)
[2017-06-22] MEDS: Fluticasone NASAL SPRAY 50MCG* 16 gm SPRAY BTL BOTH NARES SCH (09:38)
[2017-06-22] MEDS: Colchicine* 0.6 MG TAB PO SCH ×2 (09:38→21:28)
[2017-06-22] MEDS: Hemorrhoidal OINT TOPICAL SCH ×4 (09:46→21:30)
[2017-06-22] MEDS: Enoxaparin(*) 80 MG/0.8 ML SYR SUBCUT SCH (12:49)
[2017-06-22] MEDS ORDERED: Warfarin TAB(*) 5 MG PO ONE (17:00)
[2017-06-22] MEDS ORDERED: hydrALAZINE IV* 20 MG/ML VIAL IV SLOW PU PRN (17:25)
--- NOTE | 2017-06-22 17:26 | PN ---
Subjective Date of Service: 06/22/17 Interval History: Patient has been having a nosebleed on and off for an hour this morning which resolved by the afternoon. Patient denies any dizziness, CP, or palpitations. Patient is up with assistance in the hallway. Patient denies any other acute complaints. Patient states her SOB is stable and that she is making good urine with the lasix. Family History: Unchanged from Admission Social History: Unchanged from Admission Past Medical History: Unchanged from Admission Objective Active Medications: Acetaminophen (Tylenol Tab*) 650 mg PO Q4H PRN PRN Reason: FEVER/PAIN Last Admin: 06/21/17 20:45 Dose: 650 mg Albuterol (Ventolin 2.5 Mg/3 Ml Neb.Ana*) 2.5 mg INH [id number] AWAKE [facility] Last Admin: 06/22/17 13:01 Dose: 2.5 mg Amlodipine Besylate (Norvasc Tab*) 10 mg PO DAILY [facility] Last Admin: 06/22/17 09:29 Dose: 10 mg Aspirin (Aspirin Ec Low Dose*) 81 mg PO BID [facility] Last Admin: 06/22/17 09:30 Dose: 81 mg Benzonatate (Tessalon Cap*) 100 mg PO BID PRN PRN Reason: COUGH Last Admin: 06/20/17 16:35 Dose: 100 mg Budesonide (Pulmicort Neb*) 0.25 mg INH RT.BID [facility] Last Admin: 06/22/17 07:27 Dose: 0.25 mg Calcitriol (Rocaltrol Cap*) 0.25 mcg PO BEDTIME [facility] Last Admin: 06/21/17 20:44 Dose: 0.25 mcg Clonidine HCl (Xkcsehaz-Ata-4 0.2 Mg Patch*) 0.2 mg TRANSDERM Q7D [facility] Last Admin: 06/21/17 18:13 Dose: 0.2 mg Colchicine (Colcrys*) 0.6 mg PO BID [facility] Last Admin: 06/22/17 09:38 Dose: 0.6 mg Dextrose (D50w Syringe 50 Ml*) 25 gm IV PUSH ONCE PRN PRN Reason: FS < 60 Last Admin: 06/13/17 14:56 Dose: 25 gm Enoxaparin Sodium (Lovenox(*)) 75 mg SUBCUT Q24H KARL Last Admin: 06/22/17 12:49 Dose: 75 mg Fluticasone Propionate (Flonase Nasal [place] 50mcg*) 2 spray BOTH NARES DAILY [facility] Last Admin: 06/22/17 09:38 Dose: 2 spray Furosemide (Lasix Tab*) 20 mg PO DAILY [facility] Last Admin: 06/22/17 09:30 Dose: 20 mg Guaifenesin (Robitussin*) 5 ml PO Q6H PRN PRN Reason: COUGH Last Admin: 06/20/17 16:35 Dose: 5 ml Hydrocortisone (Hytone Cream 1%*) 1 applic TOPICAL DAILY PRN PRN Reason: RASH Last Admin: 06/21/17 18:13 Dose: 1 applic Insulin Glargine (Lantus(*)) 20 units SUBCUT QAM [facility] Last Admin: 06/22/17 09:31 Dose: 20 units Insulin Glargine (Lantus(*)) 18 units SUBCUT BEDTIME [facility] Last Admin: 06/21/17 21:40 Dose: 18 unit Insulin Human Lispro (Humalog*) 0 units SUBCUT TID [facility] PRN Reason: Protocol Last Admin: 06/22/17 12:48 Dose: 3 unit Lorazepam (Ativan Tab(*)) 0.25 mg PO Q6H PRN PRN Reason: ANXIETY Last Admin: 06/18/17 21:55 Dose: 0.25 mg Magnesium Hydroxide (Milk Of Magnesia Liq*) 30 ml PO Q6H PRN PRN Reason: CONSTIPATION Last Admin: 06/17/17 12:53 Dose: 30 ml Metoprolol Tartrate (Lopressor Tab*) 75 mg PO Q12HR [facility] Last Admin: 06/22/17 09:32 Dose: 75 mg Omeprazole (Prilosec Cap*) 20 mg PO BID [facility] Last Admin: 06/22/17 09:32 Dose: 20 mg Ondansetron HCl (Zofran Tab*) 4 mg PO Q6H PRN PRN Reason: NAUSEA Last Admin: 06/18/17 15:03 Dose: 4 mg Pharmacy Profile Note (Coumadin Per Pharmacy*) 1 note FOLLOW UP .PER PHARMACY PROTOC [facility] PRN Reason: Protocol Phenyleph/Shark Oil/Min Oil/Petrol (Preparation H*) 1 applic TOPICAL QID [facility] Last Admin: 06/22/17 12:49 Dose: 1 applic Polyethylene Glycol/Electrolytes (Miralax*) 17 gm PO DAILY PRN PRN Reason: CONSTIPATION Last Admin: 06/18/17 09:25 Dose: 17 gm Polyvinyl Alcohol (Polyvinyl Alcohol 1.4% Opth*) 1 drop BOTH EYES BID [facility] Last Admin: 06/22/17 09:37 Dose: 1 drop Pravastatin Sodium (Pravachol (Nf)) 10 mg PO BEDTIME [facility] Last Admin: 06/21/17 20:45 Dose: 10 mg Prednisone (Deltasone Tab*) 20 mg PO DAILY [facility] Throat Lozenges (Chloraseptic Fabian*) 1 fabian PO Q6H PRN PRN Reason: SORE THROAT Last Admin: 06/21/17 04:10 Dose: 1 fabian Triamcinolone Acetonide (Triamcinolone 0.025% Oint *) 1 applic TOPICAL DAILY PRN PRN Reason: RASH Vital Signs 06/21/17 06/21/17 06/21/17 20:00 20:06 20:37 Temperature 98.3 F Pulse Rate 71 83 Respiratory 20 18 20 Rate Blood Pressure 176/76 (mmHg) O2 Sat by Pulse 99 100 Oximetry 06/21/17 06/22/17 06/22/17 23:09 03:15 03:30 Temperature 98.6 F 97.8 F Pulse Rate 72 70 Respiratory 20 18 Rate Blood Pressure 166/61 198/93 168/84 (mmHg) O2 Sat by Pulse 100 100 Oximetry 06/22/17 06/22/17 06/22/17 07:29 08:41 09:27 Temperature 98.7 F Pulse Rate 66 75 Respiratory 14 16 Rate Blood Pressure 164/90 (mmHg) O2 Sat by Pulse 99 100 Oximetry 06/22/17 13:02 Temperature Pulse Rate 71 Respiratory 14 Rate Blood Pressure (mmHg) O2 Sat by Pulse 100 Oximetry Oxygen Devices in Use Now: None Appearance: Patient is a 77yo female who appears stated age sitting comfortably in the chair in [facility]. Eyes: No Scleral Icterus, PERRLA Ears/Nose/Mouth/Throat: NL Teeth, Lips, Gums, Clear Oropharnyx, Mucous Membranes Moist, - - Small open area just inside nares on left side and small scabs inside right nare. Neck: NL Appearance and Movements; NL JVP, Trachea Midline Respiratory: Symmetrical Chest Expansion and Respiratory Effort, - - Slight rales in Bilateral lower lobes. Cardiovascular: NL Sounds; No Murmurs; No JVD, RRR, No Edema Abdominal: NL Sounds; No Tenderness; No Distention, No Hepatosplenomegaly Lymphatic: No Cervical Adenopathy Extremities: No Edema, No Clubbing, Cyanosis Skin: No Rash or Ulcers Result Diagrams: 06/22/17 04:52 06/22/17 04:52 Additional Lab and Data: 06/19/17 06/20/17 06/20/17 21:30 05:00 05:00 WBC RBC Hgb Hct MCV MCH MCHC RDW Plt Count MPV Neut % (Auto) Lymph % (Auto) Burke % (Auto) Eos % (Auto) Baso % (Auto) Absolute Neuts (auto) Absolute Lymphs (auto) Absolute Monos (auto) Absolute Eos (auto) Absolute Basos (auto) Absolute Nucleated RBC Nucleated RBC % INR (Anticoag Therapy) 1.29 H Sodium 134 Potassium 4.9 Chloride 100 L Carbon Dioxide 25 Anion Gap 9 BUN 85 H Creatinine 4.84 H Est GFR ( Amer) 11.2 Est GFR (Non-Af Amer) 8.7 BUN/Creatinine Ratio 17.6 Glucose 165 H POC Glucose (mg/dL) 296 H Calcium 8.4 L 06/20/17 06/20/17 06/20/17 05:01 07:48 11:36 WBC 6.3 RBC 2.54 L Hgb 7.5 L Hct 23 L MCV 89 MCH 30 MCHC 33 RDW 15 Plt Count 282 MPV 8 Neut % (Auto) 66.7 Lymph % (Auto) 19.4 L Burke % (Auto) 13.1 H Eos % (Auto) 0.1 Baso % (Auto) 0.7 Absolute Neuts (auto) 4.2 Absolute Lymphs (auto) 1.2 Absolute Monos (auto) 0.8 Absolute Eos (auto) 0 Absolute Basos (auto) 0 Absolute Nucleated RBC 0 Nucleated RBC % 0 INR (Anticoag Therapy) Sodium Potassium Chloride Carbon Dioxide Anion Gap BUN Creatinine Est GFR ( Amer) Est GFR (Non-Af Amer) BUN/Creatinine Ratio Glucose POC Glucose (mg/dL) 162 H 246 H Calcium 06/20/17 06/20/17 06/21/17 16:39 22:39 05:16 WBC RBC Hgb Hct MCV MCH MCHC RDW Plt Count MPV Neut % (Auto) Lymph % (Auto) Burke % (Auto) Eos % (Auto) Baso % (Auto) Absolute Neuts (auto) Absolute Lymphs (auto) Absolute Monos (auto) Absolute Eos (auto) Absolute Basos (auto) Absolute Nucleated RBC Nucleated RBC % INR (Anticoag Therapy) 1.75 H Sodium Potassium Chloride Carbon Dioxide Anion Gap BUN Creatinine Est GFR ( Amer) Est GFR (Non-Af Amer) BUN/Creatinine Ratio Glucose POC Glucose (mg/dL) 190 H 272 H Calcium 06/21/17 06/21/17 06/21/17 05:16 05:16 07:12 WBC RBC Hgb 7.7 L Hct 23 L MCV MCH MCHC RDW Plt Count MPV Neut % (Auto) Lymph % (Auto) Burke % (Auto) Eos % (Auto) Baso % (Auto) Absolute Neuts (auto) Absolute Lymphs (auto) Absolute Monos (auto) Absolute Eos (auto) Absolute Basos (auto) Absolute Nucleated RBC Nucleated RBC % INR (Anticoag Therapy) Sodium 135 Potassium 4.6 Chloride 102 Carbon Dioxide 25 Anion Gap 8 BUN 80 H Creatinine 4.33 H Est GFR ( Amer) 12.8 Est GFR (Non-Af Amer) 9.9 BUN/Creatinine Ratio 18.5 Glucose 141 H POC Glucose (mg/dL) 138 H Calcium 8.4 L 06/21/17 06/21/17 06/21/17 11:25 16:02 20:04 WBC RBC Hgb Hct MCV MCH MCHC RDW Plt Count MPV Neut % (Auto) Lymph % (Auto) Burke % (Auto) Eos % (Auto) Baso % (Auto) Absolute Neuts (auto) Absolute Lymphs (auto) Absolute Monos (auto) Absolute Eos (auto) Absolute Basos (auto) Absolute Nucleated RBC Nucleated RBC % INR (Anticoag Therapy) Sodium Potassium Chloride Carbon Dioxide Anion Gap BUN Creatinine Est GFR ( Amer) Est GFR (Non-Af Amer) BUN/Creatinine Ratio Glucose POC Glucose (mg/dL) 262 H 171 H 153 H Calcium 06/22/17 06/22/17 06/22/17 04:52 04:52 04:53 WBC 4.7 RBC 2.72 L Hgb 8.0 L Hct 24 L MCV 88 MCH 29 MCHC 34 RDW 14 Plt Count 302 MPV 8 Neut % (Auto) Lymph % (Auto) Burke % (Auto) Eos % (Auto) Baso % (Auto) Absolute Neuts (auto) Absolute Lymphs (auto) Absolute Monos (auto) Absolute Eos (auto) Absolute Basos (auto) Absolute Nucleated RBC Nucleated RBC % INR (Anticoag Therapy) 1.90 H Sodium 138 Potassium 4.5 Chloride 105 Carbon Dioxide 24 Anion Gap 9 BUN 76 H Creatinine 3.95 H Est GFR ( Amer) 14.2 Est GFR (Non-Af Amer) 11.0 BUN/Creatinine Ratio 19.2 Glucose 67 L POC Glucose (mg/dL) Calcium 8.2 L 06/22/17 06/22/17 06/22/17 07:41 11:16 16:11 WBC RBC Hgb Hct MCV MCH MCHC RDW Plt Count MPV Neut % (Auto) Lymph % (Auto) Burke % (Auto) Eos % (Auto) Baso % (Auto) Absolute Neuts (auto) Absolute Lymphs (auto) Absolute Monos (auto) Absolute Eos (auto) Absolute Basos (auto) Absolute Nucleated RBC Nucleated RBC % INR (Anticoag Therapy) Sodium Potassium Chloride Carbon Dioxide Anion Gap BUN Creatinine Est GFR ( Amer) Est GFR (Non-Af Amer) BUN/Creatinine Ratio Glucose POC Glucose (mg/dL) 74 164 H 221 H Calcium Microbiology and Other Data: Microbiology 06/13/17 14:59 Stool Occult Blood (BRIDGER) - Final Stool Assess/Plan/Problems-Billing Ms. Wilkes is a 77 year old female with PMHx significant for CKD Stage 4-5, chronic normocytic anemia, HTN, DMT2, GERD, MARI on Bipap, p/w with lower extremity edema, stomach discomfort and shortness of breath. Who is generally improving in the hospital but has continued SOB which is no longer improving - Patient Problems (1) Acute on chronic kidney failure Current Visit: Yes Status: Acute Code(s): N17.9 - ACUTE KIDNEY FAILURE, UNSPECIFIED; N18.9 - CHRONIC KIDNEY DISEASE, UNSPECIFIED SNOMED Code(s): 379071403 Comment: Creatinine is trending down, currently at 3.95. Most likely AIN vs ATN with slow recovery. Hyperkalemia on admission has remained resolved. Likely no need for dialysis anymore. (2) Afib Current Visit: Yes Status: Acute Code(s): I48.91 - UNSPECIFIED ATRIAL FIBRILLATION SNOMED Code(s): 16028715 Comment: The patient had what appears to be a brief episode of afib/flutter on 06/17/17. Continue coumadin (with lovenox bridge). INR 1.90 and currently subtherapeutic. Continue metoprolol-HR is controlled. (3) Anemia Current Visit: Yes Status: Acute Code(s): D64.9 - ANEMIA, UNSPECIFIED SNOMED Code(s): 806407685 Comment: Chronic normocytic anemia. Likely secondary to CKD stage 4-5. Iron studies - Iron 20, Ferritin 345.9, (last in 2013 Iron 54, Ferritin 216, Sat 19). s/p 2u PRBC this admission Received a dose of epogen 06/19 Continue Ferrous Sulfate Will recheck in morning. (4) Gout attack Current Visit: Yes Status: Acute Code(s): M10.9 - GOUT, UNSPECIFIED SNOMED Code(s): 60832623 Comment: Continue colchicine. Pain is stable, will consider preventative treatment when done with acute phase. (5) Shortness of breath Current Visit: Yes Status: Acute Code(s): R06.02 - SHORTNESS OF BREATH SNOMED Code(s): 130482434 Comment: Likely multifactorial from fluid overload, ? viral illness, GERD with RAD and worsened SOB from acute on chronic anemia. Continue lasix and bronchodilators. Will start on short course of prednisone at 20mg and see if it helps inflammation. (6) DM type 2 (diabetes mellitus, type 2) Current Visit: Yes Status: Chronic Comment: Sugars have been better controlled but still with a wide range. Will increase lantus to 20 units SQ qAM and 18 units SQ qPM. Will expect to increase on low dose prednisone in the short term. (7) GERD (gastroesophageal reflux disease) Current Visit: Yes Status: Chronic Code(s): K21.9 - GASTRO-ESOPHAGEAL REFLUX DISEASE WITHOUT ESOPHAGITIS SNOMED Code(s): 004535494 Comment: Continue omeprazole (8) HTN (hypertension) Current Visit: Yes Status: Chronic Code(s): I10 - ESSENTIAL (PRIMARY) HYPERTENSION SNOMED Code(s): 65279903 Comment: BP remains moderately elevated. Will increase the clonidine patch to 0.2mg topically. (9) DVT prophylaxis Current Visit: Yes Status: Acute Code(s): CJD5209 - SNOMED Code(s): 332397063 Comment: Lovenox bridge to Warfarin Status and Disposition: Inpatient. Kidney function slowly recovering. Will discharge when medically stable.
[2017-06-22] MEDS: Calcitriol CAP* 0.25 MCG PO SCH (21:28)
[2017-06-22] MEDS: CMCS Pravastatin (NF) 20 MG TAB PO SCH (21:29)
[2017-06-23] MEDS: Albuterol 2.5 MG/3 ML NEB.SOL* (0.083%) INH SCH ×4 (01:47→20:13)
[2017-06-23 06:25] LABS: Hematocrit 24 % (35-47); Mean Corpuscular HGB Conc 34 g/dl (31-36); Mean Corpuscular Hemoglobin 29 pg (27-31); Mean Corpuscular Volume 87 fL (80-97); Mean Platelet Volume 7 um3 (7.4-10.4); Red Blood Count 2.73 10^6/ul (4.0-5.4); Red Cell Distribution Width 14 % (10.5-15); White Blood Count 4.9 10^3/ul (3.5-10.8)
[2017-06-23 06:37] LABS: BUN/Creatinine Ratio 18.8 (8-20); EGFR African American 14.7 (>60); EGFR Non-African American 11.4 (>60); Potassium 4.2 mmol/L (3.5-5.0)
[2017-06-23] MEDS: Insulin LISPRO* 1 UNITS UNIT SUBCUT SCH ×3 (07:15→16:42)
[2017-06-23] MEDS: Budesonide NEB* 0.25 MG/2 ML NEB.SOLN INH SCH ×2 (07:39→20:13)
[2017-06-23] MEDS: Furosemide TAB* 20 MG PO SCH (08:33)
[2017-06-23] MEDS: Metoprolol Tartrate TAB* 100 MG TAB PO SCH ×2 (08:33→21:47)
[2017-06-23] MEDS: amLODIPine TAB* 5 MG PO SCH (08:33)
[2017-06-23] MEDS: Aspirin EC Low Dose* 81 MG TAB.EC PO SCH ×2 (08:33→21:48)
[2017-06-23] MEDS: predniSONE TAB* 20 MG PO SCH (08:33)
[2017-06-23] MEDS: Omeprazole CAP* 20 MG PO SCH ×2 (08:33→21:52)
[2017-06-23] MEDS: Insulin GLARGINE(*) 1 UNITS UNIT SUBCUT SCH ×2 (08:34→21:47)
[2017-06-23] MEDS: Hemorrhoidal OINT TOPICAL SCH ×4 (08:34→21:48)
[2017-06-23] MEDS: Colchicine* 0.6 MG TAB PO SCH ×2 (08:35→21:46)
[2017-06-23] MEDS: Artificial Tears* 15 ML BTL BOTH EYES SCH ×2 (08:35→21:45)
[2017-06-23] MEDS: Fluticasone NASAL SPRAY 50MCG* 16 gm SPRAY BTL BOTH NARES SCH (08:53)
[2017-06-23] MEDS: Enoxaparin(*) 80 MG/0.8 ML SYR SUBCUT SCH (13:36)
--- NOTE | 2017-06-23 15:52 | PN ---
Subjective Date of Service: 06/23/17 Interval History: Patient was started on prednisone and was able to do a full lap of the unit and states that her SOB is significantly improved. Complains of continued stable cough with deep inspiration. States she has been having 3 days of loose bowel movements including 3 today. States she had been drinking prune juice through hospitalization to keep bowels regular. Denies blood, melena or abdominal pain. Denies Dizziness, CP, N/V, F/C. Family History: Unchanged from Admission Social History: Unchanged from Admission Past Medical History: Unchanged from Admission Objective Active Medications: Acetaminophen (Tylenol Tab*) 650 mg PO Q4H PRN PRN Reason: FEVER/PAIN Last Admin: 06/21/17 20:45 Dose: 650 mg Albuterol (Ventolin 2.5 Mg/3 Ml Neb.Ana*) 2.5 mg INH [id number] AWAKE [facility] Last Admin: 06/23/17 13:56 Dose: 2.5 mg Amlodipine Besylate (Norvasc Tab*) 10 mg PO DAILY [facility] Last Admin: 06/23/17 08:33 Dose: 10 mg Aspirin (Aspirin Ec Low Dose*) 81 mg PO BID [facility] Last Admin: 06/23/17 08:33 Dose: 81 mg Benzonatate (Tessalon Cap*) 100 mg PO BID PRN PRN Reason: COUGH Last Admin: 06/20/17 16:35 Dose: 100 mg Budesonide (Pulmicort Neb*) 0.25 mg INH RT.BID [facility] Last Admin: 06/23/17 07:39 Dose: 0.25 mg Calcitriol (Rocaltrol Cap*) 0.25 mcg PO BEDTIME KARL Last Admin: 06/22/17 21:28 Dose: 0.25 mcg Clonidine HCl (Ranqojtp-Kin-2 0.2 Mg Patch*) 0.2 mg TRANSDERM Q7D [facility] Last Admin: 06/21/17 18:13 Dose: 0.2 mg Colchicine (Colcrys*) 0.6 mg PO BID [facility] Last Admin: 06/23/17 08:35 Dose: 0.6 mg Dextrose (D50w Syringe 50 Ml*) 25 gm IV PUSH ONCE PRN PRN Reason: FS < 60 Last Admin: 06/13/17 14:56 Dose: 25 gm Enoxaparin Sodium (Lovenox(*)) 75 mg SUBCUT Q24H [facility] Last Admin: 06/23/17 13:36 Dose: 75 mg Fluticasone Propionate (Flonase Nasal [place] 50mcg*) 2 spray BOTH NARES DAILY [facility] Last Admin: 06/23/17 08:53 Dose: 2 spray Furosemide (Lasix Tab*) 20 mg PO DAILY [facility] Last Admin: 06/23/17 08:33 Dose: 20 mg Guaifenesin (Robitussin*) 5 ml PO Q6H PRN PRN Reason: COUGH Last Admin: 06/20/17 16:35 Dose: 5 ml Hydralazine HCl (Apresoline Iv*) 5 mg IV SLOW PU Q6H PRN PRN Reason: SYSTOLIC BP GREATER THAN: Hydrocortisone (Hytone Cream 1%*) 1 applic TOPICAL DAILY PRN PRN Reason: RASH Last Admin: 06/21/17 18:13 Dose: 1 applic Insulin Glargine (Lantus(*)) 20 units SUBCUT QAM [facility] Last Admin: 06/23/17 08:34 Dose: 20 units Insulin Glargine (Lantus(*)) 18 units SUBCUT BEDTIME [facility] Last Admin: 06/22/17 21:30 Dose: 18 unit Insulin Human Lispro (Humalog*) 0 units SUBCUT TID AC [facility] PRN Reason: Protocol Last Admin: 06/23/17 12:37 Dose: 6 unit Lorazepam (Ativan Tab(*)) 0.25 mg PO Q6H PRN PRN Reason: ANXIETY Last Admin: 06/18/17 21:55 Dose: 0.25 mg Magnesium Hydroxide (Milk Of Magnesia Liq*) 30 ml PO Q6H PRN PRN Reason: CONSTIPATION Last Admin: 06/17/17 12:53 Dose: 30 ml Metoprolol Tartrate (Lopressor Tab*) 100 mg PO Q12HR [facility] Last Admin: 06/23/17 08:33 Dose: 100 mg Omeprazole (Prilosec Cap*) 20 mg PO BID [facility] Last Admin: 06/23/17 08:33 Dose: 20 mg Ondansetron HCl (Zofran Tab*) 4 mg PO Q6H PRN PRN Reason: NAUSEA Last Admin: 06/18/17 15:03 Dose: 4 mg Pharmacy Profile Note (Coumadin Per Pharmacy*) 1 note FOLLOW UP .PER PHARMACY PROTOC [facility] PRN Reason: Protocol Phenyleph/Shark Oil/Min Oil/Petrol (Preparation H*) 1 applic TOPICAL QID [facility] Last Admin: 06/23/17 13:38 Dose: Not Given Polyethylene Glycol/Electrolytes (Miralax*) 17 gm PO DAILY PRN PRN Reason: CONSTIPATION Last Admin: 06/18/17 09:25 Dose: 17 gm Polyvinyl Alcohol (Polyvinyl Alcohol 1.4% Opth*) 1 drop BOTH EYES BID [facility] Last Admin: 06/23/17 08:35 Dose: 1 drop Pravastatin Sodium (Pravachol (Nf)) 10 mg PO BEDTIME [facility] Last Admin: 06/22/17 21:29 Dose: 10 mg Prednisone (Deltasone Tab*) 20 mg PO DAILY [facility] Last Admin: 06/23/17 08:33 Dose: 20 mg Throat Lozenges (Chloraseptic Fabian*) 1 fabian PO Q6H PRN PRN Reason: SORE THROAT Last Admin: 06/21/17 04:10 Dose: 1 fabian Triamcinolone Acetonide (Triamcinolone 0.025% Oint *) 1 applic TOPICAL DAILY PRN PRN Reason: RASH Warfarin Sodium (Coumadin Tab(*)) 3 mg PO 1700 ONE Stop: 06/23/17 17:01 Vital Signs 06/22/17 06/22/17 06/22/17 19:42 19:53 20:00 Temperature 98.0 F Pulse Rate 86 75 Respiratory 24 16 16 Rate Blood Pressure 184/82 (mmHg) O2 Sat by Pulse 100 99 Oximetry 06/22/17 06/23/17 06/23/17 23:40 03:30 07:19 Temperature 97.8 F 97.6 F Pulse Rate 67 66 Respiratory 20 20 12 Rate Blood Pressure 166/72 171/77 (mmHg) O2 Sat by Pulse 100 99 Oximetry 06/23/17 06/23/17 06/23/17 07:22 07:42 08:45 Temperature 98.6 F Pulse Rate 63 68 Respiratory 16 14 Rate Blood Pressure 160/70 (mmHg) O2 Sat by Pulse 100 98 Oximetry 06/23/17 06/23/17 13:50 13:58 Temperature 98.0 F Pulse Rate 69 73 Respiratory 18 14 Rate Blood Pressure (mmHg) O2 Sat by Pulse 98 97 Oximetry Oxygen Devices in Use Now: None Appearance: Patient is a 77yo female who appears stated age and is sitting comfortably in the chair in [facility]. Eyes: No Scleral Icterus, PERRLA Ears/Nose/Mouth/Throat: NL Teeth, Lips, Gums, Clear Oropharnyx, Mucous Membranes Moist Neck: NL Appearance and Movements; NL JVP Respiratory: Symmetrical Chest Expansion and Respiratory Effort, Clear to Auscultation Cardiovascular: NL Sounds; No Murmurs; No JVD, RRR - Pulses 2+ in radial, DP, PT. , No Edema, - - Pulses 2+ in radial, DP, PT. Systolic BP joaquín Abdominal: NL Sounds; No Tenderness; No Distention, No Hepatosplenomegaly Lymphatic: No Cervical Adenopathy Extremities: No Edema, No Clubbing, Cyanosis Skin: No Rash or Ulcers, No Nodules or Sclerosis Neurological: Alert and Oriented x 3, NL Gait Result Diagrams: 06/23/17 06:11 06/23/17 06:11 Additional Lab and Data: 06/19/17 06/20/17 06/20/17 21:30 05:00 05:00 WBC RBC Hgb Hct MCV MCH MCHC RDW Plt Count MPV Neut % (Auto) Lymph % (Auto) Sharkey % (Auto) Eos % (Auto) Baso % (Auto) Absolute Neuts (auto) Absolute Lymphs (auto) Absolute Monos (auto) Absolute Eos (auto) Absolute Basos (auto) Absolute Nucleated RBC Nucleated RBC % INR (Anticoag Therapy) 1.29 H Sodium 134 Potassium 4.9 Chloride 100 L Carbon Dioxide 25 Anion Gap 9 BUN 85 H Creatinine 4.84 H Est GFR ( Amer) 11.2 Est GFR (Non-Af Amer) 8.7 BUN/Creatinine Ratio 17.6 Glucose 165 H POC Glucose (mg/dL) 296 H Calcium 8.4 L 06/20/17 06/20/17 06/20/17 05:01 07:48 11:36 WBC 6.3 RBC 2.54 L Hgb 7.5 L Hct 23 L MCV 89 MCH 30 MCHC 33 RDW 15 Plt Count 282 MPV 8 Neut % (Auto) 66.7 Lymph % (Auto) 19.4 L Sharkey % (Auto) 13.1 H Eos % (Auto) 0.1 Baso % (Auto) 0.7 Absolute Neuts (auto) 4.2 Absolute Lymphs (auto) 1.2 Absolute Monos (auto) 0.8 Absolute Eos (auto) 0 Absolute Basos (auto) 0 Absolute Nucleated RBC 0 Nucleated RBC % 0 INR (Anticoag Therapy) Sodium Potassium Chloride Carbon Dioxide Anion Gap BUN Creatinine Est GFR ( Amer) Est GFR (Non-Af Amer) BUN/Creatinine Ratio Glucose POC Glucose (mg/dL) 162 H 246 H Calcium 06/20/17 06/20/17 06/21/17 16:39 22:39 05:16 WBC RBC Hgb Hct MCV MCH MCHC RDW Plt Count MPV Neut % (Auto) Lymph % (Auto) Sharkey % (Auto) Eos % (Auto) Baso % (Auto) Absolute Neuts (auto) Absolute Lymphs (auto) Absolute Monos (auto) Absolute Eos (auto) Absolute Basos (auto) Absolute Nucleated RBC Nucleated RBC % INR (Anticoag Therapy) 1.75 H Sodium Potassium Chloride Carbon Dioxide Anion Gap BUN Creatinine Est GFR ( Amer) Est GFR (Non-Af Amer) BUN/Creatinine Ratio Glucose POC Glucose (mg/dL) 190 H 272 H Calcium 06/21/17 06/21/17 06/21/17 05:16 05:16 07:12 WBC RBC Hgb 7.7 L Hct 23 L MCV MCH MCHC RDW Plt Count MPV Neut % (Auto) Lymph % (Auto) Sharkey % (Auto) Eos % (Auto) Baso % (Auto) Absolute Neuts (auto) Absolute Lymphs (auto) Absolute Monos (auto) Absolute Eos (auto) Absolute Basos (auto) Absolute Nucleated RBC Nucleated RBC % INR (Anticoag Therapy) Sodium 135 Potassium 4.6 Chloride 102 Carbon Dioxide 25 Anion Gap 8 BUN 80 H Creatinine 4.33 H Est GFR ( Amer) 12.8 Est GFR (Non-Af Amer) 9.9 BUN/Creatinine Ratio 18.5 Glucose 141 H POC Glucose (mg/dL) 138 H Calcium 8.4 L 06/21/17 06/21/17 06/21/17 11:25 16:02 20:04 WBC RBC Hgb Hct MCV MCH MCHC RDW Plt Count MPV Neut % (Auto) Lymph % (Auto) Shar[place] % (Auto) Eos % (Auto) Baso % (Auto) Absolute Neuts (auto) Absolute Lymphs (auto) Absolute Monos (auto) Absolute Eos (auto) Absolute Basos (auto) Absolute Nucleated RBC Nucleated RBC % INR (Anticoag Therapy) Sodium Potassium Chloride Carbon Dioxide Anion Gap BUN Creatinine Est GFR ( Amer) Est GFR (Non-Af Amer) BUN/Creatinine Ratio Glucose POC Glucose (mg/dL) 262 H 171 H 153 H Calcium 06/22/17 06/22/17 06/22/17 04:52 04:52 04:53 WBC 4.7 RBC 2.72 L Hgb 8.0 L Hct 24 L MCV 88 MCH 29 MCHC 34 RDW 14 Plt Count 302 MPV 8 Neut % (Auto) Lymph % (Auto) [place] % (Auto) Eos % (Auto) Baso % (Auto) Absolute Neuts (auto) Absolute Lymphs (auto) Absolute Monos (auto) Absolute Eos (auto) Absolute Basos (auto) Absolute Nucleated RBC Nucleated RBC % INR (Anticoag Therapy) 1.90 H Sodium 138 Potassium 4.5 Chloride 105 Carbon Dioxide 24 Anion Gap 9 BUN 76 H Creatinine 3.95 H Est GFR ( Amer) 14.2 Est GFR (Non-Af Amer) 11.0 BUN/Creatinine Ratio 19.2 Glucose 67 L POC Glucose (mg/dL) Calcium 8.2 L 06/22/17 06/22/17 06/22/17 07:41 11:16 16:11 WBC RBC Hgb Hct MCV MCH MCHC RDW Plt Count MPV Neut % (Auto) Lymph % (Auto) Shar[place] % (Auto) Eos % (Auto) Baso % (Auto) Absolute Neuts (auto) Absolute Lymphs (auto) Absolute Monos (auto) Absolute Eos (auto) Absolute Basos (auto) Absolute Nucleated RBC Nucleated RBC % INR (Anticoag Therapy) Sodium Potassium Chloride Carbon Dioxide Anion Gap BUN Creatinine Est GFR ( Amer) Est GFR (Non-Af Amer) BUN/Creatinine Ratio Glucose POC Glucose (mg/dL) 74 164 H 221 H Calcium Microbiology and Other Data: Microbiology 06/13/17 14:59 Stool Occult Blood (BRIDGER) - Final Stool Assess/Plan/Problems-Billing Ms. Wilkes is a 77 year old female with PMHx significant for CKD Stage 4-5, chronic normocytic anemia, HTN, DMT2, GERD, MARI on Bipap, p/w with lower extremity edema, stomach discomfort and shortness of breath. Who is generally improving in the hospital but has continued SOB which is no longer improving - Patient Problems (1) Acute on chronic kidney failure Current Visit: Yes Status: Acute Code(s): N17.9 - ACUTE KIDNEY FAILURE, UNSPECIFIED; N18.9 - CHRONIC KIDNEY DISEASE, UNSPECIFIED SNOMED Code(s): 681767636 Comment: Creatinine is trending down, currently at 3.84. Most likely AIN vs ATN with slow recovery. Hyperkalemia on admission has remained resolved. Likely no need for dialysis anymore. (2) Afib Current Visit: Yes Status: Acute Code(s): I48.91 - UNSPECIFIED ATRIAL FIBRILLATION SNOMED Code(s): 38805610 Comment: The patient had what appears to be a brief episode of afib/flutter on 06/17/17. Continue coumadin (with lovenox bridge). INR 2.20 and currently therapeutic. Metoprolol increased for BP control-HR is controlled. (3) Anemia Current Visit: Yes Status: Acute Code(s): D64.9 - ANEMIA, UNSPECIFIED SNOMED Code(s): 109653006 Comment: Chronic normocytic anemia. Likely secondary to CKD stage 4-5. Iron studies - Iron 20, Ferritin 345.9, (last in 2013 Iron 54, Ferritin 216, Sat 19). s/p 2u PRBC this admission Received a dose of epogen 06/19 Continue Ferrous Sulfate Will recheck in morning. (4) Gout attack Current Visit: Yes Status: Acute Code(s): M10.9 - GOUT, UNSPECIFIED SNOMED Code(s): 60378591 Comment: Continue colchicine. Pain is stable, will consider preventative treatment when done with acute phase. (5) Shortness of breath Current Visit: Yes Status: Acute Code(s): R06.02 - SHORTNESS OF BREATH SNOMED Code(s): 918802166 Comment: Likely multifactorial from fluid overload, ? viral illness, GERD with RAD and worsened SOB from acute on chronic anemia. Continue lasix and bronchodilators. Prednisone 20mg given today, patient states she feels significantly better and able to ambulate around whole unit. No more rales in lungs. (6) DM type 2 (diabetes mellitus, type 2) Current Visit: Yes Status: Chronic Comment: Sugars 100s-low 200s. Lantus at 20 units SQ qAM and 18 units SQ qPM. No increase in sugars with prednisone. (7) GERD (gastroesophageal reflux disease) Current Visit: Yes Status: Chronic Code(s): K21.9 - GASTRO-ESOPHAGEAL REFLUX DISEASE WITHOUT ESOPHAGITIS SNOMED Code(s): 235301567 Comment: Continue omeprazole. Monitor for GERD exacerbating cough and RAD with steroids. (8) HTN (hypertension) Current Visit: Yes Status: Chronic Code(s): I10 - ESSENTIAL (PRIMARY) HYPERTENSION SNOMED Code(s): 56496662 Comment: BP remains moderately elevated. Increased metoprolol to 100mg BID. Limited options for BP control. (9) DVT prophylaxis Current Visit: Yes Status: Acute Code(s): JAZ7179 - SNOMED Code(s): 497859197 Comment: Warfarin, INR at 2.20 and therapeutic Status and Disposition: Inpatient. Kidney function slowly recovering. Will discharge when medically stable.
--- NOTE | 2017-06-23 16:24 | PN ---
Progress Note - Progress Note Date of Service: 06/23/17 - Pulm f/u Note: Pt seen and examined at bedside. Pt reports improvemnet in SOB. Has cough with deep breathing Active Medications Generic Name Dose Route Start Last Admin Trade Name Freq PRN Reason Stop Dose Admin Acetaminophen 650 mg 06/14/17 03:56 06/21/17 20:45 Tylenol Tab* PO 650 mg Q4H PRN Administration FEVER/PAIN Albuterol 2.5 mg 06/18/17 19:00 06/23/17 13:56 Ventolin 2.5 Mg/3 Ml Neb.Ana* INH 2.5 mg [id number] AWAKE KARL Administration Amlodipine Besylate 10 mg 06/19/17 09:00 06/23/17 08:33 Norvasc Tab* PO 10 mg DAILY KARL Administration Aspirin 81 mg 06/13/17 21:00 06/23/17 08:33 Aspirin Ec Low Dose* PO 81 mg BID KARL Administration Benzonatate 100 mg 06/17/17 11:57 06/20/17 16:35 Tessalon Cap* PO 100 mg BID PRN Administration COUGH Budesonide 0.25 mg 06/18/17 19:00 06/23/17 07:39 Pulmicort Neb* INH 0.25 mg RT.BID KARL Administration Calcitriol 0.25 mcg 06/13/17 21:00 06/22/17 21:28 Rocaltrol Cap* PO 0.25 mcg BEDTIME KARL Administration Clonidine HCl 0.2 mg 06/21/17 17:00 06/21/17 18:13 Efkboqao-Gor-6 0.2 Mg Patch* TRANSDERM 0.2 mg Q7D KARL Administration Colchicine 0.6 mg 06/18/17 21:00 06/23/17 08:35 Colcrys* PO 0.6 mg BID KARL Administration Dextrose 25 gm 06/13/17 14:11 06/13/17 14:56 D50w Syringe 50 Ml* IV PUSH 25 gm ONCE PRN Administration FS < 60 Fluticasone Propionate 2 spray 06/14/17 09:00 06/23/17 08:53 Flonase Nasal [place] 50mcg* BOTH NARES 2 spray DAILY KARL Administration Furosemide 20 mg 06/21/17 09:00 06/23/17 08:33 Lasix Tab* PO 20 mg DAILY KARL Administration Guaifenesin 5 ml 06/16/17 15:40 06/20/17 16:35 Robitussin* PO 5 ml Q6H PRN Administration COUGH Hydralazine HCl 5 mg 06/22/17 17:25 Apresoline Iv* IV SLOW PU Q6H PRN SYSTOLIC BP GREATER THAN: Hydrocortisone 1 applic 06/13/17 14:53 06/21/17 18:13 Hytone Cream 1%* TOPICAL 1 applic DAILY PRN Administration RASH Insulin Glargine 20 units 06/22/17 09:00 06/23/17 08:34 Lantus(*) SUBCUT 20 units QAM KARL Administration Insulin Glargine 18 units 06/21/17 21:00 06/22/17 21:30 Lantus(*) SUBCUT 18 unit BEDTIME KARL Administration Insulin Human Lispro 0 units 06/13/17 16:30 06/23/17 12:37 Humalog* SUBCUT 6 unit TID AC KARL Administration Protocol Lorazepam 0.25 mg 06/17/17 18:32 06/18/17 21:55 Ativan Tab(*) PO 0.25 mg Q6H PRN Administration ANXIETY Magnesium Hydroxide 30 ml 06/17/17 11:07 06/17/17 12:53 Milk Of Magnesia Liq* PO 30 ml Q6H PRN Administration CONSTIPATION Metoprolol Tartrate 100 mg 06/23/17 09:00 06/23/17 08:33 Lopressor Tab* PO 100 mg Q12HR KARL Administration Omeprazole 20 mg 06/14/17 21:00 06/23/17 08:33 Prilosec Cap* PO 20 mg BID KARL Administration Ondansetron HCl 4 mg 06/14/17 16:55 06/18/17 15:03 Zofran Tab* PO 4 mg Q6H PRN Administration NAUSEA Pharmacy Profile Note 1 note 06/17/17 13:00 Coumadin Per Pharmacy* FOLLOW UP .PER PHARMACY PROTOC [facility] Protocol Phenyleph/Shark Oil/Min Oil/Petrol 1 applic 06/21/17 22:00 06/23/17 13:38 Preparation H* TOPICAL Not Given QID KARL Polyethylene Glycol/Electrolytes 17 gm 06/17/17 11:07 06/18/17 09:25 Miralax* PO 17 gm DAILY PRN Administration CONSTIPATION Polyvinyl Alcohol 1 drop 06/17/17 21:00 06/23/17 08:35 Polyvinyl Alcohol 1.4% Opth* BOTH EYES 1 drop BID KARL Administration Pravastatin Sodium 10 mg 06/13/17 21:00 06/22/17 21:29 Pravachol (Nf) PO 10 mg BEDTIME KARL Administration Prednisone 20 mg 06/23/17 09:00 06/23/17 08:33 Deltasone Tab* PO 20 mg DAILY KARL Administration Throat Lozenges 1 maday 06/20/17 16:28 06/21/17 04:10 Chloraseptic Maday* PO 1 maday Q6H PRN Administration SORE THROAT Triamcinolone Acetonide 1 applic 06/13/17 14:53 Triamcinolone 0.025% Oint * TOPICAL DAILY PRN RASH Warfarin Sodium 3 mg 06/23/17 17:00 Coumadin Tab(*) PO 06/23/17 17:01 1700 ONE Vital Signs Temp Pulse Resp BP Pulse Ox 98.0 F 73 14 160/70 97 06/23/17 13:50 06/23/17 13:58 06/23/17 13:58 06/23/17 08:45 06/23/17 13:58 O/E: Pt lying in bed in NAD HEENT: PERRLA, No JVD Lungs: Decreased air entry at bases, No wheeze CVS: S1, S2+, regular Abd: Soft, BS+ Ext: No edema, normal ROM Neuro: No focal defecits Skin: Bruises from blood draws, no rash Laboratory Results - last 24 hr 06/22/17 06/22/17 06/23/17 16:11 20:44 06:11 WBC RBC Hgb Hct MCV MCH MCHC RDW Plt Count MPV Neut % (Auto) Lymph % (Auto) [place] % (Auto) Eos % (Auto) Baso % (Auto) Absolute Neuts (auto) Absolute Lymphs (auto) Absolute Monos (auto) Absolute Eos (auto) Absolute Basos (auto) Absolute Nucleated RBC Nucleated RBC % INR (Anticoag Therapy) 2.29 H Sodium Potassium Chloride Carbon Dioxide Anion Gap BUN Creatinine Est GFR ( Amer) Est GFR (Non-Af Amer) BUN/Creatinine Ratio Glucose POC Glucose (mg/dL) 221 H 193 H Calcium 06/23/17 06/23/17 06/23/17 06:11 06:11 07:09 WBC 4.9 RBC 2.73 L Hgb 8.0 L Hct 24 L MCV 87 MCH 29 MCHC 34 RDW 14 Plt Count 319 MPV 7 L Neut % (Auto) 59.8 Lymph % (Auto) 27.7 [place] % (Auto) 11.7 H Eos % (Auto) 0 Baso % (Auto) 0.8 Absolute Neuts (auto) 2.9 Absolute Lymphs (auto) 1.3 Absolute Monos (auto) 0.6 Absolute Eos (auto) 0 Absolute Basos (auto) 0 Absolute Nucleated RBC 0.01 Nucleated RBC % 0.1 INR (Anticoag Therapy) Sodium 136 Potassium 4.2 Chloride 104 Carbon Dioxide 24 Anion Gap 8 BUN 72 H Creatinine 3.84 H Est GFR ( Amer) 14.7 Est GFR (Non-Af Amer) 11.4 BUN/Creatinine Ratio 18.8 Glucose 113 H POC Glucose (mg/dL) 104 H Calcium 8.0 L 06/23/17 06/23/17 11:16 16:00 WBC RBC Hgb Hct MCV MCH MCHC RDW Plt Count MPV Neut % (Auto) Lymph % (Auto) [place] % (Auto) Eos % (Auto) Baso % (Auto) Absolute Neuts (auto) Absolute Lymphs (auto) Absolute Monos (auto) Absolute Eos (auto) Absolute Basos (auto) Absolute Nucleated RBC Nucleated RBC % INR (Anticoag Therapy) Sodium Potassium Chloride Carbon Dioxide Anion Gap BUN Creatinine Est GFR ( Amer) Est GFR (Non-Af Amer) BUN/Creatinine Ratio Glucose POC Glucose (mg/dL) 233 H 292 H Calcium I/R: 77 y o f with h/o DM, CKD, MARI on BiPAP, anemia a/w worsening SOB found to have acute on chronic renal failure, hyperkalemia, low hb Pt reported improvement in SOB with bronchodilators and steroid nebs Received 2 units pRBC for anemia Was started on low dose prednisone, can taper c/w GERD therapy On Lasix for fluid overload Incentive spirometer OOB to chair and ambulate as tolerated
[2017-06-23] MEDS ORDERED: Warfarin TAB(*) 3 MG PO ONE (17:00)
[2017-06-23] MEDS ORDERED: Loperamide CAP* 2 MG PO PRN (18:24)
[2017-06-23] MEDS: Calcitriol CAP* 0.25 MCG PO SCH (21:46)
[2017-06-23] MEDS: CMCS Pravastatin (NF) 20 MG TAB PO SCH (21:46)
[2017-06-24] MEDS: Albuterol 2.5 MG/3 ML NEB.SOL* (0.083%) INH SCH ×4 (01:22→20:49)
[2017-06-24] MEDS: Acetaminophen TAB* 325 MG PO PRN (03:08)
[2017-06-24 05:29] LABS: Hematocrit 22 % (35-47); Hemoglobin 7.6 g/dl (12.0-16.0); Mean Corpuscular HGB Conc 34 g/dl (31-36); Mean Corpuscular Hemoglobin 30 pg (27-31); Mean Corpuscular Volume 88 fL (80-97); Mean Platelet Volume 8 um3 (7.4-10.4); Red Blood Count 2.54 10^6/ul (4.0-5.4); Red Cell Distribution Width 14 % (10.5-15); White Blood Count 7.4 10^3/ul (3.5-10.8)
[2017-06-24 05:44] LABS: BUN/Creatinine Ratio 20.2 (8-20); EGFR African American 15.7 (>60); EGFR Non-African American 12.2 (>60); Potassium 4.2 mmol/L (3.5-5.0)
[2017-06-24] MEDS: Insulin LISPRO* 1 UNITS UNIT SUBCUT SCH ×3 (07:26→17:42)
[2017-06-24] MEDS: Budesonide NEB* 0.25 MG/2 ML NEB.SOLN INH SCH ×2 (08:50→20:50)
[2017-06-24] MEDS: amLODIPine TAB* 5 MG PO SCH (09:08)
[2017-06-24] MEDS: Aspirin EC Low Dose* 81 MG TAB.EC PO SCH ×2 (09:08→21:18)
[2017-06-24] MEDS: predniSONE TAB* 20 MG PO SCH (09:08)
[2017-06-24] MEDS: Furosemide TAB* 20 MG PO SCH (09:08)
[2017-06-24] MEDS: Omeprazole CAP* 20 MG PO SCH ×2 (09:09→21:19)
[2017-06-24] MEDS: Metoprolol Tartrate TAB* 100 MG TAB PO SCH ×2 (09:09→21:19)
[2017-06-24] MEDS: Insulin GLARGINE(*) 1 UNITS UNIT SUBCUT SCH ×2 (09:09→21:19)
[2017-06-24] MEDS: Colchicine* 0.6 MG TAB PO SCH (09:09)
[2017-06-24] MEDS: Fluticasone NASAL SPRAY 50MCG* 16 gm SPRAY BTL BOTH NARES SCH (09:09)
[2017-06-24] MEDS: Artificial Tears* 15 ML BTL BOTH EYES SCH ×2 (09:10→21:22)
[2017-06-24] MEDS: Hemorrhoidal OINT TOPICAL SCH ×3 (11:00→21:18)
--- NOTE | 2017-06-24 13:12 | PN ---
Progress Note - Progress Note Date of Service: 06/24/17 - Pulm f/u Note: Pt seen and examined at bedside. Pt reprots improvement in breathing and cough. reports dry mouth last night Active Medications Generic Name Dose Route Start Last Admin Trade Name Freq PRN Reason Stop Dose Admin Acetaminophen 650 mg 06/14/17 03:56 06/24/17 03:08 Tylenol Tab* PO 650 mg Q4H PRN Administration FEVER/PAIN Albuterol 2.5 mg 06/18/17 19:00 06/24/17 08:49 Ventolin 2.5 Mg/3 Ml Neb.Ana* INH 2.5 mg [id number] AWAKE KARL Administration Amlodipine Besylate 10 mg 06/19/17 09:00 06/24/17 09:08 Norvasc Tab* PO 10 mg DAILY KARL Administration Aspirin 81 mg 06/13/17 21:00 06/24/17 09:08 Aspirin Ec Low Dose* PO 81 mg BID KARL Administration Benzonatate 100 mg 06/17/17 11:57 06/20/17 16:35 Tessalon Cap* PO 100 mg BID PRN Administration COUGH Budesonide 0.25 mg 06/18/17 19:00 06/24/17 08:50 Pulmicort Neb* INH 0.25 mg RT.BID KARL Administration Calcitriol 0.25 mcg 06/13/17 21:00 06/23/17 21:46 Rocaltrol Cap* PO 0.25 mcg BEDTIME KARL Administration Clonidine HCl 0.2 mg 06/21/17 17:00 06/21/17 18:13 Paxplrul-Fhe-1 0.2 Mg Patch* TRANSDERM 0.2 mg Q7D KARL Administration Colchicine 0.6 mg 06/18/17 21:00 06/24/17 09:09 Colcrys* PO 0.6 mg BID KARL Administration Dextrose 25 gm 06/13/17 14:11 06/13/17 14:56 D50w Syringe 50 Ml* IV PUSH 25 gm ONCE PRN Administration FS < 60 Fluticasone Propionate 2 spray 06/14/17 09:00 06/24/17 09:09 Flonase Nasal [place] 50mcg* BOTH NARES 2 spray DAILY KARL Administration Furosemide 20 mg 06/21/17 09:00 06/24/17 09:08 Lasix Tab* PO 20 mg DAILY KARL Administration Guaifenesin 5 ml 06/16/17 15:40 06/20/17 16:35 Robitussin* PO 5 ml Q6H PRN Administration COUGH Hydralazine HCl 5 mg 06/22/17 17:25 06/23/17 23:22 Apresoline Iv* IV SLOW PU 5 mg Q6H PRN Administration SYSTOLIC BP GREATER THAN: Hydrocortisone 1 applic 06/13/17 14:53 06/21/17 18:13 Hytone Cream 1%* TOPICAL 1 applic DAILY PRN Administration RASH Insulin Glargine 20 units 06/22/17 09:00 06/24/17 09:09 Lantus(*) SUBCUT 20 units QAM KARL Administration Insulin Glargine 18 units 06/21/17 21:00 06/23/17 21:47 Lantus(*) SUBCUT 18 unit BEDTIME KARL Administration Insulin Human Lispro 0 units 06/13/17 16:30 06/24/17 12:49 Humalog* SUBCUT 3 unit TID AC KARL Administration Protocol Loperamide HCl 2 mg 06/23/17 18:24 Imodium Cap* PO .SEE DIRECTIONS PRN DIARRHEA Lorazepam 0.25 mg 06/17/17 18:32 06/18/17 21:55 Ativan Tab(*) PO 0.25 mg Q6H PRN Administration ANXIETY Magnesium Hydroxide 30 ml 06/17/17 11:07 06/17/17 12:53 Milk Of Magnesia Liq* PO 30 ml Q6H PRN Administration CONSTIPATION Metoprolol Tartrate 100 mg 06/23/17 09:00 06/24/17 09:09 Lopressor Tab* PO 100 mg Q12HR KARL Administration Omeprazole 20 mg 06/14/17 21:00 06/24/17 09:09 Prilosec Cap* PO 20 mg BID KARL Administration Ondansetron HCl 4 mg 06/14/17 16:55 06/18/17 15:03 Zofran Tab* PO 4 mg Q6H PRN Administration NAUSEA Pharmacy Profile Note 1 note 06/17/17 13:00 Coumadin Per Pharmacy* FOLLOW UP .PER PHARMACY PROTOC [facility] Protocol Phenyleph/Shark Oil/Min Oil/Petrol 1 applic 06/21/17 22:00 06/24/17 11:00 Preparation H* TOPICAL Not Given QID [facility] Polyethylene Glycol/Electrolytes 17 gm 06/17/17 11:07 06/18/17 09:25 Miralax* PO 17 gm DAILY PRN Administration CONSTIPATION Polyvinyl Alcohol 1 drop 06/17/17 21:00 06/24/17 09:10 Polyvinyl Alcohol 1.4% Opth* BOTH EYES 1 drop BID KARL Administration Pravastatin Sodium 10 mg 06/13/17 21:00 06/23/17 21:46 Pravachol (Nf) PO 10 mg BEDTIME KARL Administration Prednisone 20 mg 06/23/17 09:00 06/24/17 09:08 Deltasone Tab* PO 20 mg DAILY KARL Administration Throat Lozenges 1 maday 06/20/17 16:28 06/21/17 04:10 Chloraseptic Maday* PO 1 maday Q6H PRN Administration SORE THROAT Triamcinolone Acetonide 1 applic 06/13/17 14:53 Triamcinolone 0.025% Oint * TOPICAL DAILY PRN RASH Warfarin Sodium 2.5 mg 06/24/17 17:00 Coumadin Tab(*) PO 06/24/17 17:01 ONCE ONE Vital Signs Temp Pulse Resp BP Pulse Ox 97.5 F 68 20 158/68 100 06/24/17 07:13 06/24/17 08:45 06/24/17 08:00 06/24/17 09:13 06/24/17 07:13 O/E: Pt lying in bed in NAD HEENT: PERRLA, No JVD Lungs: Decreased air entry at bases, No wheeze CVS: S1, S2+, regular Abd: Soft, BS+ Ext: No edema, normal ROM Neuro: No focal defecits Skin: Bruises from blood draws, no rash Laboratory Results - last 24 hr 06/23/17 06/23/17 06/23/17 16:00 21:26 22:01 WBC RBC Hgb Hct MCV MCH MCHC RDW Plt Count MPV INR (Anticoag Therapy) Sodium Potassium Chloride Carbon Dioxide Anion Gap BUN Creatinine Est GFR ( Amer) Est GFR (Non-Af Amer) BUN/Creatinine Ratio Glucose POC Glucose (mg/dL) 292 H 372 H 369 H Calcium 06/24/17 06/24/17 06/24/17 05:06 05:06 05:06 WBC 7.4 RBC 2.54 L Hgb 7.6 L Hct 22 L MCV 88 MCH 30 MCHC 34 RDW 14 Plt Count 301 MPV 8 INR (Anticoag Therapy) 2.65 H Sodium 133 Potassium 4.2 Chloride 104 Carbon Dioxide 21 L Anion Gap 8 BUN 73 H Creatinine 3.62 H Est GFR ( Amer) 15.7 Est GFR (Non-Af Amer) 12.2 BUN/Creatinine Ratio 20.2 H Glucose 189 H POC Glucose (mg/dL) Calcium 8.0 L 06/24/17 06/24/17 06:53 12:00 WBC RBC Hgb Hct MCV MCH MCHC RDW Plt Count MPV INR (Anticoag Therapy) Sodium Potassium Chloride Carbon Dioxide Anion Gap BUN Creatinine Est GFR ( Amer) Est GFR (Non-Af Amer) BUN/Creatinine Ratio Glucose POC Glucose (mg/dL) 112 H 159 H Calcium I/R: 77 y o f with h/o DM, CKD, MARI on BiPAP, anemia a/w worsening SOB found to have acute on chronic renal failure, hyperkalemia, low hb. Sob likely sec to reactive airways disease Pt reported improvement in SOB with bronchodilators and steroid nebs Is on low dose prednisone, can taper c/w bronchodilators c/w GERD therapy On Lasix for fluid overload Incentive spirometer OOB to chair and ambulate as tolerated
--- NOTE | 2017-06-24 15:53 | PN ---
Subjective Date of Service: 06/24/17 Interval History: This is a 77 yo female with DM, CKD and MARI who was admitted for JOSH. Developed c/o SOB, improving with bronchodilators and prednisone. She has also been treated for an acute gout attack, which she reports has improved with colchicine. Today, patient reports some improvement in dyspnea. Still has the sensation that she needs to cough with deep inspiration with an associated burning sensation in her chest. Objective Active Medications: Acetaminophen (Tylenol Tab*) 650 mg PO Q4H PRN PRN Reason: FEVER/PAIN Last Admin: 06/24/17 03:08 Dose: 650 mg Albuterol (Ventolin 2.5 Mg/3 Ml Neb.Ana*) 2.5 mg INH [id number] AWAKE [facility] Last Admin: 06/24/17 14:04 Dose: 2.5 mg Amlodipine Besylate (Norvasc Tab*) 10 mg PO DAILY KARL Last Admin: 06/24/17 09:08 Dose: 10 mg Aspirin (Aspirin Ec Low Dose*) 81 mg PO BID [facility] Last Admin: 06/24/17 09:08 Dose: 81 mg Benzonatate (Tessalon Cap*) 100 mg PO BID PRN PRN Reason: COUGH Last Admin: 06/20/17 16:35 Dose: 100 mg Budesonide (Pulmicort Neb*) 0.25 mg INH RT.BID [facility] Last Admin: 06/24/17 08:50 Dose: 0.25 mg Calcitriol (Rocaltrol Cap*) 0.25 mcg PO BEDTIME KARL Last Admin: 06/23/17 21:46 Dose: 0.25 mcg Clonidine HCl (Sqztouvh-Fsl-8 0.2 Mg Patch*) 0.2 mg TRANSDERM Q7D [facility] Last Admin: 06/21/17 18:13 Dose: 0.2 mg Colchicine (Colcrys*) 0.6 mg PO BID KARL Last Admin: 06/24/17 09:09 Dose: 0.6 mg Dextrose (D50w Syringe 50 Ml*) 25 gm IV PUSH ONCE PRN PRN Reason: FS < 60 Last Admin: 06/13/17 14:56 Dose: 25 gm Fluticasone Propionate (Flonase Nasal [place] 50mcg*) 2 spray BOTH NARES DAILY [facility] Last Admin: 06/24/17 09:09 Dose: 2 spray Furosemide (Lasix Tab*) 20 mg PO DAILY [facility] Last Admin: 06/24/17 09:08 Dose: 20 mg Guaifenesin (Robitussin*) 5 ml PO Q6H PRN PRN Reason: COUGH Last Admin: 06/20/17 16:35 Dose: 5 ml Hydralazine HCl (Apresoline Iv*) 5 mg IV SLOW PU Q6H PRN PRN Reason: SYSTOLIC BP GREATER THAN: Last Admin: 06/23/17 23:22 Dose: 5 mg Hydrocortisone (Hytone Cream 1%*) 1 applic TOPICAL DAILY PRN PRN Reason: RASH Last Admin: 06/21/17 18:13 Dose: 1 applic Insulin Glargine (Lantus(*)) 20 units SUBCUT QAM [facility] Last Admin: 06/24/17 09:09 Dose: 20 units Insulin Glargine (Lantus(*)) 18 units SUBCUT BEDTIME [facility] Last Admin: 06/23/17 21:47 Dose: 18 unit Insulin Human Lispro (Humalog*) 0 units SUBCUT TID AC [facility] PRN Reason: Protocol Last Admin: 06/24/17 12:49 Dose: 3 unit Loperamide HCl (Imodium Cap*) 2 mg PO .SEE DIRECTIONS PRN PRN Reason: DIARRHEA Lorazepam (Ativan Tab(*)) 0.25 mg PO Q6H PRN PRN Reason: ANXIETY Last Admin: 06/18/17 21:55 Dose: 0.25 mg Magnesium Hydroxide (Milk Of Magnesia Liq*) 30 ml PO Q6H PRN PRN Reason: CONSTIPATION Last Admin: 06/17/17 12:53 Dose: 30 ml Metoprolol Tartrate (Lopressor Tab*) 100 mg PO Q12HR [facility] Last Admin: 06/24/17 09:09 Dose: 100 mg Omeprazole (Prilosec Cap*) 20 mg PO BID [facility] Last Admin: 06/24/17 09:09 Dose: 20 mg Ondansetron HCl (Zofran Tab*) 4 mg PO Q6H PRN PRN Reason: NAUSEA Last Admin: 06/18/17 15:03 Dose: 4 mg Pharmacy Profile Note (Coumadin Per Pharmacy*) 1 note FOLLOW UP .PER PHARMACY PROTOC [facility] PRN Reason: Protocol Phenyleph/Shark Oil/Min Oil/Petrol (Preparation H*) 1 applic TOPICAL QID [facility] Last Admin: 06/24/17 11:00 Dose: Not Given Polyethylene Glycol/Electrolytes (Miralax*) 17 gm PO DAILY PRN PRN Reason: CONSTIPATION Last Admin: 06/18/17 09:25 Dose: 17 gm Polyvinyl Alcohol (Polyvinyl Alcohol 1.4% Opth*) 1 drop BOTH EYES BID [facility] Last Admin: 06/24/17 09:10 Dose: 1 drop Pravastatin Sodium (Pravachol (Nf)) 10 mg PO BEDTIME [facility] Last Admin: 06/23/17 21:46 Dose: 10 mg Prednisone (Deltasone Tab*) 20 mg PO DAILY [facility] Last Admin: 06/24/17 09:08 Dose: 20 mg Throat Lozenges (Chloraseptic Fabian*) 1 fabian PO Q6H PRN PRN Reason: SORE THROAT Last Admin: 06/21/17 04:10 Dose: 1 fabian Triamcinolone Acetonide (Triamcinolone 0.025% Oint *) 1 applic TOPICAL DAILY PRN PRN Reason: RASH Warfarin Sodium (Coumadin Tab(*)) 2.5 mg PO ONCE ONE Stop: 06/24/17 17:01 Vital Signs: Temp Pulse Resp BP Pulse Ox 98.1 F 64 16 140/70 100 06/24/17 11:20 06/24/17 13:59 06/24/17 11:20 06/24/17 15:35 06/24/17 11:20 Oxygen Devices in Use Now: None Appearance: Relatively well appearing elderly female who appears fatigued but in NAD Respiratory: Symmetrical Chest Expansion and Respiratory Effort, Clear to Auscultation Cardiovascular: NL Sounds; No Murmurs; No JVD, RRR Abdominal: NL Sounds; No Tenderness; No Distention Extremities: No Edema Skin: No Rash or Ulcers Neurological: Alert and Oriented x 3 Result Diagrams: 06/24/17 05:06 06/24/17 05:06 Additional Lab and Data: . Microbiology and Other Data: Microbiology 06/13/17 14:59 Stool Occult Blood (BRIDGER) - Final Stool neg Assess/Plan/Problems-Billing Ms. Wilkes is a 77 year old female with PMHx significant for CKD Stage 4-5, chronic normocytic anemia, HTN, DMT2, GERD, MARI on Bipap, p/w with lower extremity edema, stomach discomfort and shortness of breath. - Patient Problems (1) Acute on chronic kidney failure Comment: Improving, Cr is nearly back to baseline (stage IV-V at baseline) Likely secondary to ATN v AIN related to recent Bactrim Associated hyperkalemia has resolved Appreciate nephrology input (2) Shortness of breath Comment: Likely multifactorial Patient's fluid status has improved and now appears euvolemic Noted improvement with initiation steroids and bronchodilators pointing to possible RAD/acute bronchitis Appreciate pulm input Will cont to taper prednisone (3) Afib Comment: The patient had what appears to be a brief episode of afib/flutter on 06/17/17. Started on Coumadin with initial Lovenox bridge, now with therapeutic INR Rhythm change may have been due to electrolyte changes d/t JOSH Unsure if fci anticoagulation is necessary. May consider event monitor initiated as an outpatient to help make determination (4) Anemia Comment: Chronic normocytic anemia. Likely secondary to CKD stage 4-5. Iron studies - Iron 20, Ferritin 345.9, (last in 2013 Iron 54, Ferritin 216, Sat 19). s/p 2u PRBC this admission Received a dose of epogen 06/19 Continue Ferrous Sulfate Will recheck in morning. (5) Gout attack Comment: Now resolved Will stop colchicine at this time This is her first gout attack in the setting of JOSH, no need to consider allopurinol at this time (6) DM type 2 (diabetes mellitus, type 2) Comment: Decent glycemic control Cont home insulin regimen (7) HTN (hypertension) Comment: Still intermittently hypertensive Metoprolol and clonidine increased Cont amlodipine (8) Sleep apnea Comment: Cont BiPAP (9) GERD (gastroesophageal reflux disease) Comment: Cont PPI (10) DVT prophylaxis Comment: Warfarin, with therapeutic INR (11) Full code status Status and Disposition: Inpatient. Anticipate dc in 1-2d
[2017-06-24] MEDS ORDERED: Warfarin TAB(*) 2.5 MG PO ONE (17:00)
[2017-06-24] MEDS: Calcitriol CAP* 0.25 MCG PO SCH (21:18)
[2017-06-24] MEDS: CMCS Pravastatin (NF) 20 MG TAB PO SCH (21:18)
[2017-06-25] MEDS: Albuterol 2.5 MG/3 ML NEB.SOL* (0.083%) INH SCH ×2 (01:28→08:05)
[2017-06-25] MEDS: amLODIPine TAB* 5 MG PO SCH (08:01)
[2017-06-25] MEDS: Metoprolol Tartrate TAB* 100 MG TAB PO SCH (08:01)
[2017-06-25] MEDS: Aspirin EC Low Dose* 81 MG TAB.EC PO SCH (08:01)
[2017-06-25] MEDS: Furosemide TAB* 20 MG PO SCH (08:01)
[2017-06-25] MEDS: Ondansetron TAB* 4 MG PO PRN (08:02)
[2017-06-25] MEDS: Fluticasone NASAL SPRAY 50MCG* 16 gm SPRAY BTL BOTH NARES SCH (08:02)
[2017-06-25] MEDS: Artificial Tears* 15 ML BTL BOTH EYES SCH (08:02)
[2017-06-25] MEDS: predniSONE TAB* 20 MG PO SCH (08:02)
[2017-06-25] MEDS: Omeprazole CAP* 20 MG PO SCH (08:02)
[2017-06-25] MEDS: Hemorrhoidal OINT TOPICAL SCH (08:05)
[2017-06-25] MEDS: Budesonide NEB* 0.25 MG/2 ML NEB.SOLN INH SCH (08:05)
[2017-06-25] MEDS: Insulin LISPRO* 1 UNITS UNIT SUBCUT SCH ×2 (08:06→12:46)
[2017-06-25 08:13] VITALS: BP 164/76
[2017-06-25] MEDS: Insulin GLARGINE(*) 1 UNITS UNIT SUBCUT SCH (09:45)
[2017-06-25 09:51] LABS: Hematocrit 23 % (35-47); Hemoglobin 7.8 g/dl (12.0-16.0); Mean Corpuscular HGB Conc 33 g/dl (31-36); Mean Corpuscular Hemoglobin 30 pg (27-31); Mean Corpuscular Volume 89 fL (80-97); Mean Platelet Volume 8 um3 (7.4-10.4); Red Blood Count 2.64 10^6/ul (4.0-5.4); Red Cell Distribution Width 14 % (10.5-15); White Blood Count 8.6 10^3/ul (3.5-10.8)
[2017-06-25 10:39] LABS: BUN/Creatinine Ratio 20.6 (8-20); Calcium 8.1 mg/dL (8.6-10.3); EGFR African American 14.3 (>60); EGFR Non-African American 11.1 (>60)
[2017-06-25 12:42] LABS: Potassium 4.3 mmol/L (3.5-5.0)
--- NOTE | 2017-06-26 03:00 | DS ---
CC: Dr. Snell; Dr. Barksdale; Dr. Wallace * DISCHARGE SUMMARY: DATE OF ADMISSION: 06/13/17 DATE OF DISCHARGE: 06/25/17 PRIMARY CARE PROVIDER: Dr. Snell. CONSULTING BUSINESS INTELLIGENCE ADMINISTRATOR: Dr. De La Torre. CONSULTING SNIPPER: Dr. Barksdale. CONSULTING ORTHOPEDIST: Dr. Kaur. DISCHARGING PROVIDER: FERNANDO Vallejo. SUPERVISING PHYSICIAN: Dr. Sigifredo Murdock * (DICTATED BY FERNANDO VALLEJO) PRIMARY DISCHARGE DIAGNOSES: 1. Acute on chronic kidney injury with improvement back to baseline likely representing acute interstitial nephritis versus acute tubular necrosis related to recent Bactrim use. 2. Shortness of breath - additionally likely due to fluid overload with a component of reactive airway disease, improved with corticosteroids and bronchodilators. 3. Atrial fibrillation - this appears to be paroxysmal, initiated on Coumadin, which is with the therapeutic INR at the time of discharge. 4. Chronic normocytic anemia likely secondary to renal disease, received 2 units of packed red blood cells this admission. 5. Gout attack - improved with colchicine. 6. Hypertension - blood pressure was difficult to control during her hospital stay. Multiple changes made to her antihypertensive medications. SECONDARY DISCHARGE DIAGNOSES: 1. Insulin-dependent diabetes. 2. Obstructive sleep apnea, compliant with CPAP. 3. Gastroesophageal reflux disease. DISCHARGE MEDICATIONS: 1. Combivent 2 puffs inhaled q.4 hours as needed for shortness of breath. 2. Aspirin 81 mg p.o. twice daily. 3. Bumex 1 mg p.o. daily. 4. Calcitriol 0.25 mcg p.o. at bedtime. 5. Nexium 40 mg p.o. twice daily. 6. Flovent 2 puffs inhaled twice daily. 7. Fluticasone nasal spray 2 sprays in both nostrils once daily. 8. Lantus 18 units subcu twice daily. 9. Humalog on sliding scale at mealtime. 10. Lidoderm patch, apply transdermally daily. 11. Magnesium oxide 400 mg p.o. twice daily. 12. Metoprolol tartrate 100 mg p.o. twice daily. 13. Systane eye drops one drop in both eyes twice daily. 14. Pravastatin 10 mg p.o. at bedtime. 15. Triamcinolone cream 0.1% apply topically daily as needed. 16. Coumadin 3 mg p.o. daily. 17. Amlodipine 10 mg p.o. daily. 18. Clonidine patch 0.2 mg transdermally, changed weekly. 19. Benadryl 25 mg p.o. at bedtime as needed for insomnia. 20. Prednisone 10 mg p.o. daily x3 days. Medication changes: 1. Start Flovent. 2. Start Combivent. 3. Prednisone x3 days. 4. Stop labetalol and replace with metoprolol. 5. Start Coumadin. 6. Increase clonidine. 7. Increase amlodipine. HOSPITAL IMAGIN. Chest x-ray on 06/13/17 shows low lung volumes and no acute process. 2. Chest x-ray on 06/15/17 shows no acute process, but still a poor inspiratory effort. 3. V/Q scan shows low probability for acute PE. 4. Foot x-ray, no acute findings. 5. Toe x-ray, suspect remote posttraumatic injury to the proximal fifth digit. 6. Chest x-ray 06/21/17 shows postsurgical changes, but no acute process. 7. Transthoracic echocardiogram shows mild to moderate LVH with a normal left ventricular ejection fraction at 55% to 60%, right ventricle wall is also mildly increased with mild mitral regurgitation, tricuspid regurgitation and pulmonic regurgitation. No significant changes from prior study. No clinically significant diastolic dysfunction. HOSPITAL COURSE: This is a 77-year-old female with history of chronic kidney disease, insulin-dependent diabetes and obstructive sleep apnea, who presented to the emergency department with complaints of shortness of breath and nausea, as well as lower extremity edema. The patient had recent shoulder surgery approximately 4 weeks prior to admission and been given instructions to hold her Bumex since surgery. She had also been prescribed Bactrim for a rash present on her shoulder, which she took for approximately 1 week. At the time that she was evaluated in the emergency department, she was noted to be hyperkalemic with significant acute kidney injury and oliguria. Initial potassium of 6.5 with a creatinine of 7.07. No significant EKG changes or other dysrhythmias were noted. The patient had mildly elevated BNP with significant evidence of pulmonary edema, but did have rather significant lower extremity edema and was complaining of shortness of breath. The patient was subsequently admitted for management of her kidney injury, hyperkalemia, and fluid overload. She initially remained oliguric and Dr. Barksdale consulted who recommended trialing a Lasix challenge with some success. Her hyperkalemia was treated with Kayexalate which was successful as well. Dr. Barksdale felt that her acute kidney injury was likely due to acute interstitial nephritis versus acute tubular necrosis related to her recent Bactrim use. The patient's shortness of breath did improve slightly with diuresis, but then even as she became what appeared to be euvolemic, her shortness of breath did not seem to improve. The patient was evaluated by a it applications developer, Dr. De La Torre suggested that there may be a component of reactive airway disease and the patient was started on corticosteroids and inhaled bronchodilators with positive effect. The patient had a brief run of atrial fibrillation with rapid ventricular rate. Her labetalol at that time was exchanged for metoprolol for improved rate control and the patient was initially started on Lovenox with Coumadin and Lovenox was continued until INR was therapeutic. The patient remained on telemetry monitoring the remainder of her hospital stay without any further episodes of atrial fibrillation. The patient has no known history of prior atrial fibrillation, but has a relatively high CHADS-VASc score and for this reason, continuation of anticoagulation was recommended. The patient's renal function continued to improve with supportive care measures and was near baseline at the time of discharge with a creatinine of approximately 3.5. The patient was also noted to be anemic during her hospital stay, which is a chronic finding and appears to be normocytic for her. She has normal iron and B12 studies. She was transfused 2 units of packed red blood cells and received 1 dose of Epogen. Stool was negative for blood. The patient also began complaining of right foot pain specifically in the first MTPJ. X-rays of the area were benign and clinical exam was consistent with gout. The patient was treated with colchicine and to noted positive response. Pain had resolved prior to discharge and colchicine was discontinued. DISPOSITION AND FOLLOWUP PLAN: The patient is being discharged to home with a referral to visiting nurse service. Multiple medication changes were made as outlined above. Specifically, the patient is being discharged on Coumadin with instructions to repeat INR testing on June 30. Her INR on the day of discharge is 2.22. The patient may not require long-term anticoagulation as her episode of atrial fibrillation appeared to be transient during her hospital stay and was in the setting of acute kidney injury. Due to her relatively high stroke risk; however, we will recommend continuing anticoagulation at this time with follow up with Cardiology for additional long-term monitoring to help make decision as to whether she requires long-term anticoagulation. The patient was in agreement with that plan. Recommend close follow up with her primary care provider and repeat labs including a CBC and a basic metabolic panel prior to follow up as well as follow up with Dr. Barksdale, whom she has previously been established with for her chronic kidney disease. Her shortness of breath is nearly resolved at the time of discharge and likely does not require any specific Pulmonology followup, but could be considered if her shortness of breath recurs after finishing her prednisone and discontinuing her inhaled medications in the future. FERNANDO VALLEJO [id number]/[facility] #: [id number] NAHID
== END 2017-06-25 13:45 | disposition home health service (06) | DRG 683 ==
LOC: ED 12:51 → MEDTELE 14:30
PROVIDERS: ADMIT Internal Medicine; ATTEND Hospitalist
PROC: 30233N1 Transfusion of Nonautologous Red Blood Cells into Peripheral Vein, Percutaneous Approach (ICD-10-PCS; principal; 2017-06-14)
DX: N17.0 Acute kidney failure with tubular necrosis (principal); I48.92 Unspecified atrial flutter; E11.22 Type 2 diabetes mellitus with diabetic chronic kidney disease; E11.65 Type 2 diabetes mellitus with hyperglycemia; E87.5 Hyperkalemia; N12 Tubulo-interstitial nephritis, not specified as acute or chronic; T37.0X5A Adverse effect of sulfonamides, initial encounter; N18.4 Chronic kidney disease, stage 4 (severe); I12.9 Hypertensive chronic kidney disease with stage 1 through stage 4 chronic kidney disease, or unspecified chronic kidney disease; I08.1 Rheumatic disorders of both mitral and tricuspid valves; I48.0 Paroxysmal atrial fibrillation; G47.33 Obstructive sleep apnea (adult) (pediatric); K21.9 Gastro-esophageal reflux disease without esophagitis; M19.90 Unspecified osteoarthritis, unspecified site; I49.3 Ventricular premature depolarization; R09.02 Hypoxemia; M10.9 Gout, unspecified; E78.00 Pure hypercholesterolemia, unspecified; R04.0 Epistaxis; D63.1 Anemia in chronic kidney disease; J45.909 Unspecified asthma, uncomplicated; R74.0 Nonspecific elevation of levels of transaminase and lactic acid dehydrogenase [LDH]; Z96.653 Presence of artificial knee joint, bilateral; Z98.42 Cataract extraction status, left eye; Z98.41 Cataract extraction status, right eye; Z90.710 Acquired absence of both cervix and uterus; Z88.6 Allergy status to analgesic agent; Z88.5 Allergy status to narcotic agent; Z88.0 Allergy status to penicillin; Z88.8 Allergy status to other drugs, medicaments and biological substances; Z90.49 Acquired absence of other specified parts of digestive tract; Z98.1 Arthrodesis status; Z80.3 Family history of malignant neoplasm of breast; Z80.1 Family history of malignant neoplasm of trachea, bronchus and lung; Z80.6 Family history of leukemia; Y92.009 Unspecified place in unspecified non-institutional (private) residence as the place of occurrence of the external cause; Z79.82 Long term (current) use of aspirin; Z79.4 Long term (current) use of insulin; Z79.01 Long term (current) use of anticoagulants
CPT/HCPCS: 36415; 71010; 71020; 78582; 80048; 80053; 81003; 81015; 82270; 82553; 82570; 82728; 83540; 83735; 83880; 84300; 84443; 84484; 84540; 84550; 85014; 85018; 85025; 85027; 85060; 85379; 85610; 86078; 86850; 86870; 86880; 86900; 86901; 86922; 87040; 90686; 93005; 93306; 94640; 94760; A9270-GY; A9540; A9558; J0360; J0610; J0885; J1644; J1650; J1940; J7512; P9040

== ENCOUNTER → 2019-02-25 16:57 | Emergency (ER) | payer MEDICARE, OTHER ==
[~2019-02-25 16:57] MED LIST changes: -Atracurium* 10 MG/ML 10 ML VIAL ONE; -Buffered Lidocaine 0.9% SYRIN* 5 ML/SYR SYRINGE INTRADERM ONE; -Famotidine IV* 10 MG/ML 2 ML (20 mg) IV ONE; +HYDROcodone/ACETAMIN 5-325 MG* 1 TAB PO ONE; -KETAMINE HCL* 50 MG/ML 10 ML VIAL ONE; -Midazolam* 1 MG/ML 5 ML VIAL (5 MG) ONE; +Orphenadrine Citrate IV* 30 MG/ML 2 ML VIAL IM ONE; -PROCHLORPERAZINE INJ 5 MG/ML 2 ML VIAL IV PRN; -Scopolamine 1.5 mg* PATCH TRANSDERM PRN; -fentaNYL* 50 MCG/ML 2 ML VIAL (100 MCG VIAL) IV PRN; -fentaNYL* 50 MCG/ML 2 ML VIAL (100 MCG VIAL) ONE; -oxyCODONE/Acetamin 5/325 MG* TAB PO PRN
--- NOTE | 2019-02-25 19:46 | ED ---
Lower Extremity - HPI Summary HPI Summary: 79-year-old female presents with right hip pain for the past 2 weeks. She denies any injury. She states that she also has right-sided back pain. Denies any urinary symptoms. No saddle anesthesias or loss of bowel or bladder. She has pain down bilateral legs that is unchanged. She has been taking tramadol and hydrocodone without relief. She had a previous surgery to her back couple years ago. Denies any chest pain or shortness of breath. No fevers. has follow up with neurosurgery next week. She is a diabetic and dialysis patient. - History of Current Complaint Chief Complaint: EDHipPelvisInjury Stated Complaint: RT HIP PAIN PER PT Time Seen by Provider: 02/25/19 18:15 Pain Intensity: 10 - Allergies/Home Medications Allergies/Adverse Reactions: Allergies Allergy/AdvReac Type Severity Reaction Status Date / Time MS Penicillins [Penicillins] Allergy Severe Anaphylatic Verified 06/05/17 12:56 Shock MS Codeine [Codeine] Allergy Intermediate Hives Verified 06/05/17 12:56 MS Atorvastatin Allergy Muscle Verified 06/05/17 12:56 [From Lipitor] Ache & Cramping MS Edetic Acid [From Xifaxan] Allergy Hives Verified 06/05/17 12:56 MS Hydromorphone Allergy Hives Verified 06/05/17 12:56 [From Dilaudid] MS Losartan [Losartan] Allergy Swelling Verified 06/05/17 12:56 Of Face,Lips,& Throat MS Metoclopramide Allergy Insomnia Verified 06/05/17 12:56 [From Reglan] MS Rifaximin [From Xifaxan] Allergy Hives Verified 06/05/17 12:56 MS Sulindac [From Clinoril] Allergy Rash Verified 06/05/17 12:56 MS Morphine [Morphine] AdvReac Intermediate Hives Verified 06/05/17 12:56 MS Gabapentin [Gabapentin] AdvReac Sedation Verified 06/05/17 12:56 MS Lisinopril [Lisinopril] AdvReac Coughing Verified 06/05/17 12:56 PMH/Surg Hx/FS Hx/Imm Hx Endocrine/Hematology History: Reports: Hx Diabetes, Hx Anemia - HX OF, Other Endocrine/Hematological Disorders - anemia Cardiovascular History: Reports: Hx Hypercholesterolemia, Hx Hypertension, Other Cardiovascular Problems/Disorders - cardaic cath Denies: Hx Pacemaker/ICD Respiratory History: Reports: Hx Sleep Apnea - current CPAP user. Denies: Hx Asthma, Hx Chronic Obstructive Pulmonary Disease (COPD), Other Respiratory Problems/Disorders GI History: Reports: Hx Gastroesophageal Reflux Disease, Hx Hiatal Hernia - ON MEDICATION FOR History: Reports: Hx Chronic Renal Failure, Other Problems/Disorders - "KIDNEY FUNCTIONS ARE DOWN" Musculoskeletal History: Reports: Hx Arthritis, Hx Back Problems, Hx Bursitis - LEFT SHOULDER, Hx Tendonitis - ARMS AND HANDS, Other Musculoskeletal History - DDD Sensory History: Reports: Hx Cataracts, Hx Contacts or Glasses Denies: Hx Hearing Aid Opthamlomology History: Reports: Hx Cataracts, Hx Contacts or Glasses Psychiatric History: Denies: Hx Panic Disorder - Cancer History Hx Chemotherapy: No Hx Radiation Therapy: No - Surgical History Surgery Procedure, Year, and Place: C-SPINE X2, LUMBAR X2, BILAT TKAs, CHOLECYSTECTOMY, HYSTERECTOMY, BILAT CTR, 2007- right hand carpal tunnel. aug 25 2013- posterior fusion C4-T1 Hx Anesthesia Reactions: No - Immunization History Date of Tetanus Vaccine: Unk Date of Influenza Vaccine: Fall 2014 Infectious Disease History: No Infectious Disease History: Denies: Traveled Outside the [place] in Last 30 Days - Family History Known Family History: Positive: Other - pos: Breast CA Family History: Breast Cancer - Social History Alcohol Use: None Hx Substance Use: No Substance Use Type: Reports: None Hx Tobacco Use: No Smoking Status (MU): Never Smoked Tobacco Review of Systems Negative: Fever Negative: Chest Pain Negative: Shortness Of Breath Positive: Myalgia - right hip and back pain All Other Systems Reviewed And Are Negative: Yes Physical Exam Triage Information Reviewed: Yes Vital Signs On Initial Exam: Initial Vitals Temp Pulse Resp BP Pulse Ox 98.9 F 63 20 146/85 94 02/25/19 17:20 02/25/19 17:20 02/25/19 17:20 02/25/19 17:20 02/25/19 17:20 Vital Signs Reviewed: Yes Appearance: Positive: Well-Appearing Skin: Positive: Warm, Dry Head/Face: Positive: Normal Head/Face Inspection Eyes: Positive: Normal, Conjunctiva Clear ENT: Positive: Pharynx normal Respiratory/Lung Sounds: Positive: Clear to Auscultation, Breath Sounds Present Cardiovascular: Positive: Normal, RRR Musculoskeletal: Positive: Other - tenderness right hip, SI joint and right side of lower back, pos SLR right, good pulses, sensation grossly intact Neurological: Positive: Normal Psychiatric: Positive: Normal Diagnostics - Vital Signs Vital Signs Temp Pulse Resp BP Pulse Ox 02/25/19 17:20 98.9 F 63 20 146/85 94 - Laboratory Lab Statement: Any lab studies that have been ordered have been reviewed, and results considered in the medical decision making process. Re-Evaluation - Re-Evaluation First Eval Re-Evaluation Time: 19:40 Change: Improved Comment: feeling better after muscle relaxer Lower Extremity Course/Dx - Course Course Of Treatment: 79-year-old female presents with right hip pain for the past 2 weeks. She denies any injury. She states that she also has right-sided back pain. Denies any urinary symptoms. No saddle anesthesias or loss of bowel or bladder. She has pain down bilateral legs that is unchanged. She has been taking tramadol and hydrocodone without relief. She had a previous surgery to her back couple years ago. Denies any chest pain or shortness of breath. No fevers. has follow up with neurosurgery next week. She is a diabetic and dialysis patient. On exam has tenderness over right hip and right lower back. Positive straight leg raise on the right. Neurovascularly intact. CT of hip and back show no acute fracture. Discussed will add on muscle relaxer. Told to follow-up with orthopedic for potential steroid shot into joint. Told to follow up with neurosurgery about the back pain. Patient understands and agrees with plan. - Diagnoses Differential Diagnosis/HQI/PQRI: Positive: Arthritis, Fracture (Closed), Sprain Provider Diagnoses: Hip pain, Back pain Discharge - Sign-Out/Discharge Documenting (check all that apply): Patient Departure Patient Received Moderate/Deep Sedation with Procedure: No - Discharge Plan Condition: Good Disposition: HOME Prescriptions: Methocarbamol TAB* [Robaxin 500 MG TAB*] 500 mg PO TID PRN #15 tab PRN Reason: Pain Patient Education Materials: Hip Pain (ED) Referrals: Kristofer Snell MD [Primary Care Provider] - Additional Instructions: Take muscle relaxers three times a day Use normal pain medication as prescribed ice/heat area, move as much as possible Follow up with primary within 5 days Return to ED if develop any new or worsening symptoms - Billing Disposition and Condition Condition: GOOD Disposition: Home
[2019-02-25 20:48] VITALS: BP 143/55
== END | disposition home or self-care (01) ==
LOC: ED 16:57
DX: M25.551 Pain in right hip (principal); M54.9 Dorsalgia, unspecified; E11.9 Type 2 diabetes mellitus without complications; I10 Essential (primary) hypertension; D64.9 Anemia, unspecified; Z88.5 Allergy status to narcotic agent; Z88.0 Allergy status to penicillin; Z88.2 Allergy status to sulfonamides; Z88.8 Allergy status to other drugs, medicaments and biological substances
CPT/HCPCS: 72131; 72192; 96372; 99282; J2360

== ENCOUNTER 2019-03-02 21:34 | Emergency (ER) | payer MEDICARE, OTHER ==
[2019-03-02] MEDS ORDERED: Morphine 4 MG/ML VIAL (1 ml) 4 MG/ML VIAL IV ONE (22:03)
[2019-03-02] MEDS ORDERED: Metoclopramide IV* 5 MG/ML 2 ML VIAL IV SLOW PU ONE (22:04)
[2019-03-02] MEDS ORDERED: hydrALAZINE IV* 20 MG/ML VIAL IV SLOW PU ONE (22:05)
--- NOTE | 2019-03-02 22:17 | ED ---
Abdominal Pain/Female - HPI Summary HPI Summary: 79 year old F presenting to [facility] accompanied by daughter with a chief complaint of worsening lower right quadrant abdominal pain since 10:00 this morning. The patient rates the pain 8/10 in severity. Symptoms aggravated by nothing. Symptoms alleviated by lying down. Patient reports nausea, decreased appetite. Patient additionally complains right hip pain for which she has an appointment in [place] with her neurologist. Patient has treated the pain with tramadol, hydrocodone, and Zofran without relief. Patient had ultrasound done on 02/23/19. Patient was seen here on 02/25/19 for the right hip pain. Patient was at [facility] today to get a CT scan of her abdomen. The abdominal pain worsened after the CT scan. Patient is on dialysis. - History of Current Complaint Chief Complaint: EDAbdPain Stated Complaint: VOMITING,CHEST PAIN PER PT Time Seen by Provider: 03/02/19 21:53 Hx Obtained From: Patient Onset/Duration: Lasting Hours - 12, Still Present Timing: Constant Severity Currently: Severe Pain Intensity: 8 Pain Scale Used: 0-10 Numeric Location: Discrete At: RLQ Aggravating Factor(s): Nothing Alleviating Factor(s): Nothing Associated Signs and Symptoms: Positive: Other: - nausea, decreased appetite, right hip pain Allergies/Adverse Reactions: Allergies Allergy/AdvReac Type Severity Reaction Status Date / Time codeine Allergy Hives Verified 03/02/19 22:11 edetic acid Allergy Hives Verified 03/02/19 22:12 gabapentin Allergy Unknown Verified 03/02/19 22:14 Reaction Details hydromorphone [From Dilaudid] Allergy Hives Verified 03/02/19 22:12 losartan Allergy Swelling Verified 03/02/19 22:12 Of Face,Lips,& Throat morphine Allergy Hives Verified 03/02/19 22:13 Penicillins Allergy Anaphylatic Verified 03/02/19 22:11 Shock rifaximin [From Xifaxan] Allergy Hives Verified 03/02/19 22:11 sulindac [From Clinoril] Allergy Rash Verified 03/02/19 22:13 atorvastatin AdvReac Muscle Ache Verified 03/02/19 22:11 lisinopril AdvReac Coughing Verified 03/02/19 22:14 metoclopramide [From Reglan] AdvReac Insomnia Verified 03/02/19 22:13 PMH/Surg Hx/FS Hx/Imm Hx Previously Healthy: No Endocrine/Hematology History: Reports: Hx Diabetes, Hx Anemia - HX OF, Other Endocrine/Hematological Disorders - anemia Cardiovascular History: Reports: Hx Hypercholesterolemia, Hx Hypertension, Other Cardiovascular Problems/Disorders - cardaic cath Denies: Hx Pacemaker/ICD Respiratory History: Reports: Hx Sleep Apnea - current CPAP user. Denies: Hx Asthma, Hx Chronic Obstructive Pulmonary Disease (COPD), Other Respiratory Problems/Disorders GI History: Reports: Hx Gastroesophageal Reflux Disease, Hx Hiatal Hernia - ON MEDICATION FOR History: Reports: Hx Chronic Renal Failure, Other Problems/Disorders - "KIDNEY FUNCTIONS ARE DOWN" Musculoskeletal History: Reports: Hx Arthritis, Hx Back Problems, Hx Bursitis - LEFT SHOULDER, Hx Tendonitis - ARMS AND HANDS, Other Musculoskeletal History - DDD Sensory History: Reports: Hx Cataracts, Hx Contacts or Glasses Denies: Hx Hearing Aid Opthamlomology History: Reports: Hx Cataracts, Hx Contacts or Glasses Psychiatric History: Denies: Hx Panic Disorder - Cancer History Hx Chemotherapy: No Hx Radiation Therapy: No - Surgical History Surgery Procedure, Year, and Place: C-SPINE X2, LUMBAR X2, BILAT TKAs, CHOLECYSTECTOMY, HYSTERECTOMY, BILAT CTR, 2008- right hand carpal tunnel. aug 25 2013- posterior fusion C4-T1 Hx Anesthesia Reactions: No - Immunization History Date of Tetanus Vaccine: Unk Date of Influenza Vaccine: Fall 2014 Infectious Disease History: No Infectious Disease History: Denies: Traveled Outside the [place] in Last 30 Days - Family History Known Family History: Positive: Other - pos: Breast CA Family History: Breast Cancer - Social History Alcohol Use: None Hx Substance Use: No Substance Use Type: Reports: None Hx Tobacco Use: No Smoking Status (MU): Never Smoked Tobacco Review of Systems Positive: Abdominal Pain - RLQ, Nausea, Other - Decreased appetite Positive: Other - Right hip pain All Other Systems Reviewed And Are Negative: Yes Physical Exam - Summary Physical Exam Summary: VITAL SIGNS: Reviewed. GENERAL: Patient is a well-developed and nourished FEMALE who is lying comfortable in the stretcher. Patient is not in any acute respiratory distress. She is whiney. She has a dialysis shunt on right upper arm HEAD AND FACE: No signs of trauma. No ecchymosis, hematomas or skull depressions. No sinus tenderness. EYES: PERRLA, EOMI x 2, No injected conjunctiva, no nystagmus. EARS: Hearing grossly intact. Ear canals and tympanic membranes are within normal limits. MOUTH: Oropharynx within normal limits. NECK: Supple, trachea is midline, no adenopathy, no JVD, no carotid bruit, no c- spine tenderness, neck with full ROM CHEST: Symmetric, no tenderness at palpation LUNGS: Clear to auscultation bilaterally. No wheezing or crackles. CVS: Regular rate and rhythm, S1 and S2 present, no murmurs or gallops appreciated. ABDOMEN: Abdomen is distended and diffusely tender EXTREMITIES: FROM in all major joints, no edema, no cyanosis or clubbing. NEURO: Alert and oriented x 3. No acute neurological deficits. Speech is normal and follows commands. SKIN: Dry and warm Triage Information Reviewed: Yes Vital Signs On Initial Exam: Initial Vitals Temp Pulse Resp BP Pulse Ox 98.4 F 70 16 226/88 97 03/02/19 21:35 03/02/19 21:35 03/02/19 21:35 03/02/19 21:35 03/02/19 21:35 Vital Signs Reviewed: Yes Diagnostics - Vital Signs Vital Signs Temp Pulse Resp BP Pulse Ox 03/02/19 21:35 98.4 F 70 16 226/88 97 - Laboratory Result Diagrams: 03/02/19 22:15 03/02/19 22:15 Lab Statement: Any lab studies that have been ordered have been reviewed, and results considered in the medical decision making process. - CT Abd/Pel CT Interpretation Completed By: Radiologist Summary of CT Findings: 1. Infectious colitis descending and sigmoid colon. 2. Right lower lobe pumonary nodules. Based on current Hieu criteria, if low risk followup chest CT in 6-12 months and optional followup in 18-24 months. If high risk followup chest CT in 6-12 months and 18-24 months. ED physician has reviewed this report. - EKG 2142 Cardiac Rate: NL - 73 BOM EKG Rhythm: Sinus Rhythm Ectopy: PACs Summary of EKG Findings: Sinus 72 BPM. PACs. Abdominal Pain Fem Course/Dx - Course Course Of Treatment: 79 year old F [facility] daughter with a chief complaint of worsening lower right quadrant abdominal pain, nausea , decreased appetite, and right hip pain since 10:00 this morning. Patient was at [facility] today to get a CT scan of her abdomen. The abdominal pain worsened after the CT scan. Patient is on dialysis. EKG showed Sinus 72 BPM and PACs. Labs showed no signficant abnormalities. CT Abd/Pel, per radiologist, shows 1. Infectious colitis descending and sigmoid colon. 2. Right lower lobe pumonary nodules. Based on current Hieu criteria, if low risk followup chest CT in 6 -12 months and optional followup in 18-24 months. If high risk followup chest CT in 6-12 months and 18-24 months. Patient records state that she allergic to medications including Dilaudid, morphine, codeine. However, patient told nurse that she can take Dilaudid and Benadryl. In ED course, patient was given Phenergan, Compazine, NTG, morphine, Flagyl, Levaquin, Dilaudid and Benadryl, and Apresoline. Patient feels better and would like to go home. Patient will be discharged home with prescription for Levaquin and Flagyl and follow up from primary care provider in 3 days. Patient was instructed to return to ED for new or worsening symptoms. Patient understands and is agreeable to discharge plan. - Diagnoses Provider Diagnoses: Colitis Discharge - Sign-Out/Discharge Documenting (check all that apply): Patient Departure - discharge Patient Received Moderate/Deep Sedation with Procedure: No - Discharge Plan Condition: Stable Disposition: HOME Prescriptions: Levofloxacin TAB* [Levaquin TAB*] 500 mg PO DAILY #7 tab metroNIDAZOLE [Flagyl 500 MG TAB] 500 mg PO TID #21 tab Patient Education Materials: Colitis (ED) Referrals: Kristofer Snell MD [Primary Care Provider] - 3 Days Additional Instructions: Follow up with your primary care provider in 3 days. Return to the Emergency Department for new or worsening symptoms. - Attestation Statements Document Initiated by Scribe: Yes Documenting Scribe: Leonor Merida Provider For Whom Ingeibe is Documenting (Include Credential): Ricky Morrison MD Scribe Attestation: Leonor Melgoza, scribed for Ricky Morrison MD on 03/03/19 at 0227. Status of Scribe Document: Ready
[2019-03-02 22:26] LABS: ABS Lymphocytes 0.5 10^3/ul (1.0-4.8); ABS Monocytes 0.5 10^3/ul (0-0.8); ABS Neutrophils 3.5 10^3/ul (1.5-7.7); Eosinophil % 0.5 %; Hematocrit 30 % (35-47); Hemoglobin 10.1 g/dL (12.0-16.0); Lymphocyte % 11.8 %; Mean Corpuscular HGB Conc 34 g/dL (31-36); Mean Corpuscular Hemoglobin 32 pg (27-31); Mean Corpuscular Volume 95 fL (80-97); Mean Platelet Volume 7.8 fL (7.4-10.4); Nucleated Red Blood Cells % 0.1; Platelet Count 126 10^3/uL (150-450); Red Blood Count 3.14 10^6 /uL (3.70-4.87); Red Cell Distribution Width 16 % (10-15); White Blood Count 4.6 10^3/uL (3.5-10.8)
[2019-03-02 22:36] LABS: Activated Partial Thrombo Time 33.4 seconds (26.0-38.0); INR 0.97 (0.82-1.09)
[2019-03-02 22:43] LABS: ALT 12 U/L (7-52); AST 19 U/L (13-39); Albumin 3.6 g/dL (3.2-5.2); Albumin/Globulin Ratio 1.7 (1-3); Alkaline Phosphatase 86 U/L (34-104); Amylase 21 U/L (29-103); Anion Gap 7 mmol/L (2-11); BUN/Creatinine Ratio 7.4 (8-20); Blood Urea Nitrogen 23 mg/dL (6-24); C Reactive Protein 1.84 mg/L (<8.01); CO2 Carbon Dioxide 30 mmol/L (22-32); Calcium 8.8 mg/dL (8.6-10.3); Chloride 95 mmol/L (101-111); EGFR African American 17.6 (>60); EGFR Non-African American 14.5 (>60); Globulin 2.1 g/dL (2-4); Glucose 134 mg/dL (70-100); Magnesium 2.2 mg/dL (1.9-2.7); Sodium 132 mmol/L (135-145); Total Protein 5.7 g/dL (6.4-8.9)
[2019-03-02] MEDS ORDERED: HYDROmorphone INJ* 0.5 MG/0.5 ML SYRINGE IV SLOW PU ONE (22:44)
[2019-03-02] MEDS ORDERED: PROCHLORPERAZINE INJ 5 MG/ML 2 ML VIAL IV ONE (22:44)
[2019-03-02] MEDS ORDERED: diPHENhydraMINE IV* 50 MG/ML 1 ml VIAL (BENADRYL) SLOW PUSH ONE (22:45)
[2019-03-02] MEDS ORDERED: Nitro 2% OINT* (Nitroglycerin) 1 INCH/PAK PAK TOPICAL ONE (23:08)
[2019-03-02] MEDS ORDERED: HYDROmorphone INJ1* 1 MG/ML SYRINGE IM ONE (23:25)
[2019-03-02] MEDS ORDERED: Promethazine INJ(RESTRICTED)* 25 MG/ML 1 ML VIAL IM ONE (23:25)
[2019-03-02] MEDS ORDERED: diPHENhydraMINE IV* 50 MG/ML 1 ml VIAL (BENADRYL) IM ONE (23:26)
[2019-03-02] MEDS ORDERED: hydrALAZINE TAB* 100 MG ** ONE HUNDRED PO (23:30)
[2019-03-03] MEDS ORDERED: Levofloxacin TAB* 500 MG PO ONE (00:47)
[2019-03-03] MEDS ORDERED: metroNIDAZOLE TAB* 250 MG PO ONE (00:47)
[2019-03-03 01:05] VITALS: BP 172/65
== END 2019-03-03 00:57 | disposition home or self-care (01) ==
LOC: ED 21:34
DX: K52.9 Noninfective gastroenteritis and colitis, unspecified (principal); R10.31 Right lower quadrant pain; R11.0 Nausea; Z88.6 Allergy status to analgesic agent; Z88.0 Allergy status to penicillin; I10 Essential (primary) hypertension; K21.9 Gastro-esophageal reflux disease without esophagitis; E11.9 Type 2 diabetes mellitus without complications
CPT/HCPCS: 36415; 80053; 82150; 83690; 83735; 85025; 85610; 85730; 86140; 93005; 96372; 99283; A9270-GY; J0360; J0780; J1170; J1200; J2550

== ENCOUNTER 2019-03-05 11:25 | Emergency (ER) | payer MEDICARE, OTHER ==
[2019-03-05 12:18] LABS: Hematocrit 29 % (35-47); Hemoglobin 9.8 g/dL (12.0-16.0); Mean Corpuscular HGB Conc 34 g/dL (31-36); Mean Corpuscular Hemoglobin 32 pg (27-31); Mean Corpuscular Volume 96 fL (80-97); Mean Platelet Volume 7.6 fL (7.4-10.4); Platelet Count 146 10^3/uL (150-450); Red Blood Count 3.03 10^6 /uL (3.70-4.87); Red Cell Distribution Width 16 % (10-15); White Blood Count 5.1 10^3/uL (3.5-10.8)
[2019-03-05 12:37] LABS: Albumin 3.7 g/dL (3.2-5.2); Albumin/Globulin Ratio 1.7 (1-3); BUN/Creatinine Ratio 5.9 (8-20); C Reactive Protein 3.9 mg/L (<8.01); Calcium 8.9 mg/dL (8.6-10.3); EGFR African American 13.5 (>60); EGFR Non-African American 11.2 (>60); Globulin 2.2 g/dL (2-4); Potassium 3.6 mmol/L (3.5-5.0); Total Bilirubin 0.6 mg/dL (0.2-1.0); Total Protein 5.9 g/dL (6.4-8.9)
--- NOTE | 2019-03-05 13:07 | ED ---
Abdominal Pain/Female - HPI Summary HPI Summary: Pt is a 79 y/o F presenting to the ED with a chief complaint of abd pain onset 3 -4 weeks ago. She noticed bloating in her upper abd, then noticed that her abd had begun to hurt diffusely, accompanied by nausea, decreased appetite, and constipation. She took a laxative to alleviate the constipation which worked. She denies fevers. She is currently on dialysis but still produces urine, and notes that she has increased production of urine within the last few days. She also has a TENS unit in her back. - History of Current Complaint Chief Complaint: EDAbdPain Stated Complaint: ABDOMINAL PAIN PER PT Time Seen by Provider: 03/05/19 12:16 Hx Obtained From: Patient Onset/Duration: Gradual Onset, Lasting Weeks, Still Present Timing: Constant Severity Initially: Moderate Severity Currently: Moderate Pain Intensity: 6 Pain Scale Used: 0-10 Numeric Location: Diffuse Radiates: No Character: Other: - bloating, fullness Aggravating Factor(s): Nothing Alleviating Factor(s): Nothing Associated Signs and Symptoms: Positive: Constipation, Decreased Appetite, Nausea. Negative: Fever Allergies/Adverse Reactions: Allergies Allergy/AdvReac Type Severity Reaction Status Date / Time losartan Allergy Swelling Verified 03/05/19 11:31 Of Face,Lips,& Throat Penicillins Allergy Anaphylatic Verified 03/05/19 11:31 Shock atorvastatin AdvReac Muscle Ache Verified 03/05/19 11:31 codeine AdvReac Hives Verified 03/05/19 11:31 edetic acid AdvReac Hives Verified 03/05/19 11:31 gabapentin AdvReac Unknown Verified 03/05/19 11:31 Reaction Details hydromorphone [From Dilaudid] AdvReac Hives Verified 03/05/19 11:31 lisinopril AdvReac Coughing Verified 03/05/19 11:31 metoclopramide [From Reglan] AdvReac Insomnia Verified 03/05/19 11:31 morphine AdvReac Hives Verified 03/05/19 11:31 rifaximin [From Xifaxan] AdvReac Hives Verified 03/05/19 11:31 sulindac [From Clinoril] AdvReac Rash Verified 03/05/19 11:31 Home Medications: Home Medications Albuterol/Ipratropium RESP(NF) [Combivent Respimat(NF)] 2 puff INH DAILY [History Confirmed 03/05/19] B Complex W-C No.20/Folic Acid [Spink Caps] 1 cap PO DAILY 03/05/19 [History Confirmed 03/05/19] Bumetanide TAB* [Bumex 1 MG TAB*] 1 mg PO TUTHSA 03/05/19 [History Confirmed ] Bumetanide TAB* [Bumex 2 MG TAB*] 2 mg PO SUMOWEFR 03/05/19 [History Confirmed 03/05/19] Diphenoxylat/Atrop 2.5-0.025M* [Lomotil TAB*] 1 tab PO QID PRN 03/05/19 [ History Confirmed 03/05/19] Doxazosin TAB* [Cardura TAB*] 4 mg PO BEDTIME 03/05/19 [History Confirmed ] HYDROcodone/ACETAMIN 5-325 MG* [[place] 5-325 TAB*] 1 tab PO Q6H PRN 03/05/19 [ History Confirmed 03/05/19] Insulin Glargine,Hum.rec.anlog [Lantus Solostar] 12 unit SUBCUT BID 03/05/19 [ History Confirmed 03/05/19] Levofloxacin TAB* [Levaquin TAB*] 250 mg PO EVERY OTHER DAY 03/05/19 [History Confirmed 03/05/19] Metoprolol Tartrate TAB* [Lopressor TAB*] 100 mg PO BID 03/05/19 [History Confirmed 03/05/19] Ondansetron ODT TAB* [Zofran 4 MG Odt TAB*] 8 mg PO TID PRN 03/05/19 [History Confirmed 03/05/19] Promethazine TAB* [Phenergan TAB*] 25 mg PO Q6H PRN 03/05/19 [History Confirmed 03/05/19] Propylene Glycol [Systane Balance] 1 drop BOTH EYES TID 03/05/19 [History Confirmed 03/05/19] Ubidecarenone [Coenzyme Q-10] 400 mg PO DAILY 03/05/19 [History Confirmed ] cloNIDine 0.3 MG PATCH* [Cboxogvt-Pfh-2 0.3 mg Patch*] 0.3 mg TRANSDERM WEEKLY 03/05/19 [History Confirmed 03/05/19] hydrALAZINE TAB* [Apresoline TAB*] 100 mg PO TID 03/05/19 [History Confirmed ] PMH/Surg Hx/FS Hx/Imm Hx Previously Healthy: No Endocrine/Hematology History: Reports: Hx Diabetes, Hx Anemia - HX OF, Other Endocrine/Hematological Disorders - anemia Cardiovascular History: Reports: Hx Hypercholesterolemia, Hx Hypertension, Other Cardiovascular Problems/Disorders - cardaic cath Denies: Hx Pacemaker/ICD Respiratory History: Reports: Hx Sleep Apnea - current CPAP user. Denies: Hx Asthma, Hx Chronic Obstructive Pulmonary Disease (COPD), Other Respiratory Problems/Disorders GI History: Reports: Hx Gastroesophageal Reflux Disease, Hx Hiatal Hernia - ON MEDICATION FOR History: Reports: Hx Chronic Renal Failure, Other Problems/Disorders - "KIDNEY FUNCTIONS ARE DOWN" Musculoskeletal History: Reports: Hx Arthritis, Hx Back Problems, Hx Bursitis - LEFT SHOULDER, Hx Tendonitis - ARMS AND HANDS, Other Musculoskeletal History - DDD Sensory History: Reports: Hx Cataracts, Hx Contacts or Glasses Denies: Hx Hearing Aid Opthamlomology History: Reports: Hx Cataracts, Hx Contacts or Glasses Psychiatric History: Denies: Hx Panic Disorder - Cancer History Hx Chemotherapy: No Hx Radiation Therapy: No - Surgical History Surgery Procedure, Year, and Place: C-SPINE X2, LUMBAR X2, BILAT TKAs, CHOLECYSTECTOMY, HYSTERECTOMY, BILAT CTR, 2007- right hand carpal tunnel. aug 25 2013- posterior fusion C4-T1 Hx Anesthesia Reactions: No - Immunization History Date of Tetanus Vaccine: Unk Date of Influenza Vaccine: Fall 2014 Infectious Disease History: No Infectious Disease History: Denies: Traveled Outside the [place] in Last 30 Days - Family History Known Family History: Positive: Other - pos: Breast CA Family History: Breast Cancer - Social History Alcohol Use: None Hx Substance Use: No Substance Use Type: Reports: None Hx Tobacco Use: No Smoking Status (MU): Never Smoked Tobacco Review of Systems Positive: Other - aug. appetite. Negative: Fever Positive: Abdominal Pain, Nausea, Other - constipation All Other Systems Reviewed And Are Negative: Yes Physical Exam - Summary Physical Exam Summary: Appearance: Well-appearing, Well-nourished, lying in bed comfortably Skin: Warm, dry, no obvious rash Eyes: sclera anicteric, no conjunctival pallor ENT: mucous membranes moist, pharynx appears normal Neck: Supple, nontender Respiratory: Clear to auscultation, no signs of respiratory distress Cardiovascular: Normal S1, S2. No murmurs. Normal distal pulses in tibial and radial bilaterally. Abdomen: Mildly distended with diffuse mild tenderness but no guarding or rebound. There is some ecchymosis on the abd wall which she says is from insulin injections. There is a number of surgical scars without signs of herniation. Musculoskeletal: Normal, Strength/ROM Intact Neurological: A&Ox3, awake and alert, mentation is normal, speech is fluent and appropriate Psychiatric: affect is normal, does not appear anxious or depressed Triage Information Reviewed: Yes Vital Signs On Initial Exam: Initial Vitals Temp Pulse Resp BP Pulse Ox 98.0 F 66 18 162/83 97 03/05/19 11:26 03/05/19 11:26 03/05/19 11:26 03/05/19 11:26 03/05/19 11:26 Vital Signs Reviewed: Yes Diagnostics - Vital Signs Vital Signs Temp Pulse Resp BP Pulse Ox 03/05/19 12:31 66 97 03/05/19 11:26 98.0 F 66 18 162/83 97 - Laboratory Lab Results: Lab Results 03/05/19 03/05/19 03/05/19 Range/Units 12:07 12:07 12:07 WBC 5.1 (3.5-10.8) 10^3/uL RBC 3.03 L (3.70-4.87) 10^6 /uL Hgb 9.8 L (12.0-16.0) g/dL Hct 29 L (35-47) % MCV 96 (80-97) fL MCH 32 H (27-31) pg MCHC 34 (31-36) g/dL RDW 16 H (10-15) % Plt Count 146 L (150-450) 10^3/uL MPV 7.6 (7.4-10.4) fL Neut % (Auto) Pending Lymph % (Auto) Pending [place] % (Auto) Pending Eos % (Auto) Pending Baso % (Auto) Pending Absolute Neuts (auto) Pending Absolute Lymphs (auto) Pending Absolute Monos (auto) Pending Absolute Eos (auto) Pending Absolute Basos (auto) Pending Absolute Nucleated RBC Pending Nucleated RBC % Pending Sodium 132 L (135-145) mmol/L Potassium 3.6 (3.5-5.0) mmol/L Chloride 94 L (101-111) mmol/L Carbon Dioxide 27 (22-32) mmol/L Anion Gap 11 (2-11) mmol/L BUN 23 (6-24) mg/dL Creatinine 3.89 H (0.51-0.95) mg/dL Est GFR ( Amer) 13.5 (>60) Est GFR (Non-Af Amer) 11.2 (>60) BUN/Creatinine Ratio 5.9 L (8-20) Glucose 151 H (70-100) mg/dL Lactic Acid 0.8 (0.5-2.0) mmol/L Calcium 8.9 (8.6-10.3) mg/dL Total Bilirubin 0.60 (0.2-1.0) mg/dL AST 23 (13-39) U/L ALT 14 (7-52) U/L Alkaline Phosphatase 85 (34-104) U/L C-Reactive Protein 3.90 (<8.01) mg/L Total Protein 5.9 L (6.4-8.9) g/dL Albumin 3.7 (3.2-5.2) g/dL Globulin 2.2 (2-4) g/dL Albumin/Globulin Ratio 1.7 (1-3) Lipase 10 L (11.0-82.0) U/L Result Diagrams: 03/05/19 12:07 03/05/19 12:07 Lab Statement: Any lab studies that have been ordered have been reviewed, and results considered in the medical decision making process. - CT CT abd/pelv CT Interpretation Completed By: Radiologist Summary of CT Findings: Normal appendix. Slightly atrophic kidneys. No abnormal masses or fluid collections are noted. Postoperative changes are noted in the lumbar spine. Diverticulosis of the sigmoid colon without definite evidence of diverticulitis. ED physician has reviewed this report. Abdominal Pain Fem Course/Dx - Course Course Of Treatment: Pt is a 79 y/o F presenting to the ED with a chief complaint of abd pain onset 3-4 weeks ago. She noticed bloating in her upper abd , then noticed that her abd had begun to hurt diffusely, accompanied by nausea, decreased appetite, and constipation. She took a laxative to alleviate the constipation which worked. She denies fevers. Pt's abd exam shows: Mildly distended with diffuse mild tenderness but no guarding or rebound. There is some ecchymosis on the abd wall which she says is from insulin injections. There is a number of surgical scars without signs of herniation. CT abd/pelv shows: Normal appendix. Slightly atrophic kidneys. No abnormal masses or fluid collections are noted. Postoperative changes are noted in the lumbar spine. Diverticulosis of the sigmoid colon without definite evidence of diverticulitis. The patient's CT scan does not show any acute pathology in the abdomen. There was some concern that she may have had colitis and a prior scan , but I cannot find any radiology report that reads that way. In any event, her primary complaint recently has been nausea without vomiting along with anorexia. She does not appear clinically dehydrated, and at present she tells me she actually is feeling better, whereas yesterday she did not feel like eating at all, currently she is hungry. Her primary care provider was concerned that she may require hospitalization, but with a normal CT scan and benign abdominal exam along with improving symptoms, I don't think hospitalization is warranted. Pt will be d/c'ed with a dx of nausea and abd pain. She is stable and agreeable with this plan. - Diagnoses Provider Diagnoses: Nausea, Abdominal pain Discharge - Sign-Out/Discharge Documenting (check all that apply): Patient Departure Patient Received Moderate/Deep Sedation with Procedure: No - Discharge Plan Condition: Good Disposition: HOME Prescriptions: Prochlorperazine TAB* [Compazine Tab*] 10 mg PO Q6H PRN #12 tab PRN Reason: Nausea Patient Education Materials: Acute Nausea and Vomiting (ED) Referrals: Kristofer Snell MD [Primary Care Provider] - 3 Days (if not feeling better.) Additional Instructions: The CT scan we did today did not show any colitis or other serious problems in the abdomen. For now I think trying to manage your symptoms is the best. I called in a prescription for compazine which the pharmacist tells me is covered , and you can try that for the nausea. - Billing Disposition and Condition Condition: GOOD Disposition: Home - Attestation Statements Document Initiated by Scribe: Yes Documenting Scribe: Brii Wells Provider For Whom Scribe is Documenting (Include Credential): Arvind Ngo MD. Scribe Attestation: IBrii, scribed for Arvind Ngo MD. on 03/06/19 at 1011. Scribe Documentation Reviewed: Yes Provider Attestation: The documentation as recorded by the scribe, Brii Wells accurately reflects the service I personally performed and the decisions made by me, Arvind Ngo MD. Status of Scribe Document: Viewed
[2019-03-05 13:12] LABS: ABS Lymphocytes 0.5 10^3/ul (1.0-4.8); ABS Monocytes 0.6 10^3/ul (0-0.8); ABS Neutrophils 3.9 10^3/ul (1.5-7.7); Eosinophil % 0.7 %; Nucleated Red Blood Cells % 0.1
[2019-03-05 17:17] VITALS: BP 168/74
[2019-03-05] MEDS ORDERED: Prochlorperazine TAB* 10 MG PO ONE (17:39)
== END 2019-03-05 17:16 | disposition home or self-care (01) ==
LOC: ED 11:25
DX: R10.9 Unspecified abdominal pain (principal); R11.0 Nausea; E11.9 Type 2 diabetes mellitus without complications; I10 Essential (primary) hypertension; D64.9 Anemia, unspecified; Z79.4 Long term (current) use of insulin; Z79.899 Other long term (current) drug therapy; Z88.5 Allergy status to narcotic agent; Z88.8 Allergy status to other drugs, medicaments and biological substances
CPT/HCPCS: 36415; 74176; 80053; 83605; 83690; 85025; 85060; 86140; 99283; Q0164

== ENCOUNTER → 2019-07-27 | Day surgery (SDC) | payer MEDICARE, OTHER ==
--- NOTE | 2019-07-16 13:24 | HP ---
AMENDED REPORT NOW INCLUDES DESIGNATED COSIGNER - ESIGNED BEFORE ADJUSTMENTS HISTORY AND PHYSICAL: DATE OF SURGERY: 07/27/19 DATE OF OFFICE VISIT: 07/14/19 SURGEON: Sita Vaca MD * (DICTATED BY FERNANDO NIETO) PROCEDURE: Left extensor tenosynovectomy. CHIEF COMPLAINT: Left wrist pain. HISTORY OF PRESENT ILLNESS: Lorena is a 79-year-old female who Dr. Vaca has followed for her left wrist extensor tenosynovitis. She has tried cortisone injections that did not help with the pain. She rates the pain as a 5/10. She is leaving to go to [place] for the winter on 08/08/19 and would like to have this surgically fixed before she goes to [place]. PAST MEDICAL HISTORY: She is on dialysis from kidney failure as a result of her diabetes. She also has GERD/ulcers, hypertension, obstructive sleep apnea, and arthritis. PAST SURGICAL HISTORY: She has had 5 back surgeries, 4 neck surgeries, cholecystectomy, bilateral total knee arthroplasties, and a revision of the right total knee arthroplasty, cataract removal, ganglion cyst removal, hysterectomy, peroneal repair, right knee scope, and a left shoulder reverse arthroplasty. MEDICATIONS: 1. Aspirin 81 mg 1 p.o. daily. 2. Lidoderm 5% p.r.n. 3. Lantus 14 units in the a.m. 4. Humalog as directed at lunch and suppertime. 5. Systane 0.4 to 0.3% 1 drop in each eye 3 times a day. 6. Triamcinolone ointment 0.1% apply as directed for rashes. 7. Cortisone 1% apply to rash as needed. 8. Magnesium oxide 400 mg 1 p.o. daily. 9. Bumetanide 2 mg 1 tab on dialysis days, 2 tabs on nondialysis days. 10. Fluticasone propionate 2 sprays each nostril daily. 11. Nexium 40 mg 1 p.o. twice a day. 12. Pravastatin sodium 10 mg 1 p.o. daily. 13. Tylenol 325 two tabs every 4 hours as needed for pain. 14. Metoprolol tartrate 100 mg 1 p.o. every 12 hours. 15. Flovent HFA 220 mcg 2 puffs as needed. 16. Combivent Respimat 20/100 mcg inhale 2 puffs every 4 hours as needed. 17. Clonidine HCl 0.3 mg apply 1 patch every 7 days as needed. 18. Amlodipine besylate 10 mg 1 p.o. daily. 19. Doxazosin mesylate 1 mg twice a day. 20. Maryann-Holden 1 p.o. daily. 21. CoQ10 one p.o. daily. 22. Hydralazine HCl 100 mg 1 p.o. 3 times a day. 23. Diphenhydramine HCl 25 mg one and a half tabs at bedtime. 24. Diphenoxylate/atropine 2.5/0.025 mg take 1 to 3 tabs by mouth every 6 hours. 25. Tramadol HCl 50 mg 1 to 2 tabs by mouth every 8 hours as needed for pain. ALLERGIES: MORPHINE, DILAUDID, PENICILLIN, PERCOCET, DOXEPIN, XIFAXAN, LISINOPRIL, LOSARTAN, GABAPENTIN, and BACTRIM. FAMILY HISTORY: Positive for coronary artery disease and cancer. Negative for diabetes, stroke, DVT, or PE. SOCIAL HISTORY: She lives at home alone. She denies any tobacco, recreational drug use, or alcohol use. She is right-hand dominant. REVIEW OF SYSTEMS: General: Negative for fevers, chills, night sweats, unexplained weight loss or gain. No known anesthesia problems. HEENT: Negative for headache, lightheadedness, syncopal episodes, or visual changes. Integumentary: Negative for abrasions, lesions, open wounds, or rashes. Cardiothoracic: Negative for hypertension, chest pain, palpitations, or edema. Respiratory: Negative for shortness of breath with exertion, chronic cough, or wheezing. GI: Negative for nausea, vomiting, diarrhea, constipation, or GERD symptoms. : Negative for nocturia, urinary frequency, urgency, history of UTI. Positive for dialysis since September 2017 and kidney failure. Musculoskeletal: Positive for left wrist pain. Positive for chronic back and neck pain. Negative for history of fractures. Neurologic: Negative for paresthesias, numbness, history of seizure, stroke, or poor balance. Negative for anxiety, depression. Endocrine: Positive for diabetes. Negative for thyroid disease. Hematologic: Positive for anemia. Negative for easy bruising , bleeding disorder, history of DVT or PE. ID: Negative for history of MRSA, infection, hep C, or HIV. PHYSICAL EXAMINATION GENERAL: Well-developed, well-nourished 79-year-old female, in no acute distress, appropriate mood and affect, appropriate dress and hygiene. VITAL SIGNS: Height 70 inches, weight 140 pounds, pulse 76, BP 142/66, BMI 20.1. HEENT: Normocephalic, atraumatic. PERRLA. Extraocular movements intact. NECK: Supple. PULMONARY: Lungs clear to auscultation bilaterally. No wheezes, rales, or rhonchi. CARDIO: Regular rate and rhythm. S1, S2. No murmurs, rubs, gallops. No edema. ABDOMEN: Positive bowel sounds. Soft and nontender. No organomegaly noted. NEUROLOGIC: A and O x3. Cranial nerves II through XII intact. Sensation is intact to light touch. MUSCULOSKELETAL: Left wrist on exam today she still has extensive tenosynovitis of the 4th extensor compartment. She does still have full extension of her fingers and she is able to make a full fist. Neurovascular function is intact. Skin: Intact. Radial pulse 2+. ASSESSMENT: Left wrist persistent extensor tenosynovitis. PLAN: The patient is scheduled to undergo left wrist extensor tenosynovectomy on 07/27/[address] Vaca. She will return to the office in 8 to 10 days postop for followup and suture removal. She will be prescribed tramadol for postoperative pain management and I-STOP will be performed before prescribing. FERNANDO NIETO [id number]/[facility] #: [id number] [facility]ITAL[facility]ong
[~2019-07-27] MED LIST changes: +Buffered Lidocaine 1% SYRIN* 1 ML/SYRINGE INTRADERM ONE; +Clindamycin 900 MG/D5W BAG(*) 900 MG/50 ML BAG IVPB ONE; +DiMENhydriNATE IV* 50 MG/ML VIAL IV PUSH PRN; +EPHEDrine (Pressors)* 50 MG/ML VIAL ONE; +Famotidine IV* 10 MG/ML 2 ML (20 mg) IV ONE; +Famotidine IV* 10 MG/ML 2 ML (20 mg) ONE; -HYDROcodone/ACETAMIN 5-325 MG* 1 TAB PO ONE; +KETAMINE HCL* 50 MG/ML 10 ML VIAL ONE; +Lactated Ringers 1000 ML Bag* 1,000 ML IV SCH; +Lidocaine 1% INJ* 10 MG/ML 30 ML SDV ONE; +Lidocaine 2% PF * 5 ML VIAL ONE; +Midazolam* 1 MG/ML 5 ML VIAL (5 MG) ONE; +Naloxone* 0.4 MG/ML 1 ML VIAL IV PRN; -Orphenadrine Citrate IV* 30 MG/ML 2 ML VIAL IM ONE; +Propofol* 10 MG/ML 20 ML BTL ONE; +fentaNYL* 50 MCG/ML 2 ML VIAL (100 MCG VIAL) IV PRN; +fentaNYL* 50 MCG/ML 2 ML VIAL (100 MCG VIAL) ONE
[2019-07-27 18:01] VITALS: BP 141/58
--- NOTE | 2019-07-27 23:52 | OP ---
DATE OF OPERATION: 07/27/19 - [facility] DATE OF : 42 SURGEON: Sita Vaca M.D. [facility] TEACHER: FERNANDO Mahmood. ANESTHESIA: Local MAC. PRE-OP DIAGNOSIS: Extensor tenosynovitis, left wrist. POST-OP DIAGNOSIS: Extensor tenosynovitis, left wrist. OPERATIVE PROCEDURE: Extensor tenosynovectomy, left wrist. ESTIMATED BLOOD LOSS: Zero. TOURNIQUET TIME: About 30 minutes. INDICATIONS FOR PROCEDURE: Lorena is a 79-year-old female who has swelling in the dorsal aspect of her left wrist, which is persistent and has failed to resolve with cortisone injection. She presents for left wrist extensor tenosynovectomy. DESCRIPTION OF PROCEDURE: The patient was brought to the operative room, was given a sedation anesthetic and a local infiltration of 10 cc of 1% plain lidocaine on the dorsal aspect of her left wrist. The skin of her left hand and forearm was prepped and draped in the usual sterile fashion. The hand and forearm were exsanguinated and the tourniquet elevated to 250 mmHg. A longitudinal incision was made on the dorsal aspect of the wrist. We dissected through the subcutaneous tissue. There was abundant the tenosynovitis surrounding the 4th compartment of extensor tendons. This was carefully debrided. The extensor indicis proprius tendon was ruptured, but all of the other tendons were intact. The tenosynovitis extended all the way up to the muscle bellies. After this was thoroughly debrided, the wound was copiously irrigated with saline. A Keatchie drain was placed and then the skin edges were reapproximated with 4-0 nylon suture. The wound was dressed with Xeroform, 4x4 , Webril, ABD, and an Jorge wrap. The patient tolerated the procedure well and was brought to the recovery room in good condition. [id number]/[facility] #: [id number] MTDYong
== END | disposition home or self-care (01) ==
LOC: OR 13:05
PROVIDERS: ATTEND Orthopaedic Surgery
DX: M65.832 Other synovitis and tenosynovitis, left forearm (principal); E11.21 Type 2 diabetes mellitus with diabetic nephropathy; E11.22 Type 2 diabetes mellitus with diabetic chronic kidney disease; N18.6 End stage renal disease; Z99.2 Dependence on renal dialysis; Z79.4 Long term (current) use of insulin; Z88.0 Allergy status to penicillin; Z88.8 Allergy status to other drugs, medicaments and biological substances; I48.91 Unspecified atrial fibrillation; K21.9 Gastro-esophageal reflux disease without esophagitis; G47.33 Obstructive sleep apnea (adult) (pediatric); M19.90 Unspecified osteoarthritis, unspecified site; I12.9 Hypertensive chronic kidney disease with stage 1 through stage 4 chronic kidney disease, or unspecified chronic kidney disease; G89.29 Other chronic pain
CPT/HCPCS: 88304; J2250; J2704; J3010

== ENCOUNTER 2019-07-31 10:34 | Emergency (ER) | payer MEDICARE, OTHER ==
--- NOTE | 2019-07-31 11:03 | ED ---
GI/ HPI - HPI Summary HPI Summary: This patient is a 79 year old female coming from dialysis brought in by EMS presenting to [facility] with a chief complaint of abdominal pain and hip pain since yesterday. She states she had successful back surgery 04/20/19 S1-L5. She states she also had left hand tendon surgery on Friday. She reports chills and nausea. They finished the dialysis before she was brought into the ED today. She rates her pain 9/10 in severity. She denies fever and vomiting. Medications reviewed, allergies noted. She states she took Zofran and Hydrocodone at 530 am prior to dialysis. - History of Current Complaint Chief Complaint: EDHypertension Time Seen by Provider: 07/31/19 10:45 Stated Complaint: HYPERTENSION PER EMS Hx Obtained From: Patient Onset/Duration: Started Days Ago Timing: Constant Pain Intensity: 9 Location of Pain: Epigastric - Additional Pertinent History Primary Care Physician: CORBY - Allergy/Home Medications Allergies/Adverse Reactions: Allergies Allergy/AdvReac Type Severity Reaction Status Date / Time losartan Allergy Severe Swelling Verified 07/31/19 10:40 Of Face,Lips,& Throat morphine Allergy Severe Hives Verified 07/31/19 10:40 Penicillins Allergy Severe Anaphylatic Verified 07/31/19 10:40 Shock rifaximin [From Xifaxan] Allergy Intermediate Hives Verified 07/31/19 10:40 codeine Allergy Hives Verified 07/31/19 10:40 edetic acid Allergy Hives Verified 07/31/19 10:40 hydromorphone [From Dilaudid] Allergy Hives Verified 07/31/19 10:40 metoclopramide [From Reglan] Allergy Insomnia Verified 07/31/19 10:40 sulfamethoxazole Allergy Renal Verified 07/31/19 10:40 [From Bactrim] Insufficiency Hyperkalemia sulindac [From Clinoril] Allergy Rash Verified 07/31/19 10:40 trimethoprim [From Bactrim] Allergy Renal Verified 07/31/19 10:40 Insufficiency Hyperkalemia atorvastatin AdvReac Muscle Ache Verified 07/31/19 10:40 gabapentin AdvReac Sleepiness Verified 07/31/19 10:40 lisinopril AdvReac Coughing Verified 07/31/19 10:40 Home Medications: Home Medications Albuterol/Ipratropium RESP(NF) [Combivent Respimat (NF)] 2 puff INH Q4H PRN 06/10 [History Confirmed 07/31/19] Fluticasone HFA 220 mcg(NF) [Flovent HFA 220 Mcg(NF)] 2 puff INH BID PRN [History Confirmed 07/31/19] Hydrocodone/Acetaminophen [Hydrocodone-Acetamin 5-325 mg] 1 tab PO Q4H PRN 07/31 [History Confirmed 07/31/19] PMH/Surg Hx/FS Hx/Imm Hx Endocrine/Hematology History: Reports: Hx Diabetes - Insulin dependent, Hx Anemia, Other Endocrine/Hematological Disorders - anemia Denies: Hx Thyroid Disease Cardiovascular History: Reports: Hx Hypercholesterolemia, Hx Hypertension - ON MEDICATIONS, Other Cardiovascular Problems/Disorders - Cardiac cath-for baseline - 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 Denies: Hx Pacemaker/ICD Respiratory History: Reports: Hx Sleep Apnea - Bipap user Denies: Hx Asthma, Hx Chronic Obstructive Pulmonary Disease (COPD), Other Respiratory Problems/Disorders GI History: Reports: Hx Gastroesophageal Reflux Disease - Nexium, Hx Hiatal Hernia - Shotzky ring, Other GI Disorders - Cholecystectomy History: Reports: Hx Chronic Renal Failure, Other Problems/Disorders Musculoskeletal History: Reports: Hx Arthritis - "all over" Bialteral knee replacements- right done twice, Hx Back Problems, Hx Bursitis - LEFT SHOULDER, Hx Tendonitis - ARMS AND HANDS-Bilateral carpal tunnel, Other Musculoskeletal History - DDD-5 back surgeries, 4 neck surgeries-04/09 S1-T5 fusion Sensory History: Reports: Hx Cataracts - Bialteral cataract extractions, Hx Contacts or Glasses - Glasses Denies: Hx Glaucoma, Hx Hearing Aid Opthamlomology History: Reports: Hx Cataracts - Bialteral cataract extractions, Hx Contacts or Glasses - Glasses Denies: Hx Glaucoma Neurological History: Reports: Hx Nerve Disease - NEUROPATHY BILATERAL FEET Denies: Other Neuro Impairments/Disorders Psychiatric History: Denies: Hx Panic Disorder - Cancer History Hx Chemotherapy: No Hx Radiation Therapy: No - Surgical History Surgery Procedure, Year, and Place: C-SPINE X4, LUMBAR/THORACIC X5, BILAT TKA- RIGHT REDONE, CHOLECYSTECTOMY, HYSTERECTOMY, BILAT CARPAL TUNNEL RELEASE, 2007 - Right hand carpal tunnel. Aug 25 2013- Posterior Fusion C4-T1, 04/09 Fusion T5- S1 , GANGLION CYST, LEFT SHOULDER REVERSE ARTHROPLASTY, PERONEAL REPAIR RIGHT LEG, RIGHT KNEE SCOPE, MENISCUS REPAIR Hx Anesthesia Reactions: No - Immunization History Date of Tetanus Vaccine: Unk Date of Influenza Vaccine: Fall 2014 Infectious Disease History: No Infectious Disease History: Denies: Traveled Outside the [place] in Last 30 Days - Family History Known Family History: Positive: Other - pos: Breast CA Family History: Breast Cancer - Social History Alcohol Use: None Hx Substance Use: No Substance Use Type: Reports: None Hx Tobacco Use: No Smoking Status (MU): Never Smoked Tobacco Review of Systems Negative: Fever Positive: Abdominal Pain, Nausea. Negative: Vomiting Positive: Other - Hip pain All Other Systems Reviewed And Are Negative: Yes Physical Exam - Summary Physical Exam Summary: Constitutional: Well-developed, Well-nourished, Alert. Writhing on the stretcher in pain. Skin: Warm, Dry HENT: Normocephalic; Atraumatic Eyes: Conjunctiva normal Neck: Musculoskeletal ROM normal neck. (-) JVD, (-) Stridor, (-) Tracheal deviation Cardio: Rhythm regular, rate normal, Heart sounds normal; Intact distal pulses; Radial pulses are 2+ and symmetric. (-) Murmur Pulmonary/Chest wall: Effort normal. (-) Respiratory distress, (-) Wheezes, (-) Rales Abd: Distended abdomen. Echymosis to upper abdomen. Pain worse in RLQ. Musculoskeletal: (-) Edema. Lymph: (-) Cervical adenopathy Neuro: Alert, Oriented x3 Psych: Mood and affect Normal Triage Information Reviewed: Yes Vital Signs On Initial Exam: Initial Vitals Temp Pulse Resp BP Pulse Ox 100.2 F 81 22 235/88 98 07/31/19 10:37 07/31/19 10:37 07/31/19 10:37 07/31/19 10:37 07/31/19 10:37 Vital Signs Reviewed: Yes Procedures - Sedation Patient Received Moderate/Deep Sedation with Procedure: No Diagnostics - Vital Signs Vital Signs Temp Pulse Resp BP Pulse Ox 07/31/19 10:37 100.2 F 81 22 235/88 98 - Laboratory Result Diagrams: 07/31/19 11:25 07/31/19 11:25 Lab Statement: Any lab studies that have been ordered have been reviewed, and results considered in the medical decision making process. - CT Abd/Pel CT Interpretation Completed By: Radiologist Summary of CT Findings: 1. Normal Appendix. 2. Atherosclerosis. 3. Duodenal diverticulum. 4. Small hiatal hernia. 5. Scattered diverticula of the distal colon. ED Provider has reviewed this report. GIGU Course/Dx - Course Course Of Treatment: Patient is here with right-sided abdominal pain. Patient was uncomfortable upon arrival with right lower quadrant tenderness. Patient had blood or performed which was at her baseline. Patient a CT scan which showed no emergent condition. Patient was given a dose of IV Zofran and by mouth oxycodone with fast improvement in her symptoms. Patient had no emergent condition and she was discharged. - Diagnoses Provider Diagnoses: RLQ abdominal pain Discharge ED - Sign-Out/Discharge Documenting (check all that apply): Patient Departure - Discharge Plan Condition: Stable Disposition: HOME Prescriptions: Ondansetron TAB* [Zofran 4 MG Tab*] 4 mg PO Q8HR PRN #12 tab PRN Reason: Vomiting Patient Education Materials: Abdominal Pain (ED) Referrals: Kristofer Snell MD [Primary Care Provider] - Additional Instructions: Return with worsening abdominal pain, fever, unrelenting nausea and vomiting. Follow up with PCP in 1-3 days. - Billing Disposition and Condition Condition: STABLE Disposition: Home - Attestation Statements Document Initiated by Jay: Yes Documenting Ingeibe: Edu Trotter Provider For Whom Jay is Documenting (Include Credential): Quan Hernández MD Scribe Attestation: Edu Melgoza, scribed for Quan Hernández MD on 07/31/19 at 1715. Scribe Documentation Reviewed: Yes Provider Attestation: The documentation as recorded by the Edu henderson accurately reflects the service I personally performed and the decisions made by , Quan Hernández MD Status of Scribe Document: Viewed
[2019-07-31] MEDS ORDERED: NS 0.9% 1000 ML** 500 ML IV ONE (11:32)
[2019-07-31] MEDS ORDERED: Ondansetron INJ* 2 MG/ML VIAL IV ONE (11:32)
[2019-07-31] MEDS ORDERED: oxyCODONE TAB* 5 MG TAB PO ONE (11:33)
[2019-07-31 11:51] LABS: ABS Lymphocytes 0.6 10^3/ul (1.0-4.8); ABS Monocytes 0.6 10^3/ul (0-0.8); ABS Neutrophils 3.8 10^3/ul (1.5-7.7); Eosinophil % 0.4 %; Hematocrit 29 % (35-47); Hemoglobin 9.7 g/dL (12.0-16.0); Lymphocyte % 12.1 %; Mean Corpuscular HGB Conc 33 g/dL (31-36); Mean Corpuscular Hemoglobin 31 pg (27-31); Mean Corpuscular Volume 95 fL (80-97); Mean Platelet Volume 7.5 fL (7.4-10.4); Platelet Count 192 10^3/uL (150-450); Red Blood Count 3.12 10^6 /uL (3.70-4.87); Red Cell Distribution Width 19 % (10-15); White Blood Count 5.1 10^3/uL (3.5-10.8)
[2019-07-31 12:07] LABS: Albumin 3.5 g/dL (3.2-5.2); Albumin/Globulin Ratio 1.4 (1-3); BUN/Creatinine Ratio 8.3 (8-20); Calcium 8.6 mg/dL (8.6-10.3); EGFR African American 26.7 (>60); Globulin 2.5 g/dL (2-4); Potassium 3.5 mmol/L (3.5-5.0); Total Bilirubin 0.9 mg/dL (0.2-1.0)
[2019-07-31 12:07] LABS: Urine Appearance Clear; Urine Bacteria Absent (Absent); Urine Bilirubin Negative (Negative); Urine Blood Negative (Negative); Urine Color Yellow; Urine Glucose 1+(50 mg/dL) (Negative); Urine Ketones Trace (Negative); Urine Nitrite Negative (Negative); Urine Protein 3+(>=500 mg/dL) (Negative); Urine Red Blood Cell Absent (Absent); Urine Specific Gravity 1.016 (1.010-1.030); Urine Squamous Epithelial Cell Present (Absent); Urine Urobilinogen Negative (Negative); Urine White Blood Cell 1+(6-10/hpf) (Absent)
--- OUTSIDE RECORDS SUMMARY | 2019-07-31 12:28 | XMS REPORT | Continuity of Care Document ---
:1940 External Reference #:[id number] Author Name Sita Vaca M.D. 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 Onset: 07/22/2014 shoulder region Hypersomnia with sleep apnea Marcy De La Torre MD Onset: 11/28/2014 Contusion of upper arm Jarvis Reyes M.D. Onset: 03/21/2015 Sprain of shoulder and upper arm Marshall Kaur MD Onset: 08/02/2015 Injury of shoulder region Marshall Kaur MD Onset: 08/02/2015 Prosthetic arthroplasty of shoulder Marshall Kaur MD Onset: 06/13/2017 Chronic kidney disease stage 4 Onset: Social History Type Date Description Comments Sex Unknown Tobacco Use Start: Unknown Never Smoked Cigarettes Smoking Status Reviewed: 07/14/19 Never Smoked Cigarettes ETOH Use Denies alcohol use Tobacco Use Start: Unknown Patient has never smoked Recreational Drug Use Denies Drug Use Exercise Type/Frequency Does not exercise Allergies, Adverse Reactions, Alerts Active Allergies Reaction Severity Comments Date Morphine hives 07/21/2014 Dilaudid hives 07/21/2014 Penicillin Dyspnea 07/21/2014 Percocet 10/17/2014 Xifaxan 11/28/2014 Lisinopril 11/28/2014 Losartan 11/28/2014 Gabapentin Sleepy 01/29/2016 Bactrim Renal insuff w/Hyperkalemia Severe 07/15/2017 Inactive Allergies NKDA 06/10/2014 Medications Active Medications SIG Qnty Indications Ordering Date Provider Aspirin 1 by mouth every 90tabs Gamal Church 09/04/[address] mehrdad Wallace DO [facility] Lidoderm 1 apply to Unknown 05/07/2017 5% Patches affected area 12 hours on, 12 hours off Lantus 14 units in am Unknown 01/26/2016 Humalog as directed at Unknown 01/26/2016 lunch and suppertime Systane one drop in each Unknown 01/26/2016 0.4-0.3% Solution eye 3 times a day Triamcinolone Ointment apply as directed Unknown 01/26/2016 0.1% for rash on legs Cream Cortizone-10 apply to area for Unknown 01/26/2016 1% Ointment rash from clonidine patch Magnesium-Oxide 1 by mouth once Unknown 01/26/2016 400mg daily Tablets Tramadol HCL 1-2 tablets by Unknown 50mg Tablets mouth every 8 hours as needed pain Diphenoxylate-Atropine take one to two Unknown tablets by mouth 2.5-0.025mg Tablets every 6 hours as needed maximum daily dose = 6 Diphenhydramine HCL 1.5 tabs @ at Unknown 25mg bedtime Capsules Hydralazine HCL 1 by mouth three Unknown 100mg times per day Tablets Co Q 10 1 by mouth one Unknown time per day Maryann-Holden 1 by mouth every Unknown Tablets day Doxazosin Mesylate twice a day Unknown 1mg Tablets Amlodipine Besylate Take 1 Tablet By Unknown 10mg Mouth Every Day Tablets Clonidine HCL Apply 1 Patch Unknown 0.3mg/24HR Every 7 Days Patches Weekly Combivent Respimat Inhale 2 Puffs Unknown Every 4 Hours as 20-100mcg/Act Aerosol Needed For For Shortness Of Breath /Co Flovent HFA Inhale 2 Puffs Unknown 220mcg/Act Twice Daily Aerosol Metoprolol Tartrate Take 1 Tablet By Unknown 100mg Mouth Every 12 Tablets Hours Tylenol 2 tablets every 4 Unknown 325mg Capsules hours as needed for pain Pravastatin Sodium 1 tablet po daily Unknown 10mg Tablets Nexium 1 by mouth twice 90caps Unknown 40mg Capsules DR daily Fluticasone Propionate 2 sprays each Unknown nostril daily Bumetanide 1 tabs dialysis Unknown 2mg day, 2 tabs on non-dialysis days Medications Administered in Office Medication SIG Qnty Indications Ordering Provider Date Triamcinolone (Kenalog) Marshall Kaur MD 07/08/2019 Injection Depomedrol 40MG Sita Vaca M.D. 03/24/2019 Injection Depomedrol 40MG Sita Vaca M.D. 03/24/2019 Injection Triamcinolone (Kenalog) Kaylah Gonzales PA-C 06/16/2018 Injection Triamcinolone (Kenalog) Marshall Kaur MD 09/04/2017 Injection Triamcinolone (Kenalog) Marshall Kaur MD 02/13/2017 Injection Triamcinolone (Kenalog) Marshall Kaur MD 12/06/2016 Injection Triamcinolone (Kenalog) Marshall Kaur MD 12/06/2016 Injection Inj, Regadenoson, 0.1 MG Gamal Wallace, DO [facility] 12/04/2016 Injection Technetium TC 99M Gamal Wallace, DO [facility] 12/04/2016 Tetrofosmin, Per Unit Dose Up To 40 Millicuries Injection Triamcinolone (Kenalog) Marshall Kaur MD 08/27/2016 Injection Depomedrol 40MG Sita Vaca M.D. 02/21/2016 Injection Depomedrol 80MG Sita Vaca M.D. 05/15/2015 Injection Depomedrol 80MG Sita Vaca M.D. 03/13/2015 Injection Celestone 3 mg and 3mg Jarvis Reyes M.D. 10/17/2014 Injection Depomedrol 80MG AGUSTIN Nelson 06/22/2014 Injection Depomedrol 40MG Srini Velasquez M.D. 02/26/2012 Injection Depomedrol 40MG Srini Velasquez M.D. 08/05/2011 Injection Depomedrol 40MG Edwina Grijalva PA 11/22/2009 Injection Immunizations CPT Code Status Date Vaccine Lot # [id number] Given 05/23/2015 Fluvirin Im 3Yrs And Older 08667 Given 06/15/2014 Influenza Virus 3Yrs & Over 27828 Given 03/12/2006 Pneumonia Vaccine Vital Signs Date Vital Result Comment 07/14/2019 11:30am Height 70 inches 5'10" Weight 140.00 lb Heart Rate 76 /min BP Systolic 142 mmHg BP Diastolic 66 mmHg BMI (Body Mass Index) 20.1 kg/m2 07/08/2019 1:13pm Height 60 inches 5'0" Weight 140.00 lb Heart Rate 76 /min Body Temperature 96.9 F Pain Level 10 O2 % BldC Oximetry 99 % BMI (Body Mass Index) 27.3 kg/m2 Results Description No Information Available Procedures Date Code Description Status 07/08/2019 75426 Inject/Drain Joint/Bursa Major W/O US Completed 04/15/2019 192788062 Diabetic Retinal Eye Exam Completed 03/31/2019 04309 EKG Tracing & Interpretation Completed 03/24/2019 47316 Inject Tendon Sheath Or Ligament Aponeurosis Eg Completed Plantar Fascia 03/24/2019 34253 Inject Tendon Sheath Or Ligament Aponeurosis Eg Completed Plantar Fascia Medical Devices Description No Information Available Encounters Type Date Location Provider Dx Diagnosis Office Visit 03/31/2019 [facility] Gamal Church Z01.810 Encounter for 2:40p Of Katie Wallace DO FACC preprocedural cardiovascular examination N18.6 End stage renal disease D64.9 Anemia, unspecified E11.69 Type 2 diabetes mellitus with other specified complication I10 Essential (primary) hypertension Office Visit 03/30/2019 [facility] G47.33 Obstructive sleep 11:00a [facility], RN, apnea (adult) [facility] PRODUCT GRADER-BC (pediatric) Office Visit 03/24/2019 Cristiano Wilkinshanie M65.832 Other synovitis 10:30a [facility] [place] [facility] [place] tenosynovitis, left forearm M70.22 Olecranon bursitis, left elbow M65.311 Trigger thumb, right thumb Assessments Date Code Description Provider 07/14/2019 M65.832 Other synovitis and tenosynovitis, Sita Vaca M.D. left forearm 07/08/2019 M19.011 Primary osteoarthritis, right Marshall Kaur MD shoulder 03/31/2019 Z01.810 Encounter for preprocedural Gamal Wallace, DO [facility] cardiovascular examination 03/31/2019 N18.6 End stage renal disease Gamal Wallace, DO [facility] 03/31/2019 D64.9 Anemia, unspecified Gamal Wallace, DO [facility] 03/31/2019 E11.69 Type 2 diabetes mellitus with other Gamal Wallace, DO [facility] specified complication 03/31/2019 I10 Essential (primary) hypertension Gamal Wallace, [facility] 03/30/2019 G47.33 Obstructive sleep apnea (adult) [facility] Mason DNP, RN, (pediatric) PRODUCT GRADER-BC 03/24/2019 M65.832 Other synovitis and tenosynovitis, Sita Vaca M.D. left forearm 03/24/2019 M70.22 Olecranon bursitis, left elbow Sita Vaca M.D. 03/24/2019 M65.311 Trigger thumb, right thumb Sita Vaca M.D. Plan of Treatment Future Appointment(s):08/05/2019 11:00 am - ZECHARIAH Mahmood at [place] [facility] at [email or web address]/29/2019 10:45 am - Sita Vaca M.D. at [place] [facility] at [email or web address]/27/2019 10:30 am - Sita Vaca M.D. at [place] [facility] at [email or web address]/29/2020 11:15 am - [facility] Mason DNP, RN, PRODUCT GRADER-BC at [facility]07/14/2019 - Sita Vaca M.D.M65.832 Other synovitis and tenosynovitis, left forearmFollow up:Follow up: 9-10 days postop Functional Status Description No Information Available Mental Status Description No Information Available Referrals Description No Information Available
--- OUTSIDE RECORDS SUMMARY | 2019-07-31 12:28 | XMS REPORT | Continuity of Care Document ---
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 03/24/2019 Injection Depomedrol 40MG Sita Vaca M.D. 03/24/2019 Injection Triamcinolone (Kenalog) Kaylah Gonzales PA-C 06/16/2018 Injection Triamcinolone (Kenalog) Marshall Kaur MD 09/04/2017 Injection Triamcinolone (Kenalog) Marshall Kaur MD 02/13/2017 Injection Triamcinolone (Kenalog) Marshall Kaur MD 12/06/2016 Injection Triamcinolone (Kenalog) Marshall Kaur MD 12/06/2016 Injection Inj, Regadenoson, 0.1 MG Gamal Wallace, DO [facility] 12/04/2016 Injection Technetium TC 99M Gamal Wallace, DO [facility] 12/04/2016 Tetrofosmin, Per Unit Dose Up To [...] Given 05/23/2015 Fluvirin Im 3Yrs And Older 42826 Given 06/15/2014 Influenza Virus 3Yrs & Over 14805 Given 03/12/2006 Pneumonia Vaccine Vital Signs Date Vital Result Comment 07/08/2019 1:13pm Height 60 inches 5'0" Weight 140.00 lb Heart Rate 76 /min Body Temperature 96.9 F Pain Level 10 O2 % BldC Oximetry 99 % BMI (Body Mass Index) 27.3 kg/m2 03/31/2019 2:16pm Height 60 inches 5'0" Weight 149.00 lb Heart Rate 74 /min BP Systolic Sitting 148 mmHg lue reg cuff BP Diastolic Sitting 74 mmHg lue reg cuff BP Systolic Standing 144 mmHg lue reg cuff BP Diastolic Standing 74 mmHg lue reg cuff Respiratory Rate 14 /min BMI (Body Mass Index) 29.1 kg/m2 Ejection Fraction 55-60% echo. 06/17/17 Results Description No Information Available Procedures Date Code Description Status 07/08/2019 06618 Inject/Drain Joint/Bursa Major W/O US Completed 04/15/2019 791788324 Diabetic Retinal Eye Exam Completed 03/31/2019 51292 EKG Tracing & Interpretation Completed 03/24/2019 81263 Inject Tendon Sheath Or Ligament Aponeurosis Eg Completed Plantar Fascia 03/24/2019 49102 Inject Tendon Sheath Or Ligament Aponeurosis Eg Completed Plantar Fascia Medical Devices Description No Information Available Encounters Type Date Location Provider Dx Diagnosis Office Visit 03/31/2019 [facility] Gamal Church Z01.810 Encounter for 2:40p Of Katie Wallace DO FACC preprocedural cardiovascular examination N18.6 End stage renal disease D64.9 Anemia, unspecified E11.69 Type 2 diabetes mellitus with other specified complication I10 Essential (primary) hypertension Office Visit 03/30/2019 [facility] G47.33 Obstructive sleep 11:00a [facility], RN, apnea (adult) Katie HYDRAULIC TECHNICIAN-BC (pediatric) Office Visit 03/24/2019 Cristiano Buckner M65.832 Other synovitis 10:30a [facility] [place] [facility] [place] tenosynovitis, left forearm M70.22 Olecranon bursitis, left elbow M65.311 Trigger thumb, right thumb Assessments Date Code Description Provider 07/08/2019 M19.011 Primary osteoarthritis, right Marshall Kaur MD shoulder 03/31/2019 Z01.810 Encounter for preprocedural Gamal Wallace, DO [facility] cardiovascular examination 03/31/2019 N18.6 End stage renal disease Gamal Wallace, DO [facility] 03/31/2019 D64.9 Anemia, unspecified Gamal Wlalace, DO FAC 03/31/2019 E11.69 Type 2 diabetes mellitus with other Gamal Wallace, DO [facility] specified complication 03/31/2019 I10 Essential (primary) hypertension Gamal Wallace, DO [facility]AC 03/30/2019 G47.33 Obstructive sleep apnea (adult) [facility] Mason DNP, RN, (pediatric) HYDRAULIC TECHNICIAN-BC 03/24/2019 M65.832 Other synovitis and tenosynovitis, Sita Vaca M.D. left forearm 03/24/2019 M70.22 Olecranon bursitis, left elbow Sita Vaca M.D. 03/24/2019 M65.311 Trigger thumb, right thumb Sita Vaca M.D. Plan of Treatment Future Appointment(s):03/29/2020 11:15 am - [facility] Mason DNP, RN, HYDRAULIC TECHNICIAN-BC at [facility]07/08/2019 - Marshall Kaur, MDM19.011 Primary osteoarthritis, right shoulderNew Therapy:Physical TherapyFollow up: Follow up: As needed Functional Status Description No Information Available Mental Status Description No Information Available Referrals Description No Information Available
--- OUTSIDE RECORDS SUMMARY | 2019-07-31 12:28 | XMS REPORT | Summary of Care ---
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 Galvan) Atrial Fibrillation f/u Back Pain f/u chronic pain seen dr. Maddox, later today appointment Shoulder Pain right shoulder seen dr. champagne, s/p injection Chronic Renal Failure dialysis 3x week Cerumen Impaction assess ears especially left Labs Only no recent routine labs done Lump to removed from L. hand per dr. 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 Codeine Hives 03/20/2017 Gabapentin Unknown Reaction 03/20/2017 Hydromorphone Hives 03/20/2017 Lisinopril Other 03/20/2017 cough Losartan Other 03/20/2017 Hives, cough, facial swelling, feet/hand swelling Morphine Hives 03/20/2017 Penicillins Anaphylaxis 03/20/2017 Oxycodone-Acetaminophen Other 05/12/2017 Unknown Reglan Unknown Reaction 05/12/2017 Rifaximin Hives 03/20/2017 Sulindac Rash 03/20/2017 Xifaxan Hives 03/20/2017 documented as of this encounter (statuses as of 07/26/2019) Medications Medication Sig Dispensed Refills Start Date End Date Status Propylene Glycol Place 1 Drop in 0 Active (SYSTANE BALANCE OP) both eyes THREE TIMES DAILY. triamcinolone (KENALOG) by Topical route 0 Active 0.1 % Apply externally TWO TIMES DAILY Ointment NEEDED. hydrocortisone (HYTONE) 1 g by Topical 56 g 3 03/20/2017 Active 1 % Apply externally route DAILY Cream NEEDED (for rash from clonidine patch). Insulin Lispro (HUMALOG Inject 1-7 Units 45 mL 3 07/16/2017 Active KWIKPEN) 100 UNIT/ML beneath the skin Subcutaneous Solution THREE TIMES DAILY Pen-injectorIndications BEFORE MEALS. : Type 2 diabetes 150-200 1u, mellitus with stage 4 201-250 3u, chronic kidney disease, 251-300 5u, with long-term current 301-350 7u, >350 use of insulin (HCC) call Additional information Patient taking differently: 2 Units Subcutaneous QHS, Rest of day sliding -067 1u, 201-250 3u, 251-300 5u, 301-350 7u, >350 call , Reported on 07/26/2019 9:23 AM Lancets Does not apply Misc by Does not apply route 400 Each 1 01/20/2018 Active FOUR TIMES DAILY. Brand: One touch verio flex, Dx: E11.65 Glucose Blood In Vitro Strip 1 Strip by In Vitro 400 Strip 1 01/20/2018 Active route FOUR TIMES DAILY. Brand: One Touch verio flex, Dx: E11.65 Aspirin 81 MG Oral Tab EC Take by mouth DAILY. 0 Active HydrALAZINE HCl 100 MG Oral Take by mouth THREE 0 Active Tab TIMES DAILY. Coenzyme Q10 (CO Q 10 PO) Take 400 mg by mouth 0 Active DAILY. doxazosin (CARDURA) 4 MG Oral Take 1 Tab by mouth 90 Tab 1 08/03/2018 Active Tab EVERY BEDTIME. Additional information Patient taking differently: 4 mg Oral BID, Reported on 04/12/2019 2:38 PM fluticasone (FLONASE) 50 [place] 2 Sprays in nose 3 Bottle 2 12/07/2018 Active MCG/ACT Nasal Suspension DAILY. bumetanide (BUMEX) 1 MG Oral Take 1-2 Tabs by mouth 150 Tab 3 01/06/2019 Active Tab DIRECTED. 1mg Tues, Thurs and Sat and 2mg ROW fluticasone (FLOVENT HFA) 220 Take 2 Puffs by 2 Inhaler 11 01/29/2019 Active MCG/ACT Inhalation Aerosol inhalation TWICE DAILY. diphenhydrAMINE (BENADRYL) 25 Take 25 mg by mouth 100 Tab 3 02/03/2019 Active MG Oral Tab EVERY BEDTIME NEEDED (for sleep). ipratropium-albuterol Take 2 Puffs by 3 Inhaler 3 02/03/2019 Active (COMBIVENT RESPIMAT) 20-100 inhalation DAILY. MCG/ACT Inhalation Aero Soln diphenoxylate-atropine Take 1 Tab by mouth 20 Tab 1 03/04/2019 Active (LOMOTIL) 2.5-0.025 MG Oral FOUR TIMES DAILY Tab NEEDED for diarrhea. Max Daily Amount: 4 Tabs. tramadol (ULTRAM) 50 MG Oral Take 1 Tab by mouth 50 Tab 2 03/11/2019 Active Tab EVERY EIGHT HOURS NEEDED (for hip pain). Max Daily Amount: 150 mg. prochlorperazine (COMPAZINE) Take 1 Tab by mouth 50 Tab 1 03/11/2019 Active 10 MG Oral Tab EVERY SIX HOURS NEEDED (for nausea). B Ommnxfu-Z-Iidih Acid (DURGA Take by mouth DAILY. 0 Active CAPS) 1 MG Oral Cap amLodipine (NORVASC) 10 MG Take 1.5 Tabs by mouth 135 Tab 3 04/12/2019 Active Oral Tab DAILY. Additional information Patient taking differently: 10 mg Oral DAILY, Reported on 05/31/2019 11:51 AM pravastatin (PRAVACHOL) 10 MG TAKE 1 TAB BY MOUTH 90 Tab 3 05/27/2019 Active Oral Tab EVERY DAY AT BEDTIME ondansetron (ZOFRAN ODT) 8 MG Take 1 Tab by mouth 60 Tab 0 05/27/2019 Active Oral TABLET DISPERSIBLE EVERY EIGHT HOURS NEEDED (nausea / vomit). lidocaine transdermal patch 1 Patch by Topical route 90 Patch 3 05/27/2019 Active (LIDODERM) 5 % Apply DIRECTED. 12 hours on externally Patch and 12 hours off cloNIDine (CATAPRES-TTS) 0.3 PLACE 1 PATCH ONTO SKIN 12 Patch 3 06/14/2019 Active MG/24HR Transdermal PATCH EVERY 7 DAYS. WEEKLYIndications: Essential hypertension esomeprazole magnesium TAKE 1 CAPSULE BY MOUTH 180 Cap 3 06/28/2019 Active (NEXIUM) 40 MG Oral CAPSULE TWICE A DAY DELAYED RELEASE metoprolol (LOPRESSOR) 100 MG TAKE 1 TABLET BY MOUTH 180 Tab 3 06/28/2019 Active Oral Tab TWICE A DAY HYDROcodone-acetaminophen Take 1 Tab by mouth 60 Tab 0 06/30/2019 Active (NORCO) 5-325 MG Oral Tab EVERY SIX HOURS NEEDED (back pain). Max Daily Amount: 4 Tabs. Insulin Glargine (LANTUS Inject 14 Units beneath 45 mL 3 07/08/2019 Active SOLOSTAR) 100 UNIT/ML the skin EVERY MORNING. Subcutaneous Solution Pen-injector Insulin Pen Needle (PEN 1 Device by Does not 300 Each 3 07/14/2019 Active NEEDLES) 32G X 4 MM Does not apply route DIRECTED. apply Misc Use 5 times a day PRN, Brand: [place] Ultra fine, Dx: E11.65 magnesium oxide (MAG-OX) 400 Take 1 Tab by mouth 90 Tab 3 07/20/2019 Active MG Oral Tab DAILY. documented as of this encounter (statuses as of 07/26/2019) Active Problems Problem Noted Date Arteriovenous fistula stenosis 02/26/2019 Stage 5 chronic kidney disease on chronic dialysis 07/01/2018 Type 2 diabetes mellitus with stage 5 chronic kidney disease 03/20/2017 Degeneration of lumbar or lumbosacral intervertebral disc Hypomagnesemia Allergic rhinitis Nausea Cervical spondylosis with myelopathy Esophageal reflux HTN (hypertension) Hypercholesteremia Dry eyes Paroxysmal atrial fibrillation Normochromic anemia documented as of this encounter (statuses as of 07/26/2019) Resolved Problems Problem Noted Date Resolved Date Long-term (current) use of anticoagulants 07/01/2017 09/12/2017 Overview: 09/04/17 warfarin d[facility] Rodrigo [place] Managed by: [facility] Referring Provider: Thierry Indication: PAF Target Range: 2.0-3.0 Duration: Indefinite Additional factors influencing anticoagulation: CHADS2 score of 3 for age > 75, hypertension, diabetes [id number] score of 5 for age > 75, hypertension, diabetes, female gender Aspirin increases bleeding risk Esomeprazole increases warfarin level Initial Referral: 07/01/17 Initial ACS orders: 07/02/17 Diverticulosis 02/23/2019 Diabetes mellitus 12/19/2017 Cervical spondylosis without myelopathy 03/20/2017 Dementia 03/20/2017 Ozyru-ar-rrncugn kidney injury 02/16/2019 Renal failure 02/16/2019 documented as of this encounter (statuses as of 07/26/2019) Immunizations Name Administration Dates Next Due Influenza (IM) Preservative Free 05/23/2019, 05/23/2018, 06/22/2017 Influenza Vaccine High Dose 05/15/2018, 06/14/2017, 08/14/2016 PNEUMOCOCCAL POLYSACCHARIDE VACCINE 07/10/2016, 08/04/2006 Pneumococcal Conjugate(13 Valent) 07/10/2016 TDAP Vaccine 07/03/2012 ZOSTER (SHINGRIX) VACCINE 04/12/2019, 02/03/2019 ZOSTER (ZOSTAVAX) VACCINE 10/17/2014 documented as of this encounter Social History Tobacco Use Types Packs/Day Years Used Date Never Smoker Smokeless Tobacco: Never Used Alcohol Use Drinks/Week oz/Week Comments No Sex Assigned at Date Recorded Not on file Job Start Date Occupation Industry Not on file Not on file Not on file Travel History Travel Start Travel End No recent travel history available. documented as of this encounter Last Filed Vital Signs Vital Sign Reading Time Taken Comments Blood Pressure 142/60 07/26/2019 9:24 AM EST Pulse 80 07/26/2019 9:24 AM EST Temperature - - Respiratory Rate - - Oxygen Saturation - - Inhaled Oxygen Concentration - - Weight 65.9 kg (145 lb 4.8 oz) 07/26/2019 9:24 AM EST Height 152.4 cm (5') 07/26/2019 9:24 AM EST Body Mass Index 28.38 07/26/2019 9:24 AM EST documented in this encounter Patient Instructions Patient InstructionsKristofer Snell MD - 07/26/2019 9:20 AM ESTContinue same medicines follow up spring 2019 documented in this encounter Progress Notes Kristofer Snell MD - 07/26/2019 9:20 AM EST PATIENT: Lorena Wilkes : 1940 DATE OF SERVICE: 07/26/2019 CHIEF COMPLAINT: Chief Complaint Patient presents with Hypertension bp 142/60 Diabetes a1c 6.0 (06/[address] Galvan) Atrial Fibrillation f/u Back Pain f/u chronic pain seen dr. Maddox, later today appointment Shoulder Pain right shoulder seen dr. champagne, s/p injection Chronic Renal Failure dialysis 3x week Cerumen Impaction assess ears especially left Labs Only no recent routine labs done Lump to removed from L. hand per dr. Vaca tomorrow Subjective HISTORY OF PRESENT ILLNESS: Lorena Wilkes is a 79-y.o. female. HPI Here in follow-up of several issues. Diabetes has been under adequate control. Dr. Galvan following.Hemoglobin A1c inaccurate on dialysis. Last test was 6.0. He added to insulin units overnight to her regimen. To have surgery on left wrist with Dr. Vaca for extensor tenosynovitis Had an injection of her right shoulder with Dr. Greene, not helping a lot. Would like to continue recovering from back surgery before considering right shoulder surgery. Had GI work-up with in [place]. Had esophagram showing small sliding hiatal hernia with a small Schatzki's ring at the apex of the hernia. She says she will be having her esophagus stretched later this week. She has had overall good results with her spinal surgery, status post TLIF of L3 -4, L4-5 and L5-S1 with lumbar laminectomies at L1-S1 in March [address] [place] [address] Maddox. She will see him again. Still has trouble with her right leg feeling like it is going to give out. She is doing physical therapy. She will be seeing him again tomorrow. Past Medical History: Diagnosis Date Nczik-bc-tnofclp kidney injury (HCC) Allergic rhinitis Back pain Cervical spondylosis with myelopathy Degeneration of lumbar or lumbosacral intervertebral disc Dementia (HCC) Diabetes mellitus (HCC) Diverticulosis Dry eyes Esophageal reflux HTN (hypertension) Hypercholesteremia Hypertension Hypomagnesemia Nausea Normochromic anemia Paroxysmal atrial fibrillation (HCC) 05/2017 Renal failure Family History Problem Relation Age of Onset Cancer Mother brain tumor, s/p radiation Lung Cancer Father also leukemia GI Sister amylodiosis Current Outpatient Medications Medication Sig amLodipine (NORVASC) 10 MG Oral Tab Take 1.5 Tabs by mouth DAILY. ( Patient taking differently: Take 10 mg by mouth DAILY.) Aspirin 81 MG Oral Tab EC Take by mouth DAILY. B Dopwetz-W-Stygb Acid (DURGA CAPS) 1 MG Oral Cap Take by mouth DAILY. bumetanide (BUMEX) 1 MG Oral Tab Take 1-2 Tabs by mouth DIRECTED. 1mg Tues, Thurs and Sat and 2mg ROW cloNIDine (CATAPRES-TTS) 0.3 MG/24HR Transdermal PATCH WEEKLY PLACE 1 PATCH ONTO SKIN EVERY 7DAYS. Coenzyme Q10 (CO Q 10 PO) Take 400 mg by mouth DAILY. diphenhydrAMINE (BENADRYL) 25 MG Oral Tab Take 25 mg by mouth EVERY BEDTIME NEEDED (for sleep). diphenoxylate-atropine (LOMOTIL) 2.5-0.025 MG Oral Tab Take 1 Tab by mouth FOUR TIMES DAILY NEEDED for diarrhea. Max Daily Amount: 4 Tabs. doxazosin (CARDURA) 4 MG Oral Tab Take 1 Tab by mouth EVERY BEDTIME. ( Patient taking differently: Take 4 mg by mouth TWICE DAILY.) esomeprazole magnesium (NEXIUM) 40 MG Oral CAPSULE DELAYED RELEASE TAKE 1 CAPSULE BY MOUTH TWICE A DAY fluticasone (FLONASE) 50 MCG/ACT Nasal Suspension [place] 2 Sprays in nose DAILY. fluticasone (FLOVENT HFA) 220 MCG/ACT Inhalation Aerosol Take 2 Puffs by inhalation TWICE DAILY. Glucose Blood In Vitro Strip 1 Strip by In Vitro route FOUR TIMES DAILY. Brand: One Datameer flex, Dx: E11.65 HydrALAZINE HCl 100 MG Oral Tab Take by mouth THREE TIMES DAILY. HYDROcodone-acetaminophen (NORCO) 5-325 MG Oral Tab Take 1 Tab by mouth EVERY SIX HOURS NEEDED (back pain). Max Daily Amount: 4 Tabs. hydrocortisone (HYTONE) 1 % Apply externally Cream 1 g by Topical route DAILY NEEDED (for rash from clonidine patch). Insulin Glargine (LANTUS SOLOSTAR) 100 UNIT/ML Subcutaneous Solution Pen- injector Inject 14 Units beneath the skin EVERY MORNING. Insulin Lispro (HUMALOG KWIKPEN) 100 UNIT/ML Subcutaneous Solution Pen- injector Inject 1-7 Units beneath the skin THREE TIMES DAILY BEFORE MEALS. 150- 200 1u, 201-250 3u, 251-300 5u, 301-350 7u, >350 call MD (Patient taking differently: Inject 2 Units beneath the skin EVERY BEDTIME. Rest of day sliding scale 150-200 1u, 201-250 3u, 251-300 5u, 301-350 7u, >350 call MD) Insulin Pen Needle (PEN NEEDLES) 32G X 4 MM Does not apply Misc 1 Device by Does not apply route DIRECTED. Use 5 times a day PRN, Brand: BD Ultra fine , Dx: E11.65 ipratropium-albuterol (COMBIVENT RESPIMAT) 20-100 MCG/ACT Inhalation Aero Soln Take 2 Puffs by inhalation DAILY. Lancets Does not apply Misc by Does not apply route FOUR TIMES DAILY. Brand: One touch verio flex, Dx: E11.65 lidocaine transdermal patch (LIDODERM) 5 % Apply externally Patch 1 Patch by Topical route ASDIRECTED. 12 hours on and 12 hours off magnesium oxide (MAG-OX) 400 MG Oral Tab Take 1 Tab by mouth DAILY. metoprolol (LOPRESSOR) 100 MG Oral Tab TAKE 1 TABLET BY MOUTH TWICE A DAY ondansetron (ZOFRAN ODT) 8 MG Oral TABLET DISPERSIBLE Take 1 Tab by mouth EVERY EIGHT HOURS NEEDED (nausea / vomit). pravastatin (PRAVACHOL) 10 MG Oral Tab TAKE 1 TAB BY MOUTH EVERY DAY AT BEDTIME prochlorperazine (COMPAZINE) 10 MG Oral Tab Take 1 Tab by mouth EVERY SIX HOURS NEEDED (for nausea). Propylene Glycol (SYSTANE BALANCE OP) Place 1 Drop in both eyes THREE TIMES DAILY. tramadol (ULTRAM) 50 MG Oral Tab Take 1 Tab by mouth EVERY EIGHT HOURS NEEDED (for hip pain). Max Daily Amount: 150 mg. triamcinolone (KENALOG) 0.1 % Apply externally Ointment by Topical route TWO TIMES DAILY NEEDED. No current facility-administered medications for this visit. Allergies Allergen Reactions Bactrim Ds Other Renal insuff worse, with hyperkalemia. Codeine Hives Gabapentin Unknown Reaction Hydromorphone Hives Lisinopril Other cough Losartan Other Hives, cough, facial swelling, feet/hand swelling Morphine Hives Penicillins Anaphylaxis Percocet [Oxycodone-Acetaminophen] Other Unknown Reglan Unknown Reaction Rifaximin Hives Sulindac Rash Xifaxan Hives Social History Socioeconomic History Marital status: Spouse name: Not on file Number of children: Not on file Years of education: Not on file Highest education level: Not on file Occupational History Not on file Social Needs Financial resource strain: Not on file Food insecurity: Worry: Not on file Inability: Not on file Transportation needs: Medical: Not on file Non-medical: Not on file Tobacco Use Smoking status: Never Smoker Smokeless tobacco: Never Used Substance and Sexual Activity Alcohol use: No Drug use: No Sexual activity: Not on file Lifestyle Physical activity: Days per week: Not on file Minutes per session: Not on file Stress: Not on file Relationships Social connections: Talks on phone: Not on file Gets together: Not on file Attends yazdanism service: Not on file Active member of club or organization: Not on file Attends meetings of clubs or organizations: Not on file Relationship status: Not on file Intimate partner violence: Fear of current or ex partner: Not on file Emotionally abused: Not on file Physically abused: Not on file Forced sexual activity: Not on file Other Topics Concern Not on file Social History Narrative Not on file REVIEW OF SYSTEMS: ROS see history of present illness otherwise noncontributory. Objective PHYSICAL EXAM: VITALS: BP 142/60 (BP Location: Left arm, Patient Position: Sitting) | Pulse 80 | Ht 5' (1.524 m) | Wt 145 lb 4.8 oz (65.9 kg) | BMI 28.38 kg/m Body mass index is 28.38 kg/m. Physical Exam Alert, oriented, in no acute distress. Vitals as above. HEENT: Normocephalic, atraumatic. YASIR, EOMI. Mouth and ears unremarkable. Neck: No palpable lymphadenopathy in the submandibular, submental, anterior cervical, posterior cervical, or occipital chains, nor in the supraclavicular spaces. No JVD, thyromegaly. LUNGS: clear. HEART: Regular rate and rhythm. ABDOMEN: positive bowel sounds, soft, nontender, no hepatosplenomegaly, masses or bruits. EXTREMITIES: no cyanosis, clubbing, or edema. Walks with a walker, right hip flexors seem slightly weaker than left. ASSESSMENT / IMPRESSION: ICD-9-CM ICD-10-CM 1. Essential hypertensioncontrolled 401.9 I10 2. Arteriovenous fistula stenosis, initial encounter (HCC)stable and functional. Using it in dialysis 996.74 T82.858A 3. Type 2 diabetes mellitus with stage 4 chronic kidney disease, with long-term current use of insulin (HCC)stable, managed with Dr. Galvan 250.40 E11.22 585.4 N18.4 V58.67 Z79.4 4. Stage 5 chronic kidney disease on chronic dialysis ([facility])no problems with dialysis 585.6 N18.6 V45.11 Z99.2 5. Degeneration of lumbar or lumbosacral intervertebral disc status post spinal surgery, told her tocontinue doing exercise regimen as prescribed by physical therapist 722.52 M51.37 6. Hypercholesteremiatreated 272.0 E78.00 7. Paroxysmal atrial fibrillation (HCC)stable 427.31 I48.0 She will be spending her winter in [place]. She will return here in the spring. Patient Instructions Continue same medicines follow up spring 2019 Author: Kristofer Snell MD 07/26/2019 09:52 documented in this encounter Plan of Treatment Health Maintenance Due Date Last Done Comments MEDICARE ANNUAL WELLNESS 1940 VISIT OSTEOPOROSIS SCREENING 2006 PNEUMOCOCCAL 65+YRS (2 of 2 07/10/2017 07/10/2016, 07/10/2016, - PCV13) 08/04/2006 INFLUENZA VACCINE (#1) 2019 05/15/2018, 06/14/2017, 08/14/2016 HEMOGLOBIN A1C 12/28/2019 06/28/2019, 02/01/2019, 06/29/2018, Additional history exists FOOT EXAM 01/21/2020 01/20/2019, 01/20/2019, 04/13/2018, Additional history exists DEPRESSION SCREENING 02/24/2020 02/23/2019, 02/23/2019 FALL RISK ASSESSMENT 03/05/2020 03/05/2019, 03/05/2019 Diabetic Eye Exam 04/15/2020 04/15/2019, 04/15/2019, 04/09/2018, Additional history exists ZOSTER IMMUNIZATION SERIES Completed 04/12/2019, 02/03/2019, 10/17/2014 HPV IMMUNIZATION SERIES Aged Out No longer eligible based on patient's age to complete this topic MENINGOCOCCAL VACCINE IMM Aged Out No longer eligible based on patient's age to complete this topic documented as of this encounter Goals Goal Patient Goal Associated Recent Patient-Stated? Author Type Problems Progress Blood Pressure Blood Pressure 142/60 No Alis, < 140/90 (07/26/2019 MD Kristofer 9:24 AM EST) Note: This is an individualized treatment (blood pressure) goal for Lorena Wilkes: Displayed above (on the left) is your goal for blood pressure control. Your most recent blood pressure is also shown above, on the right. You should try to achieve blood pressures that are lower than your goal listed above (on the left). Glycohemoglobin A1c < 7.0 Diabetes No Kristofer Snell MD Note: This is an individualized treatment (diabetes control, HgbA1C) goal for Lorena Wilkes: Displayed above is your progress towards your HgbA1C goal. Your goal is shown above (on the left); your most recent HgbA1C is shown on the right. Note that lower numbers are better. Weight loss vs. 18 mo Lifestyle 14.7 (07/26/2019 9:24 AM No Kristofer Senll MD max (lbs) >= 10 EST) Note: This is an individualized lifestyle goal for Lorena Wilkes: Your body mass index (BMI) is more than 30. You should lose weight. A reasonable starting goal is to lose 10 pounds. Displayed above is how many pounds you have lost thus far towards your 10 pound weight loss goal. Keep immunizations current Lifestyle No Kristofer Snell MD Note: This is an individualized lifestyle goal for Lorena Wilkes: Please be sure to keep up-to-date on recommended immunizations. For example, this would include a yearly influenza vaccine. Immunization status can be seen by looking at the Health Maintenance sections of your [facility], Plan of Care, and any After Visit Summaries. Take all prescribed medications as directed Self-management Kristofer Harley MD Note: This is an individualized self-management goal for Lorena Wilkes: Please take all prescribed medications as directed. 1. Do not skip doses. If you cannot afford your medications, talk with your doctor. 2. Use a pill reminder system such as a pill box if needed. Your pharmacist can help you with this. 3. Contact your Pharmacy 5 days before your medication runs out. If you cannot take your medications for any reasons, talk with your doctor. 4. Please bring all of your medication bottles and inhalers (or a list of all your medications/inhalers) with you to every visit. Potential barriers to meeting all of your care plan goals will continue to be addressed on an ongoing basis. 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
--- OUTSIDE RECORDS SUMMARY | 2019-07-31 12:28 | XMS REPORT | Summary of Care ---
:1940 Author Organization [facility] Address [address] 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 Reason for Referral MRI/CAT/PET Scan (Routine) Status Reason Specialty Diagnoses / Procedures Referred By Referred To Contact Contact Authorized Diagnoses Acquired arteriovenous fistula (HCC) ESRD on dialysis (HCC) Ronen Murdock, Procedures VL UPPER EXTREMITY DUPLEX AVFISTULA RIGHT BUS ESCORT [address] [facility] [place] [address] Reason for Visit Reason Comments Other Encounter Details Date Type Department Care Team Description 06/22/2019 Office Visit Ronen Sequeira, Acquired arteriovenous fistula (HCC) (Primary Dx); Surgery BUS ESCORT ESRD on dialysis (HCC) [address] [place] [address] [place] [address] Allergies Active Allergy Reactions Severity Noted Date [...] as of this encounter (statuses as of 06/22/2019) Medications Medication Sig Dispensed Refills Start Date [...] current 301-350 7u, >350 use of insulin ([facility]) call MD Lancets Does not apply by Does not apply 400 Each 1 01/20/2018 Active Misc route FOUR TIMES DAILY. Brand: One touch verio flex, Dx: E11.65 Glucose Blood In Vitro 1 Strip by In 400 Strip 1 01/20/2018 Active Strip Vitro route FOUR TIMES DAILY. Brand: One Touch verio flex, Dx: E11.65 Aspirin 81 MG Oral Tab Take by mouth 0 Active EC DAILY. HydrALAZINE HCl 100 MG Take by mouth 0 Active Oral Tab THREE TIMES DAILY. Insulin Pen Needle (PEN 1 Device by Does 300 Each 3 03/27/2018 Active NEEDLES) 32G X 4 MM not apply route Does not apply Misc DIRECTED. Use 5 times a day PRN, Brand: BD Ultra fine, Dx: E11.65 Coenzyme Q10 (CO Q 10 Take 400 mg by 0 Active PO) mouth DAILY. Insulin Glargine Inject 12 Units 135 mL 3 05/07/2018 Active (LANTUS SOLOSTAR) 100 beneath the skin UNIT/ML Subcutaneous TWICE DAILY. Solution Pen-injector Additional information Patient taking differently: 14 Units Subcutaneous QAM, Reported on 03/05/2019 9:12 AM doxazosin (CARDURA) 4 MG Oral Take 1 Tab by mouth EVERY 90 Tab 1 2017 Active Tab BEDTIME. Additional information Patient taking differently: 4 mg Oral BID, Reported on 04/12/2019 2:38 PM magnesium oxide (MAG-OX) 400 Take 1 Tab by mouth TWICE 180 Tab 1 2017 Active MG Oral Tab DAILY. Additional information Patient taking differently: 400 mg Oral DAILY, Reported on 01/28/2019 2:23 PM fluticasone (FLONASE) 50 Hoople 2 Sprays in nose 3 Bottle 2 12/07/2018 Active MCG/ACT Nasal Suspension DAILY. metoprolol (LOPRESSOR) 100 MG Take 1 Tab by mouth 180 Tab 3 12/21/2018 Active Oral Tab TWICE DAILY. bumetanide (BUMEX) 1 MG Oral Take [...] Oral Tab EVERY BEDTIME NEEDED (for sleep). esomeprazole magnesium Take 40 mg by mouth 180 Cap 3 02/03/2019 Active (NEXIUM) 40 MG Oral CAPSULE TWICE DAILY. DELAYED RELEASE ipratropium-albuterol Take 2 Puffs by 3 Inhaler [...] EVERY SIX HOURS NEEDED (for nausea). B Qpukufo-P-Jerls Acid (DURGA Take by mouth DAILY. 0 [...] on externally Patch and 12 hours off HYDROcodone-acetaminophen Take 1 Tab by mouth 60 Tab 0 05/31/2019 Active (NORCO) 5-325 MG Oral Tab EVERY SIX HOURS NEEDED (back pain). Max Daily Amount: 4 Tabs. cloNIDine (CATAPRES-TTS) 0.3 PLACE 1 PATCH ONTO SKIN 12 Patch 3 06/14/2019 Active MG/24HR Transdermal PATCH EVERY 7 DAYS. WEEKLYIndications: Essential hypertension documented as of this encounter (statuses as of 06/22/2019) Active Problems Problem Noted Date Arteriovenous fistula [...] as of this encounter (statuses as of 06/22/2019) Resolved Problems Problem Noted Date Resolved Date Long-term (current) use of anticoagulants 07/01/2017 09/12/2017 Overview: 09/04/17 warfarin d/c'd [facility] Rodrigo ESTEVEZ Managed by: Sawyer SHEN Referring Provider: Thierry Indication: PAF Target Range: 2.0-3.0 Duration: Indefinite Additional factors influencing anticoagulation: CHADS2 score of 3 for age > 75, hypertension, diabetes [id number] score of 5 for age > 75, hypertension, diabetes, female gender Aspirin increases bleeding risk Esomeprazole increases warfarin level Initial Referral: 07/01/17 Initial ACS orders: 07/02/17 Diverticulosis 02/23/2019 Diabetes mellitus 12/19/2017 Cervical spondylosis without myelopathy 03/20/2017 Dementia 03/20/2017 Sdoip-wm-lqibffp kidney injury 02/16/2019 Renal failure 02/16/2019 documented as of this encounter (statuses as of 06/22/2019) Immunizations Name Administration Dates Next Due Influenza Vaccine High Dose 05/15/2018, 06/14/2017, 08/14/2016 [...] Sign Reading Time Taken Comments Blood Pressure 122/70 06/22/2019 1:17 PM EDT Pulse 72 06/22/2019 1:17 PM EDT Temperature - - Respiratory Rate - - Oxygen Saturation - - Inhaled Oxygen Concentration - - Weight 63 kg (139 lb) 06/22/2019 1:17 PM EDT Height 152.4 cm (5') 06/22/2019 1:17 PM EDT Body Mass Index 27.15 06/22/2019 1:17 PM EDT documented in this encounter Progress Notes Ronen Murdock NP - 06/22/2019 1:00 PM EDT PATIENT: Lorena Wilkes : 1940 DATE OF SERVICE: 06/22/2019 REFERRING PRACTITIONER: Kristofer Snell PRIMARY CARE PROVIDER: Kristofer Snell Subjective CHIEF COMPLAINT: Chief Complaint Patient presents with Other Subjective HISTORY OF PRESENT ILLNESS: Lorena Wilkes is a 79-y.o. female who in 3 month follow up status post: PROCEDURE: 1. Right upper extremity fistulogram and central venogram. 2. Percutaneous transluminal balloon angioplasty of right arm brachiocephalic arteriovenous fistula proximal venous outflow stenosis with 9 mm x 60 mm Lutonix drug-coated balloon. 3. Percutaneous transluminal balloon angioplasty of right arm brachiocephalic arteriovenous fistula, proximal venous outflow stenosis with 8 mm x 20 mm cutting balloon. 4. Percutaneous transluminal balloon angioplasty of right arm brachiocephalic arteriovenous fistula, proximal venous outflow stenosis with 10 mm x 40 mm [place] balloon. 5. Ultrasound-guided access of right arm brachiocephalic arteriovenous fistula. 6. Fluoroscopic guidance, radiological supervision and interpretation of right arm fistulogram, central venogram with intervention on 02/01/[address] Delgado. Reports dialysis going well, no clots, no bleeding during, or prolonged bleeding after dialysis. Shedenies any pain, numbness or tingling of right hand or fingers. Patient currently having dialysis , at [facility] in [place]. She does spend hernandez with family in [place] and has dialysis there. Reports she has been in the hospital in [place] and then [facility] after back surgery over the summer. She is now doing better, ambulating with rolling walker. She denies any chest pain, shortness of breath, or recent fever or chills. PREVIOUS DIAGNOSTICS: 07/21/2018 IMPRESSIONS: 78 year old female with right upper arm brachialcephalic arteriovenous fistula follow up exam, states no problems. Duplex imaging of the right uppper arm brachialcephalic arteriovenous fistula shows no evidence for narrowing or increased velocities. There is a small complex fluid filled collection in the distal medial upper arm without vascularity mostly likly a hematoma measuring approx: 2.7 x 1.4 x 1.2cms. Anas: 413/206cms AVF: Prx: 155/48cms P/Md: 98/65cms Mid: 107/46cms M/Dst: 147/68cms Dst: 106/54cms Volume Flow: 2500 up to 3500ml.min Brachial Artery: Prx: 243/121cms Mid: 273/148cms Dst: 242/107cms Vein: Dst: .69 x .83cms Mid: 1.3 x 1.4cm Prx: 1.3 x 1.4cms Patent right upper arm brachialcephalic arteriovenous fistula. No change from previous exam of 03/2018. 04/07/2018 IMPRESSIONS: 78 year old female with placement of a right upper arm brachialcephalic arterior venousfistula in Oct 2017, at another institution, wants to establish with clincal area closer to home, states no problems with dialysis. Duplex imaging of the right upper arm brachialcephalic arteriorvenous fistula shows good patency through out. There are some elevated velocities visualized at the anastomosis at apprx: 430/ 227 up to 505/260cms this may be due to small size of anastomosis. AVF Prx: 223/90cms P/Md: 100/57cms Mid: 133/95cms M/Dst: 107/49cms Dst: 143/71cms Vein Size: Prx: 1.2 x 1.7cms Md: .98 x 1.3cms Dst: .70 x .80cms Right Brachial Artery Prx: 208/104cms Mid: 187/100cms Dst: 225/123cms Patent right upper arm brachialcephalic arteriovenous fistula with some elevated velocities at the anastomosis which may be due to small size. There is no previous exam available for comparison, this is an initial baseline exam . Past Medical History: Diagnosis Date Vfwks-ts-fpadfii kidney injury (HCC) Allergic rhinitis Back pain Cervical spondylosis with myelopathy Degeneration of lumbar or lumbosacral intervertebral disc Dementia (HCC) Diabetes mellitus (HCC) Diverticulosis Dry eyes Esophageal reflux HTN (hypertension) Hypercholesteremia Hypertension Hypomagnesemia Nausea Normochromic anemia Paroxysmal atrial fibrillation (HCC) 05/2017 Renal failure Past Surgical History: Procedure Laterality Date ARTHROSCOPY KNEE Right 2005 CARPAL TUNNEL RELEASE Left 07/2007 CARPAL TUNNEL RELEASE Right 05/2008 CATARACT EXTRACTION NEC Bilateral 04/2008 CHOLECYSTECTOMY 1982 HYSTERECTOMY, ABDOMINAL 1984 LUMBAR SPINAL FUSION mult lumbar surgies IN LAMINECTOMY,>2 SGMT,LUMBAR / IN OSTEOTOMY CERV SP,ANT,REMV DISK 2000 IN RELEASE TIB/FIB/ANKLE FLEX TENDON,EA Right 04/25/2009 peroneal tendon repair IN REMOVAL GALLBLADDER SHOULDER ARTHROSCOPY Left 05/21/2017 reverse shoulder arthroplasty TOTAL KNEE REPLACEMENT Right 2003, 2009 TOTAL KNEE REPLACEMENT Left 2003 Current Outpatient Medications Medication Sig amLodipine (NORVASC) 10 MG Oral Tab Take 1.5 Tabs by mouth DAILY. ( Patient taking differently: Take 10 mg by mouth DAILY.) Aspirin 81 MG Oral Tab EC Take by mouth DAILY. B Ktxofqg-O-Capau Acid (DURGA CAPS) 1 MG Oral Cap [...] (NEXIUM) 40 MG Oral CAPSULE DELAYED RELEASE Take 40 mg by mouth TWICE DAILY. fluticasone (FLONASE) 50 MCG/ACT Nasal Suspension Hoople 2 Sprays in nose DAILY. fluticasone (FLOVENT HFA) 220 MCG/ACT Inhalation Aerosol Take 2 Puffs by inhalation TWICE DAILY. Glucose Blood In Vitro Strip 1 Strip by In Vitro route FOUR TIMES DAILY. Brand: One Touch verio flex, Dx: E11.65 HydrALAZINE HCl 100 MG [...] 100 UNIT/ML Subcutaneous Solution Pen- injector Inject 12 Units beneath the skin TWICE DAILY. (Patient taking differently: Inject 14 Units beneath the skin EVERY MORNING.) Insulin Lispro (HUMALOG KWIKPEN) 100 UNIT/ML Subcutaneous Solution Pen- injector Inject 1-7 Units beneath the skin THREE TIMES DAILY BEFORE MEALS. 150- 200 1u, 201-250 3u, 251-300 5u, 301-350 7u, >350 call MD Insulin Pen Needle (PEN NEEDLES) 32G X [...] Oral Tab Take 1 Tab by mouth TWICE DAILY. (Patient taking differently: Take 400 mg by mouth DAILY.) metoprolol (LOPRESSOR) 100 MG Oral Tab Take 1 Tab by mouth TWICE DAILY. ondansetron (ZOFRAN ODT) 8 MG Oral TABLET [...] Reaction Rifaximin Hives Sulindac Rash Xifaxan Hives Objective PHYSICAL EXAMINATION: VITALS: BP 122/70 (BP Location: Left arm, Patient Position: Sitting) | Pulse 72 | Ht 5' (1.524 m) | Wt 139 lb (63 kg) | BMI 27.15 kg/m GENERAL: awake, alert, oriented. NECK: Supple ABDOMEN: Soft, non-tender, non-distended EXTREMITIES: Right upper arm AV fistula with good thrill and bruit NEUROLOGICAL: Oriented X 3, no focal deficits noted FACIAL DROOP: None noted PULSES: left radial +2 normal and right radial +2 normal. DIAGNOSTICS: 06/22/2019 IMPRESSIONS: Patient with right upper brachialcephalic arteriovenous fistula, for follow up exam, 1 year follow up exam.. Duplex imaging of the right upper arm brachialcephalicarteriovenous fistula shows good patency without evidence for narrowing or increased velocities, the previously described hematoma was not visualized on today's exam. Anas: 288/148cms AVF Prx: 138/45cms P/Md 69/26cms Mid 51/39cms M/Dst 81/57cms Dst 188/96cms Vein: Prx: 1.8 x 1.9cms Mid: 1.8 x 2.0cms Dst: .88 x 1.2cms Volume Flow: 1700ml/min R Brachial Artery Prx: 288/148cms Mid: 315/152cms Dst: 339/122cms Patent right upper arm brachialcephalic arterivenous fistula without evidence for narrowing or elevated velocities. There has been little change since previous exam of 07/21/2018. IMPRESSION AND PLAN: Lorena Wilkes 78 year old female end stage renal failure on hemodialysis via right arm brachiocephalic arteriovenous fistula created in 10/2017 in [place]. She is 5 months status post fistulagram andangioplasty right upper arm AV fistula. Today's duplex indicates fistula is widely patient without narrowing or elevated velocities. ICD-9-CM ICD-10-CM 1. Acquired arteriovenous fistula (HCC) 447.0 I77.0 2. ESRD on dialysis (HCC) 585.6 N18.6 V45.11 Z99.2 Continue observation at this time. No intervention necessary. Patient reports she will have a fistula duplex while in [place] over the winter. She will follow up here in the Spring when she returns. Follow up with Vascular Surgery in 6 months for AV fistula duplex or sooner with problems. Author: Ronen Murdock NP 06/22/2019 14:02 documented in this encounter Plan of Treatment Date Type Specialty Care Team Description 07/26/2019 Office Visit Internal Medicine Kristofer Snell MD [address] [place] [address] [phone] Name Type Priority Associated Diagnoses Order Schedule VL UPPER EXTREMITY Imaging Routine Acquired arteriovenous Expected: DUPLEX AVFISTULA RIGHT fistula (HCC) 06/22/2019, Expires: ESRD on dialysis ([facility]) 08/20/2020 Health Maintenance Due Date Last Done Comments MEDICARE ANNUAL WELLNESS 1940 VISIT OSTEOPOROSIS SCREENING 2006 PNEUMOCOCCAL 65+YRS (2 of 2 07/10/2017 07/10/2016, 07/10/2016, - PCV13) 08/04/2006 INFLUENZA VACCINE (#1) 2019 05/15/2018, 06/14/2017, 08/14/2016 HEMOGLOBIN A1C 08/04/2019 02/01/2019, 06/29/2018, 01/07/2018, Additional history exists FOOT EXAM 01/21/2020 01/20/2019, 01/20/2019, 04/13/2018, Additional history exists DEPRESSION SCREENING 02/24/2020 02/23/2019, 02/23/2019 FALL RISK ASSESSMENT 03/05/2020 03/05/2019, 03/05/2019 Diabetic Eye Exam 04/15/2021 04/15/2019, 04/15/2019, 04/09/2018, Additional history exists ZOSTER [...] Type Problems Progress Blood Pressure Blood Pressure 122/70 No Alis, < 140/90 (06/22/2019 MD Kristofer 1:17 PM EDT) Note: This is an individualized treatment (blood [...] better. Weight loss vs. 18 mo Lifestyle 21 (06/22/2019 1:17 PM EDT) No Kristofer Snell MD max (lbs) >= 10 Note: This is an individualized lifestyle goal for Lorena Wilkes: Your body mass index (BMI) is more than 30. You should lose weight. A reasonable starting goal is to lose 10 pounds. Displayed above is how many pounds you have lost thus far towards your 10 pound weight loss goal. Keep immunizations current Lifestyle Kristofer Harley MD Note: This is an individualized lifestyle [...] filedocumented in this encounter Visit Diagnoses Diagnosis Acquired arteriovenous fistula (HCC) - Primary Arteriovenous fistula, acquired ESRD on dialysis (HCC) End stage renal disease documented in this encounter Insurance Payer Benefit Plan / Subscriber ID Effective Phone Address Type Group Dates MEDICARE MEDICARE PART A xxxxxxxxxxx 2003-Prese Medicare & B nt COMMERCIAL COMMERCIAL xxxxxxxxx Effective for Commercial GENERIC GENERIC PLAN all dates Guarantor Name Account Type Relation to Date of Phone Billing Patient Address Lorena Wilkes Personal/Family [address] [facility] [place] [address] documented as of this encounter"
--- OUTSIDE RECORDS SUMMARY | 2019-07-31 12:28 | XMS REPORT | Continuity of Care Document ---
:1940 External Reference #:[id number] Author Name Sita Vaca M.D. (transmitted by agent of provider Deedee Adorno) Address [address] 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 as needed pain for use after surgery Aspirin 1 by mouth every 90tabs Gamal Wallace, 09/04/[address] day DO FACC Lidoderm 1 apply to Unknown 05/07/2017 5% Patches affected area 12 hours on, 12 hours off Magnesium-Oxide 1 by mouth once Unknown 01/26/2016 400mg daily Tablets Cortizone-10 apply to area for Unknown 01/26/2016 1% Ointment rash from clonidine patch Triamcinolone Ointment apply as directed Unknown 01/26/2016 for rash on legs 0.1% Cream Systane one drop in each Unknown 01/26/2016 0.4-0.3% Solution eye 3 times a day Humalog as directed at Unknown 01/26/2016 lunch and suppertime Lantus 14 units in am Unknown 01/26/2016 Tramadol HCL 1-2 tablets by Unknown 50mg [...] Inj, Regadenoson, 0.1 MG Gamal Wallace, DO [facility] 12/04/2016 Injection Technetium TC 99M Gamal Wallace, DO [facility] 12/04/2016 Tetrofosmin, Per Unit Dose Up To [...] Given 05/23/2015 Fluvirin Im 3Yrs And Older [address] Given 06/15/2014 Influenza Virus 3Yrs & Over [address] Given 03/12/2006 Pneumonia Vaccine Vital Signs Date Vital Result Comment 07/29/2019 10:52am Height 70 inches 5'10" Heart Rate 76 /min Respiratory Rate 18 /min Body Temperature 98.1 F Pain Level 5 07/14/2019 11:30am Height 70 inches 5'10" Weight 140.00 lb Heart Rate 76 /min BP Systolic 142 mmHg BP Diastolic 66 mmHg BMI (Body Mass Index) 20.1 kg/m2 Results Test Acquired Date Facility Test Result H/L Range Note Laboratory test 07/27/2019 [facility] Point of Care 152 mg/dL High 70-100 [address] [place], [place] [id number] [phone] Laboratory test 07/27/2019 [facility] Point of Care 192 mg/dL High 70-100 [address] [place], [place] [id number] [phone] Lean Manager: [id number] Lean Manager: [id number] Procedures Date Code Description Status 07/08/2019 30896 Inject/Drain Joint/Bursa Major W/O US Completed 04/15/2019 479444615 Diabetic Retinal Eye Exam Completed 03/31/2019 67140 EKG Tracing & Interpretation Completed 03/24/2019 32456 Inject Tendon Sheath Or Ligament Aponeurosis Eg Completed Plantar Fascia 03/24/2019 53150 Inject Tendon Sheath Or Ligament Aponeurosis Eg Completed Plantar Fascia Medical Devices Description No Information Available Encounters Type Date Location Provider Dx Diagnosis Office Visit 07/14/2019 [facility] Sita M65.832 Other synovitis and 11:30a at [place] V[place] M.D. tenosynovitis, left forearm Office Visit 07/08/2019 [facility] Marshall Kaur, M19.011 Primary 1:15p at [facility] osteoarthritis, right shoulder Office Visit 03/31/2019 [facility] Gamal Church Z01.810 Encounter for 2:40p Of Katie Wallace DO [facility] preprocedural cardiovascular examination N18.6 End stage renal disease D64.9 Anemia, unspecified E11.69 Type 2 diabetes mellitus with other specified complication I10 Essential (primary) hypertension Office Visit 03/30/2019 [facility] G47.33 Obstructive sleep 11:00a [facility], RN, apnea (adult) [facility]- (pediatric) Office Visit 03/24/2019 [facility] M65.832 Other synovitis 10:30a [facility] tenosynovitis, left forearm M70.22 Olecranon bursitis, left elbow M65.311 Trigger thumb, right thumb Assessments Date Code Description Provider 07/14/2019 M65.832 Other synovitis and tenosynovitis, Sita Vaca M.D. left forearm 07/08/2019 M19.011 Primary osteoarthritis, right Marshall Kaur MD shoulder 03/31/2019 Z01.810 Encounter for preprocedural Gamal Wallace DO [facility] cardiovascular examination 03/31/2019 N18.6 End stage renal disease Gamal Wallace, DO [facility] 03/31/2019 D64.9 Anemia, unspecified Gamal Wallace, DO FACC 03/31/2019 E11.69 Type 2 diabetes mellitus with other Gamal Wallace, DO FAC specified complication 03/31/2019 I10 Essential (primary) hypertension Gamal Wallace, DO FACC 03/30/2019 G47.33 Obstructive sleep apnea (adult) [facility] Mason DNP, RN, (pediatric) [facility] 03/24/2019 M65.832 Other synovitis and tenosynovitis, Sita Vaca M.D. left forearm 03/24/2019 M70.22 Olecranon bursitis, left elbow Sita Vaca M.D. 03/24/2019 M65.311 Trigger thumb, right thumb Sita Vaca M.D. Plan of Treatment Future Appointment(s):08/05/2019 11:00 am - ZECHARIAH Mahmood at [facility]03/29/2020 11:15 am - Heide Mason DNP, RN, TUBE BUFFER-[facility] at [facility] Functional Status Description No Information Available Mental Status Description No Information Available Referrals Description No Information Available
[2019-07-31] MEDS ORDERED: Iodixanol* (CONTRAST) 320 MG/ML 100 ML SDV IV ONE (13:53)
[2019-07-31 16:21] VITALS: BP 173/53
== END 2019-07-31 15:02 | disposition home or self-care (01) ==
LOC: ED 10:34
DX: R10.31 Right lower quadrant pain (principal); K44.9 Diaphragmatic hernia without obstruction or gangrene; E11.22 Type 2 diabetes mellitus with diabetic chronic kidney disease; I12.0 Hypertensive chronic kidney disease with stage 5 chronic kidney disease or end stage renal disease; N18.6 End stage renal disease; D63.1 Anemia in chronic kidney disease; E78.00 Pure hypercholesterolemia, unspecified; K21.9 Gastro-esophageal reflux disease without esophagitis; Z99.2 Dependence on renal dialysis; Z79.4 Long term (current) use of insulin; Z79.899 Other long term (current) drug therapy; Z90.49 Acquired absence of other specified parts of digestive tract; Z96.653 Presence of artificial knee joint, bilateral; Z90.710 Acquired absence of both cervix and uterus; Z88.1 Allergy status to other antibiotic agents; Z88.5 Allergy status to narcotic agent; Z88.0 Allergy status to penicillin; Z88.2 Allergy status to sulfonamides; Z88.8 Allergy status to other drugs, medicaments and biological substances
CPT/HCPCS: 36415; 74177; 80053; 81003; 81015; 83605; 83690; 85025; 87086; 96361; 96374; 99284; A9270-GY; J2405; Q9967